=== PATIENT | female | born 1970 | race Caucasian/White ===

== ENCOUNTER 2017-10-05 07:11 | Day surgery (SDC) | payer BC ==
[2017-10-01 16:33] LABS: Absolute Lymphocytes (CBC) 1.5 K/uL (0.7-4.9); Absolute Monocytes 0.4 K/uL (0.1-1.3); Absolute Neutrophil 4.7 K/uL (1.8-8.0); Basophils % 0.9 % (0-1.3); Eosinophils % 2.1 % (0-4.4); Hematocrit 36.1 % (36.0-45.0); Lymphocytes % 21.9 % (15.3-44.8); MCH 23.9 pg (27.0-35.0); MCV 74.6 fL (80-100); Monocytes % 6.4 % (3.3-12.3); RBC Red Blood Cell Count 4.83 M/uL (3.86-4.86)
--- NOTE | 2017-10-01 16:43 | RAD REPORT ---
EXAM DESCRIPTION: RAD - Chest Pa And Lat (2 Views) - 10/01/2017 4:31 pm CLINICAL HISTORY: Preop chest, pending cholecystectomy, abdominal and lower chest pain COMPARISON: May 2017 TECHNIQUE: PA and lateral views of the chest were obtained. FINDINGS: The lungs are clear. Lung markings are similar to comparison. Trachea is midline. Heart s ize is normal and central vasculature is within normal limits. No pleural effusion or pneumothorax s een. No acute bony finding noted. No aortic abnormality. IMPRESSION: No acute cardiopulmonary process. No significant interval change.
[2017-10-01 16:46] LABS: Potassium 3.9 mmol/L (3.5-5.1)
[2017-10-01 16:48] LABS: Albumin 3.9 g/dL (3.4-5.0); Bilirubin Direct 0.1 mg/dL (0-0.2); Bilirubin Total 0.4 mg/dL (0.2-1.0); Protein, Total 8.2 g/dL (6.4-8.2)
--- OUTSIDE RECORDS SUMMARY | 2017-10-05 07:15 | XMS REPORT ---
:1970 Author Organization eClinicalWorks Care Team Providers Name Role Phone Mynor Hummel Provider Role Unavailable Allergies No Known Allergies Problems Problem Type Condition Code Onset Dates Condition Status Problem Recurrent major depressive disorder, F33.41 Active in partial remission Problem Elevated blood pressure reading R03.0 Active without diagnosis of hypertension Problem Acquired hypothyroidism E03.9 Active Problem Glaucoma of both eyes, unspecified H40.9 Active glaucoma type Problem Body mass index (BMI) of 40.0-44.9 Z68.41 Active in adult Problem Sleep disturbance G47.9 Active Medications No Known Medications Results No Known Results Summary Purpose eClinicalWorks Submission
--- OUTSIDE RECORDS SUMMARY | 2017-10-05 07:16 | XMS REPORT ---
:1970 Author Organization eClinicalWorks Care Team Providers Name Role Phone Amara Tracy Provider Role Unavailable Allergies No Known Allergies [...]
--- OUTSIDE RECORDS SUMMARY | 2017-10-05 07:16 | XMS REPORT ---
:1970 Author Organization eClinicalWorks Care Team Providers Name Role Phone Mynor Hummel Provider Role Unavailable Allergies No Known Allergies Problems Problem Type Condition Code Onset Dates Condition Status Assessment Recurrent major depressive disorder, F33.41 Active in partial remission Assessment Body mass index (BMI) of 40.0-44.9 Z68.41 Active in adult Assessment Acquired hypothyroidism E03.9 Active Assessment Encounter for general adult medical Z00.00 Active examination without abnormal findings Problem Recurrent major depressive disorder, F33.41 Active in partial remission Problem Elevated blood pressure reading R03.0 Active without diagnosis of hypertension Problem Acquired hypothyroidism E03.9 Active Problem Glaucoma of both eyes, unspecified H40.9 Active glaucoma type Assessment Elevated blood pressure reading R03.0 Active without diagnosis of hypertension Problem Body mass index (BMI) of 40.0-44.9 Z68.41 Active in adult Problem Sleep disturbance G47.9 Active Medications Medication Code Code Instructions Start End Status Dosage System Date Date Lumigan [facility] 97971224007 0.01 % Active 1 drop Ophthalmic Once into a day affected eye in the evening Combigan [facility] 38155023017 0.2-0.5 % Active 1 drop Ophthalmic into Twice a day affected eye BuPROPion HCl [facility] 13568060044 75 MG Orally Active 1 tablet Once a day Estradiol [facility] 54471676100 0.075 MG/24HR Active 1 patch to Transdermal skin Levothyroxine [facility] [address]-97 200 MCG Orally Active TAKE 1/2 Sodium Once a day TABLET BY MOUTH EVERY DAY Results No Known Results Summary Purpose eClinicalWorks Submission
--- OUTSIDE RECORDS SUMMARY | 2017-10-05 07:16 | XMS REPORT ---
:1970 Author Organization eClinicalWorks Care Team Providers Name Role Phone Amara Tracy Provider Role Unavailable Allergies, Adverse Reactions, Alerts Substance Reaction Event Type N.K.D.A. Info Not Available Non Drug Allergy Problems Problem Type Condition Code Onset Dates Condition Status Assessment Recurrent major depressive F33.41 Active disorder, in partial remission Assessment Wrist pain, right M25.531 Active Assessment Acquired hypothyroidism E03.9 Active Assessment Elevated blood pressure reading R03.0 Active without diagnosis of hypertension Problem Recurrent major depressive F33.41 Active disorder, in partial remission Problem Elevated blood pressure reading R03.0 Active without diagnosis of hypertension Problem Acquired hypothyroidism E03.9 Active Problem Glaucoma of both eyes, unspecified H40.9 Active glaucoma type Assessment Elevated liver function tests R79.89 Active Problem Body mass index (BMI) of 40.0-44.9 Z68.41 Active in adult Problem Sleep disturbance G47.9 Active Medications Medication Code Code Instructions Start End Status Dosage System Date Date Combigan [facility] 23987187903 0.2-0.5 % Active 1 drop into Ophthalmic affected Twice a day eye Lumigan [facility] 53265688436 0.01 % Active 1 drop into Ophthalmic Once affected a day eye in the evening Estradiol ND 19591673672 0.075 MG/24HR Active 1 patch to Transdermal skin BuPROPion HCl [facility] 57259366720 75 MG Orally Active 1 tablet Once a day Levothyroxine [facility] 00514919596 125 MCG Orally Active 1 tablet on Sodium Once a day an empty stomach in the morning Results No Known Results Summary Purpose eClinicalWorks Submission
--- OUTSIDE RECORDS SUMMARY | 2017-10-05 07:16 | XMS REPORT ---
[...] Start End Status Dosage System Date Date Etodolac [facility] 02508105919 300 MG Orally September 14October Active 1 capsule Twice a day 2017 with food 2017 BuPROPion HCl [facility] 17017409633 75 MG Orally September 14 Active 1 tablet Once a day 2017 Results No Known Results Summary Purpose eClinicalWorks Submission
[2017-10-05] MEDS ORDERED: Ringers Lactate 1,000 ML IV ONE (07:20)
[2017-10-05] MEDS ORDERED: PROPOFOL 200 MG/20 ML VIAL IV ONE (08:11)
[2017-10-05] MEDS ORDERED: MIDAZOLAM HCL 2 MG/2 ML INJ ONE (08:12)
[2017-10-05] MEDS ORDERED: BUPIVACAINE 0.5% PF 10 ML VIAL ONE ×2 (08:12→09:34)
[2017-10-05] MEDS ORDERED: GLYCOPYRROLATE 0.2 MG/ML SYR ONE ×2 (08:12→09:33)
[2017-10-05] MEDS ORDERED: LIDOCAINE 2% MPF 5 ML VIAL ONE (08:13)
[2017-10-05] MEDS ORDERED: FENTANYL CITR 250 MCG/5 ML ONE (08:13)
[2017-10-05] MEDS ORDERED: ROCURONIUM 50 MG/5 ML VIAL IV ONE (08:14)
[2017-10-05] MEDS ORDERED: NEOSTIGMINE 1 MG/ML -5 ML SYRINGE ONE (08:15)
[2017-10-05] MEDS ORDERED: CEFOXITIN/SWI 1gm 1 GM/10 ML SYR ONE (08:46)
[2017-10-05] MEDS ORDERED: ONDANSETRON 4 MG/2 ML VIAL ONE ×2 (08:53→11:53)
--- NOTE | 2017-10-05 09:48 | P.BOP ---
Preoperative diagnosis: acute cholecystitis, symptomatic cholelithiasis Postoperative diagnosis: same Primary procedure: Laparoscopic cholecystectomy [place] Consultant: Zehra Mcdonald (Deisi) Estimated blood loss: <10cc Specimen: gb Findings: acute cholecystitis, symptomatic cholelithiasis Anesthesia: General Complications: None Transferred to: Recovery Room Condition: Good
[2017-10-05] MEDS ORDERED: MEPERIDINE HCL 25 MG/0.5 ML ONE (10:16)
[2017-10-05] MEDS ORDERED: CODEINE 30MG/APAP 300MG TAB ONE (11:14)
[2017-10-05 12:01] VITALS: BP 130/80; TEMP 97.5; O2SAT 99
--- NOTE | 2017-10-05 20:42 | OP ---
Date of Procedure: 10/05/2017 Surgeon: Josue Brady MD Jewelry Model Maker: Kaylan Monzon Preoperative Diagnoses: Acute cholecystitis, symptomatic cholelithiasis. Postoperative Diagnoses: Acute cholecystitis, symptomatic cholelithiasis. Procedure: Laparoscopic cholecystectomy. Estimated Blood Loss: Less than 10 cc. Specimen: Gallbladder. Finding: As above. Anesthesia: General plus local. Indication: This is a case of a 46-year-old patient with above diagnosis. Fully explained the benef its, alternatives, and risks of laparoscopic, possible open cholecystectomy, which include, but not l imited to infection, bleeding, damage to adjacent structures, anesthesia complication, choledocholith iasis, bile leak, pancreatitis, [place], and even . She also understands this may not relieve any sy mptoms. She might need more than one surgical intervention. She understood and signed the consent. Description Of Procedure: The patient was brought to the operating room and placed in supine positio n. Anesthesia was done without complication. A time-out was called. Abdomen was prepped and draped in a sterile fashion. Local anesthetic was applied in the infraumbilical region. The patient has a previous scar in that region. Incision was carried down to fascia, which was opened under direct vi yordy. Peritoneum was encountered, opened under direct vision. Vicryl #1 was placed inside the fasci a. Ki trocar was carefully introduced. No was obtained. I placed 3 more trocars, 5 mm each one of them under direct visualization in the right upper quadrant. I put a grasper in the f undus of the gallbladder, noticed the gallbladder wall to be edematous, consistent with acute cholecy stitis. Another grasper was placed in the infundibulum. The gallbladder retracted in the inferolate ral fashion exposing the triangle of Calot and obtaining critical view of safety. The cystic duct an d cystic artery were clearly isolated free circumferentially, and a connection between those and the gallbladder was clearly identified. I proceeded to ligate those by using 3 clips proximal, 1 clip di stal, ligation in middle. Same was done with the cystic artery. No bile leak. No bleeding. The ga llbladder was removed from the liver using Bovie cauterizer and removed from abdominal cavity using a n EndoCatch through the umbilical incision. The area was inspected once again. No bile leak. No bl eeding. Gallbladder fossa is intact. Clips were intact. At that moment, I proceeded to remove the trocars under direct vision. Deflated pneumoperitoneum. Closed the fascia with #1 Vicryl. Irrigate d subcutaneous tissue, closed that with 3-0 chromic and skin in a subcuticular fashion with 3-0 chrom ic and Steri-Strips on top. Sponge count and instrument count were correct. The patient tolerated t he procedure well. The patient was sent to recovery in stable condition. MUNA/SHABBIR Voice ID: [id number] Report ID: [id number]
--- NOTE | 2017-10-06 08:28 | DS ---
Date of Discharge: 10/05/2017 Diagnosis: Acute cholecystitis, symptomatic cholelithiasis. Procedure: Laparoscopic cholecystectomy. Disposition: Home. Activity: As tolerated. No heavy lifting. Followup: Follow up in my office in 1 week. Call for appointment, [phone]. Keep area dry for 48 h ours, then may shower. Keep Steri-Strips intact. Medications: Include Tylenol No. 3 q.4 hours p.r.n. pain and Bactrim DS p.o. b.i.d. MUNA/SHABBIR Voice ID: [id number] Report ID: [id number]
== END 2017-10-05 12:15 | disposition home or self-care (01) ==
LOC: OR 07:11
PROVIDERS: ATTEND Surgery
PROC: 0FT44ZZ Resection of Gallbladder, Percutaneous Endoscopic Approach (ICD-10-PCS; principal; 2017-10-05 08:30)
DX: K80.00 Calculus of gallbladder with acute cholecystitis without obstruction (principal); E07.9 Disorder of thyroid, unspecified; Z80.1 Family history of malignant neoplasm of trachea, bronchus and lung; Z80.8 Family history of malignant neoplasm of other organs or systems
CPT/HCPCS: 36415; 71046; 80048; 80076; 82150; 83690; 85025; 88304; J2175; J2250; J2405; J2710

== ENCOUNTER 2018-09-01 18:01 | Emergency (ER) | payer BC ==
[2018-09-01] MEDS ORDERED: DEXAMETHASONE 4 MG/ML VIAL ONE (19:09)
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
[2018-09-01 21:19] VITALS: TEMP 98.3
[2018-09-01 21:21] VITALS: BP 163/103; O2SAT 95
--- OUTSIDE RECORDS SUMMARY | 2018-09-02 12:35 | XMS REPORT ---
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 Problem Chronic fatigue R53.82 Active Problem Epigastric pain R10.13 Active Problem Body mass index (BMI) of 40.0-44.9 Z68.41 Active in adult Problem Sleep disturbance G47.9 Active Problem Recurrent major depressive disorder, F33.41 Active in partial remission Problem Elevated blood pressure reading R03.0 Active without diagnosis of hypertension Medications Medication Code Code Instructions Start End Status Dosage System Date Date [place] Thyroid [facility] 12986342495 120 MG Orally Feb 17, Active 1 tablet Once a day 2017 on an empty stomach Results No Known Results Summary Purpose eClinicalWorks Submission
--- OUTSIDE RECORDS SUMMARY | 2018-09-02 12:35 | XMS REPORT ---
[...] Start End Status Dosage System Date Date Levothyroxine NDC 47099296715 25 MCG Orally November 02, Active 1 tablet on Sodium Once a day add 2018 an empty to the 125 mcg stomach in daily the morning Pen [place] NDC 0 32G x 4 mm November 02, Active as directed n/s once a day 2018 Results No Known Results Summary Purpose eClinicalSmart Voicemail Submission
--- OUTSIDE RECORDS SUMMARY | 2018-09-02 12:35 | XMS REPORT ---
[...] End Status Dosage System Date Date Combigan [facility] 26747510680 0.2-0.5 % Active 1 drop into Ophthalmic affected Twice a day eye Lumigan [facility] 12404931008 0.01 % Active 1 drop into Ophthalmic Once affected a day eye in the evening Estradiol ND 01155004244 0.075 MG/24HR Active 1 patch to Transdermal skin BuPROPion HCl [facility] 17855290204 75 MG Orally Active 1 tablet Once a day Levothyroxine [facility] 51573740897 125 MCG Orally Active 1 tablet on Sodium Once a day an empty stomach in the morning Results No Known Results Summary Purpose eClinicalWorks Submission
--- OUTSIDE RECORDS SUMMARY | 2018-09-02 12:35 | XMS REPORT ---
[...] End Status Dosage System Date Date Etodolac [facility][NOTE 3] 89038409751 300 MG Orally September 14October Active 1 capsule Twice a day 2017 with food 2017 BuPROPion HCl [facility][NOTE 3] 70219535404 75 MG Orally September 14 Active 1 tablet Once a day 2017 Results No Known Results Summary Purpose eClinicalWorks Submission
--- OUTSIDE RECORDS SUMMARY | 2018-09-02 12:35 | XMS REPORT ---
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
--- OUTSIDE RECORDS SUMMARY | 2018-09-02 12:35 | XMS REPORT ---
:1970 Author Organization eClinicalWorks Care Team Providers Name Role Phone Amara Tracy Provider Role Unavailable Allergies, Adverse Reactions, Alerts Substance Reaction Event Type N.K.D.A. Info Not Available Non Drug Allergy Problems Problem Type Condition Code Onset Dates Condition Status Problem Glaucoma of both eyes, unspecified H40.9 Active glaucoma type Problem Acquired hypothyroidism E03.9 Active Assessment Recurrent major depressive disorder, F33.41 Active in partial remission Assessment Epigastric pain R10.13 Active Assessment Acquired hypothyroidism E03.9 Active Problem [...] Start End Status Dosage System Date Date [place] Thyroid [place] 09868373747 90 MG Orally Feb 17, Active 1 tablet on Once a day 2018 an empty stomach Levothyroxine ND 48027716484 150 MCG Orally Active 1 tablet on Sodium Once a day an empty stomach in the morning Combigan [facility] 89733179666 0.2-0.5 % Active 1 drop into Ophthalmic affected Twice a day eye Estradiol ND 75168133105 0.075 MG/24HR Active 1 patch to Transdermal skin once a week BuPROPion HCl ND 94206973984 75 MG Orally September 14, Active 1 tablet Once a day 2017 Omeprazole ND 21408554744 40 MG Orally Apr 30, Active 1 capsule Once a day 2018 Lumigan ND 25494099134 0.01 % Active 1 drop into Ophthalmic Once affected a day eye in the evening Results Name Result Date Reference Range Unit Abnormality Flag TSH ----TSH 18.72 [id number] mIU/L H Summary Purpose eClinicalWorks Submission
--- OUTSIDE RECORDS SUMMARY | 2018-09-02 12:35 | XMS REPORT ---
:1970 Author Organization eClinicalWorks Care Team Providers Name Role Phone Amara Tracy Provider Role Unavailable Allergies, Adverse Reactions, Alerts Substance Reaction Event Type N.K.D.A. Info Not Available Non Drug Allergy Problems Problem Type Condition Code Onset Dates Condition Status Assessment Recurrent major depressive disorder, F33.41 Active in partial remission Assessment Acquired hypothyroidism E03.9 Active Assessment Body mass index (BMI) of 40.0-44.9 Z68.41 Active in adult Assessment Elevated liver enzymes R74.8 Active Problem Recurrent major depressive disorder, F33.41 [...] Start End Status Dosage System Date Date NovoFine [facility] 84631248359 32G X 6 MM subQ October 30, Active as directed once daily 2017 Levothyroxine ND 27415456288 125 MCG Orally Active 1 tablet on Sodium Once a day an empty stomach in the morning Combigan [facility] 74271299250 0.2-0.5 % Active 1 drop into Ophthalmic affected Twice a day eye Saxenda ND 59095899581 18 MG/3ML October 30Jan 28, Active 3 mg subq Subcutaneous 2017 2017 daily Estradiol ND 98145803047 0.075 MG/24HR Active 1 patch to Transdermal skin BuPROPion HCl ND 75189087008 75 MG Orally September 14, Active 1 tablet Once a day 2017 Lumigan ND 76546957165 0.01 % Active 1 drop into Ophthalmic Once affected a day eye in the evening Results No Known Results Summary Purpose eClinicalWorks Submission
--- NOTE | 2018-09-03 11:31 | RAD REPORT ---
EXAM DESCRIPTION: RAD - Hand Right 3 View - 09/02/2018 11:39 am CLINICAL HISTORY: Right hand pain FINDINGS: No fracture or dislocation is seen. Bones appear somewhat osteoporotic
== END 2018-09-01 21:00 | disposition home or self-care (01) ==
LOC: ER 18:01
DX: S63.601A Unspecified sprain of right thumb, initial encounter (principal); Y93.55 Activity, bike riding; F32.9 Major depressive disorder, single episode, unspecified; E03.9 Hypothyroidism, unspecified
CPT/HCPCS: 96372; 99284

== ENCOUNTER 2019-02-12 14:15 | Emergency (ER) | payer BC ==
--- NOTE | 2019-02-12 15:00 | ER ---
Nurse's Notes [facility] Name: Dee Ruano Age: 48 yrs Sex: Female : 1970 Arrival Date: 02/12/2019 Time: 14:18 Bed 20 Private MD: Diagnosis: Laceration without foreign body of right hand-DISTAL THUMB TIP Presentation: 02/12 14:41 Presenting complaint: Patient states: sliced tip of right thumb off with mandolin, iw can't get bleeding to stop. Transition of care: patient was not received from another setting of care. Onset of symptoms was February 12, 2019. Risk Assessment: Do you want to hurt yourself or someone else? Patient reports no desire to harm self or others. Initial Sepsis Screen: Does the patient meet any 2 criteria? No. Patient's initial sepsis screen is negative. Does the patient have a suspected source of infection? No. Patient's initial sepsis screen is negative. Care prior to arrival: Bleeding of injury controlled. Injury dressed. 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 - Social history:: Smoking status: Patient/guardian denies using tobacco. - Ebola Screening: : Patient negative for fever greater than or equal to 101.5 degrees Fahrenheit, and additional compatible Ebola Virus Disease symptoms Patient denies exposure to infectious person Patient denies travel to an Ebola-affected area in the 21 days before illness onset No symptoms or risks identified at this time. - Family history:: not pertinent. Screenin:10 Abuse screen: Denies threats or abuse. Nutritional screening: No deficits noted. em Tuberculosis screening: No symptoms or risk factors identified. Fall Risk None identified. Assessment: 15:00 General: Appears in no apparent distress. comfortable, Behavior is calm, cooperative. em Pain: Complains of pain in palmar aspect of distal phalanx of right thumb Pain currently is 4 out of 10 on a pain scale. Neuro: Level of Consciousness is awake, alert, obeys commands, Oriented to person, place, time, situation, Appropriate for age. Cardiovascular: Capillary refill < 3 seconds Patient's skin is warm and dry. Respiratory: Airway is patent Respiratory effort is even, unlabored, Respiratory pattern is regular, symmetrical. Derm: Skin is intact, is healthy with good turgor, Skin is pink, warm \T\ dry. Injury Description: Laceration sustained to palmar aspect of distal phalanx of right thumb is clean, superficial, 0.5 to 2.5 cm long, bleeding moderately, was sustained 30-60 minutes ago. a small amount of bleeding noted at this time. Vital Signs: 14:44 BP 154 / 83; Pulse 80; Resp 16; Temp 98.2; Pulse Ox 99% on R/A; Weight 113.4 kg; Height iw 5 ft. 5 in. (165.10 cm); Pain 4/10; 14:44 Body Mass Index 41.60 (113.40 kg, 165.10 cm) iw ED Course: 14:18 Patient arrived in ED. mr 14:38 Kyaw Singer LVN is Primary Nurse. em 14:38 Apolinar Monroe MD is Attending Physician. stefani 14:44 Triage completed. iw 14:44 Arm band placed on. iw 14:58 Josué Jaramillo MD is Referral Physician. stefani 15:10 Patient has correct armband on for positive identification. Bed in low position. Call em light in reach. 15:20 No provider procedures requiring assistance completed. Patient did not have IV access em during this emergency room visit. 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 Exp: em 09/09/2020. Lot #: [id number]. } Route: IM; Site: right deltoid; 15:22 Follow up: Response: No adverse reaction em 15:15 Drug: Neosporin Ointment 1 application Route: Topical; Site: wound; em 15:22 Follow up: Response: No adverse reaction em Outcome: 15:00 Discharge ordered by . stefani 15:20 Discharged to home ambulatory. em 15:20 Condition: good 15:20 Discharge instructions given to patient, Instructed on discharge instructions, follow up and referral plans. medication usage, wound care, Demonstrated understanding of instructions, follow-up care, medications, wound care, Prescriptions given X 1. 15:23 Patient left the ED. em Signatures: Apolinar Monroe MD MD cha Rivera Sujey mr Kyaw Singer, SAGGER PREPARER SAGGER PREPARER Christine Sofia, RN RN iw
--- NOTE | 2019-02-12 15:01 | EDPHYS ---
Physician Documentation [facility] Name: Dee Ruano Age: 48 yrs Sex: Female : 1970 Arrival Date: 02/12/2019 Time: 14:18 Bed 20 Private MD: ED Physician Apolinar Monroe HPI: 02/12 14:53 This 48 yrs old Female presents to ER via Ambulatory with complaints of Thumb stefani laceration. 14:53 The patient or guardian reports a laceration, clean, pain. The complaints affect the stefani right side which is dominant. Context: The problem was sustained at home. Onset: The symptoms/episode began/occurred just prior to arrival. Modifying factors: The symptoms are alleviated by nothing, the symptoms are aggravated by movement. Associated signs and symptoms: The patient has no apparent associated signs or symptoms. Severity of symptoms: At their worst the symptoms were mild, in the emergency department the symptoms are unchanged. The patient has not experienced similar symptoms in the past. 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 - Social history:: Smoking status: Patient/guardian denies using tobacco. - Ebola Screening: : Patient negative for fever greater than or equal to 101.5 degrees Fahrenheit, and additional compatible Ebola Virus Disease symptoms Patient denies exposure to infectious person Patient denies travel to an Ebola-affected area in the 21 days before illness onset No symptoms or risks identified at this time. - Family history:: not pertinent. ROS: 14:53 Constitutional: Negative for fever, chills, and weight loss, Eyes: Negative for injury, stefani pain, redness, and discharge, ENT: Negative for injury, pain, and discharge, Neck: Negative for injury, pain, and swelling, Cardiovascular: Negative for chest pain, palpitations, and edema, Respiratory: Negative for shortness of breath, cough, wheezing, and pleuritic chest pain, Abdomen/GI: Negative for abdominal pain, nausea, vomiting, diarrhea, and constipation, Back: Negative for injury and pain, : Negative for injury, bleeding, discharge, and swelling, Skin: Negative for injury, rash, and discoloration, Neuro: Negative for headache, weakness, numbness, tingling, and seizure, Psych: Negative for depression, anxiety, suicide ideation, homicidal ideation, and hallucinations, Allergy/Immunology: Negative for hives, rash, and allergies, Endocrine: Negative for neck swelling, polydipsia, polyuria, polyphagia, and marked weight changes. 14:53 MS/extremity: Positive for laceration, pain, of the palmar aspect of distal phalanx of right thumb and right thumbnail. Exam: 14:53 Constitutional: This is a well developed, well nourished patient who is awake, alert, stefani and in no acute distress. Head/Face: Normocephalic, atraumatic. Eyes: Pupils equal round and reactive to light, extra-ocular motions intact. Lids and lashes normal. Conjunctiva and sclera are non-icteric and not injected. Cornea within normal limits. Periorbital areas with no swelling, redness, or edema. ENT: Nares patent. No nasal discharge, no septal abnormalities noted. Tympanic membranes are normal and external auditory canals are clear. Oropharynx with no redness, swelling, or masses, exudates, or evidence of obstruction, uvula midline. Mucous membranes moist. Neck: Trachea midline, no thyromegaly or masses palpated, and no cervical lymphadenopathy. Supple, full range of motion without nuchal rigidity, or vertebral point tenderness. No Meningismus. Chest/axilla: Normal chest wall appearance and motion. Nontender with no deformity. No lesions are appreciated. Cardiovascular: Regular rate and rhythm with a normal S1 and S2. No gallops, murmurs, or rubs. Normal PMI, no JVD. No pulse deficits. Respiratory: Lungs have equal breath sounds bilaterally, clear to auscultation and percussion. No rales, rhonchi or wheezes noted. No increased work of breathing, no retractions or nasal flaring. Abdomen/GI: Soft, non-tender, with normal bowel sounds. No distension or tympany. No guarding or rebound. No evidence of tenderness throughout. Back: No spinal tenderness. No costovertebral tenderness. Full range of motion. Skin: Warm, dry with normal turgor. Normal color with no rashes, no lesions, and no evidence of cellulitis. Neuro: Awake and alert, GCS 15, oriented to person, place, time, and situation. Cranial nerves II-XII grossly intact. Motor strength 5/5 in all extremities. Sensory grossly intact. Cerebellar exam normal. Normal gait. Psych: Awake, alert, with orientation to person, place and time. Behavior, mood, and affect are within normal limits. 14:53 Musculoskeletal/extremity: Extremities: noted in the right hand: Vital Signs: 14:44 BP 154 / 83; Pulse 80; Resp 16; Temp 98.2; Pulse Ox 99% on R/A; Weight 113.4 kg; Height iw 5 ft. 5 in. (165.10 cm); Pain 4/10; 14:44 Body Mass Index 41.60 (113.40 kg, 165.10 cm) iw MDM: 14:38 Patient medically screened. [facility] 15:01 Data reviewed: vital signs, nurses notes. 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 Exp: em 09/09/2020. Lot #: [id number]. } Route: IM; Site: right deltoid; 15:22 Follow up: Response: No adverse reaction em 15:15 Drug: Neosporin Ointment 1 application Route: Topical; Site: wound; em 15:22 Follow up: Response: No adverse reaction em Disposition: 02/12/19 15:00 Discharged to Home. Impression: Laceration without foreign body of right hand - DISTAL THUMB TIP. - Condition is Stable. - Discharge Instructions: Laceration Care, Adult, Laceration Care, Adult, [id number]. - Prescriptions for Tylenol- Codeine #3 300-30 mg Oral Tablet - take 2 tablets by ORAL route every 6 hours As needed; 26 tablet. - Medication Reconciliation Form, Thank You Letter, Antibiotic Education, Prescription Opioid Use form. - Follow up: Private Physician; When: 2 - 3 days; Reason: Recheck today's complaints, Continuance of care, Re-evaluation by your physician. Follow up: Josué Jaramillo MD; When: 2 - 3 days; Reason: Recheck today's complaints, Re-evaluation by your physician. - Problem is new. - Symptoms have improved. Signatures: Apolinar Monroe MD MD cha Munoz, Edgar, DYE HOUSE WORKER DYE HOUSE WORKER em Christine Mustafa RN RN iw Corrections: (The following items were deleted from the chart) 15:23 15:00 02/12/2019 15:00 Discharged to Home. Impression: Laceration without foreign body em of right hand - DISTAL THUMB TIP. Condition is Stable. Forms are Medication Reconciliation Form, Thank You Letter, Antibiotic Education, Prescription Opioid Use. Follow up: Private Physician; When: 2 - 3 days; Reason: Recheck today's complaints, Continuance of care, Re-evaluation by your physician. Follow up: Josué Jaramillo; When: 2 - 3 days; Reason: Recheck today's complaints, Re-evaluation by your physician. Problem is new. Symptoms have improved. stefani
[2019-02-12 16:03] VITALS: BP 154/83; TEMP 98.2; O2SAT 99
--- OUTSIDE RECORDS SUMMARY | 2019-02-14 06:18 | XMS REPORT ---
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
--- OUTSIDE RECORDS SUMMARY | 2019-02-14 06:18 | XMS REPORT ---
[...] Start End Status Dosage System Date Date [place] Thyroid ND 07903163900 90 MG Orally Feb 17, Active 1 tablet on Once a day 2018 an empty stomach Levothyroxine ND 18767491839 150 MCG Orally Active 1 tablet on Sodium Once a day an empty stomach in the morning Combigan [facility] 32467102740 0.2-0.5 % Active 1 drop into Ophthalmic affected Twice a day eye Estradiol ND 24370582322 0.075 MG/24HR Active 1 patch to Transdermal skin once a week BuPROPion HCl ND 81415309251 75 MG Orally September 14, Active 1 tablet Once a day 2017 Omeprazole ND 74789636601 40 MG Orally Apr 30, Active 1 capsule Once a day 2018 Lumigan ND 80772735501 0.01 % Active 1 drop into Ophthalmic Once affected a day eye in the evening Results Name Result Date Reference Range Unit Abnormality Flag TSH ----TSH 18.72 [id number] mIU/L H Summary Purpose eClinicalWorks Submission
--- OUTSIDE RECORDS SUMMARY | 2019-02-14 06:18 | XMS REPORT ---
[...] End Status Dosage System Date Date NovoFine [facility] 46461011971 32G X 6 MM subQ October 30, Active as directed once daily 2017 Levothyroxine ND 41127905422 125 MCG Orally Active 1 tablet on Sodium Once a day an empty stomach in the morning Combigan [facility] 80979369882 0.2-0.5 % Active 1 drop into Ophthalmic affected Twice a day eye Saxenda ND 44634591028 18 MG/3ML October 30Jan 28, Active 3 mg subq Subcutaneous 2017 2017 daily Estradiol ND 22772588909 0.075 MG/24HR Active 1 patch to Transdermal skin BuPROPion HCl ND 90694590380 75 MG Orally September 14, Active 1 tablet Once a day 2017 Lumigan ND 89491362520 0.01 % Active 1 drop into Ophthalmic Once affected a day eye in the evening Results No Known Results Summary Purpose eClinicalWorks Submission
--- OUTSIDE RECORDS SUMMARY | 2019-02-14 06:18 | XMS REPORT ---
[...] Start End Status Dosage System Date Date [place] Thyroid [facility] 90653387311 120 MG Orally Feb 17, Active 1 tablet Once a day 2017 on an empty stomach Results No Known Results Summary Purpose eClinicalWorks Submission
--- OUTSIDE RECORDS SUMMARY | 2019-02-14 06:18 | XMS REPORT ---
[...] Status Dosage System Date Date Levothyroxine NDC 42115006853 25 MCG Orally November 02, Active 1 tablet on Sodium Once a day add 2018 an empty to the 125 mcg stomach in daily the morning Pen [place] NDC 0 32G x 4 mm November 02, Active as directed n/s once a day 2018 Results No Known Results Summary Purpose [email or web address] Submission
== END 2019-02-12 15:23 | disposition home or self-care (01) ==
LOC: ER 14:15
DX: S61.011A Laceration without foreign body of right thumb without damage to nail, initial encounter (principal); W27.8XXA Contact with other nonpowered hand tool, initial encounter; Y93.89 Activity, other specified; Y92.009 Unspecified place in unspecified non-institutional (private) residence as the place of occurrence of the external cause; Z23 Encounter for immunization; E03.9 Hypothyroidism, unspecified
CPT/HCPCS: 90471; 99283

== ENCOUNTER 2019-10-17 06:01 | Emergency (ER) | payer BC ==
--- OUTSIDE RECORDS SUMMARY | 2019-10-17 06:05 | XMS REPORT | Continuity of Care Document ---
:1970 Author Organization [facility] t Address [address] [place] [address] Care Team Providers Name Role Phone Travon RAMIREZ Attending Clinician Problems Condition Condition Condition Status Onset Resolution Last Treating Co mments Source Name Details Category Date Date Treatment Clinician Date Recurrent Recurrent Problem Active [facility] - depressive depressive Me moria disorder, disorder, l in partial in partial Ou tpati remission remission ent Clinics Elevated Elevated Problem Active [facility] blood [facility] - pressure pressure Memori a reading reading l without without Outpati diagnosis diagnosis ent of of Clinics hypertensi hypertensi on on Acquired Acquired Problem [facility] hypothyroi hypothyroi Alejandrina kes - dism dism Memoria l Outpati ent Clinics Glaucoma Glaucoma Problem [facility] of both [facility] - eyes, eyes, Memoria unspecifie unspecifie l d glaucoma d glaucoma Ou tpati type type ent Clinics Body mass Body mass Problem Active [facility] index index [facility] - (BMI) of (BMI) of Memori a 40.0-44.9 40.0-44.9 l in adult in adult Outpat i ent Clinics Sleep Sleep Problem Active [facility] disturbanc disturbanc Alejandrina kes - e e [facility] l Outpati ent Clinics Epigastric Epigastric Problem Active [facility] pain pain [facility] - [facility] ent Clinics Asymptomat Asymptomat Problem Active [facility] ic [facility] - 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 ent Clinics Chronic Chronic Problem Active [facility] fatigue fatigue [facility] l [facility] ent Clinics Elevated Elevated Problem Active [facility] Alejandrina kes - rr virus rr virus Memori a antibody antibody l titer titer [facility] ent [facility] Generalize Generalize Problem Active [facility] d edema d edema [facility] ent [facility] Fever, Fever, Problem Active [facility] unspecifie unspecifie Alejandrina kes - d fever d fever Memoria cause cause l [facility] ent [facility] Bronchitis Bronchitis Problem Active [facility] - Memoria l [facility] ent [facility] Allergies, Adverse Reactions, Alerts This patient has no known allergies or adverse reactions. Medications Ordered Filled Start Stop Current Ordering Indication Dosage Frequency Signature Comments Components Source Medication Medication Date Date Medication? Clinician (SIG) Name Name Martin Salazar 2020-0 2020- No Flor [address] [facility] n n 1-20 01-25 [place] one then 1 [facility] - 00:00: 00:00 tab daily Memoria 00 :00 x 4 days l [facility] ent [facility] Hydrochloro Hydrochloro Yes Flor [address] [facility] thiazide thiazide 6-07 [place] in the Luke s - 00:00: morning Memoria 00 l [facility] ent [facility] Omeprazole Omeprazole Yes Flor [address] [facility] [address] 1-25 [facility]ley [facility] - 00:00: Memoria 00 l [facility] ent [facility] 2017-04 Yes Flor [address] [facility] Thyroid Thyroid 1-14 [place] on an [facility] - 00:00: empty Memoria 00 stomach l [facility] ent [facility] BuPROPion BuPROPion Yes Flor [address] [facility] HCl HCl 6-11 [facility] - 00:00: Memoria 00 l [facility] ent [facility] Topiramate Topiramate Yes Flor [address] [facility] l [facility] ent [facility] Combigan Combigan Yes Flor [address] [facility] into [facility] - affected Memoria eye l [facility] ent [facility] Lumigan Lumigan Yes Flor [address] [facility] into [facility] - affected Memoria eye in the l evening [facility] ent Clinics Estradiol Estradiol Yes Flor [address] [facility] [place]ley skin [facility] - Memoria l [facility] ent [facility] Procedures This patient has no known procedures. Encounters Start End Encounter Admission Attending Care Care Encounter Source Date/Time Date/Time Type Type Clinicians Facility Department ID 2019-06-21 2019-06-21 Telephone HEATHER Cool [id number] 00:00:00 00:00:00 Jenny Mcneal [id number] [place] [id number] Professio [id number] [address] 2019-06-16 2019-06-16 Telephone Travon [facility] [id number] 00:00:00 00:00:00 Jenny Fredis [id number] [place] [id number] Professio [phone] [address] 2019-06-16 2019-06-16 [facility] JESUS Cool [id number] 00:00:00 00:00:00 Only Jenny ISELA [id number] [facility] [id number] [facility] 2019-06-15 2019-06-15 Refill Travon [facility] [id number] 00:00:00 00:00:00 Jenny Khanton [id number] [place] [id number] Professio [phone] [address] 2019-06-14 2019-06-14 Telephone Travon [facility] [id number] 00:00:00 00:00:00 Jenny Fredis [id number] [place] [id number] Professio [id number] [address] 2019-06-13 2019-06-13 Telephone Travon [facility] [id number] 00:00:00 00:00:00 Jenny Khanton [id number] [place] [id number] Professio [phone] [address] 2019-06-06 2019-06-06 Office Travon [facility] [id number] 14:03:33 15:19:55 Visit Jenny Mcneal [id number] [place] [id number] [facility] [phone] [address] 2019-06-03 2019-06-03 [facility] [id number] [facility] 11:37:00 11:37:00 [facility] Medicine Outpati ent Clinics 2019-05-13 2019-05-13 [facility] [id number] [address] 14:05:00 14:05:00 [facility] Medicine Outpati ent Clinics 2019-05-11 2019-05-11 [facility] [id number] 16:43:00 16:43:00 [facility] Medicine Outpati ent Clinics 2019-04-29 2019-04-29 [facility] [id number] [address] 15:19:00 15:19:00 [facility] Medicine Outpati ent Clinics 2019-04-25 2019-04-25 [facility] [id number] 14:20:00 14:20:00 [facility] Medicine Outpati ent Clinics 2019-04-20 2019-04-20 [facility] [id number] [address] 14:02:00 14:02:00 [facility] Medicine Outpati ent Clinics 2019-03-25 2019-03-25 [facility] [id number] [address] 13:34:00 13:34:00 [facility] Medicine Outpati ent Clinics 2019-03-24 2019-03-24 [facility] [id number] 10:03:00 10:03:00 [facility] Medicine Outpati ent Clinics 2019-03-23 2019-03-23 [facility] [id number] [address] 12:03:00 12:03:00 [facility] Medicine Outpati ent Clinics 2019-03-08 2019-03-08 [facility] [id number] 16:00:00 16:00:00 t [facility] Medicine Outpati ent Clinics 2018-09-15 2018-09-15 [facility] [id number] 09:27:00 09:27:00 t [facility] Medicine Outpati ent Clinics 2018-08-19 2018-08-19 [facility] [id number] [facility] 21:25:00 21:25:00 t [facility] Medicine Medicine Outpati ent Clinics 2018-08-04 2018-08-04 [facility] [id number] 11:30:00 11:30:00 t [facility] Medicine Outpati ent Clinics 2018-07-13 2018-07-13 [facility] [id number] [address] 08:21:00 08:21:00 t [facility] Medicine Medicine Outpati ent Clinics 2018-05-05 2018-05-05 [facility] [id number] 11:40:00 11:40:00 t [facility] Medicine Outpati ent Clinics 2018-04-30 2018-04-30 [facility] [id number] 09:30:00 09:30:00 t [facility] Medicine Outpati ent Clinics 2017-11-03 2017-11-03 [facility] [id number] 17:08:00 17:08:00 t [facility] Medicine Medicine Outpati ent Clinics 2017-11-02 2017-11-02 [facility] [id number] [address] 17:50:00 17:50:00 t [facility] Medicine Outpati ent Clinics 2017-10-30 2017-10-30 [facility] [id number] 09:30:00 09:30:00 t [facility] Medicine l Medicine Outpati ent Clinics 2017-09-22 2017-09-22 [facility] [id number] 13:41:00 13:41:00 t [facility] Medicine Outpati ent Clinics 2017-09-21 2017-09-21 [facility] [id number] 14:20:00 14:20:00 t [facility] Medicine Outpati ent Clinics 2017-09-15 2017-09-15 [facility] [id number] 11:21:00 11:21:00 t [facility] Medicine Outpati ent Clinics 2017-09-14 2017-09-14 [facility] [id number] 14:36:00 14:36:00 [facility] Medicine Outpati ent Clinics 2017-09-04 2017-09-04 [facility] [id number] 09:30:00 09:30:00 t [facility] Medicine Outpati ent Clinics 2017-08-15 2017-08-15 [facility] [id number] 10:17:00 10:17:00 [facility] Medicine Outpati ent Clinics 2017-08-14 2017-08-14 [facility] [id number] [facility] 09:30:00 09:30:00 t [facility] Medicine Outpati ent Clinics Results This patient has no known results.
[2019-10-17 06:40] LABS: Absolute Lymphocytes (CBC) 0.8 K/uL (0.7-4.9); Basophils % 0.9 % (0-1.3); Hematocrit 41.6 % (36.0-45.0); Lymphocytes % 12.2 % (15.3-44.8); MPV 8.2 fL (7.6-11.3); RBC Red Blood Cell Count 5.12 M/uL (3.86-4.86)
[2019-10-17] MEDS ORDERED: ONDANSETRON 4 MG/2 ML VIAL ONE (06:43)
[2019-10-17] MEDS ORDERED: FAMOTIDINE 20 MG/2 ML VIAL IV ONE (06:45)
[2019-10-17 06:46] LABS: Urine Blood NEGATIVE (NEG); Urine Glucose NEGATIVE (NEG); Urine Protein NEGATIVE (NEG); Urine Specific Gravity 1.025 (1.005-1.030)
[2019-10-17 06:56] LABS: ALT/SGPT 88 U/L (12-78); AST/SGOT 41 U/L (15-37); Alkaline Phosphatase 79 U/L (45-117); BUN Blood Urea Nitrogen 17 mg/dL (7-18); Bicarbonate 22 mmol/L (21-32); Bilirubin Direct 0.2 mg/dL (0-0.2); Bilirubin Total 0.9 mg/dL (0.2-1.0); Glucose Level 133 mg/dL (74-106); Lipase 112 U/L (73-393); Potassium 3.9 mmol/L (3.5-5.1); Sodium Level 138 mmol/L (136-145)
--- NOTE | 2019-10-17 08:02 | RAD REPORT ---
EXAM DESCRIPTION: CT - Abdomen Pelvis W Contrast - 10/17/2019 7:02 am CLINICAL HISTORY: Abdominal pain COMPARISON: 2015 TECHNIQUE: Computed axial tomography of the abdomen pelvis was obtained. 100 cc Isovue-300 was admin istered intravenously. Oral contrast was not requested which limits evaluation of bowel. All CT scans are performed using dose optimization technique as appropriate and may include automated exposure control or mA/KV adjustment according to patient size. FINDINGS: Fatty liver. Cholecystectomy. Small hiatal hernia Spleen, pancreas, adrenal and kidneys appear unremarkable. There is no evidence of diverticulitis. Normal appendix. Small umbilical hernia contains fat. An additional ventral hernia inferior to the umbilicus contains fat. The neck measures 21 millimeters . Mild stranding is present the fat. IMPRESSION: Ventral hernia contains fat. Mild stranding within the fat indicates inflammation.
[2019-10-17 08:16] LABS: Urine Bacteria <20 /HPF (<20); Urine Culture Reflex Order NOT NEEDED; Urine RBC <5 /HPF (NONE SEEN)
[2019-10-17] MEDS ORDERED: KETOROLAC 30 MG/ML INJ ONE (08:22)
--- NOTE | 2019-10-17 08:29 | EDPHYS ---
Physician Documentation [facility] Name: Dee Ruano Age: 48 yrs Sex: Female : 1970 Arrival Date: 10/17/2019 Time: 06:03 Bed 6 Private MD: ED Physician Rasheed Tierney HPI: 10/16 06:10 This 48 yrs old Female presents to ER via EMS with complaints of Abdominal cp Pain. 06:10 The patient presents with abdominal pain in the epigastric area. Onset: The cp symptoms/episode began/occurred this morning, 1.5 hour(s) ago. The symptoms radiate to back. 06:10 Associated signs and symptoms: Pertinent positives: nausea, headache, Pertinent cp negatives: chest pain, constipation, diarrhea, shortness of breath, vomiting. 06:10 The symptoms are described as constant, sharp. Severity of pain: in the emergency cp department the pain is unchanged despite EMS interventions. 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 - Social history:: Smoking status: Patient denies any tobacco usage or history of. Patient uses alcohol, occasionally. Patient/guardian denies using street drugs, IV drugs. ROS: 06:15 Constitutional: Negative for body aches, chills, fever, poor PO intake. cp 06:15 Eyes: Negative for injury, pain, redness, and discharge. cp 06:15 Cardiovascular: Negative for chest pain, edema, palpitations. cp 06:15 Respiratory: Negative for cough, shortness of breath, wheezing. 06:15 Abdomen/GI: Positive for abdominal pain, nausea, Negative for vomiting, diarrhea, cp constipation. 06:15 : Negative for urinary symptoms. 06:15 Neuro: Positive for headache, Negative for altered mental status, weakness. 06:15 All other systems are negative. Exam: 06:20 Constitutional: The patient appears in no acute distress, alert, awake, cp non-diaphoretic, non-toxic, well developed, well nourished, obese. 06:20 Head/Face: Normocephalic, atraumatic. cp 06:20 Eyes: Periorbital structures: appear normal, Conjunctiva: normal, no exudate, no cp injection, Sclera: no appreciated abnormality, Lids and lashes: appear normal, bilaterally. 06:20 ENT: External ear(s): are unremarkable, Nose: is normal, Mouth: Lips: moist, Oral mucosa: pink and intact, moist, Posterior pharynx: is normal, airway is patent, no erythema, no exudate. 06:20 Chest/axilla: Inspection: normal, Palpation: is normal, no crepitus, no tenderness. 06:20 Cardiovascular: Rate: normal, Rhythm: regular. 06:20 Respiratory: the patient does not display signs of respiratory distress, Respirations: normal, no use of accessory muscles, no retractions, labored breathing, is not present, Breath sounds: are clear throughout, no decreased breath sounds. 06:20 Abdomen/GI: Inspection: abdomen appears normal, Bowel sounds: active, all quadrants, cp Palpation: soft, in all quadrants, moderate abdominal tenderness, in the epigastric area, rebound tenderness, is not appreciated, voluntary guarding, is not appreciated, involuntary guarding, is not appreciated. 06:20 Back: ROM is normal. Vital Signs: 06:04 BP 151 / 100; Pulse 81; Resp 18; Temp 98.1; Pulse Ox 100% on R/A; Weight 115.67 kg; mg2 Height 5 ft. 5 in. (165.10 cm); Pain 6/10; 08:08 BP 148 / 95; Pulse 67; Resp 18; Pulse Ox 98% on R/A; ph 06:04 Body Mass Index 42.43 (115.67 kg, 165.10 cm) mg2 MDM: 06:16 Patient medically screened. cp 06:20 Differential diagnosis: appendicitis, bowel obstruction, diverticulitis, pancreatitis, cp Peptic Ulcer Disease, Perf. Duodenal Ulcer, Perf. Gastric Ulcer, Ureterolithiasis, urinary tract infection, choledocholithiasis. 08:27 Data reviewed: vital signs, nurses notes, lab test result(s), radiologic studies, CT cp scan, and as a result, I will discharge patient. 08:27 Counseling: I had a detailed discussion with the patient and/or guardian regarding: the cp historical points, exam findings, and any diagnostic results supporting the discharge/admit diagnosis, lab results, radiology results, to return to the emergency department if symptoms worsen or persist or if there are any questions or concerns that arise at home. Response to treatment: the patient's symptoms have markedly improved after treatment, and as a result, I will discharge patient. 08:27 Special discussion: Based on the patient's Hx, exam, and Dx evaluation, there is no cp indication for emergent surgery or inpatient Tx. It is understood by the patient/guardian that if the Sx's persist or worsen they need to return immediately for re-evaluation. 10/16 06:04 Order name: Basic Metabolic Panel; Complete Time: 07:10 mg2 10/16 07:47 Interpretation: Normal except: CL 108; GLUC 133. cp 10/16 06:04 Order name: CBC with Diff; Complete Time: 06:56 mg2 10/16 06:56 Interpretation: Normal except: RBC 5.12; MCV 81.2; MCH 27.7; AVEL% 80.0; LYM% 12.2. cp 10/16 06:04 Order name: Hepatic Function; Complete Time: 07:10 mg2 10/16 07:47 Interpretation: Normal except: AST 41; ALT 88; GLOB 4.0; A/G 1.0. cp 10/16 06:04 Order name: Lipase; Complete Time: 07:10 mg2 10/16 06:17 Order name: Urine Microscopic Only; Complete Time: 08:24 cp 10/16 08:24 Interpretation: Within normal limits. cp 10/16 06:42 Order name: Urine --Ancillary (enter results); Complete Time: 06:56 tt3 10/16 06:04 Order name: IV Saline Lock; Complete Time: 06:25 mg2 10/16 06:18 Order name: CT Abd/Pelvis - IV Contrast Only; Complete Time: 08:07 cp 10/16 06:42 Order name: Urine Dipstick--Ancillary (enter results); Complete Time: 06:56 tt3 10/16 06:53 Order name: CREATININE WHOLE BLOOD; Complete Time: 06:56 EDMS 10/16 06:04 Order name: Labs collected and sent; Complete Time: 06:25 mg2 10/16 06:17 Order name: Urine Dipstick-Ancillary (obtain specimen); Complete Time: 06:41 cp 10/16 06:17 Order name: Urine Test (obtain specimen); Complete Time: 06:41 cp 10/16 08:08 Order name: PO challenge; Complete Time: 08:42 cp Administered Medications: 06:41 Drug: Pepcid 20 mg Route: IVP; Site: right antecubital; mg2 08:43 Follow up: Response: No adverse reaction ph 06:41 Drug: Zofran (Ondansetron) 4 mg Route: IVP; Site: right antecubital; mg2 08:42 Follow up: Response: No adverse reaction ph 06:42 Drug: NS 0.9% 1000 ml Route: IV; Rate: 1 bolus; Site: right antecubital; mg2 08:42 Follow up: Response: No adverse reaction; IV Status: Completed infusion ph 08:25 Drug: TORadol - Ketorolac 15 mg Route: IVP; Site: right antecubital; ph 08:43 Follow up: Response: No adverse reaction ph Disposition: 16:41 Co-signature as Attending Physician, Rasheed Tierney MD I agree with the assessment and tw4 plan of care. Disposition: 10/17/19 08:29 Discharged to Home. Impression: Epigastric pain. - Condition is Stable. - Discharge Instructions: Abdominal Pain, Adult. - Prescriptions for Protonix 40 mg Oral Tablet, Delayed Release (E.C.) - take 1 tablet by ORAL route once daily As needed; 20 tablet. Zofran 4 mg Oral Tablet - take 1 tablet by ORAL route every 12 hours As needed; 20 tablet. - Work release form, SBAR form, Medication Reconciliation Form, Thank You Letter, Antibiotic Education, Prescription Opioid Use form. - Follow up: Private Physician; When: 2 - 3 days; Reason: Recheck today's complaints. - Problem is new. - Symptoms have improved. Signatures: Dispatcher [employer] Talisha Sepulveda RN RN ph Apolinar Lee PA PA Rasheed Riley MD MD tw4 Damion Delgado RN RN mg2 Corrections: (The following items were deleted from the chart) 08:43 08:29 10/17/2019 08:29 Discharged to Home. Impression: Epigastric pain. Condition is ph Stable. Forms are SBAR form, Medication Reconciliation Form, Thank You Letter, Antibiotic Education, Prescription Opioid Use. Follow up: Private Physician; When: 2 - 3 days; Reason: Recheck today's complaints. Problem is new. Symptoms have improved. cp 10/17 06:10/15 06:10 This 48 yrs old Female presents to ER via EMS with complaints of cp Abdominal Pain. cp 10/17 06:10/15 06:10 The patient presents with abdominal pain in the epigastric area, cp cp 10/17 06:10/15 06:10 Onset: The symptoms/episode began/occurred this morning, 1.5 hour(s) ago, cpcp 10/17 06:10/15 06:10 The symptoms radiate to back, cp cp 10/17 07:10/16 06:10 Associated signs and symptoms: Pertinent positives: nausea, Pertinent cp negatives: chest pain, constipation, diarrhea, shortness of breath, vomiting, cp
--- NOTE | 2019-10-17 08:29 | ER ---
Nurse's Notes [facility] Name: Dee Ruano Age: 48 yrs Sex: Female : 1970 Arrival Date: 10/17/2019 Time: 06:03 Bed 6 Private MD: Diagnosis: Epigastric pain Presentation: 10/16 06:04 Chief complaint: EMS states: she had headache last night and took tylenol at midnight mg2 went to bed and woke up with epigastric pain and and nausea. Coronavirus screen: Proceed with normal triage. Patient denies a cough. Patient denies shortness of breath or difficulty breathing. Patient denies measured and/or subjective temperature greater than 100.4F prior to today's visit. Patient denies travel on a cruise ship or to a country the [facility] currently lists as an affected area. Patient denies contact with known and/or suspected case of COVID-19. Ebola Screen: No symptoms or risks identified at this time. Initial Sepsis Screen: Does the patient meet any 2 criteria? No. Patient's initial sepsis screen is negative. Does the patient have a suspected source of infection? No. Patient's initial sepsis screen is negative. Risk Assessment: Do you want to hurt yourself or someone else? Patient reports no desire to harm self or others. Onset of symptoms was October 17, 2019. 06:04 Method Of Arrival: EMS: [place] [id number] 06:04 Acuity: AMINTA 3 mg2 Triage Assessment: 06:19 General: Appears in no apparent distress. comfortable, Behavior is calm, cooperative. mg2 Pain: Complains of pain in abdomen. EENT: No signs and/or symptoms were reported regarding the EENT system. Neuro: Level of Consciousness is awake, alert, obeys commands, Oriented to person, place, time, situation, Reports headache frontal area, since last night. Cardiovascular: Capillary refill < 3 seconds Patient's skin is warm and dry. Respiratory: Airway is patent Respiratory effort is even, unlabored, Respiratory pattern is regular, symmetrical. GI: Reports epigastric pain, nausea. : No signs and/or symptoms were reported regarding the genitourinary system. Derm: Skin is intact, is healthy with good turgor, Skin is pink, warm \T\ dry. normal. Musculoskeletal: Circulation, motion, and sensation intact. Capillary refill < 3 seconds. 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 - Social history:: Smoking status: Patient denies any tobacco usage or history of. Patient uses alcohol, occasionally. Patient/guardian denies using street drugs, IV drugs. Screenin:24 Abuse screen: Denies threats or abuse. Denies injuries from another. Nutritional mg2 screening: No deficits noted. Tuberculosis screening: No symptoms or risk factors identified. Fall Risk IV access (20 points). Assessment: 06:20 General: see triage assessment. mg2 08:08 Reassessment: Patient appears in no apparent distress at this time. Patient and/or ph family updated on plan of care and expected duration. Pain level reassessed. Patient is alert, oriented x 3, equal unlabored respirations, skin warm/dry/pink. 08:39 Reassessment: Patient appears in no apparent distress at this time. Patient and/or ph family updated on plan of care and expected duration. Pain level reassessed. Patient is alert, oriented x 3, equal unlabored respirations, skin warm/dry/pink. Pt d/c home. Vital Signs: 06:04 BP 151 / 100; Pulse 81; Resp 18; Temp 98.1; Pulse Ox 100% on R/A; Weight 115.67 kg; mg2 Height 5 ft. 5 in. (165.10 cm); Pain 6/10; 08:08 BP 148 / 95; Pulse 67; Resp 18; Pulse Ox 98% on R/A; ph 06:04 Body Mass Index 42.43 (115.67 kg, 165.10 cm) mg2 ED Course: 06:03 Patient arrived in ED. ds1 06:04 Damion Delgado, RN is Primary Nurse. mg2 06:06 Triage completed. mg2 06:06 Arm band placed on. mg2 06:11 Apolinar Lee PA is PHCP. cp 06:11 Rasheed Tierney MD is Attending Physician. cp 06:24 Patient has correct armband on for positive identification. mg2 06:25 No provider procedures requiring assistance completed. Inserted saline lock: 20 gauge mg2 in right antecubital area, using aseptic technique. Blood collected. by SUZIE Tatum. 07:03 CT Abd/Pelvis - IV Contrast Only In Process Unspecified. EDMS 08:41 IV discontinued, intact, bleeding controlled, No redness/swelling at site. Pressure ph dressing applied. Administered Medications: 06:41 Drug: Pepcid 20 mg Route: IVP; Site: right antecubital; mg2 08:43 Follow up: Response: No adverse reaction ph 06:41 Drug: Zofran (Ondansetron) 4 mg Route: IVP; Site: right antecubital; mg2 08:42 Follow up: Response: No adverse reaction ph 06:42 Drug: NS 0.9% 1000 ml Route: IV; Rate: 1 bolus; Site: right antecubital; mg2 08:42 Follow up: Response: No adverse reaction; IV Status: Completed infusion ph 08:25 Drug: TORadol - Ketorolac 15 mg Route: IVP; Site: right antecubital; ph 08:43 Follow up: Response: No adverse reaction ph Outcome: 08:29 Discharge ordered by MD. cp 08:40 Discharged to home ambulatory. ph 08:40 Condition: good 08:40 Discharge instructions given to patient, Instructed on discharge instructions, follow up and referral plans. medication usage, Demonstrated understanding of instructions, follow-up care, medications, Prescriptions given X 2. 08:43 Patient left the ED. ph Signatures: Dispatcher [employer] EDNM Bella Bruce ds1 Talisha Soto RN RN ph Apolinar Lee PA PA cp Gardose, Michele, RN RN mg2
[2019-10-17 10:49] VITALS: BP 148/95; O2SAT 98
== END 2019-10-17 08:43 | disposition home or self-care (01) ==
LOC: ER 06:01
DX: R10.13 Epigastric pain (principal); E03.9 Hypothyroidism, unspecified
CPT/HCPCS: 96361; 85025; 80048; 36415; 81025; 82565; 80076; 83690; 74177; 96375; 96374; 99284; Q9967; J2405; 81003; 81015

== ENCOUNTER 2020-07-26 14:17 | Emergency (ER) | payer OTHER, BC ==
--- OUTSIDE RECORDS SUMMARY | 2020-07-26 14:21 | XMS REPORT | Continuity of Care Document ---
:1970 Author Organization [facility] t Address [address] [place] [address] Care Team Providers Name Role Phone Jesus Orozco DO Attending Clinician Radiology Attending Clinician Unavailable Travon RAMIREZ Attending Clinician Problems This patient has no known problems. Allergies, Adverse Reactions, Alerts This patient has no known allergies or adverse reactions. Medications Ordered Filled Start Stop Current Ordering Indication Dosage Frequency Signature Comments Components Source Medication Medication Date Date Medication? Clinician (SIG) Name Name Metoprolol Metoprolol Yes Flor [address] [facility] Succinate Succinate 7-16 [place] [facility] Ada Ada Yes Flor [address] [facility] Thyroid Thyroid 1-24 [place] [facility]: empty [facility] 00 stomach l [facility] Hydrochloro Hydrochloro Yes Flor [address] [facility] thiazide thiazide 6-07 [place] [facility]: morning [facility] Comblilian Combigan Yes Flor [address] [facility] [place] [facility]ics Lumigan Lumigan Yes Flor [address] [facility] [place] [facility] Estradiol Estradiol Yes Flor [address] [facility] [place] [facility] Procedures This patient has no known procedures. Encounters Start End Encounter Admission Attending Care Care Encounter Source Date/Time Date/Time Type Type Clinicians Facility Department ID 2020-06-21 2020-06-21 Patient ErnestoRUST [id number] 00:00:00 00:00:00 Outreach [facility] PRIMARY [id number] Jesus CARE [id number] B[facility] [id number] 2020-04-27 2020-04-27 Out[facility] [id number] [facility] 2020-04-25 2020-04-25 [facility] Radiology [facility] [id number] 07:53:14 23:59:00 Encounter SPECIALTY [id number] CARE [id number] CENTER AT [id number] [address] 2020-04-16 2020-04-16 [facility] [id number] [facility] 2020-04-11 2020-04-11 [facility] Radiology [facility] [id number] 13:48:55 23:59:00 Encounter SPECIALTY [id number] CARE [id number] CENTER AT [id number] [place] [address] [place] [address] 2020-04-11 2020-04-11 [facility] Radiology [facility] [id number] 13:46:57 13:47:00 Encounter SPECIALTY [id number] CARE [id number] CENTER AT [id number] [address] 2020-03-26 2020-03-26 [facility] [id number] [facility] 2019-12-26 2019-12-26 [facility] [id number] 00:00:00 00:00:00 Jenny Mcneal [id number] [place] [id number] [place] [id number] [address] 2019-10-25 2019-10-25 [facility] [id number] [facility] 10:23:00 10:23:00 [facility] Medicine Outpati ent Clinics 2019-10-20 2019-10-20 [facility] [id number] 11:00:00 11:00:00 [facility] Medicine l Medicine Outpati ent Clinics 2019-06-03 2019-06-03 [facility] [id number] [facility] 11:37:00 11:37:00 [facility] Medicine Outpati ent Clinics 2019-05-13 2019-05-13 [facility] [id number] [facility] 14:05:00 14:05:00 [facility] Medicine Outpati ent Clinics 2019-05-11 2019-05-11 [facility] [id number] 16:43:00 16:43:00 [facility] Medicine Outpati ent Clinics 2019-04-29 2019-04-29 [facility] [id number] 15:19:00 15:19:00 [facility] Medicine Outpati ent Clinics 2019-04-25 2019-04-25 [facility] [id number] [facility] 14:20:00 14:20:00 [facility] Medicine Outpati ent Clinics 2019-04-20 2019-04-20 [facility] [id number] 14:02:00 14:02:00 [facility] Medicine Outpati ent Clinics 2019-03-25 2019-03-25 [facility] [id number] 13:34:00 13:34:00 [facility] Medicine Outpati ent Clinics 2019-03-24 2019-03-24 [facility] [id number] [facility] 10:03:00 10:03:00 [facility] Medicine Outpati ent Clinics 2019-03-23 2019-03-23 [facility] [id number] 12:03:00 12:03:00 [facility] Medicine Outpati ent Clinics 2019-03-08 2019-03-08 [facility] [id number] 16:00:00 16:00:00 [facility] Medicine Outpati ent Clinics 2018-09-15 2018-09-15 [facility] [id number] [address] 09:27:00 09:27:00 [facility] Medicine Outpati ent Clinics 2018-08-19 2018-08-19 [facility] [id number] [facility] 21:25:00 21:25:00 [facility] Medicine Outpati ent Clinics 2018-08-04 2018-08-04 [facility] [id number] [facility] 11:30:00 11:30:00 [facility] Medicine Outpati ent Clinics 2018-07-13 2018-07-13 [facility] [id number] 08:21:00 08:21:00 [facility] Medicine Outpati ent Clinics 2018-05-05 2018-05-05 [facility] [id number] [facility] 11:40:00 11:40:00 [facility] Medicine Outpati ent Clinics 2018-04-30 2018-04-30 [facility] [id number] [facility] 09:30:00 09:30:00 [facility] Medicine Outpati ent Clinics 2017-11-03 2017-11-03 [facility] [id number] [facility] 17:08:00 17:08:00 [facility] Medicine Outpati ent Clinics 2017-11-02 2017-11-02 [facility] [id number] [facility] 17:50:00 17:50:00 [facility] Medicine Outpati ent Clinics 2017-10-30 2017-10-30 [facility] [id number] 09:30:00 09:30:00 [facility] Medicine Outpati ent Clinics 2017-09-22 2017-09-22 [facility] [id number] 13:41:00 13:41:00 [facility] Medicine Outpati ent Clinics 2017-09-21 2017-09-21 [facility] [id number] 14:20:00 14:20:00 [facility] Medicine Outpati ent Clinics 2017-09-15 2017-09-15 [facility] [id number] 11:21:00 11:21:00 t [facility] Medicine Outpati ent Clinics 2017-09-14 2017-09-14 [facility] [id number] 14:36:00 14:36:00 [facility] Medicine Outpati ent Clinics 2017-09-04 2017-09-04 [facility] [id number] 09:30:00 09:30:00 [facility] Medicine Outpati ent Clinics 2017-08-15 2017-08-15 [facility] [id number] 10:17:00 10:17:00 [facility] Medicine Outpati ent Clinics 2017-08-14 2017-08-14 [facility] [id number] 09:30:00 09:30:00 [facility] Medicine Outpati ent Clinics Results This patient has no known results.
--- NOTE | 2020-07-26 15:33 | RAD REPORT ---
EXAM DESCRIPTION: CT - Head Brain W/Wo Con - 07/26/2020 3:22 pm CLINICAL HISTORY: migraine, J J shot;Headache Headache, drowsiness COMPARISON: No comparisons TECHNIQUE: All CT scans are performed using dose optimization technique as appropriate and may inclu de automated exposure control or mA/KV adjustment according to patient size. FINDINGS: No intracranial hemorrhage, hydrocephalus or extra-axial fluid collection.No areas of brai n edema or evidence of midline shift. No pathologic post-contrast enhancement. The paranasal sinuses and mastoids are clear. The calvarium is intact. IMPRESSION: No acute intracranial abnormality. No pathologic post-contrast finding.
--- NOTE | 2020-07-26 15:45 | EDPHYS ---
Physician Documentation [facility] Name: Dee Ruano Age: 49 yrs Sex: Female : 1970 Arrival Date: 07/26/2020 Time: 14:21 Bed 26 Private MD: ED Physician Orlando Alfaro HPI: 07/26 15:01 This 49 yrs old Female presents to ER via Ambulatory with complaints of rn Migraine. 15:01 The patient complains of pain to the whole head. The patient describes the headache as rn aching, throbbing. 15:01 Onset: The symptoms/episode began/occurred 2 day(s) ago. Associated signs and symptoms: rn Pertinent negatives: altered mental status, dizziness, fever, nausea, neck stiffness, paresthesias, rash, vision changes, vision loss, vomiting, weakness, vertigo. Severity of symptoms: At its worst the pain was moderate, "similar to past headaches", in the emergency department the pain is unchanged. The symptoms are alleviated by nothing. the symptoms are aggravated by nothing. The patient has experienced similar episodes in the past. The patient has not recently seen a physician. Reports headache, began 2 days ago, no fever/neck pain/vomiting/injury. Reports similar to previous migraines but has also noticed with this one that she is having memory problems. Still able to work and drive to work. No ataxia. Had J\\T\\J shot 2 weeks ago and wonders if related. Called pcp who sent her here. NO focal neuro complaint.. 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 - Social history:: Smoking status: Patient denies any tobacco usage or history of. - Family history:: not pertinent. - Hospitalizations: : No recent hospitalization is reported. ROS: 15:01 Constitutional: Negative for fever, chills, and weight loss, Eyes: Negative for injury, rn pain, redness, and discharge, Neck: Negative for injury, pain, and swelling, Cardiovascular: Negative for chest pain, palpitations, and edema, Respiratory: Negative for shortness of breath, cough, wheezing, and pleuritic chest pain, Abdomen/GI: Negative for abdominal pain, nausea, vomiting, diarrhea, and constipation, Back: Negative for injury and pain, MS/Extremity: Negative for injury and deformity, Skin: Negative for injury, rash, and discoloration, Neuro: Negative for weakness, numbness, tingling, and seizure. Exam: 15:01 Constitutional: This is a well developed, well nourished patient who is awake, alert, rn and in no acute distress. Ambulatory to room without difficulty or assistance. Head/Face: Normocephalic, atraumatic. Eyes: Pupils equal round and reactive to light, extra-ocular motions intact. Lids and lashes normal. Conjunctiva and sclera are non-icteric and not injected. Cornea within normal limits. Periorbital areas with no swelling, redness, or edema. Neck: Trachea midline, no masses palpated, and no cervical lymphadenopathy. Supple, full range of motion without nuchal rigidity, or vertebral point tenderness. No Meningismus. Cardiovascular: Regular rate and rhythm. No pulse deficits. Respiratory: No increased work of breathing, no retractions or nasal flaring. Skin: Warm, dry with normal turgor. Normal color with no rashes, no lesions, and no evidence of cellulitis. MS/ Extremity: Pulses equal, no cyanosis. Neurovascular intact. Full, normal range of motion. Equal circumference. Neuro: Awake and alert, GCS 15, oriented to person, place, time, and situation.+ right upper and lower facial weakness (states from traumatic ). Motor strength 5/5 in all extremities. Sensory grossly intact. Cerebellar exam normal. Normal gait. Vital Signs: 14:24 BP 154 / 94; Pulse 70; Resp 16 S; Temp 97.6(TE); Pulse Ox 100% on R/A; Weight 113.4 kg; ca1 Height 5 ft. 5 in. (165.10 cm) (R); Pain 0/10; 15:11 BP 142 / 67; Pulse 75; Resp 16; Pulse Ox 100% on R/A; zb 14:24 Body Mass Index 41.60 (113.40 kg, 165.10 cm) ca1 Víctor Coma Score: 15:44 Eye Response: spontaneous(4). Verbal Response: oriented(5). Motor Response: obeys rn commands(6). Total: 15. MDM: 14:31 Patient medically screened. rn 15:44 Differential diagnosis: migraine, tension headache, vasomotor headache, sinus rn thrombosis. Data reviewed: vital signs, nurses notes, radiologic studies, CT scan, and as a result, I will discharge patient. Counseling: I had a detailed discussion with the patient and/or guardian regarding: the historical points, exam findings, and any diagnostic results supporting the discharge/admit diagnosis, radiology results, the need for outpatient follow up, to return to the emergency department if symptoms worsen or persist or if there are any questions or concerns that arise at home. Response to treatment: the patient's symptoms have mildly improved after treatment, and as a result, I will discharge patient. Special discussion: I discussed with the patient/guardian in detail that at this point there is no indication for admission to the hospital. It is understood, however, that if the symptoms persist or worsen the patient needs to return immediately for re-evaluation. Based on the history and exam findings, there is no indication for further emergent testing or inpatient evaluation. I discussed with the patient/guardian the need to see the primary care provider for further evaluation of the symptoms. 07/26 15:37 Order name: CREATININE WHOLE BLOOD [facility] 07/26 14:41 Order name: IV Start; Complete Time: 15:09 rn 07/26 14:41 Order name: CT Head Brain w/wo Con; Complete Time: 15:43 rn Administered Medications: No medications were administered Disposition: 07/26/20 15:44 Discharged to Home. Impression: Migraine. - Condition is Stable. - Discharge Instructions: Migraine Headache. - Medication Reconciliation Form, Thank You Letter, Antibiotic Education, Prescription Opioid Use form. - Follow up: Private Physician; When: As needed; Reason: Recheck today's complaints, Re-evaluation by your physician. - Problem is new. - Symptoms have improved. Signatures: Dispatcher [employer] [facility] Orlando Alfaro MD MD rn Acob, Tawana RN Susana Diana RN RN zb Corrections: (The following items were deleted from the chart) 15:18 15:18 CREATININE, SERUM+C.LAB.BRZ ordered. [facility] 15:52 15:44 07/26/2020 15:44 Discharged to Home. Impression: Migraine. Condition is Stable. zb Forms are Medication Reconciliation Form, Thank You Letter, Antibiotic Education, Prescription Opioid Use. Follow up: Private Physician; When: As needed; Reason: Recheck today's complaints, Re-evaluation by your physician. Problem is new. Symptoms have improved. rn
--- NOTE | 2020-07-26 15:45 | ER ---
Nurse's Notes [facility] Name: Dee Ruano Age: 49 yrs Sex: Female : 1970 Arrival Date: 07/26/2020 Time: 14:21 Bed 26 Private MD: Diagnosis: Migraine Presentation: 07/26 14:24 Chief complaint: Patient states: had a Sujit and Sujit shot 2 weeks ago. I have HX ca1 of migraines. But since yesterday, other than migraines, also have difficulty on focusing and remembering. Denies N/V. Coronavirus screen: Client denies travel out of the [place] in the last 14 days. headache, Client presents with at least one sign or symptom that may indicate coronavirus-19. Standard/surgical mask placed on the client. Provider contacted for isolation considerations. Ebola Screen: Patient negative for fever greater than or equal to 101.5 degrees Fahrenheit, and additional compatible Ebola Virus Disease symptoms Patient denies exposure to infectious person. Patient denies travel to an Ebola-affected area in the 21 days before illness onset. No symptoms or risks identified at this time. Initial Sepsis Screen: Does the patient meet any 2 criteria? No. Patient's initial sepsis screen is negative. Does the patient have a suspected source of infection? No. Patient's initial sepsis screen is negative. Risk Assessment: Do you want to hurt yourself or someone else? Patient reports no desire to harm self or others. Onset of symptoms was July 26, 2020. 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 - Social history:: Smoking status: Patient denies any tobacco usage or history of. - Family history:: not pertinent. - Hospitalizations: : No recent hospitalization is reported. Screenin:10 Abuse screen: Denies threats or abuse. Denies injuries from another. Nutritional zb screening: No deficits noted. Tuberculosis screening: No symptoms or risk factors identified. Fall Risk None identified. Assessment: 14:37 Reassessment: ecp at bedside. zb 15:00 General: Appears in no apparent distress. comfortable, Behavior is calm, cooperative, zb appropriate for age. Pain: Denies pain. Neuro: Level of Consciousness is awake, alert, obeys commands, Oriented to person, place, time, situation, Reports headache frontal area, photophobia. Cardiovascular: Patient's skin is warm and dry. Respiratory: Airway is patent Respiratory effort is even, unlabored, Respiratory pattern is regular, symmetrical. GI: Abdomen is flat, Patient currently denies nausea, vomiting. Derm: Skin is intact, is healthy with good turgor. Musculoskeletal: Capillary refill < 3 seconds, in bilateral fingers. Range of motion: intact in all extremities. 15:46 Reassessment: Patient appears in no apparent distress at this time. Patient and/or zb family updated on plan of care and expected duration. Pain level reassessed. Patient is alert, oriented x 3, equal unlabored respirations, skin warm/dry/pink. ecp at bedside. Reassessment: d/c instructions given. patient ambulatory. gait steady and even. Vital Signs: 14:24 BP 154 / 94; Pulse 70; Resp 16 S; Temp 97.6(TE); Pulse Ox 100% on R/A; Weight 113.4 kg; ca1 Height 5 ft. 5 in. (165.10 cm) (R); Pain 0/10; 15:11 BP 142 / 67; Pulse 75; Resp 16; Pulse Ox 100% on R/A; zb 14:24 Body Mass Index 41.60 (113.40 kg, 165.10 cm) ca1 [place] Coma Score: 15:44 Eye Response: spontaneous(4). Verbal Response: oriented(5). Motor Response: obeys rn commands(6). Total: 15. ED Course: 14:21 Patient arrived in ED. as 14:28 Triage completed. ca1 14:29 Arm band placed on right wrist. ca1 14:31 Orlando Alfaro MD is Attending Physician. rn 14:37 Susana Cross RN is Primary Nurse. zb 15:00 Inserted saline lock: 20 gauge in right antecubital area, using aseptic technique. zb Blood collected. 15:11 Patient has correct armband on for positive identification. Bed in low position. Call zb light in reach. Side rails up X 1. Pulse ox on. NIBP on. Door closed. Noise minimized. 15:23 CT Head Brain w/wo Con In Process Unspecified. EDMS 15:51 No provider procedures requiring assistance completed. IV discontinued, intact, zb bleeding controlled, No redness/swelling at site. Pressure dressing applied. Administered Medications: No medications were administered Outcome: 15:44 Discharge ordered by . rn 15:51 Discharged to home ambulatory. zb 15:51 Condition: stable 15:51 Discharge instructions given to patient, Instructed on discharge instructions, follow up and referral plans. medication usage, Demonstrated understanding of instructions, follow-up care. 15:52 Patient left the ED. zb Signatures: Dispatcher [employer] Janice Wing Roman, MD MD rn Acob, Tawana, RN RN Susana Cruz RN RN zb
[2020-07-26 16:11] VITALS: TEMP 97.6; O2SAT 100
[2020-07-26 16:13] VITALS: BP 142/67
== END 2020-07-26 15:52 | disposition home or self-care (01) ==
LOC: ER 14:17
DX: G43.909 Migraine, unspecified, not intractable, without status migrainosus (principal)
CPT/HCPCS: 82565; 99284

== ENCOUNTER 2020-12-04 07:29 | Emergency (ER) | payer OTHER, BC ==
--- OUTSIDE RECORDS SUMMARY | 2020-12-04 07:31 | XMS REPORT | Continuity of Care Document ---
:1970 Author Organization [facility] t Address [address] [place] [address] Care Team Providers Name Role Phone Jesus [...] [address] [facility] Succinate Succinate 7-16 [place] [facility] ER [facility]: [facility] Crooks Crooks Yes Flor [address] [facility] Thyroid Thyroid 1-24 [place] [facility]: empty [facility] 00 stomach l [facility]pat[facility] ent Clinics Hydrochloro Hydrochloro Yes [place] [address] [facility] thiazide thiazide 6-07 [place] in the [facility] - 00:[facility]: morning [facility] Comblilian Combigan Yes [facility] [address] [facility] [place] [facility]ics Lumigan Lumigan Yes [facility] [address] [facility] [place] [facility] in the l evening Outpati ent Clinics Estradiol Estradiol Yes [facility] [address] [facility] [place] [facility] Procedures This patient has no known procedures. Encounters Start End Encounter Admission Attending Care Care Encounter Source Date/Time Date/Time Type Type Clinicians Facility Department ID 2020-09-24 2020-09-24 Outpatient [facility] [id number] [facility] 2020-09-14 2020-09-14 Outpatient [facility] [id number] [facility] 2020-09-07 2020-09-07 Outpatient [facility] [id number] [facility] 2020-07-31 2020-07-31 Outpatient [facility] [id number] [facility] 2020-06-21 2020-06-21 Patient [place], [facility] [id number] 00:00:00 00:00:00 Outreach [place] PRIMARY [id number] Jesus CARE [id number] [place] [id number] 2020-04-27 2020-04-27 Outpatient [facility] [id number] [facility] 2020-04-25 2020-04-25 [facility] Radiology [facility] [id number] 07:53:14 23:59:00 Encounter SPECIALTY [id number] CARE [id number] CENTER AT [id number] PRISCILA Iesha BISWAS 2020-04-16 2020-04-16 Outpatient [facility] [id number] [facility] 2020-04-11 2020-04-11 [facility]iology [facility] [id number] 13:48:55 23:59:00 Encounter SPECIALTY [id number] CARE [id number] CENTER AT [id number] PRISCILA BISWAS 2020-04-11 2020-04-11 Hospital Radiology [facility] [id number] 13:46:57 13:47:00 Encounter SPECIALTY [id number] CARE [id number] CENTER AT [id number] PRISCILA BISWAS 2020-03-26 2020-03-26 Outpatient [facility] [id number] [facility] Outpat[facility] Clinics 2019-12-26 2019-12-26 [facility] [id number] 00:00:00 00:00:00 Jenny Mcneal [id number] [place] [id number] [facility] [id number] [address] 2019-10-25 2019-10-25 [facility] [id number] 10:23:00 10:23:00 [facility] l Medicine Outpati ent Clinics 2019-10-20 2019-10-20 [facility] [id number] [facility] 11:00:00 11:00:00 [place] [facility] Out[facility] Clinics 2019-06-03 2019-06-03 [facility] [id number] 11:37:00 11:37:00 [facility] Medicine l Medicine Outpati ent Clinics 2019-05-13 2019-05-13 [facility] [id number] [facility] 14:05:00 14:05:00 [place] [facility] Medicine Outpat[facility] ent Clinics 2019-05-11 2019-05-11 [facility] [id number] [facility] 16:43:00 16:43:00 [place] [facility] Medicine Outpati ent Clinics 2019-04-29 2019-04-29 [facility] [id number] 15:19:00 15:19:00 t [facility] Medicine Outpati ent Clinics 2019-04-25 2019-04-25 [facility] [id number] 14:20:00 14:20:00 t [facility] Medicine Outpati ent Clinics 2019-04-20 2019-04-20 [facility] [id number] 14:02:00 14:02:00 t [facility] Medicine Medicine Outpati ent Clinics 2019-03-25 2019-03-25 [facility] [id number] 13:34:00 13:34:00 t [facility] Medicine Outpati ent Clinics 2019-03-24 2019-03-24 [facility] [id number] 10:03:00 10:03:00 t [facility] Medicine Medicine Outpati ent Clinics 2019-03-23 2019-03-23 [facility] [id number] 12:03:00 12:03:00 t [facility] Medicine Outpati ent Clinics 2019-03-08 2019-03-08 [facility] [id number] [facility] 16:00:00 16:00:00 t [facility] Medicine Medicine Outpati ent Clinics 2018-09-15 2018-09-15 [facility] [id number] [facility] 09:27:00 09:27:00 t [facility] Medicine Medicine Outpati ent Clinics 2018-08-19 2018-08-19 [facility] [id number] [facility] 21:25:00 21:25:00 t [facility] Medicine Outpati ent Clinics 2018-08-04 2018-08-04 [facility] [id number] [facility] 11:30:00 11:30:00 t [facility] Medicine Medicine Outpati ent Clinics 2018-07-13 2018-07-13 [facility] [id number] [facility] 08:21:00 08:21:00 t [facility] Medicine Outpati ent Clinics 2018-05-05 2018-05-05 [facility] [id number] [facility] 11:40:00 11:40:00 t [facility] Medicine Outpati ent Clinics 2018-04-30 2018-04-30 [facility] [id number] [facility] 09:30:00 09:30:00 t [facility] Medicine Outpati ent Clinics 2017-11-03 2017-11-03 [facility] [id number] [facility] 17:08:00 17:08:00 [facility] Medicine Outpati ent Clinics 2017-11-02 2017-11-02 [facility] [id number] [facility] 17:50:00 17:50:00 t [facility] Medicine Outpati ent Clinics 2017-10-30 2017-10-30 [facility] [id number] [facility] 09:30:00 09:30:00 t [facility] Medicine Outpati ent Clinics 2017-09-22 2017-09-22 [facility] [id number] 13:41:00 13:41:00 t [facility] Medicine Outpati ent Clinics 2017-09-21 2017-09-21 [facility] [id number] [facility] 14:20:00 14:20:00 t [facility] Medicine Outpati ent Clinics 2017-09-15 2017-09-15 [facility] [id number] [facility] 11:21:00 11:21:00 t [facility] Medicine Outpati ent Clinics 2017-09-14 2017-09-14 [facility] [id number] 14:36:00 14:36:00 t [facility] Outpati ent Clinics 2017-09-04 2017-09-04 Outpatient [facility] [id number] 09:30:00 09:30:00 t [facility] Outpati ent Clinics 2017-08-15 2017-08-15 Outpatient [facility] [id number] 10:17:00 10:17:00 [facility] 2017-08-14 2017-08-14 Outpatient Zoila [facility] [id number] [facility] 09[facility]30:00 09:30:00 [facility] Results This patient has no known results.
[2020-12-04 08:04] LABS: Urine Blood Trace-lysed (Negative); Urine Glucose Negative (Negative); Urine Protein Negative (Negative); Urine Specific Gravity >=1.030 (1.005-1.030); Urine pH 5.5 (5.0-7.0)
[2020-12-04] MEDS ORDERED: ONDANSETRON 4 MG/2 ML VIAL ONE (08:17)
[2020-12-04] MEDS ORDERED: MORPHINE 2 MG/ML SYR ONE (08:17)
[2020-12-04] MEDS ORDERED: NA CHLORIDE 0.9% 1,000 ML ONE (08:18)
[2020-12-04 08:21] LABS: Basophils % 0.8 % (0-1.3); Hematocrit 40.4 % (36.0-45.0); MPV 8.1 fL (7.6-11.3); RBC Red Blood Cell Count 5.05 M/uL (3.86-4.86)
[2020-12-04 08:33] LABS: Albumin 4.1 g/dL (3.4-5.0); Bilirubin Direct 0.2 mg/dL (0-0.2); Bilirubin Total 0.6 mg/dL (0.2-1.0); Potassium 3.9 mmol/L (3.5-5.1); Protein, Total 8.3 g/dL (6.4-8.2)
--- NOTE | 2020-12-04 08:51 | RAD REPORT ---
EXAM DESCRIPTION: CT - Abdomen Pelvis W Contrast - 12/04/2020 8:21 am CLINICAL HISTORY: Abdominal pain COMPARISON: 2019 TECHNIQUE: Computed axial tomography of the abdomen pelvis was obtained. 100 cc Isovue-300 was admin istered intravenously. Oral contrast was not requested which limits evaluation of bowel. All CT scans are performed using dose optimization technique as appropriate and may include automated exposure control or mA/KV adjustment according to patient size. FINDINGS: Fatty liver Cholecystectomy Spleen, pancreas, adrenal and kidneys appear unremarkable. There is no evidence of diverticulitis. Normal appendix. Hysterectomy. Small hiatal hernia Complex periumbilical hernia contains fat and mild stranding. Neck measures approximately 4 centimete rs. Mild thickening of the wall of the hepatic flexure colon. Mild stranding within the adjacent fat IMPRESSION: Mild thickening of the wall of the hepatic flexure colon. Mild stranding within the salome cent fat. This probably indicates a mild colitis Complex periumbilical hernia containing fat and mild stranding.
--- NOTE | 2020-12-04 09:44 | RAD REPORT ---
EXAM DESCRIPTION: Matthew Single View12/04/2020 8:49 am CLINICAL HISTORY: Chest pain COMPARISON: 2017 FINDINGS: The lungs appear clear of acute infiltrate. The heart is normal size IMPRESSION: No acute abnormalities displayed
--- NOTE | 2020-12-04 11:27 | EDPHYS ---
Physician Documentation [facility] Name: Dee Ruano Age: 49 yrs Sex: Female : 1970 Arrival Date: 12/04/2020 Time: : Bed 18 Private MD: SZUIE Physician Apolinar Monroe HPI: 12/04 09:16 This 49 yrs old Female presents to ER via Ambulatory with complaints of stefani Abdominal Pain. 09:16 The patient presents with abdominal pain in the epigastric area, in the upper abdomen. stefani Onset: The symptoms/episode began/occurred last night. The symptoms do not radiate. Associated signs and symptoms: none. The symptoms are described as constant, crampy. Modifying factors: The symptoms are alleviated by nothing, the symptoms are aggravated by nothing. Severity of pain: At its worst the pain was mild this morning, in the emergency department the pain is unchanged. The patient has not experienced similar symptoms in the past. 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 Date received August 2020. - Social history:: Smoking status: Patient denies any tobacco usage or history of. - Family history:: not pertinent. ROS: 09:16 Constitutional: Negative for fever, chills, and weight loss, Eyes: Negative for injury, stefani pain, redness, and discharge, ENT: Negative for injury, pain, and discharge, Neck: Negative for injury, pain, and swelling, Cardiovascular: Negative for chest pain, palpitations, and edema, Respiratory: Negative for shortness of breath, cough, wheezing, and pleuritic chest pain, Back: Negative for injury and pain, : Negative for injury, bleeding, discharge, and swelling, MS/Extremity: Negative for injury and deformity, Skin: Negative for injury, rash, and discoloration, Neuro: Negative for headache, weakness, numbness, tingling, and seizure, Psych: Negative for depression, anxiety, suicide ideation, homicidal ideation, and hallucinations, Allergy/Immunology: Negative for hives, rash, and allergies, Endocrine: Negative for neck swelling, polydipsia, polyuria, polyphagia, and marked weight changes, Hematologic/Lymphatic: Negative for swollen nodes, abnormal bleeding, and unusual bruising. 09:16 Abdomen/GI: Positive for abdominal pain, nausea, vomiting, abdominal cramps, of the epigastric area, right upper quadrant and left upper quadrant. Exam: 09:16 Constitutional: This is a well developed, well nourished patient who is awake, alert, stefani and in no acute distress. Head/Face: Normocephalic, atraumatic. Eyes: Pupils equal round and reactive to light, extra-ocular motions intact. Lids and lashes normal. Conjunctiva and sclera are non-icteric and not injected. Cornea within normal limits. Periorbital areas with no swelling, redness, or edema. ENT: Nares patent. No nasal discharge, no septal abnormalities noted. Tympanic membranes are normal and external auditory canals are clear. Oropharynx with no redness, swelling, or masses, exudates, or evidence of obstruction, uvula midline. Mucous membranes moist. Neck: Trachea midline, no thyromegaly or masses palpated, and no cervical lymphadenopathy. Supple, full range of motion without nuchal rigidity, or vertebral point tenderness. No Meningismus. Chest/axilla: Normal chest wall appearance and motion. Nontender with no deformity. No lesions are appreciated. Cardiovascular: Regular rate and rhythm with a normal S1 and S2. No gallops, murmurs, or rubs. Normal PMI, no JVD. No pulse deficits. Respiratory: Lungs have equal breath sounds bilaterally, clear to auscultation and percussion. No rales, rhonchi or wheezes noted. No increased work of breathing, no retractions or nasal flaring. Back: No spinal tenderness. No costovertebral tenderness. Full range of motion. Skin: Warm, dry with normal turgor. Normal color with no rashes, no lesions, and no evidence of cellulitis. MS/ Extremity: Pulses equal, no cyanosis. Neurovascular intact. Full, normal range of motion. Neuro: Awake and alert, GCS 15, oriented to person, place, time, and situation. Cranial nerves II-XII grossly intact. Motor strength 5/5 in all extremities. Sensory grossly intact. Cerebellar exam normal. Normal gait. Psych: Awake, alert, with orientation to person, place and time. Behavior, mood, and affect are within normal limits. 09:16 ECG was reviewed by the Attending Physician. 09:16 Abdomen/GI: Inspection: abdomen appears normal, Bowel sounds: normal, Palpation: abdomen is soft and non-tender, in the epigastric area, right upper quadrant and left upper quadrant, Liver: no appreciated palpable abnormalities, Hernia: not appreciated. Vital Signs: 07:36 BP 158 / 113; Pulse 85; Resp 23; Temp 98; Pulse Ox 99% ; Weight 117.93 kg; Height 5 ft. jl7 5 in. (165.10 cm); Pain 9/10; 08:07 BP 137 / 77; Pulse 79; Resp 18; Pulse Ox 100% ; Pain 5/10; ch5 10:01 BP 133 / 78; Pulse 79; Resp 18; Pulse Ox 100% ; Pain 2/10; ch5 12:00 BP 128 / 82; Pulse 77; Resp 18; Pulse Ox 100% on R/A; Pain 0/10; ch5 07:36 Body Mass Index 43.27 (117.93 kg, 165.10 cm) jl7 MDM: 07:46 Patient medically screened. [facility] 09:19 Differential diagnosis: bowel obstruction, diverticulitis, gastritis, gastroesophageal stefani reflux disease, myocardia ischemia or infarction, non-specific abd pain, pancreatitis, Peptic Ulcer Disease, Perf. Duodenal Ulcer, Pyelonephritis, Ureterolithiasis, urinary tract infection. Data reviewed: vital signs, nurses notes, lab test result(s), EKG, radiologic studies, CT scan, plain films. Data interpreted: monitor worker: rate is 79 beats/min, rhythm is regular, Pulse oximetry: on room air is 100 %. Test interpretation: by ED physician or midlevel provider: ECG, plain radiologic studies. Counseling: I had a detailed discussion with the patient and/or guardian regarding: the historical points, exam findings, and any diagnostic results supporting the discharge/admit diagnosis, lab results, radiology results. 12/04 07:48 Order name: Basic Metabolic Panel [facility] 12/04 07:48 Order name: CBC with Diff; Complete Time: 11:21 stefani 12/04 07:48 Order name: Hepatic Function; Complete Time: 11:21 [facility] 12/04 07:48 Order name: Lipase; Complete Time: 11:21 [facility] 12/04 07:48 Order name: Urine Culture [facility] 12/04 07:49 Order name: Basic Metabolic Panel; Complete Time: 11:21 [facility] 12/04 07:48 Order name: CT Abd/Pelvis - IV Contrast Only; Complete Time: 11:21 [facility] 12/04 07:50 Order name: Troponin (emerg Dept Use Only); Complete Time: 11:21 [facility] 12/04 07:50 Order name: Chest Single View XRAY; Complete Time: 11:21 [facility] 12/04 08:04 Order name: Urine Dipstick-Ancillary; Complete Time: 11:21 [facility] 12/04 08:28 Order name: CREATININE WHOLE BLOOD [facility] 12/04 07:48 Order name: IV Saline Lock; Complete Time: 07:59 [facility] 12/04 07:48 Order name: Labs collected and sent; Complete Time: 07:59 [facility] 12/04 07:48 Order name: Urine Dipstick-Ancillary (obtain specimen); Complete Time: 08:32 [facility] 12/04 07:50 Order name: EKG; Complete Time: 07:50 [facility] 12/04 07:50 Order name: EKG - Nurse/Tech; Complete Time: 08:32 [facility] EC:16 Rate is 75 beats/min. Rhythm is regular. QRS [place] is Normal. OR interval is normal. QRS stefani interval is normal. QT interval is normal. No Q waves. T waves are Normal. No ST changes noted. Clinical impression: NSR w/ Non-specific ST/T Changes and No evidence of ischemia. Interpreted by me. Reviewed by me. Administered Medications: 08: Drug: NS 0.9% 1000 ml Route: IV; Rate: 1 bolus; Site: right antecubital; ch5 08:46 Follow up: IV Status: Completed infusion ch5 08:07 Drug: morphine 2 mg Route: IVP; Site: right antecubital; ch5 08:46 Follow up: Response: Pain is decreased ch5 08:07 Drug: Zofran (Ondansetron) 4 mg Route: IVP; Site: right antecubital; ch5 08:46 Follow up: Response: No adverse reaction 5 11:54 Drug: Flagyl (metroNIDAZOLE) 500 mg Route: PO; 5 12:00 Follow up: Response: Medication administered at discharge. 5 11:55 Drug: Rocephin (cefTRIAXone) 1 grams Route: IV; Rate: per protocol; Site: right 5 antecubital; 11:59 Follow up: IV Status: Completed infusion 5 11:55 Drug: Cipro (ciprofloxacin) 500 mg Route: PO; [facility] 11:59 Follow up: Response: Medication administered at discharge. [facility] Disposition Summary: 12/04/20 11:26 Discharge Ordered Location: Home setfani Problem: new stefani Symptoms: have improved stefani Condition: Stable stefani Diagnosis - Other specified noninfective gastroenteritis and colitis stefani - Abdominal tenderness [facility] Followup: stefani - With: Private Physician - When: 2 - 3 days - Reason: Recheck today's complaints, Continuance of care, Re-evaluation by your physician Followup: stefani - With: Gaetano Núñez MD - When: 2 - 3 days - Reason: Recheck today's complaints, Continuance of care, Re-evaluation by your physician Discharge Instructions: - Discharge Summary Sheet stefani - Abdominal Pain, Adult stefani - Food Choices to Help Relieve Diarrhea, Adult stefani - Diarrhea, Adult stefani - Abdominal Pain, Adult, [id number] stefani - Colitis [facility] Forms: - Medication Reconciliation Form [facility] - Thank You Letter [facility] - Antibiotic Education [facility] - Prescription Opioid Use [facility] Prescriptions: - Flagyl 500 mg Oral Tablet - take 1 tablet by ORAL route every 8 hours for 10 days; 30 tablet; Refills: 0, [facility] Product Selection Permitted - Pepcid 20 mg Oral Tablet - take 1 tablet by ORAL route every 12 hours for 15 days; 30 tablet; Refills: 0, [facility] Product Selection Permitted - Cipro 500 mg Oral Tablet - take 1 tablet by ORAL route every 12 hours for 10 days; 20 tablet; Refills: 0, [facility] Product Selection Permitted - Zofran 4 mg Oral Tablet - take 1 tablet by ORAL route every 12 hours As needed; 20 tablet; Refills: 0, [facility] Product Selection Permitted - dicyclomine 20 mg Oral Tablet - take 1 tablet by ORAL route 4 times per day; 28 tablet; Refills: 0, Product [facility] Selection Permitted Signatures: Dispatcher [employer] Apolinar Connolly MD MD cha Leal, Jahala, RN RN jl7 Johnny, Christopher, RN RN ch5
--- NOTE | 2020-12-04 11:27 | ER ---
Nurse's Notes [facility] Name: Dee Ruano Age: 49 yrs Sex: Female : 1970 Arrival Date: 12/04/2020 Time: 07: Bed 18 Private MD: Diagnosis: Other specified noninfective gastroenteritis and colitis;Abdominal tenderness Presentation: 12/04 07:36 Chief complaint: Patient states: Diarrhea yesterday afternoon, upper abdominal pain jl7 last night, feels like squeezing/gina around diaphragm, last ate at 1200 yesterday. Coronavirus screen: Vaccine status: Patient reports receiving the 1st dose of the Covid vaccine. J\\T\\J diarrhea, Client presents with at least one sign or symptom that may indicate coronavirus-19. Standard/surgical mask placed on the client. Provider contacted for isolation considerations. Ebola Screen: No symptoms or risks identified at this time. Initial Sepsis Screen: Does the patient meet any 2 criteria? No. Patient's initial sepsis screen is negative. Does the patient have a suspected source of infection? No. Patient's initial sepsis screen is negative. Risk Assessment: Do you want to hurt yourself or someone else? Patient reports no desire to harm self or others. Onset of symptoms was December 03, 2020. 07:36 Method Of Arrival: Ambulatory jl7 07:36 Acuity: AMINTA 3 jl7 Triage Assessment: 07:39 General: Appears in no apparent distress. uncomfortable, Behavior is cooperative, jl7 anxious. Pain: Complains of pain in right upper quadrant and left upper quadrant Pain currently is 9 out of 10 on a pain scale. Is intermittent. Cardiovascular: Patient's skin is warm and dry. Respiratory: Airway is patent Respiratory effort is even, unlabored, Respiratory pattern is regular, symmetrical. GI: Reports upper abdominal pain, diarrhea. : No signs and/or symptoms were reported regarding the genitourinary system. Derm: Skin is pink, warm \\T\\ dry. 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 Date received August 2020. - Social history:: Smoking status: Patient denies any tobacco usage or history of. - Family history:: not pertinent. Screenin:07 Abuse screen: Denies threats or abuse. Denies injuries from another. Nutritional ch5 screening: No deficits noted. Tuberculosis screening: No symptoms or risk factors identified. Fall Risk None identified. Assessment: 08:07 Reassessment: No changes from previously documented assessment. Pain: Complains of pain ch5 in abdomen Pain at worst was 10 out of 10 on a pain scale. GI: Bowel sounds present X 4 quads. Abd is non tender. 09:37 General: Appears in no apparent distress. comfortable. ch5 10:01 Reassessment: Ambulated to bathroom and back. States" I feel beter". 5 Vital Signs: 07:36 BP 158 / 113; Pulse 85; Resp 23; Temp 98; Pulse Ox 99% ; Weight 117.93 kg; Height 5 ft. jl7 5 in. (165.10 cm); Pain 9/10; 08:07 BP 137 / 77; Pulse 79; Resp 18; Pulse Ox 100% ; Pain 5/10; ch5 10:01 BP 133 / 78; Pulse 79; Resp 18; Pulse Ox 100% ; Pain 2/10; ch5 12:00 BP 128 / 82; Pulse 77; Resp 18; Pulse Ox 100% on R/A; Pain 0/10; ch5 07:36 Body Mass Index 43.27 (117.93 kg, 165.10 cm) 7 ED Course: 07:31 Patient arrived in ED. as 07:39 Triage completed. jl7 07:39 Arm band placed on right wrist. jl7 07:46 Apolinar Monroe MD is Attending Physician. [facility] 07:52 Ritesh Turner, HUMBERTO is Primary Nurse. 5 07:59 Inserted saline lock: 20 gauge in right antecubital area, using aseptic technique. mt Blood collected. 08:07 Patient has correct armband on for positive identification. Bed in low position. Call [facility] light in reach. Side rails up X2. 08:07 No provider procedures requiring assistance completed. Inserted. ch5 08:21 CT Abd/Pelvis - IV Contrast Only In Process Unspecified. EDMS 08:49 Chest Single View XRAY In Process Unspecified. EDMS 10:38 Basic Metabolic Panel Sent. ch5 11:26 Gaetano Núñez MD is Referral Physician. [facility] 12:31 No apparent distress. ch5 12:31 intact, No redness/swelling at site. ch5 Administered Medications: 08:07 Drug: NS 0.9% 1000 ml Route: IV; Rate: 1 bolus; Site: right antecubital; ch5 08:46 Follow up: IV Status: Completed infusion ch5 08:07 Drug: morphine 2 mg Route: IVP; Site: right antecubital; ch5 08:46 Follow up: Response: Pain is decreased ch5 08:07 Drug: Zofran (Ondansetron) 4 mg Route: IVP; Site: right antecubital; ch5 08:46 Follow up: Response: No adverse reaction 5 11:54 Drug: Flagyl (metroNIDAZOLE) 500 mg Route: PO; ch5 12:00 Follow up: Response: Medication administered at discharge. ch5 11:55 Drug: Rocephin (cefTRIAXone) 1 grams Route: IV; Rate: per protocol; Site: right ch5 antecubital; 11:59 Follow up: IV Status: Completed infusion ch5 11:55 Drug: Cipro (ciprofloxacin) 500 mg Route: PO; ch5 11:59 Follow up: Response: Medication administered at discharge. 5 Outcome: 11:26 Discharge ordered by . [facility] 11:56 Discharged to home 5 11:56 Condition: stable 11:56 Discharge instructions given to patient, Instructed on discharge instructions, Prescriptions given X 5 12:31 Discharged to home 5 12:31 Condition: good 12:31 Discharge instructions given to patient, Instructed on discharge instructions, follow up and referral plans. Prescriptions given X 5 12:32 Patient left the ED. 5 Signatures: Dispatcher [employer] EDMS Apolinar Monroe MD MD cha Martinez, Amelia as Leal, Jahala, RN RN Reyna Morrison mt, Christopher, RN RN 5
[2020-12-04] MEDS ORDERED: CIPROFLOXACIN HCL 500 MG TAB ONE (12:09)
[2020-12-04] MEDS ORDERED: metroNIDAZOLE 500 MG TABLET ONE (12:09)
[2020-12-04] MEDS ORDERED: CEFTRIAXONE/SWI 1gm 1 GM/10 ML SYR ONE (12:10)
[2020-12-04 12:55] VITALS: TEMP 98
[2020-12-04 12:57] VITALS: O2SAT 100
[2020-12-04 13:00] VITALS: BP 128/82
== END 2020-12-04 12:32 | disposition home or self-care (01) ==
LOC: ER 07:29
DX: K52.89 Other specified noninfective gastroenteritis and colitis (principal); E03.9 Hypothyroidism, unspecified; F32.9 Major depressive disorder, single episode, unspecified
CPT/HCPCS: 93005; 87088; 85025; 87086; 80048; 36415; 82565; 80076; 81003; 84484; 83690; 74177; 71045; Q9967; J2270; J0696; J7030; J2405; 96361; 96374; 96375; 99284

== ENCOUNTER 2021-01-08 08:38 | Emergency (ER) | payer BC, OTHER ==
[2021-01-08] MEDS ORDERED: dexAMETHasone 10 MG/ML VIAL ONE (09:15)
--- NOTE | 2021-01-08 10:05 | ER ---
Nurse's Notes [facility] Name: Dee Ruano Age: 50 yrs Sex: Female : 1970 Arrival Date: 01/08/2021 Time: 08:39 Bed 6 Private MD: Diagnosis: Other complications following infusion, transfusion and therapeutic injection, initial encounter Presentation: 01/08 08:45 Chief complaint: Patient states: injected herself with a Vitamin B12 shot this morning sv to her R mid upper thigh and about an hour later started having numbness to the area and it swelled up. Then the numbness started going down to her R knee area. Coronavirus screen: Vaccine status: Patient reports receiving the 1st dose of the Covid vaccine. J\T\J Client denies travel out of the [place] in the last 14 days. Ebola Screen: No symptoms or risks identified at this time. Risk Assessment: Do you want to hurt yourself or someone else? Patient reports no desire to harm self or others. Onset of symptoms was January 08, 2021. 08:45 Method Of Arrival: Ambulatory sv 08:45 Acuity: AMINTA 3 sv 08:53 Initial Sepsis Screen: Does the patient meet any 2 criteria? No. Patient's initial hb sepsis screen is negative. Does the patient have a suspected source of infection? No. Patient's initial sepsis screen is negative. Historical: - Allergies: 08:47 NKA; sv - Home Meds: 08:53 [place] Thyroid Oral daily [Active]; BuSpar Oral [Active]; hb - PMHx: 08:47 Depression; EBV; Kandis Dobbs Virus; elevated liver enzymes-not supposed to take sv NSAIDS; Hypothyroidism; Migraines; - PSHx: 08:47 Cholecystectomy; Total abdominal hysterectomy; sv - Immunization history:: Adult Immunizations up to date. - Social history:: Smoking status: Patient denies any tobacco usage or history of. - Family history:: not pertinent. - Hospitalizations: : No recent hospitalization is reported. Screenin:44 Abuse screen: Denies threats or abuse. Denies injuries from another. Nutritional hb screening: No deficits noted. Tuberculosis screening: No symptoms or risk factors identified. Fall Risk None identified. Assessment: 08:44 General: Appears in no apparent distress. uncomfortable, Behavior is cooperative, hb anxious. Pain: Pain currently is 7 out of 10 on a pain scale. Neuro: Level of Consciousness is awake, alert, obeys commands, Oriented to person, place, time, situation. Cardiovascular: Patient's skin is warm and dry. Respiratory: Respiratory effort is even, unlabored. 10:02 Reassessment: Patient appears in no apparent distress at this time. Patient and/or hb family updated on plan of care and expected duration. Pain level reassessed. Patient is alert/active/playful, equal unlabored respirations, skin warm/dry/pink. Vital Signs: 08:45 Weight 115.67 kg; Height 5 ft. 5 in. (165.10 cm); Pain 3/10; sv 08:56 BP 172 / 86; Pulse 78; Resp 18; Pulse Ox 98% ; Pain 8/10; ch5 10:02 BP 135 / 84; Pulse 76; Resp 15; Pulse Ox 99% on R/A; hb 08:45 Body Mass Index 42.43 (115.67 kg, 165.10 cm) sv ED Course: 08:39 Patient arrived in ED. ds1 08:43 Orlando Alfaro MD is Attending Physician. rn 08:44 Patient has correct armband on for positive identification. Call light in reach. hb 08:47 Triage completed. sv 08:53 Arm band placed on. hb 08:55 Ritesh Turner RN is Primary Nurse. ch5 08:56 PLACED ICE TO INJECTION SITE. ch5 08:56 No provider procedures requiring assistance completed. ch5 10:11 Patient did not have IV access during this emergency room visit. hb Administered Medications: 08:58 Drug: Decadron (dexamethasone) 10 mg Route: IM; Site: right deltoid; ch5 Outcome: 10:04 Discharge ordered by . rn 10:11 Discharged to home ambulatory. hb 10:11 Condition: stable 10:11 Discharge instructions given to patient, Instructed on discharge instructions, follow up and referral plans. Demonstrated understanding of instructions, follow-up care, medications. 10:11 Patient left the ED. hb Signatures: Ilda Puga RN HUMBERTO BruceBella ds1 Orlando Alfaro MD MD rn Baxter, Heather, RN RN Ritesh Turner RN RN 5
--- NOTE | 2021-01-08 10:05 | EDPHYS ---
Physician Documentation [facility] Name: Dee Ruano Age: 50 yrs Sex: Female : 1970 Arrival Date: 01/08/2021 Time: 08:39 Bed 6 Private MD: ED Physician Orlando Alfaro HPI: 01/08 09:04 This 50 yrs old Female presents to ER via Ambulatory with complaints of rn Allergic Reaction. 09:04 This 50 yrs old Female presents to ER via Ambulatory with complaints of Pain rn after injection. 09:04 The patient presents with pain, that is acute. The complaints affect the right rn quadriceps. Onset: The symptoms/episode began/occurred just prior to arrival. Modifying factors: The symptoms are alleviated by nothing. the symptoms are aggravated by movement, weight bearing. Associated signs and symptoms: Pertinent positives: swelling, Pertinent negatives fever, rash, weakness. Severity of symptoms: At their worst the symptoms were moderate, in the emergency department the symptoms have improved. The patient has not experienced similar symptoms in the past. The patient has not recently seen a physician. Patient reports giving herself a B12 injection in the right quadriceps prior to arrival, gave injection and immediately started to have pain, pain is localized just to the injection area without systemic symptoms. Has done this before and did not have a reaction in the past. Hurts with contraction of the muscle movement of the right lower extremity. No rash or warmth. Feels mild amount of tingling in the injection area.. Historical: - Allergies: 08:47 NKA; sv - Home Meds: 08:53 Ewing Thyroid Oral daily [Active]; BuSpar Oral [Active]; hb - PMHx: 08:47 Depression; EBV; Kandis Dobbs Virus; elevated liver enzymes-not supposed to take sv NSAIDS; Hypothyroidism; Migraines; - PSHx: 08:47 Cholecystectomy; Total abdominal hysterectomy; sv - Immunization history:: Adult Immunizations up to date. - Social history:: Smoking status: Patient denies any tobacco usage or history of. - Family history:: not pertinent. - Hospitalizations: : No recent hospitalization is reported. ROS: 09:04 Constitutional: Negative for fever, chills, and weight loss, Eyes: Negative for injury, rn pain, redness, and discharge, ENT: Negative for injury, pain, and discharge, Cardiovascular: Negative for chest pain, palpitations, and edema, Respiratory: Negative for shortness of breath, cough, wheezing, and pleuritic chest pain, Abdomen/GI: Negative for abdominal pain, nausea, vomiting, diarrhea, and constipation, MS/Extremity: Positive for pain to right anterior thigh Skin: Negative for injury, rash, and discoloration, Neuro: Negative for headache, weakness, and seizure. Exam: 09:04 Constitutional: This is a well developed, well nourished patient who is awake, alert, rn and in no acute distress. Head/Face: Normocephalic, atraumatic. ENT: No stridor Cardiovascular: Regular rate and rhythm. No pulse deficits. Respiratory: No increased work of breathing, no retractions or nasal flaring. Skin: Warm, dry with normal turgor. Normal color with no rashes, no lesions, and no evidence of cellulitis. MS/ Extremity: Pulses equal, no cyanosis. Neurovascular intact. Full, normal range of motion. Equal circumference. No palpable hematoma right anterior thigh, obvious puncture wound without ecchymosis. No crepitus. No active bleeding. Vital Signs: 08:45 Weight 115.67 kg; Height 5 ft. 5 in. (165.10 cm); Pain 3/10; sv 08:56 BP 172 / 86; Pulse 78; Resp 18; Pulse Ox 98% ; Pain 8/10; ch5 10:02 BP 135 / 84; Pulse 76; Resp 15; Pulse Ox 99% on R/A; hb 08:45 Body Mass Index 42.43 (115.67 kg, 165.10 cm) sv MDM: 08:43 Patient medically screened. rn 10:03 Differential diagnosis: Hematoma, bad injection, phlebitis, nerve injury. Data rn reviewed: vital signs, nurses notes, and as a result, I will discharge patient. Counseling: I had a detailed discussion with the patient and/or guardian regarding: the historical points, exam findings, and any diagnostic results supporting the discharge/admit diagnosis, the need for outpatient follow up, to return to the emergency department if symptoms worsen or persist or if there are any questions or concerns that arise at home. Response to treatment: the patient's symptoms have markedly improved after treatment, and as a result, I will discharge patient. Special discussion: I discussed with the patient/guardian in detail that at this point there is no indication for admission to the hospital. It is understood, however, that if the symptoms persist or worsen the patient needs to return immediately for re-evaluation. ED course: Patient was stable vital signs, feels better, recommend more lateral injection next time if continues injections. Return precautions given and understood.. Administered Medications: 08:58 Drug: Decadron (dexamethasone) 10 mg Route: IM; Site: right deltoid; ch5 Disposition Summary: 01/08/21 10:04 Discharge Ordered Location: Home rn Problem: new rn Symptoms: have improved rn Condition: Stable rn Diagnosis - Other complications following infusion, transfusion and therapeutic injection, rn initial encounter Followup: rn - With: Private Physician - When: As needed - Reason: Recheck today's complaints, Re-evaluation by your physician Discharge Instructions: - Discharge Summary Sheet rn - Post-Injection Inflammatory Reaction rn - Intramuscular Injection Instructions Using a Syringe and Vial, Adult rn Forms: - Medication Reconciliation Form rn - Thank You Letter rn - Antibiotic rn training - Prescription Opioid Use rn Signatures: Ilda Puga, RN RN Orlando Pretty MD MD rn Baxter, Heather RN Ritesh Harkins RN RN ch5
[2021-01-08 10:21] VITALS: BP 135/84; O2SAT 99
== END 2021-01-08 10:11 | disposition home or self-care (01) ==
LOC: ER 08:38
DX: T80.89XA Other complications following infusion, transfusion and therapeutic injection, initial encounter (principal); E03.9 Hypothyroidism, unspecified; F32.A Depression, unspecified
CPT/HCPCS: 96372; 99283; J1100

== ENCOUNTER 2021-12-05 11:42 | Emergency (ER) | payer BC, OTHER ==
--- OUTSIDE RECORDS SUMMARY | 2021-12-05 11:46 | XMS REPORT | Continuity of Care Document ---
:1970 Author Organization [facility] t Address [address] [place] [address] Care Team Providers Name Role Phone Perkins, Janis Attending Clinician Unavailable Flor Tracy Attending Clinician Unavailable Adelso Orozco DO Attending Clinician Radiology Attending Clinician Unavailable RADIOLOGY Attending Clinician Unavailable Rochelle Cook MD Attending Clinician ROCHELLE COOK Attending Clinician Unavailable Doctor Unassigned, [place] Attending Clinician Unavailable Payers Payer Name Policy Type Policy Number Effective Date Expiration Date S ource Problems This patient has no known problems. Allergies, Adverse Reactions, Alerts Allergy Allergy Status Severity Reaction(s) Onset Inactive Treating Comm ents Source Name Type Date Date Clinician NO KNOWN Drug Active Univers ALLERGIE Class ity of [facility] Social History Social Habit Start Date Stop Date Quantity Comments Source Exposure to Not sure [facility] SARS-CoV-2 (event) Medica l Branch Sex Assigned At [birth year] [place] [facility] 00:00:00 00:00:00 Medical Branch Smoking Status Start Date Stop Date Source Unknown if ever smoked [facility] Medications Ordered Filled Start Stop Current Ordering Indication Dosage Frequency Signature Comments Components Source Medication Medication Date Date Medication? Clinician (SIG) Name Name HUDDY Yes [id number] TAKE 1 Univ ers THYROID 90 9-21 TABLET BY ity of mg tablet 00:00: MOUTH [place] 00 EVERY Medical MORNING IN Branch ADDITION TO 60 MG TAB FOR TOTAL DAILY DOSE OF 150 MG PER DAY Yes [id number] TAKE 1 Univ ers THYROID 60 9-21 TABLET BY ity of mg tablet 00:00: MOUTH [place] 00 EVERY Medical MORNING IN Branch ADDITION TO 90 MG TAB FOR TOTAL DAILY DOSE OF 150 MG PER DAY Yes [id number] TAKE 1 Univ ers THYROID 90 9-21 TABLET BY ity of mg tablet 00:00: MOUTH [place] 00 EVERY Medical MORNING IN Branch ADDITION TO 60 MG TAB FOR TOTAL DAILY DOSE OF 150 MG PER DAY HUDDY Yes [id number] TAKE 1 Univ ers THYROID 60 9-21 TABLET BY ity of mg tablet 00:00: MOUTH [place] 00 EVERY Medical MORNING IN Branch ADDITION TO 90 MG TAB FOR TOTAL DAILY DOSE OF 150 MG PER DAY Yes [id number] TAKE 1 Univ ers THYROID 90 9-21 TABLET BY ity of mg tablet 00:00: MOUTH [place] 00 EVERY Medical MORNING IN Branch ADDITION TO 60 MG TAB FOR TOTAL DAILY DOSE OF 150 MG PER DAY HUDDY Yes [id number] TAKE 1 Univ ers THYROID 60 9-21 TABLET BY ity of mg tablet 00:00: MOUTH [place] 00 EVERY Medical MORNING IN Branch ADDITION TO 90 MG TAB FOR TOTAL DAILY DOSE OF 150 MG PER DAY HUDDY Yes [id number] TAKE 1 Univ ers THYROID 90 9-21 TABLET BY ity of mg tablet 00:00: MOUTH [place] 00 EVERY Medical MORNING IN Branch ADDITION TO 60 MG TAB FOR TOTAL DAILY DOSE OF 150 MG PER DAY [facility] Yes [id number] TAKE 1 Univ ers THYROID 60 9-21 TABLET BY ity of mg tablet 00:00: MOUTH [place] 00 EVERY Medical MORNING IN Branch ADDITION TO 90 MG TAB FOR TOTAL DAILY DOSE OF 150 MG PER DAY Yes [id number] TAKE 1 Univ ers THYROID 90 9-21 TABLET BY ity of mg tablet 00:00: MOUTH [place] 00 EVERY Medical MORNING IN Branch ADDITION TO 60 MG TAB FOR TOTAL DAILY DOSE OF 150 MG PER DAY Yes [id number] TAKE 1 Univ ers THYROID 60 9-21 TABLET BY ity of mg tablet 00:00: MOUTH [place] 00 EVERY Medical MORNING IN Branch ADDITION TO 90 MG TAB FOR TOTAL DAILY DOSE OF 150 MG PER DAY ARMOUR Yes [id number] TAKE 1 Univ ers THYROID 90 9-21 TABLET BY ity of mg tablet 00:00: MOUTH [place] 00 EVERY Medical MORNING IN Branch ADDITION TO 60 MG TAB FOR TOTAL DAILY DOSE OF 150 MG PER DAY ARMOUR Yes [id number] TAKE 1 Univ ers THYROID 60 9-21 TABLET BY ity of mg tablet 00:00: MOUTH [place] 00 EVERY Medical MORNING IN Branch ADDITION TO 90 MG TAB FOR TOTAL DAILY DOSE OF 150 MG PER DAY Metoprolol Metoprolol Yes Flor 1 tablet Common Succinate Succinate 7-16 [place] Spir it ER ER 00:00: - [facility] 00 [facility] Thyroid, 0 2020- No 180mg Take 180 Uni vers Pork, 180 3-17 03-17 mg by ity of mg tablet 14:59: 00:00 mouth [place] 50 :00 daily. Medical [facility] Yes [id number] 60mg Take 1 Univ ers THYROID 60 3-17 tablet by ity of mg tablet 00:00: mouth [place] 00 every Medical morning. Branch In addition to 90 mg to make it 150 mg total HUDDY Yes [id number] 90mg Take 1 Univ ers THYROID 90 3-17 tablet by ity of mg tablet 00:00: mouth [place] 00 daily. In Medical addition Branch to 60 mg to make it [address] [facility] 2020- No [id number] 60mg Take 1 Uni vers THYROID 60 3-17 09-21 tablet by ity of mg tablet 00:00: 00:00 mouth [place] 00 :00 every Medical morning. Branch In addition to 90 mg to make it [address] [facility] 2020- No [id number] 90mg Take 1 Uni vers THYROID 90 3-17 09-21 tablet by ity of mg tablet 00:00: 00:00 mouth [place] 00 :00 daily. In Medical addition Branch to 60 mg to make it 150 mg total ARMOUR 2020- No [id number] 60mg Take 1 Uni vers THYROID 60 3-17 09-21 tablet by ity of mg tablet 00:00: 00:00 mouth [place] 00 :00 every Medical morning. Branch In addition to 90 mg to make it 150 mg total ARMOUR 2020-0 2020- No [id number] 90mg Take 1 Uni vers THYROID 90 17 12-25 tablet by ity of mg tablet 00:00: 00:00 mouth [place] 00 :00 daily. In Medical addition Branch to 60 mg to make it 150 mg total dexAMETHaso 2020-0 2020- No [id number] 1mg Take 1 Univers ne 1 mg 06-1412 104 tablet by ity of tablet 00:00: 04:59 [place] :[place] now for 1 Medical dose. DX: Branch E66.01 dexAMETHaso 2020-0 2020- No [id number] 1mg Take 1 Univers ne 1 mg 06-12 104 tablet by ity of tablet 00:00: 04:59 [place] 00 :[place] now for 1 Medical dose. Branch ESTRADIOL 2020-0 Yes .075mg Apply Unive rs TRANSDERMAL 3-02 0.075 mg ity of PATCH 21:03: to skin [place] TRANSDERMAL 40 weekly. Medic al Branch ESTRADIOL 2020-0 Yes .075mg Apply Unive rs TRANSDERMAL 3-02 0.075 mg ity of PATCH 21:03: to skin [place] TRANSDERMAL 40 weekly. Medic al Branch ESTRADIOL 2020-0 Yes .075mg Apply Unive rs TRANSDERMAL 3-02 0.075 mg ity of PATCH 21:03: to skin [place] TRANSDERMAL 40 weekly. Medic al Branch ESTRADIOL 2020-0 Yes .075mg Apply Unive rs TRANSDERMAL 3-02 0.075 mg ity of PATCH 21:03: to skin [place] TRANSDERMAL 40 weekly. Medic al Branch ESTRADIOL 2020-0 Yes .075mg Apply Unive rs TRANSDERMAL 3-02 0.075 mg ity of PATCH 21:03: to skin [place] TRANSDERMAL 40 weekly. Medic al Branch ESTRADIOL 2020-0 Yes .075mg Apply Unive rs TRANSDERMAL 3-02 0.075 mg ity of PATCH 21:03: to skin [place] TRANSDERMAL 40 weekly. Medic al Branch ESTRADIOL 2020-0 Yes .075mg Apply Unive rs TRANSDERMAL 3-02 0.075 mg ity of PATCH 21:03: to skin [place] TRANSDERMAL 40 weekly. Medic al Branch ESTRADIOL 2020-0 Yes .075mg Apply Unive rs TRANSDERMAL 3-02 0.075 mg ity of PATCH 21:03: to skin [place] TRANSDERMAL 40 weekly. Medic al Branch ESTRADIOL 2020-0 Yes .075mg Apply Unive rs TRANSDERMAL 3-02 0.075 mg ity of PATCH 21:03: to skin [place] TRANSDERMAL 40 weekly. Medic al Branch ESTRADIOL 2020-0 Yes .075mg Apply Unive rs TRANSDERMAL 3-02 0.075 mg ity of PATCH 21:03: to skin [place] TRANSDERMAL 40 weekly. [facility] al Branch ESTRADIOL 2020-0 Yes .075mg Apply Unive rs TRANSDERMAL 3-02 0.075 mg ity of PATCH 21:03: to skin [place] TRANSDERMAL 40 weekly. Medic al Branch ESTRADIOL 2020-0 Yes .075mg Apply Unive rs TRANSDERMAL 3-02 0.075 mg ity of PATCH 21:03: to skin [place] TRANSDERMAL 40 weekly. [facility] al Branch ESTRADIOL 2020-0 Yes .075mg Apply Unive rs TRANSDERMAL 3-02 0.075 mg ity of PATCH 21:03: to skin [place] TRANSDERMAL 40 weekly. [facility] Branch ESTRADIOL 2020-0 Yes .075mg Apply Unive rs TRANSDERMAL 3-02 0.075 mg ity of PATCH 21:03: to skin [place] TRANSDERMAL 40 weekly. [facility] Branch Thyroid, 2019-0 Yes 180mg Take 180 Univ ers Pork, 180 3-02 mg by ity of mg tablet 21:03: mouth [place] 05 daily. Medical Branch Thyroid, 2020-0 Yes 180mg Take 180 Univ ers P[place], 180 3-02 mg by ity of mg tablet 21:03: mouth [place] 05 daily. Medical Branch Thyroid, 2020-0 Yes 180mg Take 180 Univ ers Pork, 180 3-02 mg by ity of mg tablet 21:03: mouth [place] 05 daily. Medical Branch Thyroid, 2020-0 Yes 180mg Take 180 Univ ers Pork, 180 3-02 mg by ity of mg tablet 21:03: mouth [place] 05 daily. Medical Branch Thyroid, 2020-0 Yes 180mg Take 180 Univ ers [place], 180 3-02 mg by ity of mg tablet 21:03: mouth [place] 05 daily. Medical Branch Thyroid, 2020-0 Yes 180mg Take 180 Univ ers P[place], 180 3-02 mg by ity of mg tablet 21:03: mouth [place] 05 daily. Medical Branch Thyroid, 2020-0 Yes 180mg Take 180 Univ ers [place], 180 3-02 mg by ity of mg tablet 21:03: mouth [place] 05 daily. Medical Branch dexAMETHaso 2019-0 2020- No [id number] 1mg Take 1 Univers ne 1 mg 3-05 09- 104 tablet by ity of tablet 00:00: 05:59 [place] :[place] now for 1 Medical dose. Branch dexAMETHaso 0 2020- No [id number] 1mg Take 1 Univers ne 1 mg 3-05 09- 104 tablet by ity of tablet 00:00: 05:59 [place] 00 :[place] now for 1 Medical dose. Branch Ector Ector Yes Flor 1 tablet Comm on Thyroid Thyroid 1-24 [place] on an Spirit 00:00: empty - [facility]I 00 stomach [facility] Hydrochloro Hydrochloro 2018-0 Yes Flor 1 tablet Common thiazide thiazide 6-07 [place] in the Spir it 00:00: morning - [facility] 00 [facility] Combigan Combigan Yes Flor 1 drop Comm on [place] into Spirit affected - CHI eye [facility] Lumigan Lumigan Yes Flor 1 drop Common [place] into Spirit affected - [facility] eye in the [facility] Estradiol Estradiol Yes Flor 1 patch to Common [place] skin [facility]I [facility] Vital Signs Vital Name Observation Time Observation Value Comments Source Systolic blood 2019-06-06 20:42:00 138 mm[Hg] [facility] Diastolic blood 2019-06-06 20:42:00 78 mm[Hg] [facility] Heart rate 2019-06-06 20:42:00 76 /min [facility] Respiratory rate 2019-06-06 20:40:00 16 /min [facility] Body height 2019-06-06 20:40:00 165.1 cm [facility] Body weight 2019-06-06 20:40:00 117.028 kg [facility] BMI 2019-06-06 20:40:00 42.93 kg/m2 [facility] Procedures Procedure Date / Time Performing Clinician Source Performed BI US GUIDED CORE BREAST 2020-04-25 14:43:00 Requisition, Paper [facility] BIOPSY [facility] BI ULTRASOUND BREAST 2020-04-11 22:24:00 Flor Tracy [facility] COMPLETE RIGHT [facility] BI DIAGNOSTIC 2020-04-11 21:15:00 Flor Tracy [facility] TOMOSYNTHESIS BILATERAL [facility] Branch T3, TOTAL-Q 2019-06-16 13:13:00 Rochelle Cook [facility] T-4, FREE-Q 2019-06-16 13:13:00 Rochelle Cook [facility] TSH, 3RD GENERATION-Q 2019-06-16 13:13:00 Rochelle Cook [facility] Encounters Start End Encounter Admission Attending Care Care Encounter Source Date/Time Date/Time Type Type Clinicians Facility Department ID 2021-11-27 Outpatient Perkins, STLMLC STLMLC [id number] Common 09:55:00 Janis [facility] 2021-11-13 Outpatient Perkins, STLMLC STLMLC [id number] Common 15:38:00 Janis [facility] 2021-09-26 Outpatient Perkins, STLMLC STLMLC [id number] Common 10:57:00 Janis [facility] 2021-06-21 Outpatient Perkins, STLMLC STLMLC [id number] Common 13:20:00 Janis [facility] 2021-05-01 Outpatient Perkins, STLMLC STLMLC [id number] Common 14:39:57 Janis [facility] 2021-05-01 Outpatient Perkins, STLMLC STLMLC [id number] Common 14:22:21 Janis [id number] [facility] 2021-05-01 Outpatient Perkins, STLMLC STLMLC [id number] Common 14:16:16 Janis 25486 [facility] 2021-05-01 Outpatient [place], STLMLC STLMLC [id number] Common 11:01:46 Flor [id number] [facility] 2021-11-29 2021-11-29 ambulatory STLMLC STLMLC [id number] Common 00:00:00 00:00:00 [facility] 2021-11-11 2021-11-11 ambulatory STLMLC STLMLC [id number] Common 00:00:00 00:00:00 [facility] 2021-11-01 2021-11-01 ambulatory STLMLC STLMLC [id number] Common 00:00:00 00:00:00 [facility] 2021-10-24 2021-10-24 ambulatory STLMLC STLMLC [id number] Common 00:00:00 00:00:00 [facility] 2021-10-14 2021-10-14 ambulatory STLMLC STLMLC [id number] Common 00:00:00 00:00:00 [facility] 2021-09-30 2021-09-30 ambulatory STLMLC STLMLC [id number] Common 00:00:00 00:00:00 [facility] 2021-08-29 2021-08-29 ambulatory STLMLC STLMLC [id number] Common 00:00:00 00:00:00 [facility] 2021-07-30 2021-07-30 ambulatory STLMLC STLMLC [id number] Common 00:00:00 00:00:00 [facility] 2021-07-29 2021-07-29 ambulatory STLMLC STLMLC [id number] Common 00:00:00 00:00:00 [facility] 2021-07-01 2021-07-01 ambulatory STLMLC STLMLC [id number] Common 00:00:00 00:00:00 [facility] 2021-04-29 2021-04-29 ambulatory STLMLC STLMLC [id number] Common 00:00:00 00:00:00 [facility] 2021-04-08 2021-04-08 ambulatory STLMLC STLMLC [id number] Common 00:00:00 00:00:00 [facility] 2021-04-04 2021-04-04 ambulatory STLMLC STLMLC [id number] Common 00:00:00 00:00:00 [facility] 2021-04-04 2021-04-04 ambulatory STLMLC STLMLC [id number] Common 00:00:00 00:00:00 [facility] 2021-03-15 2021-03-15 ambulatory STLMLC STLMLC [id number] Common 00:00:00 00:00:00 [facility] 2020-09-24 2020-09-24 Outpatient STLMLC STLMLC [id number] Common 00:00:00 00:00:00 [facility] 2020-09-14 2020-09-14 Outpatient STLMLC STLMLC [id number] Common 00:00:00 00:00:00 [facility] 2020-09-07 2020-09-07 Outpatient STLMLC STLMLC [id number] Common 00:00:00 00:00:00 [facility] 2020-07-31 2020-07-31 Outpatient STLMLC STLMLC [id number] Common 00:00:00 00:00:00 [facility] 2020-06-21 2020-06-21 Patient Ernesto, [facility] [id number] Univers 00:00:00 00:00:00 Outreach Adelso PRIMARY [id number] i ty of [id number] [facility] [id number] Hi dical 388 Branch 2020-06-21 2020-06-21 Patient Ernesto [facility] 1.2.840.114 [id number] 00:00:00 00:00:00 Outreach Adelso PRIMARY [id number] Jesus CARE [id number] PAVILLION [id number] 2020-04-27 2020-04-27 Outpatient STLMLC STLMLC [id number] Common 00:00:00 00:00:00 [facility] 2020-04-25 2020-04-25 Hospital Radiology [facility] [id number] Univers 07:53:14 23:59:00 Encounter SPECIALTY [id number] ity of C[id number] [place] [id number] Hi tulio Julian [facility] 2020-04-25 2020-04-25 [facility] Radiology [facility] 1.2.840.114 [id number] 07:53:14 23:59:00 Encounter SPECIALTY [id number] CARE [id number] CENTER AT [id number] PRISCILA Julian [facility] 2020-04-25 2020-04-25 Outpatient R RADIOLOGY [facility] [id number] Univers 00:00:00 00:00:00 [id number] ity [facility] 2020-04-25 2020-04-25 Outpatient R RADIOLOGY [facility] [id number] Univers 00:00:00 00:00:00 ity [facility] 2020-04-16 2020-04-16 Outpatient STLMLC STLMLC [id number] Common 00:00:00 00:00:00 [facility] 2020-04-11 2020-04-11 Hospital Radiology [facility] 1.2.840.114 [id number] Univers 13:48:55 23:59:00 Encounter SPECIALTY [id number] ity [id number] [id number] Hi tulio Julian [facility] 2020-04-11 2020-04-11 [facility] Radiology [facility] 1.2.840.114 [id number] 13:48:55 23:59:00 Encounter SPECIALTY [id number] CARE [id number] CENTER AT [id number] PRISCILA Julian [facility] 2020-04-11 2020-04-11 Outpatient R RADIOLOGY [facility] [id number] Univers 14:30:00 14:30:00 [id number] ity [facility] 2020-04-11 2020-04-11 Hospital [place] 1.2.840.114 [id number] Univers 13:46:57 13:47:00 Encounter SPECIALTY [id number] ity of C[id number] [id number] Hi tulio Julian [facility] 2020-04-11 2020-04-11 Hospital Radiology [place] 1.2.840.114 [id number] 13:46:57 13:47:00 Encounter SPECIALTY [id number] [facility] [id number] CENTER AT [id number] PRISCILA BISWAS 2020-04-11 2020-04-11 Outpatient R RADIOLOGY [facility] [id number] Univers 00:00:00 00:00:00 [facility] 2020-03-26 2020-03-26 Outpatient STLMLC STLMLC [id number] Common 00:00:00 00:00:00 [facility] 2019-12-26 2019-12-26 [facility] 1.2.840.114 [id number] Univers 00:00:00 00:00:00 Rochelle Mcneal 350.1.13.10 i ty [facility] [id number] Profess[place] [id number] Me dical [address] 2019-12-26 2019-12-26 Refkathryn Cook [facility] 1.2.840.114 [id number] 00:00:00 00:00:00 Rochelle Mcneal [id number] [place] [id number] Professio [id number] [address] 2019-10-25 2019-10-25 Outpatient Zoila Cary [id number] Common 10:23:00 10:23:[address] [facility] 2019-10-20 2019-10-20 Outpatient Zoila Cary [id number] Common 11:00:00 11:00:[address] [facility] 2019-10-10 2019-10-10 Outpatient R JOEY [facility] [id number] Univers 16:00:00 16:00:00 ROCHELLE [id number] [facility] 2019-10-10 2019-10-10 Outpatient R JOEY [facility] [id number] Univers 16:00:00 16:00:00 ROCHELLE [facility] 2019-06-21 2019-06-21 Telephone Joey [facility] 1.2.840.114 [id number] Univers 00:00:00 00:00:00 Rochelle [place] [id number] i ty [id number] [place] [id number] [address] 2019-06-16 2019-06-16 Telephone Joey WVARTEMIO 1.2.840.114 [id number] Univers 00:00:00 00:00:00 Rochelle [place] 350.1.13.10 i ty of [place] [id number] [place] [id number] [address] 2019-06-16 2019-06-16 Orders JESUS Cook 1.2.840.114 [id number] Univers 00:00:00 00:00:00 Only Rochelle WEISS 350.1.13.10 it y of [facility] [id number] [place] as [id number] [address] 2019-06-15 2019-06-15 [facility] 1.2.840.114 [id number] Univers 00:00:00 00:00:00 Rochelle [place] 350.1.13.10 i ty of [place] [id number] [place] [id number] [address] 2019-06-14 2019-06-14 Telephone Joey W[facility]ARTEM[facility] 1.2.840.114 [id number] Univers 00:00:00 00:00:00 Rochelle [place] [id number] i ty of [place] [id number] [place] [phone] [address] 2019-06-13 2019-06-13 Telephone Joey [facility] 1.2.840.114 [id number] Univers 00:00:00 00:00:00 Rochelle [place] 350.1.13.10 i ty of [place] [id number] [phone] [address] 2019-06-06 2019-06-06 Office Joey [facility] 1.2.840.114 [id number] Univers 14:03:33 15:19:55 Visit Rochelle Fredis 350.1.13.10 i ty of [place] [id number] Lavonjulia jill Yee [id number] Hi dical [facility] [address] [facility] 2019-06-06 2019-06-06 Outpatient Omar COOK, [facility] [id number] Univers 14:30:00 14:30:00 ROCHELLE ity [facility] 2019-06-06 2019-06-06 Letter Doctor JESUS 1.2.840.114 [id number] Univers 00:00:00 00:00:00 (Out) Unassigned, ISELA 350.1.13.10 ity of [facility] [id number] [place] [id number] [address] 2019-06-03 2019-06-03 [facility] [id number] Common 11:37:00 11:37:[address] [facility] [address] [facility] 2019-05-13 2019-05-13 Out[facility] [id number] Common 14:05:00 14:05:[address] [facility] 2019-05-11 2019-05-11 Out[facility] [id number] Common 16:43:00 16:43:[address] [facility] [address] [facility] 2019-04-29 2019-04-29 Out[facility] [id number] Common 15:19:00 15:19:[address] [facility] 2019-04-25 2019-04-25 Out[facility] [id number] Common 14:20:00 14:20:[address] [facility] 2019-04-20 2019-04-20 [facility] [id number] Common 14:02:00 14:02:[address] [facility] 2019-03-25 2019-03-25 [facility] [id number] Common 13:34:00 13:34:[address] [facility] 2019-03-24 2019-03-24 Out[facility] [id number] Common 10:03:00 10:03:[address] [facility] 2019-03-23 2019-03-23 Out[facility] [id number] Common 12:03:00 12:03:[address] [facility] 2019-03-08 2019-03-08 [facility] [id number] Common 16:00:00 16:00:[address] [facility] 2018-09-15 2018-09-15 [facility] [id number] Common 09:27:00 09:27:[address] [facility] 2018-08-19 2018-08-19 Out[facility] [id number] Common 21:25:00 21:25:[address] [facility] 2018-08-04 2018-08-04 [facility] [id number] Common 11:30:00 11:30:[address] [facility] 2018-07-13 2018-07-13 [facility] [id number] Common 08:21:00 08:21:[address] [facility] 2018-05-05 2018-05-05 [facility] [id number] Common 11:40:00 11:40:[address] [facility] 2018-04-30 2018-04-30 Out[facility] [id number] Common 09:30:00 09:30:[address] [facility] 2017-11-03 2017-11-03 Out[facility] [id number] Common 17:08:00 17:08:[address] [facility] 2017-11-02 2017-11-02 Out[facility] [id number] Common 17:50:00 17:50:[address] [facility] 2017-10-30 2017-10-30 [facility] [id number] Common 09:30:00 09:30:[address] [facility] 2017-09-22 2017-09-22 Out[facility] [id number] Common 13:41:00 13:41:[address] [facility] 2017-09-21 2017-09-21 [facility] [id number] Common 14:20:00 14:20:[address] [facility] 2017-09-15 2017-09-15 [facility] [id number] Common 11:21:00 11:21:[address] [facility] 2017-09-14 2017-09-14 [facility] [id number] Common 14:36:00 14:36:[address] [facility] 2017-09-04 2017-09-04 [facility] [id number] Common 09:30:00 09:30:[address] [facility] 2017-08-15 2017-08-15 [facility] [id number] Common 10:17:00 10:17:[address] [facility] 2017-08-14 2017-08-14 [facility] [id number] Common 09:30:00 09:30:[address] [facility] Results Test Description Test Time Test Comments Results Result Sourc e Comments BI US GUIDED CORE 2020-04-07 Examination:BI US University of BREAST BIOPSY 0 GUIDED CORE BREAST [place] as Medical RIGHT 16:07:43 BIOPSY RIGHT The Branch procedure was explained to the patient including benefits and alternatives. ?The risks, including but not limited to infection and bleeding, were reviewed and the patient agreed to undergo the procedure, signing the consent form. ?Timeout was performed. History:Patient is a 49 year old year old female and is seen for: ? RIGHT BREAST: 5 mm oval mass at 12 o'clock, 6 cm from nipple is at low suspicion for malignancy. BI-RADS 4A. Comparisons: 04/11/2020 BI DIAGNOSTIC TOMOSYNTHESIS BILATERAL and 04/11/2020 BI ULTRASOUND BREAST COMPLETE RIGHT The patient was positioned supine, and the area of interest was localized using real-time ultrasound guidance. After antiseptic preparation the skin puncture site was draped and infiltrated with lidocaine. A 14 gauge Bard automated core biopsy needle was advanced to the target. ?Multiple tissue cores were obtained through the target. ?A tissue marker clip COIL was then deployed. ?Continuous real-time ultrasound was used for guidance throughout the procedure. ?Post biopsy mammogram confirmed clip at the biopsy site. Recommendation:Aidan lucero pathology results - Right T3, TOTAL-Q 2019-06-17 06:00:00 Test Item Value Reference Range Interpretation Comme nts T3, TOTAL-Q (test code = 3053-6) 273 ng/dL 76-181 H JAYLENE (test code = JAYLENE) PERFORMED BY [employer]; [address] [place] [address]; HILTON PANIAGUA MD Lab Interpretation (test code = 79683-7) [facility] [id number] 06:00:00 Test Item Value Reference Range Interpretation Comments T-4, FREE-Q (test 1.3 ng/dL 0.8-1.8 code = 3024-7) JAYLENE (test code = PERFORMED BY [employer] JAYLENE) [facility]; [address] [place] [address]; HILTON PANIAGUA MD [facility], [id number] 06:00:00 Test Item Value Reference Range Interpretation Comments TSH, 3RD GENERATION-Q mIU/L L ? (test code = 3016-3) ?Refere nce Range ?> or = 20 Years ?0.40-4.5 0 ? Range s ?First trimester ? ?0.26-2.66 ?Second trimester ? 0.55-2.73 ?Third trimester ? ?0.43-2.91REPOR T COMMENT:FASTING : YES JAYLENE (test code = JAYLENE) PERFORMED BY [employer]; [address] [place] [address]; HILTON PANIAGUA MD Lab Interpretation Abnormal (test code = 77611-3) [facility]
[2021-12-05 12:20] LABS: Absolute Lymphocytes (CBC) 1.4 K/uL (0.7-4.9); Hematocrit 41.4 % (36.0-45.0); Lymphocytes % 21.2 % (15.3-44.8); MCV 82.4 fL (80-100); MPV 8.1 fL (7.6-11.3); RBC Red Blood Cell Count 5.02 M/uL (3.86-4.86)
[2021-12-05] MEDS ORDERED: ONDANSETRON 4 MG/2 ML VIAL ONE (12:23)
[2021-12-05] MEDS ORDERED: FAMOTIDINE 20 MG/2 ML VIAL IV ONE (12:23)
[2021-12-05] MEDS ORDERED: NA CHLORIDE 0.9% 1,000 ML ONE (12:23)
[2021-12-05 12:33] LABS: Bilirubin Total 0.6 mg/dL (0.2-1.0); Potassium 3.3 mmol/L (3.5-5.1); Protein, Total 7.6 g/dL (6.4-8.2)
[2021-12-05 13:02] LABS: Urine Blood Negative (Negative); Urine Glucose Negative (Negative); Urine Protein Negative (Negative); Urine Specific Gravity 1.025 (1.005-1.030); Urine pH 6.5 (5.0-7.0)
--- NOTE | 2021-12-05 13:07 | RAD REPORT ---
EXAM DESCRIPTION: CTAbdomen Pelvis W Contrast - 12/05/2021 12:47 pm CLINICAL HISTORY: Abdominal pain. lower abdominal pain, vomiting, hysterectomy COMPARISON: Abdomen Pelvis W Contrast dated 12/04/2020; Abdomen Pelvis W Contrast dated 10/17/2019 ; Abdomen Pelvis W Contrast dated 08/13/2015 TECHNIQUE: Biphasic CT imaging of the abdomen and pelvis was performed with 100 ml non-ionic IV cont rast. All CT scans are performed using dose optimization technique as appropriate and may include automated exposure control or mA/KV adjustment according to patient size. FINDINGS: The lung bases are clear.Small hiatal hernia. Cholecystectomy. The liver, spleen, pancreas, adrenal glands and kidneys are within normal limits. No bowel obstruction, free air, free fluid or abscess. Small fat containing umbilical hernia. Mild si gmoid diverticulosis without diverticulitis. The appendix is normal. No evidence of significant lymp hadenopathy. No suspicious bony findings. IMPRESSION: No acute intra-abdominal or pelvic finding. Small fat containing umbilical hernia. Mild sigmoid diverticulosis without diverticulitis.
[2021-12-05 13:34] LABS: Urine Specific Gravity/Preg 1.025 (1.005-1.030)
--- NOTE | 2021-12-05 14:21 | EDPHYS ---
Physician Documentation [facility] Name: Dee Ruano Age: 50 yrs Sex: Female : 1970 Arrival Date: 12/05/2021 Time: 11:44 Bed 14 Private MD: ED Physician Santino Woods HPI: 12/05 11:54 This 50 yrs old Female presents to ER via Ambulatory with complaints of Abdominal Pain. jmm 11:54 With history of depression the presents emerged department with complaints of lower jmm abdominal pain beginning last night. Patient states that she took a laxative and had multiple bowel movements. Today she developed vomiting. Denies fever.. 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 - Social history:: Smoking status: Patient denies any tobacco usage or history of. ROS: 11:54 Constitutional: Negative for fever, chills, and weight loss, Cardiovascular: Negative jmm for chest pain, palpitations, and edema, Respiratory: Negative for shortness of breath, cough, wheezing, and pleuritic chest pain. 11:54 Abdomen/GI: Positive for abdominal pain, nausea and vomiting, diarrhea. 11:54 All other systems are negative. Exam: 11:54 Constitutional: This is a well developed, well nourished patient who is awake, alert, jmm and in no acute distress. Head/Face: atraumatic. Eyes: EOMI, no conjunctival erythema appreciated ENT: Moist Mucus Membranes Neck: Trachea midline, Supple Chest/axilla: Normal chest wall appearance and motion. Cardiovascular: Regular rate and rhythm. No edema appreciated Respiratory: Normal respirations, no respiratory distress appreciated Back: Normal ROM Skin: General appearance color normal MS/ Extremity: Moves all extremities, no obvious deformities appreciated, no edema noted to the lower extremities 11:54 Neuro: Awake and alert Psych: Behavior is normal, Mood is normal, Patient is cooperative and pleasant 11:54 Abdomen/GI: Inspection: abdomen appears normal, Bowel sounds: normal, Palpation: soft, mild abdominal tenderness, in the umbilical area, suprapubic area, right lower quadrant and left lower quadrant. Vital Signs: 11:51 BP 158 / 108; Pulse 90; Resp 24; Temp 97.3; Pulse Ox 100% on R/A; Weight 97.52 kg; ph Height 5 ft. 5 in. (165.10 cm); 12:22 Resp 18; ll1 13:02 BP 122 / 85; Pulse 73; Resp 18; ll1 14:47 BP 147 / 92; Pulse 72; Resp 17; Pulse Ox 100% on R/A; ll1 11:51 Body Mass Index 35.78 (97.52 kg, 165.10 cm) ph MDM: 11:54 Patient medically screened. [facility] 13:56 Data reviewed: vital signs, nurses notes. Counseling: I had a detailed discussion with placido the patient and/or guardian regarding: the historical points, exam findings, and any diagnostic results supporting the discharge/admit diagnosis, lab results, radiology results, the need for outpatient follow up, to return to the emergency department if symptoms worsen or persist or if there are any questions or concerns that arise at home. ED course: States feeling much better. Patient advised follow-up PCP and otherwise given strict return precautions. Patient understood agrees plan of care.. 12/05 11:59 Order name: CBC with Diff; Complete Time: 12:26 [facility] 12/05 11:59 Order name: CMP; Complete Time: 12:34 [facility] 12/05 11:59 Order name: Lipase; Complete Time: 12:34 [facility] 12/05 12:03 Order name: CT Abd/Pelvis - IV Contrast Only; Complete Time: 13:07 [facility] 12/05 13:02 Order name: Urine Dipstick-Ancillary; Complete Time: 13:02 [facility] 12/05 13:04 Order name: Urine --Ancillary (enter results); Complete Time: 13:37 3 12/05 11:59 Order name: IV Saline Lock; Complete Time: 11:59 [facility] 12/05 11:59 Order name: Labs collected and sent; Complete Time: 11:59 [facility] 12/05 11:59 Order name: Urine Dipstick-Ancillary (obtain specimen); Complete Time: 13:08 [facility] Administered Medications: 12:22 Drug: NS 0.9% 1000 ml Route: IV; Rate: 1 bolus; Site: right antecubital; ll1 14:48 Follow up: Response: No adverse reaction; IV Status: Completed infusion; IV Intake: ll1 1000ml 12:22 Drug: Pepcid (famotidine) 20 mg Route: IVP; Site: right antecubital; ll1 12:52 Follow up: Response: No adverse reaction ll1 12:22 Drug: Zofran (Ondansetron) 4 mg Route: IVP; Site: right antecubital; ll1 12:52 Follow up: Response: No adverse reaction ll1 Disposition: 18:15 Co-signature as Attending Physician, Santino Woods DO I agree with the assessment and ms3 plan of care. Disposition Summary: 12/05/21 14:20 Discharge Ordered Location: Home [facility] Condition: Stable [facility] Diagnosis - Abdominal pain, Generalized [facility] - Vomiting [facility] - Diarrhea, unspecified [facility] Followup: [facility] - With: Private Physician - When: 2 - 3 days - Reason: Recheck today's complaints, Continuance of care, Re-evaluation by your physician Discharge Instructions: - Discharge Summary Sheet [facility] - Abdominal Pain, Adult jm - Food Choices to Help Relieve Diarrhea, Adult [facility] Forms: - Medication Reconciliation Form [facility] - Thank You Letter [facility] - Antibiotic Education [facility] - Prescription Opioid Use [facility] - Work release form ll1 Prescriptions: - ONDANSETRON 4 mg ODT - take 1 tablet by ORAL route every 4-6 hours As needed; 20 tablet; Refills: 0, [facility] Product Selection Permitted - dicyclomine 20 mg Oral Tablet - take 1 tablet by ORAL route 3 times per day; 20 tablet; Refills: 0, Product [facility] Selection Permitted Signatures: Dispatcher [employer] Ki Lopez PA PA jm Talisha Soto RN RN Cliff Callejas RN RN ll Santino Woods DO DO ms3 Corrections: (The following items were deleted from the chart) 12:03 11:59 Urine Test ordered. [facility]
--- NOTE | 2021-12-05 14:21 | ER ---
Nurse's Notes [facility] Name: Dee Ruano Age: 50 yrs Sex: Female : 1970 Arrival Date: 12/05/2021 Time: 11:44 Bed 14 Private MD: Diagnosis: Abdominal pain, Generalized;Vomiting;Diarrhea, unspecified Presentation: 12/05 11:51 Chief complaint: Patient states: Hadn't had a BM since Thursday so she took a laxative, ph was able to have BM last night, this morning began having abdominal pain, N/V. Coronavirus screen: Vaccine status: Patient reports receiving the 2nd dose of the covid vaccine. Ebola Screen: No symptoms or risks identified at this time. Initial Sepsis Screen: Does the patient meet any 2 criteria? No. Patient's initial sepsis screen is negative. Does the patient have a suspected source of infection? No. Patient's initial sepsis screen is negative. Risk Assessment: Do you want to hurt yourself or someone else? Patient reports no desire to harm self or others. Onset of symptoms was December 05, 2021. 11:51 Method Of Arrival: Ambulatory ph 11:51 Acuity: AMINTA 3 ph Triage Assessment: 11:54 General: Appears in no apparent distress. uncomfortable, Behavior is cooperative, ph appropriate for age, Denies fever. Pain: Complains of pain in abdomen. GI: Reports lower abdominal pain, upper abdominal pain, constipation, diarrhea, nausea, vomiting. 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 - Social history:: Smoking status: Patient denies any tobacco usage or history of. Screenin:56 Abuse screen: Denies threats or abuse. Nutritional screening: No deficits noted. ll1 Tuberculosis screening: No symptoms or risk factors identified. 11:57 Fall Risk IV access (20 points). Gait- Weak (10 pts.). Total Freire Fall Scale indicates ll1 Low Risk Score (25-44 pts). Fall prevention measures have been instituted. Side Rails Up X 2 Placed close to Nursing Station Frequent Obs/Assesments occuring Family Present and informed to notify staff if they need to leave bedside As available Patient and Family Educated on Fall Prevention Program and strategies. Assessment: 12:22 Reassessment: No changes from previously documented assessment. Patient and/or family ll1 updated on plan of care and expected duration. Pain level reassessed. Patient is alert, oriented x 3, equal unlabored respirations, skin warm/dry/pink. 12:53 Reassessment: No changes from previously documented assessment. Patient and/or family ll1 updated on plan of care and expected duration. Pain level reassessed. Patient is alert, oriented x 3, equal unlabored respirations, skin warm/dry/pink. Patient states feeling better. 13:02 Reassessment: No changes from previously documented assessment. Patient and/or family ll1 updated on plan of care and expected duration. Pain level reassessed. 14:00 Reassessment: No changes from previously documented assessment. Patient and/or family ll1 updated on plan of care and expected duration. Pain level reassessed. 14:47 Reassessment: No changes from previously documented assessment. Patient and/or family ll1 updated on plan of care and expected duration. Pain level reassessed. Patient is alert, oriented x 3, equal unlabored respirations, skin warm/dry/pink. 14:48 GI: Bowel sounds present X 4 quads. Abd is soft and non tender X 4 quads. ll1 Vital Signs: 11:51 BP 158 / 108; Pulse 90; Resp 24; Temp 97.3; Pulse Ox 100% on R/A; Weight 97.52 kg; ph Height 5 ft. 5 in. (165.10 cm); 12:22 Resp 18; ll1 13:02 BP 122 / 85; Pulse 73; Resp 18; ll1 14:47 BP 147 / 92; Pulse 72; Resp 17; Pulse Ox 100% on R/A; ll1 11:51 Body Mass Index 35.78 (97.52 kg, 165.10 cm) ph ED Course: 11:44 Patient arrived in ED. rg4 11:52 Ki Salinas PA is PHCP. [facility] 11:52 Santino Woods DO is Attending Physician. [facility] 11:53 Triage completed. ph 11:54 Cliff Hidalgo, RN is Primary Nurse. ll1 11:54 Arm band placed on Patient placed in an exam room. ph 11:56 Patient has correct armband on for positive identification. Bed in low position. Call ll1 light in reach. Side rails up X 1. 11:57 Missed attempt(s): 22 gauge in right antecubital area. Bleeding controlled, band aid ll1 applied, catheter tip intact. 12:00 Inserted saline lock: 22 gauge in right antecubital area, using aseptic technique. ll1 12:49 CT Abd/Pelvis - IV Contrast Only In Process Unspecified. EDMS 14:47 No provider procedures requiring assistance completed. IV discontinued, intact, ll1 bleeding controlled, No redness/swelling at site. Pressure dressing applied. Administered Medications: 12:22 Drug: NS 0.9% 1000 ml Route: IV; Rate: 1 bolus; Site: right antecubital; 1 14:48 Follow up: Response: No adverse reaction; IV Status: Completed infusion; IV Intake: ll1 1000ml 12:22 Drug: Pepcid (famotidine) 20 mg Route: IVP; Site: right antecubital; ll1 12:52 Follow up: Response: No adverse reaction ll1 12:22 Drug: Zofran (Ondansetron) 4 mg Route: IVP; Site: right antecubital; ll1 12:52 Follow up: Response: No adverse reaction ll1 Medication: 11:56 VIS not applicable for this client. ll1 Intake: 14:48 IV: 1000ml; Total: 1000ml. ll1 Outcome: 14:20 Discharge ordered by MD. [facility] 14:48 Discharged to home ambulatory. ll1 14:48 Condition: stable 14:48 Discharge instructions given to patient, Instructed on discharge instructions, follow up and referral plans. no drinking with medication, no driving heavy equipment, medication usage, Demonstrated understanding of instructions, follow-up care, medications, Prescriptions given X 2. 15:11 Patient left the ED. ll1 Signatures: Dispatcher [employer] EDMS Ki Salinas PA PA jmm Hall, Patricia, RN RN Alia Rucker 4 Cliff Hidalgo RN RN 1
[2021-12-05 15:32] VITALS: TEMP 97.3; O2SAT 100
[2021-12-05 15:53] VITALS: BP 147/92
== END 2021-12-05 15:11 | disposition home or self-care (01) ==
LOC: ER 11:42
DX: R10.84 Generalized abdominal pain (principal); R19.7 Diarrhea, unspecified; R11.2 Nausea with vomiting, unspecified; E03.9 Hypothyroidism, unspecified; F32.A Depression, unspecified
CPT/HCPCS: 96361; 85025; 36415; 81025; 81003; 83690; 80053; 74177; 96375; 96374; 99284; Q9967; J7030; J2405

== ENCOUNTER 2022-02-10 07:29 | Day surgery (SDC) | payer BC ==
[2022-02-10] MEDS ORDERED: CEFAZOLIN SODIUM 2 GM/VIAL ONE (07:52)
[2022-02-10] MEDS ORDERED: Ringers Lactate 1,000 ML IV ONE (07:52)
[2022-02-10 07:56] LABS: Absolute Lymphocytes (CBC) 1.1 K/uL (0.7-4.9); Hematocrit 42.6 % (36.0-45.0); Lymphocytes % 21.4 % (15.3-44.8); MCV 81.7 fL (80-100); RBC Red Blood Cell Count 5.21 M/uL (3.86-4.86)
--- NOTE | 2022-02-10 08:29 | EKG ---
Test Date: 2022-02-10 Test Time: 08:02:23 Manager Market Research: [employer] MEASUREMENT RESULTS: Intervals: Rate: 63 AK: 158 QRSD: 86 QT: 398 QTc: 407 [place]: P: -7 AK: 158 QRS: -21 T: 14 INTERPRETIVE STATEMENTS: Normal sinus rhythm Low voltage QRS Borderline ECG Compared to ECG 12/04/2020 08:29:16 Low QRS voltage now present Myocardial infarct finding no longer present Electronically Signed On 02-10-22 08:29:08 MAINTENANCE INSTRUCTOR by Bam Hernandez
[2022-02-10] MEDS ORDERED: BUPIVACAINE 0.25% PF 30 ML VIAL ONE (09:03)
[2022-02-10] MEDS ORDERED: propofoL 200 MG/20 ML VIAL IV ONE (09:43)
[2022-02-10] MEDS ORDERED: MIDAZOLAM HCL 2 MG/2 ML INJ ONE (09:43)
[2022-02-10] MEDS ORDERED: ONDANSETRON 4 MG/2 ML VIAL ONE (09:44)
[2022-02-10] MEDS ORDERED: ROCURONIUM 50 MG/5 ML VIAL IV ONE (09:44)
[2022-02-10] MEDS ORDERED: LIDOCAINE 2% MPF 5 ML VIAL ONE (09:44)
[2022-02-10] MEDS ORDERED: FENTANYL CITR 100 MCG/2 ML ONE (09:44)
[2022-02-10] MEDS ORDERED: CEFAZOLIN SODIUM 1 GM/VIAL ONE (10:08)
[2022-02-10] MEDS ORDERED: KETOROLAC 30 MG/ML INJ ONE (10:46)
[2022-02-10] MEDS ORDERED: GLYCOPYRROLATE 0.2 MG/ML SYR ONE (10:49)
--- NOTE | 2022-02-10 10:49 | P.OP ---
Preoperative diagnosis: Incarcerated Ventral Umbilical Hernia Postoperative diagnosis: Incarcerated Ventral Umbilical Hernia Primary procedure: Laparoscopic Ventral Hernia Repair with Mesh Anesthesia: GETA + Local Estimated blood loss: <5cc Specimen: Hernia Contents Findings: Incarcerated Ventral Umbilical Hernia Complications: None Implants: Bard Ventralite ST Mesh 11.4cm, Sorbafix Transferred to: Recovery Room Condition: Good
[2022-02-10] MEDS ORDERED: NEOSTIGMINE 1 MG/ML -10 ML VIAL ONE (10:51)
[2022-02-10] MEDS ORDERED: HYDROMORPHONE HCL 1 MG/ML INJ ONE (11:35)
[2022-02-10 12:29] VITALS: BP 121/73; TEMP 96.5; O2SAT 100
[2022-02-10] MEDS ORDERED: HYDROCODONE/APAP 5/325 MG TAB ONE (13:03)
--- NOTE | 2022-02-10 22:00 | OP ---
Date of Procedure: 02/10/2022 Surgeon: Ran Borges MD, Preoperative Diagnosis: Incarcerated ventral umbilical hernia. Postoperative Diagnosis: Incarcerated ventral umbilical hernia. Procedure: Laparoscopic ventral hernia repair with mesh. Anesthesia: General endotracheal plus local with 0.25% Marcaine. Estimated Blood Loss: Less than 5 cc. Specimen: Hernia contents, which is incarcerated omental fat. Findings: Incarcerated ventral umbilical hernia containing fat. Complications: None. Implants: Bard Ventralight ST mesh with Echo Positioning System of 11.4 cm round and SorbaFix absorb able fixation tacks, approximately 50 used. Disposition: The patient was transferred to recovery room in good condition. Procedure In Detail: After informed was obtained, patient was brought to the operating room and prep ped and draped in the usual sterile fashion. After adequate anesthesia was achieved, an area at the left upper quadrant was anesthetized with 0.25% Marcaine and sharply incised. A 5 mm 0-degree optica l trocar was introduced into the abdomen without evidence of any complication. Insufflation was obta ined at 15 mmHg at this time. There was no injury to vital structure. Additional trocar was placed in the left lower quadrant. This was similarly anesthetized and sharply incised and a 12 mm trocar w as placed under direct visualization without evidence of any complication. At this point, I inspecte d the midline, which was found to have a large omentum containing umbilical and paraumbilical hernias . I brought the LigaSure device in at this point, and ultimately took down the significant preperito margaret fat contained and omental fat contained within the multiple ventral hernias with a somewhat Swis s cheese appearance to the midline. I then, after removing all this omental and preperitoneal fat, p laced it in Endo Catch bag, removed through the umbilical trocar and sent off for pathologic examinat ion. I then inspected the peritoneum and found it to have a good fascial apposition, ultimately allo wing for good landing position and position of the Ventralight mesh. I then brought in the Endo Stit ch with the V-Loc. 2-0 V-Loc suture was used to sew the defect and imbricate the hernia sac in a run anny fashion with good approximation of tissues. I then brought in the Ventralight balloon deploymen t system and deployed the balloon centrally positioned over this hernia defect, which was approximate ly 5 cm in size. I then deployed the balloon and used the SorbaFix absorbable fixation tack to place a single crown. The balloon deployment system was then removed through the 12 mm trocar, found to b e intact on the back table. I then used a second crown of SorbaFix fixation tacks to secure it to th e anterior bowel wall. At this point, the mesh had good apposition to the abdominal wall. I then tu rned my attention to the 12 mm trocar site, which was then closed using a Renzo-Jeison suture pass er with 0 Vicryl in interrupted fashion with good approximation of tissues. I then desufflated the a bdomen under direct visualization without evidence of any complication. All skin incisions were copi ously irrigated and closed with 4-0 Monocryl in a running fashion and Dermabond was placed over top. The patient tolerated the procedure without evidence of any complication and transferred back in goo d condition. All counts were correct at the end of the case. JOANIE/SHABBIR Voice ID: [id number] Report ID: [id number]
== END 2022-02-10 13:12 | disposition home or self-care (01) ==
LOC: OR 07:29
PROVIDERS: ATTEND Surgery
PROC: 0WUF4JZ Supplement Abdominal Wall with Synthetic Substitute, Percutaneous Endoscopic Approach (ICD-10-PCS; principal; 2022-02-10 09:30)
DX: K43.6 Other and unspecified ventral hernia with obstruction, without gangrene (principal); E03.9 Hypothyroidism, unspecified
CPT/HCPCS: 93005; 85025; 80048; 36415; 88302; 49653; J2704; J2710; J2001; J2250; J3010; J1170; J7120; J2405; J0690; C1781

== ENCOUNTER 2022-02-11 09:11 | Emergency (ER) | payer BC ==
--- OUTSIDE RECORDS SUMMARY | 2022-02-11 09:15 | XMS REPORT | Continuity of Care Document ---
:1970 Author Organization [facility] t Address [address] [place] [address] Care Team Providers Name Role Phone Perkins, Janis Attending Clinician Unavailable Flor Tracy Attending Clinician Unavailable Adelso Orozco DO Attending Clinician Radiology Attending Clinician Unavailable RADIOLOGY Attending Clinician Unavailable Rochelle Cook MD Attending Clinician ROCHELLE COOK Attending Clinician Unavailable Doctor Unassigned, [place] Attending Clinician Unavailable Payers Payer Name Policy Type Policy Number Effective Date Expiration Date S ource Blue Cross 6 [id number] Common Spiri t Blue Shield of - CHI L [facility] Problems Condition Condition Condition Status Onset Resolution Last Treating Co mments Source Name Details Category Date Date Treatment Clinician Date Fatty Problem Active Common liver Spirit - [facility] [id number] Seasonal Problem Active Commo n allergic Spirit rhinitis - CHI due to St pollen [facility] [id number] Recurrent Problem Active 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 [id number] Elevated Problem Active Comm on blood Spirit pressure - [facility]I reading without [facility] hypertensi on [id number] Asymptomat Problem Active Co mmon ic Spirit postproced - [facility]I ural [facility] [id number] Acquired Problem Active Comm on hypothyroi Spirit dism - [facility] [id number] Epigastric Problem Active Com mon pain [facility] [id number] Chronic Problem Active Common fatigue [facility] - [facility] [id number] Elevated Problem Active Comm on [place] Spirit rr virus - CHI antibody [facility] [id number] Generalize Problem Active Co mmon d edema [facility] Abnormal Abnormal Problem Active Commo n mammogram mammogram Spir it - [facility] [id number] Hot Problem Active Common flashes Spirit due to - CHI menopause [facility] [id number] Moderate Problem Active Common major Spirit depression - [facility] [id number] Fever, Problem Active Common unspecifie Spirit d fever - CHI cause [facility] [id number] Sleep Problem Active Common disturbanc Spirit e [facility] [id number] Morbid Problem Active Commo n 9104 (severe) Spirit obesity - CHI due to [facility] [id number] Bronchitis Problem Active Com mon Spirit - [facility] [id number] Glaucoma Problem Active Commo n of both Spirit eyes, - [facility]I unspecifie [facility] glaucoma [facility] [id number] Body mass Problem Active Com mon index Spirit [BMI] - CHI 40.0-44.9, [facility] [id number] Obesity, Problem Active Comm on unspecifie Spirit d - [facility] [id number] Metabolic Problem Active Com mon syndrome [facility] [id number] Left upper Problem Active Co mmon quadrant Spirit abdominal - CHI pain [facility] Allergies, Adverse Reactions, Alerts Allergy Allergy Status Severity Reaction(s) Onset Inactive Treating Comm ents Source Name Type Date Date Clinician NO KNOWN Drug [facility] Social History Social Habit Start Date Stop Date Quantity Comments Source [facility] to SARS-CoV-2 [facility] sure [facility] History of Tobacco Use Co mmon Spirit [facility] Sex Assigned At Com mon Spirit - [facility] Smoking Status Start Date Stop Date Source Never Smoker Common [facility] Unknown if ever smoked [facility] Medications Ordered Filled Start Stop Current Ordering Indication Dosage Frequency Signature Comments Components Source Medication Medication Date Date Medication? Clinician (SIG) Name Name Nadege Light No 1{table QD Nadege Thyroid 30 Thyroid 30 8-26 t_on_an Thyroid 30 MG MG 00:00: _empty_ MG 00 stomach } Qsymia Qsymia 0 No 1{capsu QD Qsymia 11.25-69 MG 11.25-69 MG 6-27 le} 11.-69 00:00: MG 00 Qsymia Qsymia 0 No 1{capsu QD Qsymia 11.25-69 MG 11.25-69 MG 6-27 le} 11.25-69 00:00: MG 00 Qsymia Qsymia 2021-0 No 1{capsu QD Qsymia 11.25-69 MG 11.25-69 MG 6-27 le} 11.69 00:00: MG 00 Qsymia Qsymia 2021-0 No 1{capsu QD Qsymia 11.25-69 MG 11.25-69 MG 6-27 le} 11.25-69 00:00: MG 00 Qsymia Qsymia 2021-0 No 1{capsu QD Qsymia 11.25-69 MG 11.25-69 MG 6-27 le} 11.25-69 00:00: MG 00 Qsymia Qsymia 2021-0 2021- No 1{capsu QD Qsymia 11.25-69 MG 11.25-69 MG 5-26 08-24 le} 11.25-69 00:00: 00:00 MG 00 :00 Qsymia Qsymia 2021-0 No 1{capsu QD Qsymia 7.5-46 MG 7.5-46 MG 4-26 le} 7.5-46 MG 00:00: 00 Fluticasone Fluticasone 2021-0 No 1{spray QD Fluticason Propionate Propionate 07-30 _in_eac e 50 MCG/ACT 50 MCG/ACT 00:00: h_nostr Propionate 00 il} 50 MCG/ACT Qsymia Qsymia 2021-0 No 1{capsu QD Qsymia 7.5-46 MG 7.5-46 MG 4-26 le} 7.5-46 MG 00:00: 00 Fluticasone Fluticasone 0 No 1{spray QD Fluticason Propionate Propionate 4-26 _in_eac e 50 MCG/ACT 50 MCG/ACT 00:00: h_nostr Propionate 00 il} 50 MCG/ACT Qsymia Qsymia 2021-0 No 1{capsu QD Qsymia 7.5-46 MG 7.5-46 MG 4-26 le} 7.5-46 MG 00:00: 00 Fluticasone Fluticasone 0 No 1{spray QD Fluticason Propionate Propionate 4-26 _in_eac e 50 MCG/ACT 50 MCG/ACT 00:00: h_nostr Propionate 00 il} 50 MCG/ACT Fluticasone Fluticasone 0 No 1{spray QD Fluticason Propionate Propionate 4-26 _in_eac e 50 MCG/ACT 50 MCG/ACT 00:00: h_nostr Propionate 00 il} 50 MCG/ACT Fluticasone Fluticasone 0 No 1{spray QD Fluticason Propionate Propionate 4-26 _in_eac e 50 MCG/ACT 50 MCG/ACT 00:00: h_nostr Propionate 00 il} 50 MCG/ACT Fluticasone Fluticasone 0 No 1{spray QD Fluticason Propionate Propionate 4-26 _in_eac e 50 MCG/ACT 50 MCG/ACT 00:00: h_nostr Propionate 00 il} 50 MCG/ACT Fluticasone Fluticasone 0 No 1{spray QD Fluticason Propionate Propionate 4-26 _in_eac e 50 MCG/ACT 50 MCG/ACT 00:00: h_nostr Propionate 00 il} 50 MCG/ACT Fluticasone Fluticasone 0 No 1{spray QD Fluticason Propionate Propionate 4-26 _in_eac e 50 MCG/ACT 50 MCG/ACT 00:00: h_nostr Propionate 00 il} 50 MCG/ACT Levothyroxi Levothyroxi 0 No QD Levothyrox ne Sodium ne Sodium 3-28 ine Sodium 75 MCG 75 MCG 00:00: 75 MCG 00 Levothyroxi Levothyroxi No QD Levothyrox ne Sodium ne Sodium 07-01 ine Sodium 75 MCG 75 MCG 00:00: 75 MCG 00 Levothyroxi Levothyroxi No QD Levothyrox ne Sodium ne Sodium 07-01 ine Sodium 75 MCG 75 MCG 00:00: 75 MCG 00 Qsymia Qsymia 2021- No 1{capsu QD Qsymia 3.75-23 MG 3.75-23 MG 07-01 le} 3.75-23 MG 00:00: 00:00 00 :00 Amoxicillin Amoxicillin 2021- No 1{capsu TID Amoxicilli 500 mg 500 mg 04-08 le} n 500 mg 00:00: 00:00 00 :00 Amoxicillin Amoxicillin 2021- No 1{capsu TID Amoxicilli 500 mg 500 mg 04-08 le} n 500 mg 00:00: 00:00 00 :00 buPROPion buPROPion 2020-04 No 1{table BID buPROPion HCl 100 MG HCl 100 MG 2-10 t} HCl 100 MG 00:00: 00 Nystatin Nystatin 2020-04- No 1{appli BID Nystatin 539253 629752 2-10 02-08 cation} [id number] UNIT/GM UNIT/GM 00:00: 00:00 UNIT/GM 00 :00 [place] Yes [id number] TAKE 1 Univ ers THYROID 60 9-21 TABLET BY ity of mg tablet 00:00: MOUTH [place] 00 EVERY Medical MORNING IN Branch ADDITION TO 90 MG TAB FOR TOTAL DAILY DOSE OF 150 MG PER DAY [place] Yes [id number] TAKE 1 Univ ers THYROID 90 9-21 TABLET BY ity of mg tablet 00:00: MOUTH [place] 00 EVERY Medical MORNING IN Branch ADDITION TO 60 MG TAB FOR TOTAL DAILY DOSE OF 150 MG PER DAY [place] Yes [id number] TAKE 1 Univ ers THYROID 60 9-21 TABLET BY ity of mg tablet 00:00: MOUTH [place] 00 EVERY Medical MORNING IN Branch ADDITION TO 90 MG TAB FOR TOTAL DAILY DOSE OF 150 MG PER DAY [place] Yes [id number] TAKE 1 Univ ers THYROID 90 9-21 TABLET BY ity of mg tablet 00:00: MOUTH [place] 00 EVERY Medical MORNING IN Branch ADDITION TO 60 MG TAB FOR TOTAL DAILY DOSE OF 150 MG PER DAY [facility] Yes [id number] TAKE 1 Univ ers THYROID 60 9-21 TABLET BY ity of mg tablet 00:00: MOUTH [place] 00 EVERY Medical MORNING IN Branch ADDITION TO 90 MG TAB FOR TOTAL DAILY DOSE OF 150 MG PER DAY [facility] Yes [id number] TAKE 1 Univ ers THYROID 90 9-21 TABLET BY ity of mg tablet 00:00: MOUTH [place] 00 EVERY Medical MORNING IN Branch ADDITION TO 60 MG TAB FOR TOTAL DAILY DOSE OF 150 MG PER DAY ARM Yes [id number] TAKE 1 Univ ers THYROID 60 9-21 TABLET BY ity of mg tablet 00:00: MOUTH [place] 00 EVERY Medical MORNING IN Branch ADDITION TO 90 MG TAB FOR TOTAL DAILY DOSE OF 150 MG PER DAY ARM Yes [id number] TAKE 1 Univ ers THYROID 90 9-21 TABLET BY ity of mg tablet 00:00: MOUTH [place] 00 EVERY Medical MORNING IN Branch ADDITION TO 60 MG TAB FOR TOTAL DAILY DOSE OF 150 MG PER DAY [facility] Yes [id number] TAKE 1 Univ ers THYROID 60 9-21 TABLET BY ity of mg tablet 00:00: MOUTH [place] 00 EVERY Medical MORNING IN Branch ADDITION TO 90 MG TAB FOR TOTAL DAILY DOSE OF 150 MG PER DAY [facility] Yes [id number] TAKE 1 Univ ers THYROID 90 9-21 TABLET BY ity of mg tablet 00:00: MOUTH [place] 00 EVERY Medical MORNING IN Branch ADDITION TO 60 MG TAB FOR TOTAL DAILY DOSE OF 150 MG PER DAY ARM Yes [id number] TAKE 1 Univ ers THYROID 60 9-21 TABLET BY ity of mg tablet 00:00: MOUTH [place] 00 EVERY Medical MORNING IN Branch ADDITION TO 90 MG TAB FOR TOTAL DAILY DOSE OF 150 MG PER DAY [place] Yes [id number] TAKE 1 Univ ers THYROID 90 9-21 TABLET BY ity of mg tablet 00:00: MOUTH [place] 00 EVERY Medical MORNING IN Branch ADDITION TO 60 MG TAB FOR TOTAL DAILY DOSE OF 150 MG PER DAY Metoprolol Metoprolol Yes Flor 1 tablet Common Succinate Succinate 7-16 [place] Spir it ER ER 00:00: - [facility] 00 [facility] Thyroid, 2019-0 2020- No 180mg Take 180 Uni vers [place], 180 3-17 03-17 mg by ity of mg tablet 14:59: 00:00 mouth [place] 50 :00 daily. Medical Branch ARMOUR 2020-0 Yes [id number] 60mg Take 1 Univ ers THYROID 60 3-17 tablet by ity of mg tablet 00:00: mouth [place] 00 every Medical morning. Branch In addition to 90 mg to make it 150 mg total ARMOUR 2020-0 Yes [id number] 90mg Take 1 Univ ers THYROID 90 3-17 tablet by ity of mg tablet 00:00: mouth [place] 00 daily. In Medical addition Branch to 60 mg to make it 150 mg total ARMOUR 2020- No [id number] 60mg Take 1 Uni vers THYROID 60 3-17 -21 tablet by ity of mg tablet 00:00: 00:00 mouth [place] 00 :00 every Medical morning. Branch In addition to 90 mg to make it 150 mg total ARMOUR 2020- No [id number] 90mg Take 1 Uni vers THYROID 90 3-17 -21 tablet by ity of mg tablet 00:00: 00:00 mouth [place] 00 :00 daily. In Medical addition Branch to 60 mg to make it 150 mg total ARMOUR 2019- No [id number] 60mg Take 1 Uni vers THYROID 60 3-17 -21 tablet by ity of mg tablet 00:00: 00:00 mouth [place] 00 :00 every Medical morning. Branch In addition to 90 mg to make it 150 mg total ARMOUR 2019- No [id number] 90mg Take 1 Uni vers THYROID 90 3-17 -21 tablet by ity of mg tablet 00:00: 00:00 mouth [place] 00 :00 daily. In Medical addition Branch to 60 mg to make it 150 mg total dexAMETHaso 0 2020- No [id number] 1mg Take 1 Univers ne 1 mg 3-02 06-12 104 tablet by ity of tablet 00:00: 04:59 mouth [place] 00 :00 now for 1 Medical dose. DX: Branch E66.01 dexAMETHaso 2019- 2020- No [id number] 1mg Take 1 Univers ne 1 mg 3-12 07-10 104 tablet by ity of tablet 00:00: 04:59 mouth [place] 00 :00 now for 1 Medical dose. Branch ESTRADIOL 2020-0 Yes .075mg Apply Unive rs TRANSDERMAL 3-02 0.075 mg ity of PATCH 21:03: to skin [place] TRANSDERMAL 40 weekly. [facility] al Branch ESTRADIOL 2020-0 Yes [...] 21:03: to skin [place] TRANSDERMAL 40 weekly. [facility] al Branch ESTRADIOL 2020-0 Yes .075mg Apply Unive rs TRANSDERMAL 3-02 0.075 mg ity of PATCH 21:03: to skin [place] TRANSDERMAL 40 weekly. [facility] al Branch ESTRADIOL 2020-0 Yes .075mg Apply Unive rs TRANSDERMAL 3-02 0.075 mg ity of PATCH 21:03: to skin [place] TRANSDERMAL 40 weekly. [facility] al Branch ESTRADIOL 2020-0 Yes .075mg Apply Unive rs TRANSDERMAL 3-02 0.075 mg ity of PATCH 21:03: to skin [place] TRANSDERMAL 40 weekly. [facility] al Branch ESTRADIOL 2020-0 Yes .075mg Apply Unive rs TRANSDERMAL 3-02 0.075 mg ity of PATCH 21:03: to skin [place] TRANSDERMAL 40 weekly. [facility] al Branch ESTRADIOL 2020-0 Yes .075mg Apply Unive rs TRANSDERMAL 3-02 0.075 mg ity of PATCH 21:03: to skin [place] TRANSDERMAL 40 weekly. [facility] al Branch ESTRADIOL 2020-0 Yes .075mg Apply Unive rs TRANSDERMAL 3-02 0.075 mg ity of PATCH 21:03: to skin [place] TRANSDERMAL 40 weekly. Medic al Branch ESTRADIOL 2020-0 Yes .075mg Apply Unive rs TRANSDERMAL 3-02 0.075 mg ity of PATCH 21:03: to skin [place] TRANSDERMAL 40 weekly. [facility] al Branch ESTRADIOL 2020-0 Yes .075mg Apply Unive rs TRANSDERMAL 3-02 0.075 mg ity of PATCH 21:03: to skin [place] TRANSDERMAL 40 weekly. Medic al Branch Thyroid, Yes 180mg Take 180 Univ ers [place], 180 3-02 mg by ity of mg tablet 21:03: mouth [place] 05 daily. Medical Branch Thyroid, Yes 180mg Take 180 Univ ers [place], 180 3-02 mg by ity of mg tablet 21:03: mouth [place] 05 daily. Medical Branch Thyroid, Yes 180mg Take 180 Univ ers [place], 180 3-02 mg by ity of mg tablet 21:03: mouth [place] 05 daily. Medical Branch Thyroid, Yes 180mg Take 180 Univ ers [place], 180 3-02 mg by ity of mg tablet 21:03: mouth [place] 05 daily. Medical Branch Thyroid, Yes 180mg Take 180 Univ ers [place], 180 3-02 mg by ity of mg tablet 21:03: mouth [place] 05 daily. Medical Branch Thyroid, Yes 180mg Take 180 Univ ers [place], 180 3-02 mg by ity of mg tablet 21:03: mouth [place] 05 daily. Medical Branch Thyroid, Yes 180mg Take 180 Univ ers [place], 180 3-02 mg by ity of mg tablet 21:03: mouth [place] 05 daily. Medical Branch dexAMETHaso 2020- No [id number] 1mg Take 1 Univers ne 1 mg 3-05 09-03 104 tablet by ity of tablet 00:00: 05:59 mouth [place] 00 :00 now for 1 Medical dose. Branch dexAMETHaso 2020- No [id number] 1mg Take 1 Univers ne 1 mg 3-02 -03 104 tablet by ity of tablet 00:00: 05:59 mouth [place] 00 :00 now for 1 Medical dose. [facility] Yes Flor 1 tablet Comm on Thyroid Thyroid 1-24 [place] on an Spirit 00:00: empty - [facility] [address] stomach [facility] No 1{table QD [place] Thyroid 90 Thyroid 90 1-24 t_on_an Thyroid 90 MG MG 00:00: _empty_ MG 00 stomach } [facility] No 1{table QD [place] Thyroid 90 Thyroid 90 1-24 t_on_an Thyroid 90 MG MG 00:00: _empty_ MG 00 stomach } [facility] No 1{table QD [place] Thyroid 90 Thyroid 90 1-24 t_on_an Thyroid 90 MG MG 00:00: _empty_ MG 00 stomach } [facility] No 1{table QD [place] Thyroid 90 Thyroid 90 1-24 t_on_an Thyroid 90 MG MG 00:00: _empty_ MG 00 stomach } [facility] No 1{table QD [place] Thyroid 90 Thyroid 90 1-24 t_on_an Thyroid 90 MG MG 00:00: _empty_ MG 00 stomach } [facility] No 1{table QD [place] Thyroid 90 Thyroid 90 1-24 t_on_an Thyroid 90 MG MG 00:00: _empty_ MG 00 stomach } [facility] No 1{table QD [place] Thyroid 90 Thyroid 90 1-24 t_on_an Thyroid 90 MG MG 00:00: _empty_ MG 00 stomach } [facility] No 1{table QD [place] Thyroid 90 Thyroid 90 1-24 t_on_an Thyroid 90 MG MG 00:00: _empty_ MG 00 stomach } [facility] No 1{table QD [place] Thyroid 90 Thyroid 90 1-24 t_on_an Thyroid 90 MG MG 00:00: _empty_ MG 00 stomach } Hydrochloro Hydrochloro Yes Flor 1 tablet Common thiazide thiazide 6-07 [place] in the Spir it 00:00: morning - [facility] 00 [facility] Combigan Combigan Yes Flor 1 drop Comm on [place] into Spirit affected - CHI eye [facility] Lumigan Lumigan Yes Flor 1 drop Common [place] into Spirit affected - CHI eye in the [facility] Estradiol Estradiol Yes Flor 1 patch to Common [place] skin Spirit - [facility] buPROPion buPROPion No 1{table BID buPROPion HCl 100 MG HCl 100 MG t} HCl 100 MG Nystatin Nystatin No 1{appli BID Nystatin 548264 325564 cation} [id number] UNIT/GM UNIT/GM UNIT/GM Estradiol Estradiol No 1{patch Estradiol 0.075 0.075 _to_ski 0.075 MG/24HR MG/24HR n} MG/24HR busPIRone busPIRone No busPIRone HCl 5 MG HCl 5 MG HCl 5 MG Combigan Combigan No 1{drop_ BID Combigan 0.2-0.5 % 0.2-0.5 % into_af 0.2-0.5 % fected_ eye} buPROPion buPROPion No 1{table BID buPROPion HCl 100 MG HCl 100 MG t} HCl 100 MG Lum[place] Lumigan No 1{drop_ QD [place] 0.01 % 0.01 % into_af 0.01 % fected_ eye_in_ the_eve anny} Nystatin Nystatin No 1{appli BID Nystatin 580681 339290 cation} [id number] UNIT/GM UNIT/GM UNIT/GM Estradiol Estradiol No 1{patch Estradiol 0.075 0.075 _to_ski 0.075 MG/24HR MG/24HR n} MG/24HR busPIRone busPIRone No busPIRone HCl 5 MG HCl 5 MG HCl 5 MG Combigan Combigan No 1{drop_ BID Combigan 0.2-0.5 % 0.2-0.5 % into_af 0.2-0.5 % fected_ eye} buPROPion buPROPion No 1{table BID buPROPion HCl 100 MG HCl 100 MG t} HCl 100 MG Lumigan Lumigan No 1{drop_ QD [place] 0.01 % 0.01 % into_af 0.01 % fected_ eye_in_ the_eve anny} buPROPion buPROPion No 1{table BID buPROPion HCl 100 MG HCl 100 MG t} HCl 100 MG busPIRone busPIRone No busPIRone HCl 5 MG HCl 5 MG HCl 5 MG Lum[place] Lumigan No 1{drop_ QD [place] 0.01 % 0.01 % into_af 0.01 % fected_ eye_in_ the_eve anny} Combigan Combigan No 1{drop_ BID Combigan 0.2-0.5 % 0.2-0.5 % into_af 0.2-0.5 % fected_ eye} Estradiol Estradiol No 1{patch Estradiol 0.075 0.075 _to_ski 0.075 MG/24HR MG/24HR n} MG/24HR Nystatin Nystatin No 1{appli BID Nystatin 114236 535546 cation} [id number] UNIT/GM UNIT/GM UNIT/GM Lumigan Lumigan No 1{drop_ QD [place] 0.01 % 0.01 % into_af 0.01 % fected_ eye_in_ the_eve anny} busPIRone busPIRone No busPIRone HCl 5 MG HCl 5 MG HCl 5 MG Nystatin Nystatin No 1{appli BID Nystatin 423954 063325 cation} 986001 UNIT/GM UNIT/GM UNIT/GM Combigan Combigan No 1{drop_ BID Combigan 0.2-0.5 % 0.2-0.5 % into_af 0.2-0.5 % fected_ eye} buPROPion buPROPion No 1{table BID buPROPion HCl 100 MG HCl 100 MG t} HCl 100 MG Estradiol Estradiol No 1{patch Estradiol 0.075 0.075 _to_ski 0.075 MG/24HR MG/24HR n} MG/24HR Claritin 10 Claritin 10 No 1{table QD Claritin MG MG t} 10 MG Combigan Combigan No 1{drop_ BID Combigan 0.2-0.5 % 0.2-0.5 % into_af 0.2-0.5 % fected_ eye} buPROPion buPROPion No 1{table BID buPROPion HCl 100 MG HCl 100 MG t} HCl 100 MG Lumigan Lumigan No 1{drop_ QD [place] 0.01 % 0.01 % into_af 0.01 % fected_ eye_in_ the_eve anny} Nystatin Nystatin No 1{appli BID Nystatin 370666 565927 cation} [id number] UNIT/GM UNIT/GM UNIT/GM Estradiol Estradiol No 1{patch Estradiol 0.075 0.075 _to_ski 0.075 MG/24HR MG/24HR n} MG/24HR busPIRone busPIRone No busPIRone HCl 5 MG HCl 5 MG HCl 5 MG Claritin 10 Claritin 10 No 1{table QD Claritin MG MG t} 10 MG Combigan Combigan No 1{drop_ BID Combigan 0.2-0.5 % 0.2-0.5 % into_af 0.2-0.5 % fected_ eye} buPROPion buPROPion No 1{table BID buPROPion HCl 100 MG HCl 100 MG t} HCl 100 MG Lumigan Lumigan No 1{drop_ QD [place] 0.01 % 0.01 % into_af 0.01 % fected_ eye_in_ the_eve anny} Nystatin Nystatin No 1{appli BID Nystatin 429947 736169 cation} [id number] UNIT/GM UNIT/GM UNIT/GM Estradiol Estradiol No 1{patch Estradiol 0.075 0.075 _to_ski 0.075 MG/24HR MG/24HR n} MG/24HR busPIRone busPIRone No busPIRone HCl 5 MG HCl 5 MG HCl 5 MG Combigan Combigan No 1{drop_ BID Combigan 0.2-0.5 % 0.2-0.5 % into_af 0.2-0.5 % fected_ eye} Nystatin Nystatin No 1{appli BID Nystatin 314196 287111 cation} 167197 UNIT/GM UNIT/GM UNIT/GM Lumigan Lumigan No 1{drop_ QD [place] 0.01 % 0.01 % into_af 0.01 % fected_ eye_in_ the_eve anny} Claritin 10 Claritin 10 No 1{table QD Claritin MG MG t} 10 MG Levothyroxi Levothyroxi No QD Levothyrox ne Sodium ne Sodium ine Sodium 75 MCG 75 MCG 75 MCG buPROPion buPROPion No 1{table BID buPROPion HCl 100 MG HCl 100 MG t} HCl 100 MG Estradiol Estradiol No 1{patch Estradiol 0.075 0.075 _to_ski 0.075 MG/24HR MG/24HR n} MG/24HR busPIRone busPIRone No busPIRone HCl 5 MG HCl 5 MG HCl 5 MG buPROPion buPROPion No 1{table BID buPROPion HCl 100 MG HCl 100 MG t} HCl 100 MG busPIRone busPIRone No busPIRone HCl 5 MG HCl 5 MG HCl 5 MG Estradiol Estradiol No 1{patch Estradiol 0.075 0.075 _to_ski 0.075 MG/24HR MG/24HR n} MG/24HR Lumigan Lumigan No 1{drop_ QD Lum[place] 0.01 % 0.01 % into_af 0.01 % fected_ eye_in_ the_eve anny} Nystatin Nystatin No 1{appli BID Nystatin 102821 962563 cation} [id number] UNIT/GM UNIT/GM UNIT/GM Combigan Combigan No 1{drop_ BID Combigan 0.2-0.5 % 0.2-0.5 % into_af 0.2-0.5 % fected_ eye} Claritin 10 Claritin 10 No 1{table QD Claritin MG MG t} 10 MG Levothyroxi Levothyroxi No QD Levothyrox ne Sodium ne Sodium ine Sodium 75 MCG 75 MCG 75 MCG Claritin 10 Claritin 10 No 1{table QD Claritin MG MG t} 10 MG busPIRone busPIRone No busPIRone HCl 5 MG HCl 5 MG HCl 5 MG Estradiol Estradiol No 1{patch Estradiol 0.075 0.075 _to_ski 0.075 MG/24HR MG/24HR n} MG/24HR Lumigan Lumigan No 1{drop_ QD [place] 0.01 % 0.01 % into_af 0.01 % fected_ eye_in_ the_eve anny} Nystatin Nystatin No 1{appli BID Nystatin 574635 139130 cation} [id number] UNIT/GM UNIT/GM UNIT/GM buPROPion buPROPion No 1{table BID buPROPion HCl 100 MG HCl 100 MG t} HCl 100 MG Levothyroxi Levothyroxi No Levothyrox ne Sodium ne Sodium ine Sodium 75 MCG 75 MCG 75 MCG Combigan Combigan No 1{drop_ BID Combigan 0.2-0.5 % 0.2-0.5 % into_af 0.2-0.5 % fected_ eye} Claritin 10 Claritin 10 No 1{table QD Claritin MG MG t} 10 MG busPIRone busPIRone No busPIRone HCl 5 MG HCl 5 MG HCl 5 MG Lumigan Lumigan No 1{drop_ QD [place] 0.01 % 0.01 % into_af 0.01 % fected_ eye_in_ the_eve anny} Nystatin Nystatin No 1{appli BID Nystatin 399964 149313 cation} [id number] UNIT/GM UNIT/GM UNIT/GM buPROPion buPROPion No 1{table BID buPROPion HCl 100 MG HCl 100 MG t} HCl 100 MG Levothyroxi Levothyroxi No Levothyrox ne Sodium ne Sodium ine Sodium 75 MCG 75 MCG 75 MCG Combigan Combigan No 1{drop_ BID Combigan 0.2-0.5 % 0.2-0.5 % into_af 0.2-0.5 % fected_ eye} Estradiol Estradiol No 1{patch Estradiol 0.075 0.075 _to_ski 0.075 MG/24HR MG/24HR n} MG/24HR Claritin 10 Claritin 10 No 1{table QD Claritin MG MG t} 10 MG busPIRone busPIRone No busPIRone HCl 5 MG HCl 5 MG HCl 5 MG Lumigan Lumigan No 1{drop_ QD [place] 0.01 % 0.01 % into_af 0.01 % fected_ eye_in_ the_eve anny} Nystatin Nystatin No 1{appli BID Nystatin 265605 299357 cation} [id number] UNIT/GM UNIT/GM UNIT/GM buPROPion buPROPion No 1{table BID buPROPion HCl 100 MG HCl 100 MG t} HCl 100 MG Levothyroxi Levothyroxi No Levothyrox ne Sodium ne Sodium ine Sodium 75 MCG 75 MCG 75 MCG Combigan Combigan No 1{drop_ BID Combigan 0.2-0.5 % 0.2-0.5 % into_af 0.2-0.5 % fected_ eye} Estradiol Estradiol No 1{patch Estradiol 0.075 0.075 _to_ski 0.075 MG/24HR MG/24HR n} MG/24HR Claritin 10 Claritin 10 No 1{table QD Claritin MG MG t} 10 MG busPIRone busPIRone No busPIRone HCl 5 MG HCl 5 MG HCl 5 MG Lumigan Lumigan No 1{drop_ QD [place] 0.01 % 0.01 % into_af 0.01 % fected_ eye_in_ the_eve anny} Nystatin Nystatin No 1{appli BID Nystatin 124562 243893 cation} [id number] UNIT/GM UNIT/GM UNIT/GM buPROPion buPROPion No 1{table BID buPROPion HCl 100 MG HCl 100 MG t} HCl 100 MG Levothyroxi Levothyroxi No Levothyrox ne Sodium ne Sodium ine Sodium 75 MCG 75 MCG 75 MCG Combigan Combigan No 1{drop_ BID Combigan 0.2-0.5 % 0.2-0.5 % into_af 0.2-0.5 % fected_ eye} Estradiol Estradiol No 1{patch Estradiol 0.075 0.075 _to_ski 0.075 MG/24HR MG/24HR n} MG/24HR Claritin 10 Claritin 10 No 1{table QD Claritin MG MG t} 10 MG Levothyroxi Levothyroxi No Levothyrox ne Sodium ne Sodium ine Sodium 75 MCG 75 MCG 75 MCG Combigan Combigan No 1{drop_ BID Combigan 0.2-0.5 % 0.2-0.5 % into_af 0.2-0.5 % fected_ eye} Nystatin Nystatin No 1{appli BID Nystatin [id number] cation} [id number] UNIT/GM UNIT/GM UNIT/GM busPIRone busPIRone No busPIRone HCl 5 MG HCl 5 MG HCl 5 MG Estradiol Estradiol No 1{patch Estradiol 0.075 0.075 _to_ski 0.075 MG/24HR MG/24HR n} MG/24HR Combigan Combigan No 1{drop_ BID Combigan 0.2-0.5 % 0.2-0.5 % into_af 0.2-0.5 % fected_ eye} Lumigan Lumigan No 1{drop_ QD Lumigan 0.01 % 0.01 % into_af 0.01 % fected_ eye_in_ the_eve anny} busPIRone busPIRone No busPIRone HCl 5 MG HCl 5 MG HCl 5 MG Nystatin Nystatin No 1{appli BID Nystatin [id number] cation} [id number] UNIT/GM UNIT/GM UNIT/GM Estradiol Estradiol No 1{patch Estradiol 0.075 0.075 _to_ski 0.075 MG/24HR MG/24HR n} MG/24HR Combigan Combigan No 1{drop_ BID Combigan 0.2-0.5 % 0.2-0.5 % into_af 0.2-0.5 % fected_ eye} Lumigan Lumigan No 1{drop_ QD Lumigan 0.01 % 0.01 % into_af 0.01 % fected_ eye_in_ the_eve anny} Immunizations Ordered Immunization Filled Immunization Date Status Commen ts Source Name Name COVID-19 Vaccine COVID-19 Vaccine 2020-07-13 Completed [facility] (M[facility] 14:49:00 - [facility] COVID-19 Vaccine COVID-19 Vaccine 2020-07-13 Completed [facility] (Meredith) 14:49:00 - [facility] COVID-19 Vaccine COVID-19 Vaccine 2020-07-13 Completed [facility] (Meredith) 14:49:00 - [facility] COVID-19 Vaccine COVID-19 Vaccine 2020-07-13 Completed [facility] (Meredith) 14:49:00 - [facility] COVID-19 Vaccine COVID-19 Vaccine 2020-07-13 Completed [facility] (Meredith) 14:49:00 - [facility] COVID-19 Vaccine COVID-19 Vaccine 2020-07-13 Completed [facility] (Meredith) 14:49:00 - [facility] COVID-19 Vaccine COVID-19 Vaccine 2020-07-13 Completed [facility] (Meredith) 14:49:00 - [facility] COVID-19 Vaccine COVID-19 Vaccine 2020-07-13 Completed [facility] (Meredith) 14:49:00 - [facility] COVID-19 Vaccine COVID-19 Vaccine 2020-07-13 Completed [facility] (Meredith) 14:49:00 - [facility] COVID-19 Vaccine COVID-19 Vaccine 2020-07-13 Completed [facility] (Meredith) 14:49:00 [facility] COVID-19 Vaccine COVID-19 Vaccine 2020-07-13 Completed [facility] (Meredith) 14:49:00 - [facility] COVID-19 Vaccine COVID-19 Vaccine 2020-07-13 Completed [facility] (Meredith) 14:49:00 - [facility] COVID-19 Vaccine COVID-19 Vaccine 2020-07-13 Completed [facility] (Meredith) 14:49:00 - [facility] COVID-19 Vaccine COVID-19 Vaccine 2020-07-13 Completed [facility] (Meredith) 14:49:00 - [facility] COVID-19 Vaccine COVID-19 Vaccine 2020-07-13 Completed [facility] (Meredith) 14:49:00 [facility] Vital Signs Vital Name Observation Time Observation Value Comments Source height 2021-11-29 16:40:00 64.5 [in_i] [facility] weight 2021-11-29 16:40:00 218 [lb_av] [facility] temperature 2021-11-29 16:40:00 97.8 [degF] [facility] bmi 2021-11-29 16:40:00 36.84 kg/m2 [facility] oximetry 2021-11-29 16:40:00 98 % [facility] respiratory rate 2021-11-29 16:40:00 16 /min Comm on Spirit [facility] blood pressure 2021-11-29 16:40:00 124 mm[Hg] [facility] - systolic [facility] blood pressure 2021-11-29 16:40:00 70 mm[Hg] [facility] - diastolic [facility] height 2021-09-30 11:40:00 65 [in_i] [facility] weight 2021-09-30 11:40:00 227 [lb_av] [facility] temperature 2021-09-30 11:40:00 97.6 [degF] [facility] bmi 2021-09-30 11:40:00 37.77 kg/m2 [facility] height 2021-08-29 11:40:00 65 [in_i] [facility] weight 2021-08-29 11:40:00 236 [lb_av] [facility] temperature 2021-08-29 11:40:00 97.4 [degF] Common pirit [facility] bmi 2021-08-29 11:40:00 39.27 kg/m2 [facility] 2021-07-30 11:40:00 65 [in_i] [facility] weight 2021-07-30 11:40:00 245 [lb_av] [facility] temperature 2021-07-30 11:40:00 97.1 [degF] [facility] bmi 2021-07-30 11:40:00 40.77 kg/m2 [facility] height 2021-07-01 16:20:00 65 [in_i] [facility] weight 2021-07-01 16:20:00 255 [lb_av] [facility] temperature 2021-07-01 16:20:00 97.8 [degF] [facility] bmi 2021-07-01 16:20:00 42.43 kg/m2 [facility] height 2021-04-04 10:40:00 65 [in_i] [facility] weight 2021-04-04 10:40:00 250 [lb_av] [facility] temperature 2021-04-04 10:40:00 97 [degF] [facility] pirit [facility] bmi 2021-04-04 10:40:00 41.60 kg/m2 [facility] height 2021-03-15 15:20:00 65 [in_i] Common [facility] weight 2021-03-15 15:20:00 257.4 [lb_av] [facility] temperature 2021-03-15 15:20:00 97.7 [degF] Common S pirit [facility] bmi 2021-03-15 15:20:00 42.83 kg/m2 Common S pirit - [facility] oximetry 2021-03-15 15:20:00 98 % Common S pirit - [facility] respiratory rate 2021-03-15 15:20:00 16 /min Comm on [facility] - [facility] blood pressure 2021-03-15 15:20:00 152 mm[Hg] [facility] - systolic [facility] blood pressure 2021-03-15 15:20:00 78 mm[Hg] [facility] - diastolic [facility] Systolic blood 2019-06-06 20:42:00 138 mm[Hg] [facility] 2019-06-06 20:42:00 78 mm[Hg] Unive [facility] Heart rate 2019-06-06 20:42:00 76 /min [facility] Respiratory rate 2019-06-06 20:40:00 16 /min [facility] height 2019-06-06 20:40:00 165.1 cm [facility] Body weight 2019-06-06 20:40:00 117.028 kg [facility] BMI 2019-06-06 20:40:00 42.93 kg/m2 [facility] Procedures Procedure Date / Time Performing Clinician Source Performed BI US GUIDED CORE BREAST 2020-04-25 14:43:00 Requisition, Paper [facility] BIOPSY RIGHT [facility] BI ULTRASOUND BREAST 2020-04-11 22:24:[address] [facility] COMPLETE RIGHT [facility] BI DIAGNOSTIC 2020-04-11 21:15:00 Flor Tracy [facility] TOMOSYNTHESIS BILATERAL [facility] Branch T3, TOTAL-Q 2019-06-16 13:13:00 Joey [facility] T-4, FREE-Q 2019-06-16 13:13:00 [facility]-Q 2019-06-16 13:13:00 Rochelle [facility] Encounters Start End Encounter Admission Attending Care Care Encounter Source Date/Time Date/Time Type Type Clinicians Facility Department ID 2021-12-16 Outpatient Perkins, STLMLC STLMLC [id number] Common 09:33:01 Janis [facility] 2021-11-27 Outpatient Perkins, STLMLC STLMLC [id number] Common 09:55:00 Janis [facility] 2021-11-13 Outpatient Perkins, STLMLC STLMLC [id number] Common 15:38:00 Janis [facility] 2021-09-26 Outpatient Perkins, STLMLC STLMLC [id number] Common 10:57:00 Janis [facility] 2021-06-21 Outpatient Perkins, STLMLC STLMLC [id number] Common 13:20:00 Janis [facility] 2021-05-01 Outpatient Perkins, STLMLC STLMLC [id number] Common 14:39:57 Janis [facility] 2021-05-01 Outpatient Perkins, STLMLC STLMLC [id number] Common 14:22:21 Janis 28023 [facility] 2021-05-01 Outpatient Perkins, STLMLC STLMLC [id number] Common 14:16:16 Janis 22954 [facility] 2021-05-01 Outpatient Verdigre, STLMLC STLMLC [id number] Common 11:01:46 Flor [id number] [facility] 2021-11-29 2021-11-29 OFFICE STLMLC STLMLC [id number] Co mmon 00:00:00 00:00:00 VISIT [facility] 4 [facility] 2021-11-11 2021-11-11 (TEL) STLMLC STLMLC [id number] Co mmon 00:00:00 00:00:00 [facility] 2021-11-01 2021-11-01 (TEL) STLMLC STLMLC [id number] Co mmon 00:00:00 00:00:00 [facility] 2021-10-24 2021-10-24 (TEL) STLMLC STLMLC [id number] Co mmon 00:00:00 00:00:00 [facility] 2021-10-14 2021-10-14 (TEL) STLMLC STLMLC [id number] Co mmon 00:00:00 00:00:00 [facility] 2021-09-30 2021-09-30 OFFICE STLMLC STLMLC [id number] Co mmon 00:00:00 00:00:00 VISIT [facility] PT - CHI LEVEL 4 [facility] 2021-08-29 2021-08-29 OFFICE STLMLC STLMLC [id number] Co mmon 00:00:00 00:00:00 VISIT EST Spir it PT LEVEL 3 - CHI [facility] 2021-07-30 2021-07-30 OFFICE STLMLC STLMLC [id number] Co mmon 00:00:00 00:00:00 VISIT [facility] PT - CHI LEVEL 4 [facility] 2021-07-29 2021-07-29 (TEL) STLMLC STLMLC [id number] Co mmon 00:00:00 00:00:00 [facility] 2021-07-01 2021-07-01 OFFICE STLMLC STLMLC [id number] Co mmon 00:00:00 00:00:00 VISIT [facility] PT - CHI LEVEL 4 [facility] 2021-04-29 2021-04-29 (TEL) STLMLC STLMLC [id number] Co mmon 00:00:00 00:00:00 [facility] 2021-04-08 2021-04-08 (TEL) STLMLC STLMLC [id number] Co mmon 00:00:00 00:00:00 [facility] 2021-04-04 2021-04-04 (TEL) STLMLC STLMLC [id number] Co mmon 00:00:00 00:00:00 [facility] 2021-04-04 2021-04-04 OFFICE STLMLC STLMLC [id number] Co mmon 00:00:00 00:00:00 VISIT EST Spir it PT LEVEL 3 - [facility] 2021-03-15 2021-03-15 OFFICE STLMLC STLMLC [id number] Co mmon 00:00:00 00:00:00 VISIT Spirit ESTAB PT - CHI LEVEL 4 [facility] 2020-09-24 2020-09-24 Outpatient STLMLC STLMLC [id number] Common 00:00:00 00:00:00 [facility] 2020-09-14 2020-09-14 Outpatient STLMLC STLMLC [id number] Common 00:00:00 00:00:00 [facility] 2020-09-07 2020-09-07 Outpatient STLMLC STLMLC [id number] Common 00:00:00 00:00:00 [facility] 2020-07-31 2020-07-31 Outpatient STLMLC STLMLC [id number] Common 00:00:00 00:00:00 [facility] 2020-06-21 2020-06-21 Patient Ernesto, [facility] [id number] 00:00:00 00:00:00 Outreach Adelso PRIMARY [id number] Jesus CARE [id number] PAVILLION [id number] 2020-06-21 2020-06-21 Patient Ernesto [facility] 1.2.840.114 [id number] Univers 00:00:00 00:00:00 Outreach Adelso PRIMARY [id number] i ty of [place] [id number] Ia dical [address] 2020-04-27 2020-04-27 Outpatient STLMLC STLMLC [id number] Common 00:00:00 00:00:00 [facility] 2020-04-25 2020-04-25 Hospital Radiology [facility] [id number] 07:53:14 23:59:00 Encounter SPECIALTY [id number] CARE [id number] CENTER AT [id number] PRISCILA [address] [place] [address] 2020-04-25 2020-04-25 [facility] Radiology [facility] 1.2.840.114 [id number] Univers 07:53:14 23:59:00 Encounter SPECIALTY [id number] ity [id number] [id number] Ia tulio FRANCOIS [address] [place] [address] 2020-04-25 2020-04-[address] [facility] [id number] Univers 00:00:00 00:00:00 ity of [facility] 2020-04-16 2020-04-16 Outpatient STLMLC STLMLC [id number] Common 00:00:00 00:00:00 [facility] 2020-04-11 2020-04-11 [facility] Radiology [facility] 1.2.840.114 [id number] 13:48:55 23:59:00 Encounter SPECIALTY [id number] CARE [id number] CENTER AT [id number] [place] [address] [place] [address] 2020-04-11 2020-04-11 [facility] Radiology [facility] 1.2.840.114 [id number] Univers 13:48:55 23:59:00 Encounter SPECIALTY [id number] ity of [id number] [id number] Ia tulio FRANCOIS [address] [place] [address] 2020-04-11 2020-04-11 [facility] Radiology [facility] 1.2.840.114 [id number] 13:46:57 13:47:00 Encounter SPECIALTY [id number] CARE [id number] CENTER AT [id number] PRISCILA [address] [place] [address] 2020-04-11 2020-04-11 [facility] Radiology [facility] 1.2.840.114 [id number] Univers 13:46:57 13:47:00 Encounter SPECIALTY [id number] ity of [id number] [id number] Ia tulio FRANCOIS [address] [place] [address] 2020-04-11 2020-04-[address] [facility] [id number] Univers 00:00:00 00:00:00 ity of [facility] 2020-03-26 2020-03-26 Outpatient STLMLC STLC [id number] Common 00:00:00 00:00:00 [facility] 2019-12-26 2019-12-26 [facility] 1.2.840.114 [id number] [facility] 00:00:00 00:00:00 Rochelle [place] [id number] i [place] Profess[place] [id number] [address] 2019-12-26 2019-12-26 [facility] 1.2.840.114 [id number] 00:00:00 00:00:00 [place]helle [place] [id number] [place] 4.2.7.2.686 Professio [id number] [address] 2019-10-25 2019-10-25 [facility] [id number] Common 10:23:00 10:23:00 [facility] 2019-10-20 2019-10-20 [facility] [id number] Common 11:00:00 11:00:00 [facility] 2019-10-10 2019-10-10 [id number] Univers 16:00:00 16:00:00 [facility] 2019-06-[facility] 2019-06-21 [facility] 1.2.840.114 [id number] [facility] 00:00:00 00:00:00 Rochelle [place] 350.1.13.10 [place] [id number] [address] 2019-06-16 2019-06-16 [facility]phone [facility] 1.2.840.114 [id number] [facility] 00:00:00 00:00:00 Rochelle [place] 350.1.13.10 [place] [id number] [address] 2019-06-16 2019-06-16 Orders JESUS Cook 1.2.840.114 [id number] Univers 00:00:00 00:00:00 Only Rochelle WEISS 350.1.13.10 it y of [facility] 4.2.7.2.686 [place] as [id number] [address] 2019-06-15 2019-06-15 [facility] 1.2.840.114 [id number] Univers 00:00:00 00:00:00 Rochelle Mcne[place] 350.1.13.10 [place] [id number] [address] 2019-06-14 2019-06-14 Telephone Joey [facility] 1.2.840.114 [id number] Univers 00:00:00 00:00:00 Rochelle [place] 350.1.13.10 i [place]2.[place] [id number] [address] 2019-06-13 2019-06-13 [facility]phone [facility] 1.2.840.114 [id number] Univers 00:00:00 00:00:00 Rochelle [place] 350.1.13.10 [place]2.[place] [id number] [address] 2019-06-06 2019-06-06 [facility] 1.2.840.114 [id number] Univers 14:03:33 15:19:55 Visit Rochelle Fredis 350.1.13.10 i [place]2.[place] [id number] [address] 2019-06-06 2019-06-[address] [facility] [id number] Univers 14:30:00 14:30:00 ROCHELLE hernandez [facility] 2019-06-06 2019-06-06 Letter Doctor JESUS 1.2.840.114 [id number] Univers 00:00:00 00:00:00 (Out) Unassigned, ISELA 350.1.13.10 ity of [place] [facility] 4.2.7.2.686 [facility] as [id number] [place] [address] [address] 2019-06-03 2019-06-03 [facility] [id number] Common 11:37:00 11:37:[address] [facility] 2019-05-13 2019-05-13 [facility] [id number] Common 14:05:00 14:05:[address] [facility] 2019-05-11 2019-05-11 [facility] [id number] Common 16:43:00 16:43:[address] [facility] 2019-04-29 2019-04-29 [facility] [id number] Common 15:19:00 15:19:[address] [facility] 2019-04-25 2019-04-25 [facility] [id number] Common 14:20:00 14:20:[address] [facility] 2019-04-20 2019-04-20 [facility] [id number] Common 14:02:00 14:02:[address] [facility] 2019-03-25 2019-03-25 [facility] [id number] Common 13:34:00 13:34:[address] [facility] 2019-03-24 2019-03-24 [facility] [id number] Common 10:03:00 10:03:[address] [facility] 2019-03-23 2019-03-23 Out[facility] [id number] Common 12:03:00 12:03:[address] [facility] 2019-03-08 2019-03-08 [facility] [id number] Common 16:00:00 16:00:[address] [facility] 2018-09-15 2018-09-15 [facility] [id number] Common 09:27:00 09:27:[address] [facility] 2018-08-19 2018-08-19 [facility] [id number] Common 21:25:00 21:25:[address] [facility] 2018-08-04 2018-08-04 [facility] [id number] Common 11:30:00 11:30:[address] [facility] 2018-07-13 2018-07-13 [facility] [id number] Common 08:21:00 08:21:[address] [facility] 2018-05-05 2018-05-05 [facility] [id number] Common 11:40:00 11:40:[address] [facility] 2018-04-30 2018-04-30 [facility] [id number] Common 09:30:00 09:30:[address] [facility] 2017-11-03 2017-11-03 Outpatient [facility] [id number] Common 17:08:00 17:08:[address] [facility] 2017-11-02 2017-11-02 [facility] [id number] Common 17:50:00 17:50:[address] [facility] 2017-10-30 2017-10-30 [facility] [id number] Common 09:30:00 09:30:[address] [facility] 2017-09-22 2017-09-22 [facility] [id number] Common 13:41:00 13:41:[address] [facility] 2017-09-21 2017-09-21 [facility] [id number] Common 14:20:00 14:20:[address] [facility] 2017-09-15 2017-09-15 [facility] [id number] Common 11:21:00 11:21:[address] [facility] 2017-09-14 2017-09-14 [facility] [id number] Common 14:36:00 14:36:[address] [facility] 2017-09-04 2017-09-04 Outpatient Zoila Cummingst [id number] Common 09:30:00 09:30:00 [address] [facility] [address] [facility] it Road [facility] 2017-08-15 2017-08-15 [facility] [id number] Common 10:17:00 10:17:00 [address] [facility] [address] [facility] it Road [facility] 2017-08-14 2017-08-14 Outpatient [facility] [id number] Common 09:30:00 09:30:00 [address] [facility] [address] [facility] it Road [facility] Results Test Description Test Time Test Comments Results Result Sour e Comments BI US GUIDED CORE 2020-04-07 [...] JAYLENE (test code = JAYLENE) PERFORMED BY [email or web address]/Vite [facility]; [address] [place] [address]; HILTON PANIAGUA MD Lab Interpretation (test code = 71820-9) Abnormal [facility], [id number] 06:00:00 Test Item Value Reference Range Interpretation Comments T-4, FREE-Q (test 1.3 ng/dL 0.8-1.8 code = 3024-7) JAYLENE (test code = PERFORMED BY [facility] JAYLENE) [employer]/Vite [facility]; [address] [place] [address]; HILTON PAN[facility]AGUA [facility] [id number] 06:00:00 Test Item Value Reference Range Interpretation Comments TSH, 3RD GENERATION-Q mIU/L L ? (test code = 3016-3) ?Refere nce Range ?> or = 20 Years ?0.40-4.5 0 ? Range s ?First trimester ? ?0.26-2.66 ?Second trimester ? 0.55-2.73 ?Third trimester ? ?0.43-2.91REPOR T COMMENT:FASTING : YES JAYLENE (test code = JAYLENE) PERFORMED BY [employer]! [facility]; [address] [place] [address]; HILTON PANIAGUA MD Lab Interpretation Abnormal (test code = 66505-2) [facility] A+ RAPIDSTREP A+ RAPIDSARS-COV 2 Antigen SARS-COV 2 Antigen
[2022-02-11] MEDS ORDERED: NA CHLORIDE 0.9% 1,000 ML ONE (09:50)
[2022-02-11 09:57] LABS: Urine Blood Negative (Negative); Urine Glucose Negative (Negative); Urine Protein Negative (Negative); Urine Specific Gravity 1.025 (1.005-1.030); Urine pH 5.5 (5.0-7.0)
[2022-02-11 10:12] LABS: Absolute Lymphocytes (CBC) 1.2 K/uL (0.7-4.9); Hematocrit 43.3 % (36.0-45.0); Lymphocytes % 16.3 % (15.3-44.8); MCV 82.7 fL (80-100); MPV 8.3 fL (7.6-11.3); RBC Red Blood Cell Count 5.24 M/uL (3.86-4.86)
[2022-02-11 10:16] LABS: Protime INR 1.25
[2022-02-11 10:32] LABS: Bilirubin Total 0.8 mg/dL (0.2-1.0); Magnesium 2.5 mg/dL (1.8-2.4); Potassium 3.8 mmol/L (3.5-5.1); Troponin High Sensitivity 11.1 pg/mL (<58.9)
--- NOTE | 2022-02-11 11:08 | RAD REPORT ---
EXAM DESCRIPTION: CT - Abdomen Pelvis W Contrast - 02/11/2022 10:46 am CLINICAL HISTORY: ventral hernia repair yesterday, syncope, abd pain COMPARISON: Abdomen Pelvis W Contrast dated 12/05/2021 TECHNIQUE: Biphasic, helical CT imaging of the abdomen and pelvis was performed following 100 ml non -ionic IV contrast. Oral contrast: No. All CT scans are performed using dose optimization technique as appropriate and may include automated exposure control or mA/KV adjustment according to patient size. FINDINGS: No suspicious findings in the lung bases. The liver, spleen, and pancreas show no suspicious findings. Cholecystectomy clips are present. No ab normal biliary tree dilatation. Symmetric renal function is seen with no hydronephrosis or suspicious renal mass. No pyelonephritis o r acute parenchymal process. No bladder abnormalities. No adrenal abnormalities. Uterus is absent. Ov eric are absent or atrophic. Pelvic floor laxity is evident. No dilated bowel loops or bowel wall thickening. No acute bowel finding seen. Areas seen scattered th roughout the subcutaneous fatty tissues of the abdomen. This is not unexpected given the recent surge ry. Small amounts of free intraperitoneal air also present. This is also in normal finding in a patie nt that is 1 day postop. No mass or bulky lymphadenopathy. Soft tissue stranding is present at the umbilical level extending from the skin surface down to the a nterior abdominal wall. Small amounts of air are seen within this soft tissue attenuation. A 3.5 cent imeter collection extends inferiorly from the periumbilical region in the subcutaneous fat. This has air, fluid and probably a small amount of blood. A clearly defined defect in the abdominal wall is not seen. Blood, fluid or edematous stranding in th e tissues at the midline ventral wall could mask a small defect. No bowel extending through an abdomi nal wall defect. No suspicious bony findings. IMPRESSION: Air, fluid and stranding are seen in the soft tissues along the superficial margin of th e abdominal wall at the umbilicus. A 3.5 centimeter focal collection of air, fluid and blood seen ext ending into the subcutaneous fatty tissues from the abdominal wall at the umbilicus. A focal defect in the abdominal wall cannot be clearly defined but is suspected. The patient may have a small rent or tear in the abdominal wall. Normal postop air, fluid and stranding changes seen in the subcutaneous fat and intraperitoneal fat.
--- NOTE | 2022-02-11 11:42 | EDPHYS ---
Physician Documentation [facility] Name: Dee Ruano Age: 51 yrs Sex: Female : 1970 Arrival Date: 02/11/2022 Time: 09:15 Bed 15 Private MD: SYLVIA KENNEDY ED Physician Orlando Alfaro HPI: 02/11 11:37 This 51 yrs old Unknown Female presents to ER via Ambulatory with complaints of rn Syncope, Post Surgical Pain. 11:37 The patient has experienced syncope. Onset: The symptoms/episode began/occurred just rn prior to arrival. Duration: This was a single episode. Associated injury: The patient did not suffer any apparent associated injury. Current symptoms: Currently, the patient is not experiencing any symptoms. The patient has not experienced similar symptoms in the past. The patient has been recently seen by a physician:. Pt with ventral hernia repair yesterday with Dr. Borges, had syncopal episode today, reports not really eating or drinking, felt weak and lightheaded when walking, then woke up on ground. Reports mild abd pain but not sure if hit abdomen or just from surgery. No fever. NO bleeding. . 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 - Social history:: Smoking status: Patient denies any tobacco usage or history of. - Family history:: not pertinent. - Hospitalizations: : No recent hospitalization is reported. ROS: 11:37 Constitutional: Negative for fever, chills, and weight loss, Eyes: Negative for injury, rn pain, redness, and discharge, Neck: Negative for injury, pain, and swelling, Cardiovascular: Negative for chest pain, palpitations, and edema, Respiratory: Negative for shortness of breath, cough, wheezing, and pleuritic chest pain, Abdomen/GI: Negative for nausea, vomiting, diarrhea, and constipation, Back: Negative for injury and pain, MS/Extremity: Negative for injury and deformity, Skin: Negative for injury, rash, and discoloration, Neuro: Negative for headache,numbness, tingling, and seizure. Exam: 11:37 Constitutional: This is a well developed, well nourished patient who is awake, alert, rn and in no acute distress. Ambulatory to room without difficulty. Head/Face: Normocephalic, atraumatic. Eyes: Pupils equal round and reactive to light, extra-ocular motions intact. Lids and lashes normal. Conjunctiva and sclera are non-icteric and not injected. Cornea within normal limits. Periorbital areas with no swelling, redness, or edema. ENT: Oropharynx with no redness, swelling, or masses, exudates, or evidence of obstruction, uvula midline. Mucous membranes moist. Cardiovascular: Regular rate and rhythm. No pulse deficits. Respiratory: No increased work of breathing, no retractions or nasal flaring. Abdomen/GI: Soft, non-tender Skin: Warm, dry MS/ Extremity: Pulses equal, no cyanosis. Neuro: Awake and alert, GCS 15, oriented to person, place, time, and situation. Cranial nerves II-XII grossly intact. Motor strength 5/5 in all extremities. Sensory grossly intact. Cerebellar exam normal. Normal gait. 12:38 ECG was reviewed by the Attending Physician. rn Vital Signs: 09:26 BP 136 / 86; Pulse 72; Resp 18; Temp 98.7; Pulse Ox 98% ; Weight 88.9 kg; Height 5 ft. jh5 5 in. (165.10 cm); Pain 5/10; 10:30 BP 125 / 79; Pulse 61; Resp 16; Pulse Ox 100% ; bp 11:52 BP 109 / 68; Pulse 61; Resp 16; Pulse Ox 100% ; bp 09:26 Body Mass Index 32.62 (88.90 kg, 165.10 cm) jh5 MDM: 09:25 Patient medically screened. rn 11:37 Differential Diagnosis: cardiac arrhythmia, emotional response, GI bleed, idiopathic rn syncope, vasovagal episode. Data reviewed: vital signs, nurses notes, lab test result(s), EKG, radiologic studies, CT scan, and as a result, I will discharge patient. Counseling: I had a detailed discussion with the patient and/or guardian regarding: the historical points, exam findings, and any diagnostic results supporting the discharge/admit diagnosis, lab results, radiology results, the need for outpatient follow up, to return to the emergency department if symptoms worsen or persist or if there are any questions or concerns that arise at home. Response to treatment: the patient's condition has returned to base line, and as a result, I will discharge patient. Special discussion: I discussed with the patient/guardian in detail that at this point there is no indication for admission to the hospital. It is understood, however, that if the symptoms persist or worsen the patient needs to return immediately for re-evaluation. ED course: NO acute findings on ct or blood, normal vitals, spoke with Dr. Borges, states ok to dc home, given return precautions. . 02/11 09:37 Order name: CBC with Diff; Complete Time: 11: rn 02/11 09:37 Order name: CMP; Complete Time: : rn 02/11 09:37 Order name: Lipase; Complete Time: : rn 02/11 09:37 Order name: Basic Metabolic Panel rn 02/11 09:37 Order name: Magnesium; Complete Time: 11: rn 02/11 09:37 Order name: Protime (+inr); Complete Time: 11: rn 02/11 09:37 Order name: IV Start; Complete Time: 10: rn 02/11 09:37 Order name: CT Abd/Pelvis - IV Contrast Only; Complete Time: 11: rn 02/11 09:37 Order name: Labs collected and sent; Complete Time: 10: rn 02/11 09:37 Order name: Ptt, Activated; Complete Time: 11: rn 02/11 09:37 Order name: Troponin High Sensitivity; Complete Time: 11: rn 02/11 09:37 Order name: EKG; Complete Time: 09:38 rn 02/11 09:57 Order name: Urine Dipstick-Ancillary; Complete Time: 11:11 EDVA 02/11 09:37 Order name: Cardiac monitoring; Complete Time: :57 rn 02/11 09:37 Order name: EKG - Nurse/Tech; Complete Time: :57 rn 02/11 09:37 Order name: O2 Per Protocol; Complete Time: 09:57 rn 02/11 09:37 Order name: O2 Sat Monitoring; Complete Time: :57 rn 02/11 09:37 Order name: Urine Dipstick-Ancillary (obtain specimen); Complete Time: 09:57 rn EC:38 Rate is 67 beats/min. Rhythm is regular. QRS [place] is Normal. NC interval is normal. QRS rn interval is normal. QT interval is normal. No Q waves. T waves are Normal. No ST changes noted. Clinical impression: NSR w/ Non-specific ST/T Changes. Interpreted by me. Reviewed by me. Administered Medications: 10:02 Drug: NS 0.9% 1000 ml Route: IV; Rate: 1 bolus; Site: right antecubital; bp 11:58 Follow up: IV Status: Completed infusion; IV Intake: 1000ml bp Disposition Summary: 02/11/22 11:42 Discharge Ordered Location: Home rn Problem: new rn Symptoms: have improved rn Condition: Stable rn Diagnosis - Syncope rn Followup: rn - With: Ran Borges MD - When: As needed - Reason: Recheck today's complaints, Re-evaluation by your physician Discharge Instructions: - Discharge Summary Sheet rn - Syncope rn Forms: - Medication Reconciliation Form rn - Thank You Letter rn - Antibiotic sport internship - Prescription Opioid Use rn Signatures: Dispatcher [employer] Orlando Melgar MD MD rn Peltier, Brian, RN RN Cassandra Johnson, RN RN jh5
--- NOTE | 2022-02-11 11:42 | ER ---
Nurse's Notes [facility] Name: Dee Ruano Age: 51 yrs Sex: Female : 1970 Arrival Date: 02/11/2022 Time: 09:15 Bed 15 Private MD: SYLVIA KENNEDY Diagnosis: Syncope Presentation: 02/11 09:26 Chief complaint: Patient states: hernia repair yesterday, passed out while i was [facility] walking and when i woke up my was just looking at me. I took the strap off my belly and it wasn't bleeding but right on the middle of my belly its very tender. I called Dr. Carreno and he told me to come to ER. Coronavirus screen: Vaccine status: Patient reports receiving the 2nd dose of the covid vaccine. Client denies travel out of the [place] in the last 14 days. Ebola Screen: Patient negative for fever greater than or equal to 101.5 degrees Fahrenheit, and additional compatible Ebola Virus Disease symptoms Patient denies exposure to infectious person. Patient denies travel to an Ebola-affected area in the 21 days before illness onset. Initial Sepsis Screen: Does the patient meet any 2 criteria? No. Patient's initial sepsis screen is negative. Does the patient have a suspected source of infection? No. Patient's initial sepsis screen is negative. Risk Assessment: Do you want to hurt yourself or someone else? Patient reports no desire to harm self or others. Onset of symptoms was February 11, 2022. 09:26 Method Of Arrival: Ambulatory [facility] 09:26 Acuity: AMINTA 3 5 Triage Assessment: 09:30 General: Appears in no apparent distress. uncomfortable, well groomed, well developed, [facility] Behavior is calm, cooperative, appropriate for age. Pain: Complains of pain in abdomen. Neuro: No deficits noted. Reports. COMBAT CONTROL: 09:30 LMP N/A - Hysterectomy [facility] Historical: - Allergies: :30 NKA; jh5 - PMHx: :30 Depression; EBV; Kandis Dobbs Virus; elevated liver enzymes-not supposed to take [facility] NSAIDS; Hypothyroidism; Migraines; - PSHx: :30 Cholecystectomy; Total abdominal hysterectomy; [facility] - Immunization history:: Adult Immunizations up to date. - Social history:: Smoking status: Patient denies any tobacco usage or history of. - Family history:: not pertinent. - Hospitalizations: : No recent hospitalization is reported. Screenin:30 Abuse screen: Denies threats or abuse. Denies injuries from another. Nutritional bp screening: No deficits noted. Tuberculosis screening: No symptoms or risk factors identified. Fall Risk None identified. Assessment: 09:30 General: SEE TRIAGE NOTE. bp 10:30 Reassessment: PT TO CT. bp 11:58 Reassessment: PT DC HOME AMBULATORY. bp Vital Signs: 09:26 BP 136 / 86; Pulse 72; Resp 18; Temp 98.7; Pulse Ox 98% ; Weight 88.9 kg; Height 5 ft. [facility] 5 in. (165.10 cm); Pain 5/10; 10:30 BP 125 / 79; Pulse 61; Resp 16; Pulse Ox 100% ; bp 11:52 BP 109 / 68; Pulse 61; Resp 16; Pulse Ox 100% ; bp 09:26 Body Mass Index 32.62 (88.90 kg, 165.10 cm) [facility] ED Course: 09:15 Patient arrived in ED. am2 09:15 SYLVIA KENNEDY is Private Physician. am2 09:25 Orlando Alfaro MD is Attending Physician. rn 09:30 Triage completed. [facility] 09:30 Patient has correct armband on for positive identification. Bed in low position. Call bp light in reach. Side rails up X2. 09:31 Arm band placed on right wrist. 5 09:46 Dilip Marie, RN is Primary Nurse. bp 09:59 Inserted saline lock: 20 gauge in right antecubital area, using aseptic technique. bp Blood collected. 10:48 CT Abd/Pelvis - IV Contrast Only In Process Unspecified. EDMS 11:41 Ran Borges MD is Referral Physician. rn 11:52 No provider procedures requiring assistance completed. IV discontinued, intact, bp bleeding controlled, No redness/swelling at site. Pressure dressing applied. Administered Medications: 10:02 Drug: NS 0.9% 1000 ml Route: IV; Rate: 1 bolus; Site: right antecubital; bp 11:58 Follow up: IV Status: Completed infusion; IV Intake: 1000ml bp Medication: 09:30 VIS not applicable for this client. bp Intake: 11:58 IV: 1000ml; Total: 1000ml. bp Outcome: 11:42 Discharge ordered by . rn 11:52 Discharged to home ambulatory. bp 11:52 Condition: stable 11:52 Discharge instructions given to patient, Instructed on discharge instructions, follow up and referral plans. Demonstrated understanding of instructions, follow-up care. 11:59 Patient left the ED. bp Signatures: Dispatcher [employer] EDMS Orlando Alfaro MD MD rn Moreno, Amanda am2 Peltier, Brian RN RN bp Cassandra Butler RN RN 5
[2022-02-11 12:03] VITALS: TEMP 98.7
[2022-02-11 12:05] VITALS: O2SAT 100
[2022-02-11 12:06] VITALS: BP 109/68
--- NOTE | 2022-02-11 13:54 | EKG ---
Test Date: 2022-02-11 Test Time: 09:57:45 [employer]: ROBERTO MEASUREMENT RESULTS: Intervals: Rate: 67 WA: 126 QRSD: 84 QT: 400 QTc: 422 [place]: P: 38 WA: 126 QRS: -12 T: 40 INTERPRETIVE STATEMENTS: Normal sinus rhythm Septal infarct, age undetermined Abnormal ECG Compared to ECG 02/10/2022 08:02:23 Myocardial infarct finding now present Electronically Signed On 02-11-22 13:53:41 TELEVISION AND RADIO REPAIRER by Darrion Majano
== END 2022-02-11 11:59 | disposition home or self-care (01) ==
LOC: ER 09:11
DX: R55 Syncope and collapse (principal)
CPT/HCPCS: 96361; 93005; 85025; 36415; 83735; 85610; 85730; 81003; 84484; 83690; 80053; 74177; 96360; 99284; J7030

== ENCOUNTER → 2023-06-30 | Emergency (ER) | payer BC ==
[~2023-06-30] MED LIST: NA CHLORIDE 0.9% 1,000 ML ONE
--- OUTSIDE RECORDS SUMMARY | 2023-06-30 08:28 | XMS REPORT | Continuity of Care Document ---
Author Name Unknown Address [address] [facility] [place] [address] [facility] Address [address] 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 Role Phone Filomena Hennessy NP Primary Care Physician [phone]- [phone] Janis Perkins Attending Clinician Unavailable Flor Tracy Attending Clinician Unavailable JING_[email or web address]_Rebeca_S Attending Clinician UnavailLevi Borjas MD K.HErica Attending Clinician [phone] Doctor Unassigned, [place] Attending Clinician LEVI WolffHErica Attending Clinician UnavailAdelso Hernández DO Attending Clinician [phone] Radiology Attending Clinician Unavailable RADIOLOGY Attending Clinician Unavailable Rochelle Cook MD Attending Clinician [phone] ROCHELLE COOK Attending Clinician Unavailable JING_GCBZW_Rebeca_S Admitting Clinician Unavaila ble Payers Payer Name Policy Type Policy Number Effective Date Expirati on Date Source [place] [id number] 2018 00:00:00 Blue Cross [place] 6 [id number] [facility] Problems Condition Name Condition Details Condition Category Status Onset Date Resolution Date Last Treatment Date Treating Clinician Comments Source [id number] Fatty liver Problem [facility] [id number] Seasonal allergic rhinitis due to pollen Problem [facility] [id number] Recurrent major depressive disorder, in partial remission Problem [facility] [id number] Elevated blood pressure reading without diagnosis of hypertensi on Problem [facility] [id number] Asymptomat ic postproced ural ovarian failure Problem [facility] [id number] Acquired hypothyroi dism Problem [facility] [id number] Epigastric pain Problem [facility] 24669447 Chronic fatigue Problem [facility] [id number] Elevated [place]-Ba rr virus antibody titer Problem [facility] [id number] Generalize d edema Problem [facility] Abnormal mammogram Abnormal mammogram Problem [facility] [id number] Hot flashes due to menopause Problem [facility] 757602 Moderate major depression Problem [facility] [id number] Fever, unspecifie d fever cause Problem [facility] [id number] Sleep disturbanc e Problem [facility] [id number] Morbid (severe) obesity due to excess calories Problem [facility] [id number] Bronchitis Problem [facility] 99621274 Glaucoma of both eyes, unspecifie d glaucoma type Problem [facility] [id number] Body mass index [BMI] 40.0-44.9, adult Problem [facility] [id number] Obesity, unspecifie d Problem [facility] 581770837 Metabolic syndrome Problem [facility] 209120044 Left upper quadrant abdominal pain Problem [facility] Allergies, Adverse Reactions, Alerts Allergy Name Allergy Type Status Severity Reaction(s) Onset Date Inactive Date Treating Clinician Comments Source NO KNOWN ALLERGIE S Drug Class Active [facility] Social History Social Habit Start Date Stop Date Quantity Comments Source Sexual orientation [facility] Exposure to SARS-CoV-2 (event) Not sure [facility] History of Tobacco Use [facility] Sex Assigned At [facility] Smoking Status Start Date Stop Date Source Never Smoker [facility] Tobacco smoking consumption unknown [facility] Medications Ordered Medication Name Filled Medication Name Start Date Stop Date Current Medication? Ordering Clinician Indication Dosage Frequency Signature (SIG) Comments Components Source lisinopriL 10 mg tablet 2022-04 10:46: 29 Yes 10mg Take 1 tablet by mouth in the morning. [facility] lisinopriL 10 mg tablet 2022-04 10:46: 29 Yes 10mg Take 1 tablet by mouth in the morning. [facility] lisinopriL 10 mg tablet 2022-04 10:46: 29 Yes 10mg Take 1 tablet by mouth in the morning. [facility] lisinopriL 10 mg tablet 2022-04 10:46: 29 Yes 10mg Take 1 tablet by mouth in the morning. [facility] Lilly Thyroid 30 MG Lilly Thyroid 30 MG 11-29 00:00: 00 No 1{table t_on_an _empty_ stomach } QD Lilly Thyroid 30 MG Lilly Thyroid 30 MG Lilly Thyroid 30 MG 11-29 00:00: 00 No 1{table t_on_an _empty_ stomach } QD Lilly Thyroid 30 MG Lilly Thyroid 30 MG Lilly Thyroid 30 MG 11-29 00:00: 00 No 1{table t_on_an _empty_ stomach } QD Lilly Thyroid 30 MG Qsymia 11.25-69 MG Qsymia 11.25-69 MG 09-30 00:00: 00 No 1{capsu le} QD Qsymia 11.25-69 MG Qsymia 11.25-69 MG Qsymia 11.25-69 MG 2-0 6-27 00:00: 00 No 1{capsu le} QD Qsymia 11.25-69 MG Qsymia 11.25-69 MG Qsymia 11.25-69 MG 2-0 6- 00:00: 00 No 1{capsu le} QD Qsymia 11.25-69 MG Qsymia 11.25-69 MG Qsymia 11.25-69 MG 2-0 6 00:00: 00 No 1{capsu le} QD Qsymia 11.25-69 MG Qsymia 11.25-69 MG Qsymia 11.25-69 MG 2-0 09-30 00:00: 00 No 1{capsu le} QD Qsymia 11.25-69 MG Qsymia 11.25-69 MG Qsymia 11.25-69 MG 2-0 08-29 00:00: 00 11-27 00:00 :00 No 1{capsu le} QD Qsymia 11.25-69 MG Qsymia 7.5-46 MG Qsymia 7.5-46 MG 2021-0 07-30 00:00: 00 No 1{capsu le} QD Qsymia 7.5-46 MG Fluticasone Propionate 50 MCG/ACT Fluticasone Propionate 50 MCG/ACT 2021-0 07-30 00:00: 00 No 1{spray _in_eac h_nostr il} QD Fluticason e Propionate 50 MCG/ACT Qsymia 7.5-46 MG Qsymia 7.5-46 MG 2-0 07-30 00:00: 00 No 1{capsu le} QD Qsymia 7.5-46 MG Fluticasone Propionate 50 MCG/ACT Fluticasone Propionate 50 MCG/ACT 2021-0 07-30 00:00: 00 No 1{spray _in_eac h_nostr il} QD Fluticason e Propionate 50 MCG/ACT Qsymia 7.5-46 MG Qsymia 7.5-46 MG 2021-0 07-30 00:00: 00 No 1{capsu le} QD Qsymia 7.5-46 MG Fluticasone Propionate 50 MCG/ACT Fluticasone Propionate 50 MCG/ACT 2021-0 07-30 00:00: 00 No 1{spray _in_eac h_nostr il} QD Fluticason e Propionate 50 MCG/ACT Fluticasone Propionate 50 MCG/ACT Fluticasone Propionate 50 MCG/ACT 2021-0 07-30 00:00: 00 No 1{spray _in_eac h_nostr il} QD Fluticason e Propionate 50 MCG/ACT Fluticasone Propionate 50 MCG/ACT Fluticasone Propionate 50 MCG/ACT 2021-0 07-30 00:00: 00 No 1{spray _in_eac h_nostr il} QD Fluticason e Propionate 50 MCG/ACT Fluticasone Propionate 50 MCG/ACT Fluticasone Propionate 50 MCG/ACT 2021-0 07-30 00:00: 00 No 1{spray _in_eac h_nostr il} QD Fluticason e Propionate 50 MCG/ACT Fluticasone Propionate 50 MCG/ACT Fluticasone Propionate 50 MCG/ACT 2021-0 07-30 00:00: 00 No 1{spray _in_eac h_nostr il} QD Fluticason e Propionate 50 MCG/ACT Fluticasone Propionate 50 MCG/ACT Fluticasone Propionate 50 MCG/ACT 2021-0 07-30 00:00: 00 No 1{spray _in_eac h_nostr il} QD Fluticason e Propionate 50 MCG/ACT Levothyroxi ne Sodium 75 MCG Levothyroxi ne Sodium 75 MCG 2021-0 07-01 00:00: 00 No QD Levothyrox ine Sodium 75 MCG Levothyroxi ne Sodium 75 MCG Levothyroxi ne Sodium 75 MCG 2021-0 07-01 00:00: 00 No QD Levothyrox ine Sodium 75 MCG Levothyroxi ne Sodium 75 MCG Levothyroxi ne Sodium 75 MCG 2021-0 07-01 00:00: 00 No QD Levothyrox ine Sodium 75 MCG Qsymia 3.75-23 MG Qsymia 3.75-23 MG 2021-0 07-01 00:00: 00 07-31 00:00 :00 No 1{capsu le} QD Qsymia 3.75-23 MG Amoxicillin 500 mg Amoxicillin 500 mg - 00:00: 00 04-15 00:00 :00 No 1{capsu le} TID Amoxicilli n 500 mg Amoxicillin 500 mg Amoxicillin 500 mg 1- 00:00: 00 04-15 00:00 :00 No 1{capsu le} TID Amoxicilli n 500 mg buPROPion HCl 100 MG buPROPion HCl 100 MG 2020-04 2- 00:00: 00 No 1{table t} BID buPROPion HCl 100 MG Nystatin 821018 UNIT/GM Nystatin 000796 UNIT/GM 2020-04 00:00: 00 05-14 00:00 :00 No 1{appli cation} BID Nystatin 858460 UNIT/GM ARMOUR THYROID 90 mg tablet 12-25 00:00: 00 Yes [id number] TAKE 1 TABLET BY MOUTH EVERY MORNING IN ADDITION TO 60 MG TAB FOR TOTAL DAILY DOSE OF 150 MG PER DAY [facility] ARMOUR THYROID 60 mg tablet 12-25 00:00: 00 Yes [id number] TAKE 1 TABLET BY MOUTH EVERY MORNING IN ADDITION TO 90 MG TAB FOR TOTAL DAILY DOSE OF 150 MG PER DAY [facility] ARMOUR THYROID 90 mg tablet 12-25 00:00: 00 Yes [id number] TAKE 1 TABLET BY MOUTH EVERY MORNING IN ADDITION TO 60 MG TAB FOR TOTAL DAILY DOSE OF 150 MG PER DAY [facility] ARMOUR THYROID 60 mg tablet 12-25 00:00: 00 Yes [id number] TAKE 1 TABLET BY MOUTH EVERY MORNING IN ADDITION TO 90 MG TAB FOR TOTAL DAILY DOSE OF 150 MG PER DAY [facility] ARMOUR THYROID 90 mg tablet 12-25 00:00: 00 Yes [id number] TAKE 1 TABLET BY MOUTH EVERY MORNING IN ADDITION TO 60 MG TAB FOR TOTAL DAILY DOSE OF 150 MG PER DAY [facility] ARMOUR THYROID 60 mg tablet 12-25 00:00: 00 Yes [id number] TAKE 1 TABLET BY MOUTH EVERY MORNING IN ADDITION TO 90 MG TAB FOR TOTAL DAILY DOSE OF 150 MG PER DAY [facility] ARMOUR THYROID 90 mg tablet 12-25 00:00: 00 Yes [id number] TAKE 1 TABLET BY MOUTH EVERY MORNING IN ADDITION TO 60 MG TAB FOR TOTAL DAILY DOSE OF 150 MG PER DAY [facility] ARMOUR THYROID 60 mg tablet 12-25 00:00: 00 Yes [id number] TAKE 1 TABLET BY MOUTH EVERY MORNING IN ADDITION TO 90 MG TAB FOR TOTAL DAILY DOSE OF 150 MG PER DAY [facility] ARMOUR THYROID 90 mg tablet 12-25 00:00: 00 Yes [id number] TAKE 1 TABLET BY MOUTH EVERY MORNING IN ADDITION TO 60 MG TAB FOR TOTAL DAILY DOSE OF 150 MG PER DAY [facility] ARMOUR THYROID 60 mg tablet 12-25 00:00: 00 Yes [id number] TAKE 1 TABLET BY MOUTH EVERY MORNING IN ADDITION TO 90 MG TAB FOR TOTAL DAILY DOSE OF 150 MG PER DAY [facility] ARMOUR THYROID 90 mg tablet 12-25 00:00: 00 Yes [id number] TAKE 1 TABLET BY MOUTH EVERY MORNING IN ADDITION TO 60 MG TAB FOR TOTAL DAILY DOSE OF 150 MG PER DAY [facility] ARMOUR THYROID 60 mg tablet 12-25 00:00: 00 Yes [id number] TAKE 1 TABLET BY MOUTH EVERY MORNING IN ADDITION TO 90 MG TAB FOR TOTAL DAILY DOSE OF 150 MG PER DAY [facility] THYROID 90 mg tablet 12-25 00:00: 00 Yes [id number] TAKE 1 TABLET BY MOUTH EVERY MORNING IN ADDITION TO 60 MG TAB FOR TOTAL DAILY DOSE OF 150 MG PER DAY [facility] ARMOUR THYROID 60 mg tablet 12-25 00:00: 00 Yes [id number] TAKE 1 TABLET BY MOUTH EVERY MORNING IN ADDITION TO 90 MG TAB FOR TOTAL DAILY DOSE OF 150 MG PER DAY [facility] ARMOUR THYROID 90 mg tablet 12-25 00:00: 00 Yes [id number] TAKE 1 TABLET BY MOUTH EVERY MORNING IN ADDITION TO 60 MG TAB FOR TOTAL DAILY DOSE OF 150 MG PER DAY [facility] ARMOUR THYROID 60 mg tablet 12-25 00:00: 00 Yes [id number] TAKE 1 TABLET BY MOUTH EVERY MORNING IN ADDITION TO 90 MG TAB FOR TOTAL DAILY DOSE OF 150 MG PER DAY [facility] mg tablet 12-25 00:00: 00 Yes [id number] TAKE 1 TABLET BY MOUTH EVERY MORNING IN ADDITION TO 60 MG TAB FOR TOTAL DAILY DOSE OF 150 MG PER DAY [facility] THYROID 60 mg tablet 12-25 00:00: 00 Yes [id number] TAKE 1 TABLET BY MOUTH EVERY MORNING IN ADDITION TO 90 MG TAB FOR TOTAL DAILY DOSE OF 150 MG PER DAY [facility] THYROID 90 mg tablet 12-25 00:00: 00 Yes [id number] TAKE 1 TABLET BY MOUTH EVERY MORNING IN ADDITION TO 60 MG TAB FOR TOTAL DAILY DOSE OF 150 MG PER DAY [facility] THYROID 60 mg tablet 12-25 00:00: 00 Yes [id number] TAKE 1 TABLET BY MOUTH EVERY MORNING IN ADDITION TO 90 MG TAB FOR TOTAL DAILY DOSE OF 150 MG PER DAY [facility] Metoprolol Succinate ER Metoprolol Succinate ER 10-19 00:00: 00 Yes Flor Tracy 1 tablet [facility] Thyroid, Pork, 180 mg tablet 06-20 14:59: 50 06-20 00:00 :00 No 180mg Take 180 mg by mouth daily. [facility] THYROID 60 mg tablet 06-20 00:00: 00 Yes [id number] 60mg Take 1 tablet by mouth every morning. In addition to 90 mg to make it 150 mg total [facility] THYROID 90 mg tablet 06-20 00:00: 00 Yes [id number] 90mg Take 1 tablet by mouth daily. In addition to 60 mg to make it 150 mg total [facility] THYROID 60 mg tablet 06-20 00:00: 00 12-25 00:00 :00 No [id number] 60mg Take 1 tablet by mouth every morning. In addition to 90 mg to make it 150 mg total [facility] THYROID 90 mg tablet 06-20 00:00: 00 12-25 00:00 :00 No [id number] 90mg Take 1 tablet by mouth daily. In addition to 60 mg to make it 150 mg total [facility] THYROID 60 mg tablet 06-20 00:00: 00 12-25 00:00 :00 No [id number] 60mg Take 1 tablet by mouth every morning. In addition to 90 mg to make it 150 mg total [facility] ARMOUR THYROID 90 mg tablet 06-20 00:00: 00 12-25 00:00 :00 No [id number] 90mg Take 1 tablet by mouth daily. In addition to 60 mg to make it 150 mg total [facility] dexAMETHaso ne 1 mg tablet 06-14 00:00: 00 06-15 04:59 :00 No [id number] 1mg Take 1 tablet by mouth once now for 1 dose. DX: E66.01 [facility] dexAMETHaso ne 1 mg tablet 06-12 00:00: 00 06-13 04:59 :00 No [id number] 1mg Take 1 tablet by mouth once now for 1 dose. [facility] ESTRADIOL TRANSDERMAL PATCH TRANSDERMAL 06-05 21:03: 40 Yes .075mg Apply 0.075 mg to skin weekly. [facility] ESTRADIOL TRANSDERMAL PATCH TRANSDERMAL 06-05 21:03: 40 Yes .075mg Apply 0.075 mg to skin weekly. [facility] ESTRADIOL TRANSDERMAL PATCH TRANSDERMAL 06-05 21:03: 40 Yes .075mg Apply 0.075 mg to skin weekly. [facility] ESTRADIOL TRANSDERMAL PATCH TRANSDERMAL 06-05 21:03: 40 Yes .075mg Apply 0.075 mg to skin weekly. [facility] ESTRADIOL TRANSDERMAL PATCH TRANSDERMAL 06-05 21:03: 40 Yes .075mg Apply 0.075 mg to skin weekly. [facility] ESTRADIOL TRANSDERMAL PATCH TRANSDERMAL 06-05 21:03: 40 Yes .075mg Apply 0.075 mg to skin weekly. [facility] ESTRADIOL TRANSDERMAL PATCH TRANSDERMAL 06-05 21:03: 40 Yes .075mg Apply 0.075 mg to skin weekly. [facility] ESTRADIOL TRANSDERMAL PATCH TRANSDERMAL 2019-06-05 21:03: 40 Yes .075mg Apply 0.075 mg to skin weekly. [facility] ESTRADIOL TRANSDERMAL PATCH TRANSDERMAL 2020-0 06-05 21:03: 40 Yes .075mg Apply 0.075 mg to skin weekly. [facility] ESTRADIOL TRANSDERMAL PATCH TRANSDERMAL 2020-0 06-05 21:03: 40 Yes .075mg Apply 0.075 mg to skin weekly. [facility] ESTRADIOL TRANSDERMAL PATCH TRANSDERMAL 2020-0 06-05 21:03: 40 Yes .075mg Apply 0.075 mg to skin weekly. [facility] ESTRADIOL TRANSDERMAL PATCH TRANSDERMAL 2020-0 06-05 21:03: 40 Yes .075mg Apply 0.075 mg to skin weekly. [facility] ESTRADIOL TRANSDERMAL PATCH TRANSDERMAL 2020-0 06-05 21:03: 40 Yes .075mg Apply 0.075 mg to skin weekly. [facility] ESTRADIOL TRANSDERMAL PATCH TRANSDERMAL 2020-0 06-05 21:03: 40 Yes .075mg Apply 0.075 mg to skin weekly. [facility] Thyroid, Pork, 180 mg tablet 0 06-05 21:03: 05 Yes 180mg Take 180 mg by mouth daily. [facility] Thyroid, Pork, 180 mg tablet 2019-0 06-05 21:03: 05 Yes 180mg Take 180 mg by mouth daily. [facility] Thyroid, Pork, 180 mg tablet 0 06-05 21:03: 05 Yes 180mg Take 180 mg by mouth daily. [facility] Thyroid, Pork, 180 mg tablet 0 06-05 21:03: 05 Yes 180mg Take 180 mg by mouth daily. [facility] Thyroid, Pork, 180 mg tablet 2020-0 06-05 21:03: 05 Yes 180mg Take 180 mg by mouth daily. [facility] Thyroid, Pork, 180 mg tablet 2019-0 06-05 21:03: 05 Yes 180mg Take 180 mg by mouth daily. [facility] Thyroid, Pork, 180 mg tablet 2020-0 06-05 21:03: 05 Yes 180mg Take 180 mg by mouth daily. [facility] ESTRADIOL TRANSDERMAL PATCH TRANSDERMAL 2020-0 06-05 15:03: 40 Yes .075mg Apply 0.075 mg to skin weekly. [facility] ESTRADIOL TRANSDERMAL PATCH TRANSDERMAL 06-05 15:03: 40 Yes .075mg Apply 0.075 mg to skin weekly. [facility] ESTRADIOL TRANSDERMAL PATCH TRANSDERMAL 06-05 15:03: 40 Yes .075mg Apply 0.075 mg to skin weekly. [facility] ESTRADIOL TRANSDERMAL PATCH TRANSDERMAL 06-05 15:03: 40 Yes .075mg Apply 0.075 mg to skin weekly. [facility] dexAMETHaso ne 1 mg tablet 06-05 00:00: 00 06-06 05:59 :00 No [id number] 1mg Take 1 tablet by mouth once now for 1 dose. [facility] dexAMETHaso ne 1 mg tablet 06-05 00:00: 00 06-06 05:59 :00 No [id number] 104 1mg Take 1 tablet by mouth once now for 1 dose. [facility] Lilly Thyroid Lilly Thyroid 0 04-29 00:00: 00 Yes Flor Rossana 1 tablet on an empty stomach [facility] Lilly Thyroid 90 MG Lilly Thyroid 90 MG 0 04-29 00:00: 00 No 1{table t_on_an _empty_ stomach } QD Lilly Thyroid 90 MG Lilly Thyroid 90 MG Lilly Thyroid 90 MG 0 04-29 00:00: 00 No 1{table t_on_an _empty_ stomach } QD Lilly Thyroid 90 MG Lilly Thyroid 90 MG Lilly Thyroid 90 MG 0 04-29 00:00: 00 No 1{table t_on_an _empty_ stomach } QD Lilly Thyroid 90 MG Lilly Thyroid 90 MG Lilly Thyroid 90 MG 2019-0 24 00:00: 00 No 1{table t_on_an _empty_ stomach } QD Lilly Thyroid 90 MG Lilly Thyroid 90 MG Lilly Thyroid 90 MG 2019-0 24 00:00: 00 No 1{table t_on_an _empty_ stomach } QD Lilly Thyroid 90 MG Lilly Thyroid 90 MG Lilly Thyroid 90 MG 2019-0 -24 00:00: 00 No 1{table t_on_an _empty_ stomach } QD Lilly Thyroid 90 MG Lilly Thyroid 90 MG Lilly Thyroid 90 MG 04-29 00:00: 00 No 1{table t_on_an _empty_ stomach } QD Lilly Thyroid 90 MG Lilly Thyroid 90 MG Lilly Thyroid 90 MG 04-29 00:00: 00 No 1{table t_on_an _empty_ stomach } QD Lilly Thyroid 90 MG Lilly Thyroid 90 MG Lilly Thyroid 90 MG 04-29 00:00: 00 No 1{table t_on_an _empty_ stomach } QD Lilly Thyroid 90 MG Hydrochloro thiazide Hydrochloro thiazide 09-10 00:00: 00 Yes Flor Madera 1 tablet in the morning [facility] Combigan Combigan Yes Flor Madera 1 drop into affected eye [facility] Lumigan Lumigan Yes Flor [place] 1 drop into affected eye in the evening [facility] Estradiol Estradiol Yes Flor [place]era 1 patch to skin [facility] buPROPion HCl 100 MG buPROPion HCl 100 MG No 1{table t} BID buPROPion HCl 100 MG Nystatin 144800 UNIT/GM Nystatin 691261 UNIT/GM No 1{appli cation} BID Nystatin 849254 UNIT/GM Estradiol 0.075 MG/24HR Estradiol 0.075 MG/24HR No 1{patch _to_ski n} Estradiol 0.075 MG/24HR busPIRone HCl 5 MG busPIRone HCl 5 MG No busPIRone HCl 5 MG Combigan 0.2-0.5 % Combigan 0.2-0.5 % No 1{drop_ into_af fected_ eye} BID Combigan 0.2-0.5 % buPROPion HCl 100 MG buPROPion HCl 100 MG No 1{table t} BID buPROPion HCl 100 MG Lumigan 0.01 % Lumigan 0.01 % No 1{drop_ into_af fected_ eye_in_ the_eve anny} QD Lumigan 0.01 % Nystatin 069518 UNIT/GM Nystatin 267625 UNIT/GM No 1{appli cation} BID Nystatin 686390 UNIT/GM Estradiol 0.075 MG/24HR Estradiol 0.075 MG/24HR No 1{patch _to_ski n} Estradiol 0.075 MG/24HR busPIRone HCl 5 MG busPIRone HCl 5 MG No busPIRone HCl 5 MG Combigan 0.2-0.5 % Combigan 0.2-0.5 % No 1{drop_ into_af fected_ eye} BID Combigan 0.2-0.5 % buPROPion HCl 100 MG buPROPion HCl 100 MG No 1{table t} BID buPROPion HCl 100 MG Lumigan 0.01 % Lumigan 0.01 % No 1{drop_ into_af fected_ eye_in_ the_eve anny} QD Lumigan 0.01 % buPROPion HCl 100 MG buPROPion HCl 100 MG No 1{table t} BID buPROPion HCl 100 MG busPIRone HCl 5 MG busPIRone HCl 5 MG No busPIRone HCl 5 MG Lumigan 0.01 % Lumigan 0.01 % No 1{drop_ into_af fected_ eye_in_ the_eve anny} QD Lumigan 0.01 % Combigan 0.2-0.5 % Combigan 0.2-0.5 % No 1{drop_ into_af fected_ eye} BID Combigan 0.2-0.5 % Estradiol 0.075 MG/24HR Estradiol 0.075 MG/24HR No 1{patch _to_ski n} Estradiol 0.075 MG/24HR Nystatin 570879 UNIT/GM Nystatin 569822 UNIT/GM No 1{appli cation} BID Nystatin 381262 UNIT/GM Lumigan 0.01 % Lumigan 0.01 % No 1{drop_ into_af fected_ eye_in_ the_eve anny} QD Lumigan 0.01 % busPIRone HCl 5 MG busPIRone HCl 5 MG No busPIRone HCl 5 MG Nystatin 119986 UNIT/GM Nystatin 991188 UNIT/GM No 1{appli cation} BID Nystatin 803240 UNIT/GM Combigan 0.2-0.5 % Combigan 0.2-0.5 % No 1{drop_ into_af fected_ eye} BID Combigan 0.2-0.5 % buPROPion HCl 100 MG buPROPion HCl 100 MG No 1{table t} BID buPROPion HCl 100 MG Estradiol 0.075 MG/24HR Estradiol 0.075 MG/24HR No 1{patch _to_ski n} Estradiol 0.075 MG/24HR Claritin 10 MG Claritin 10 MG No 1{table t} QD Claritin 10 MG Combigan 0.2-0.5 % Combigan 0.2-0.5 % No 1{drop_ into_af fected_ eye} BID Combigan 0.2-0.5 % buPROPion HCl 100 MG buPROPion HCl 100 MG No 1{table t} BID buPROPion HCl 100 MG Lumigan 0.01 % Lumigan 0.01 % No 1{drop_ into_af fected_ eye_in_ the_eve anny} QD Lumigan 0.01 % Nystatin 633618 UNIT/GM Nystatin 504519 UNIT/GM No 1{appli cation} BID Nystatin 277153 UNIT/GM Estradiol 0.075 MG/24HR Estradiol 0.075 MG/24HR No 1{patch _to_ski n} Estradiol 0.075 MG/24HR busPIRone HCl 5 MG busPIRone HCl 5 MG No busPIRone HCl 5 MG Claritin 10 MG Claritin 10 MG No 1{table t} QD Claritin 10 MG Combigan 0.2-0.5 % Combigan 0.2-0.5 % No 1{drop_ into_af fected_ eye} BID Combigan 0.2-0.5 % buPROPion HCl 100 MG buPROPion HCl 100 MG No 1{table t} BID buPROPion HCl 100 MG Lumigan 0.01 % Lumigan 0.01 % No 1{drop_ into_af fected_ eye_in_ the_eve anny} QD Lumigan 0.01 % Nystatin 215646 UNIT/GM Nystatin 066944 UNIT/GM No 1{appli cation} BID Nystatin 981172 UNIT/GM Estradiol 0.075 MG/24HR Estradiol 0.075 MG/24HR No 1{patch _to_ski n} Estradiol 0.075 MG/24HR busPIRone HCl 5 MG busPIRone HCl 5 MG No busPIRone HCl 5 MG Combigan 0.2-0.5 % Combigan 0.2-0.5 % No 1{drop_ into_af fected_ eye} BID Combigan 0.2-0.5 % Nystatin 404870 UNIT/GM Nystatin 586110 UNIT/GM No 1{appli cation} BID Nystatin 141471 UNIT/GM Lumigan 0.01 % Lumigan 0.01 % No 1{drop_ into_af fected_ eye_in_ the_eve anny} QD Lumigan 0.01 % Claritin 10 MG Claritin 10 MG No 1{table t} QD Claritin 10 MG Levothyroxi ne Sodium 75 MCG Levothyroxi ne Sodium 75 MCG No QD Levothyrox ine Sodium 75 MCG buPROPion HCl 100 MG buPROPion HCl 100 MG No 1{table t} BID buPROPion HCl 100 MG Estradiol 0.075 MG/24HR Estradiol 0.075 MG/24HR No 1{patch _to_ski n} Estradiol 0.075 MG/24HR busPIRone HCl 5 MG busPIRone HCl 5 MG No busPIRone HCl 5 MG buPROPion HCl 100 MG buPROPion HCl 100 MG No 1{table t} BID buPROPion HCl 100 MG busPIRone HCl 5 MG busPIRone HCl 5 MG No busPIRone HCl 5 MG Estradiol 0.075 MG/24HR Estradiol 0.075 MG/24HR No 1{patch _to_ski n} Estradiol 0.075 MG/24HR Lumigan 0.01 % Lumigan 0.01 % No 1{drop_ into_af fected_ eye_in_ the_eve anny} QD Lumigan 0.01 % Nystatin 093106 UNIT/GM Nystatin 061454 UNIT/GM No 1{appli cation} BID Nystatin 741276 UNIT/GM Combigan 0.2-0.5 % Combigan 0.2-0.5 % No 1{drop_ into_af fected_ eye} BID Combigan 0.2-0.5 % Claritin 10 MG Claritin 10 MG No 1{table t} QD Claritin 10 MG Levothyroxi ne Sodium 75 MCG Levothyroxi ne Sodium 75 MCG No QD Levothyrox ine Sodium 75 MCG Claritin 10 MG Claritin 10 MG No 1{table t} QD Claritin 10 MG busPIRone HCl 5 MG busPIRone HCl 5 MG No busPIRone HCl 5 MG Estradiol 0.075 MG/24HR Estradiol 0.075 MG/24HR No 1{patch _to_ski n} Estradiol 0.075 MG/24HR Lumigan 0.01 % Lumigan 0.01 % No 1{drop_ into_af fected_ eye_in_ the_eve anny} QD Lumigan 0.01 % Nystatin 265376 UNIT/GM Nystatin 286086 UNIT/GM No 1{appli cation} BID Nystatin 069007 UNIT/GM buPROPion HCl 100 MG buPROPion HCl 100 MG No 1{table t} BID buPROPion HCl 100 MG Levothyroxi ne Sodium 75 MCG Levothyroxi ne Sodium 75 MCG No Levothyrox ine Sodium 75 MCG Combigan 0.2-0.5 % Combigan 0.2-0.5 % No 1{drop_ into_af fected_ eye} BID Combigan 0.2-0.5 % Claritin 10 MG Claritin 10 MG No 1{table t} QD Claritin 10 MG busPIRone HCl 5 MG busPIRone HCl 5 MG No busPIRone HCl 5 MG Lumigan 0.01 % Lumigan 0.01 % No 1{drop_ into_af fected_ eye_in_ the_eve anny} QD Lumigan 0.01 % Nystatin 830652 UNIT/GM Nystatin 464713 UNIT/GM No 1{appli cation} BID Nystatin 812664 UNIT/GM buPROPion HCl 100 MG buPROPion HCl 100 MG No 1{table t} BID buPROPion HCl 100 MG Levothyroxi ne Sodium 75 MCG Levothyroxi ne Sodium 75 MCG No Levothyrox ine Sodium 75 MCG Combigan 0.2-0.5 % Combigan 0.2-0.5 % No 1{drop_ into_af fected_ eye} BID Combigan 0.2-0.5 % Estradiol 0.075 MG/24HR Estradiol 0.075 MG/24HR No 1{patch _to_ski n} Estradiol 0.075 MG/24HR Claritin 10 MG Claritin 10 MG No 1{table t} QD Claritin 10 MG busPIRone HCl 5 MG busPIRone HCl 5 MG No busPIRone HCl 5 MG Lumigan 0.01 % Lumigan 0.01 % No 1{drop_ into_af fected_ eye_in_ the_eve anny} QD Lumigan 0.01 % Nystatin 564806 UNIT/GM Nystatin 243625 UNIT/GM No 1{appli cation} BID Nystatin 968461 UNIT/GM buPROPion HCl 100 MG buPROPion HCl 100 MG No 1{table t} BID buPROPion HCl 100 MG Levothyroxi ne Sodium 75 MCG Levothyroxi ne Sodium 75 MCG No Levothyrox ine Sodium 75 MCG Combigan 0.2-0.5 % Combigan 0.2-0.5 % No 1{drop_ into_af fected_ eye} BID Combigan 0.2-0.5 % Estradiol 0.075 MG/24HR Estradiol 0.075 MG/24HR No 1{patch _to_ski n} Estradiol 0.075 MG/24HR Claritin 10 MG Claritin 10 MG No 1{table t} QD Claritin 10 MG busPIRone HCl 5 MG busPIRone HCl 5 MG No busPIRone HCl 5 MG Lumigan 0.01 % Lumigan 0.01 % No 1{drop_ into_af fected_ eye_in_ the_eve anny} QD Lumigan 0.01 % Nystatin 579833 UNIT/GM Nystatin 455179 UNIT/GM No 1{appli cation} BID Nystatin 100618 UNIT/GM buPROPion HCl 100 MG buPROPion HCl 100 MG No 1{table t} BID buPROPion HCl 100 MG Levothyroxi ne Sodium 75 MCG Levothyroxi ne Sodium 75 MCG No Levothyrox ine Sodium 75 MCG Combigan 0.2-0.5 % Combigan 0.2-0.5 % No 1{drop_ into_af fected_ eye} BID Combigan 0.2-0.5 % Estradiol 0.075 MG/24HR Estradiol 0.075 MG/24HR No 1{patch _to_ski n} Estradiol 0.075 MG/24HR Claritin 10 MG Claritin 10 MG No 1{table t} QD Claritin 10 MG Levothyroxi ne Sodium 75 MCG Levothyroxi ne Sodium 75 MCG No Levothyrox ine Sodium 75 MCG Combigan 0.2-0.5 % Combigan 0.2-0.5 % No 1{drop_ into_af fected_ eye} BID Combigan 0.2-0.5 % Nystatin 804193 UNIT/GM Nystatin 280912 UNIT/GM No 1{appli cation} BID Nystatin 994997 UNIT/GM Claritin 10 MG Claritin 10 MG No 1{table t} QD Claritin 10 MG Levothyroxi ne Sodium 75 MCG Levothyroxi ne Sodium 75 MCG No Levothyrox ine Sodium 75 MCG Combigan 0.2-0.5 % Combigan 0.2-0.5 % No 1{drop_ into_af fected_ eye} BID Combigan 0.2-0.5 % Nystatin 089053 UNIT/GM Nystatin 989774 UNIT/GM No 1{appli cation} BID Nystatin 003778 UNIT/GM Claritin 10 MG Claritin 10 MG No 1{table t} QD Claritin 10 MG Levothyroxi ne Sodium 75 MCG Levothyroxi ne Sodium 75 MCG No Levothyrox ine Sodium 75 MCG Combigan 0.2-0.5 % Combigan 0.2-0.5 % No 1{drop_ into_af fected_ eye} BID Combigan 0.2-0.5 % Nystatin 021070 UNIT/GM Nystatin 782287 UNIT/GM No 1{appli cation} BID Nystatin 884315 UNIT/GM busPIRone HCl 5 MG busPIRone HCl 5 MG No busPIRone HCl 5 MG Estradiol 0.075 MG/24HR Estradiol 0.075 MG/24HR No 1{patch _to_ski n} Estradiol 0.075 MG/24HR Combigan 0.2-0.5 % Combigan 0.2-0.5 % No 1{drop_ into_af fected_ eye} BID Combigan 0.2-0.5 % Lumigan 0.01 % Lumigan 0.01 % No 1{drop_ into_af fected_ eye_in_ the_eve anny} QD Lumigan 0.01 % busPIRone HCl 5 MG busPIRone HCl 5 MG No busPIRone HCl 5 MG Nystatin 038779 UNIT/GM Nystatin 524110 UNIT/GM No 1{appli cation} BID Nystatin 053875 UNIT/GM Estradiol 0.075 MG/24HR Estradiol 0.075 MG/24HR No 1{patch _to_ski n} Estradiol 0.075 MG/24HR Combigan 0.2-0.5 % Combigan 0.2-0.5 % No 1{drop_ into_af fected_ eye} BID Combigan 0.2-0.5 % Lumigan 0.01 % Lumigan 0.01 % No 1{drop_ into_af fected_ eye_in_ the_esmer mccormick} QD Lumigan 0.01 % Immunizations Ordered Immunization Name Filled Immunization Name Date Status Comments Source Flucelvax - multidose vial Flucelvax - multidose vial 2022-02-05 13:57:00 Completed [facility] COVID-19 Vaccine (Meredith) COVID-19 Vaccine (Meredith) 2020-07-13 14:49:00 Completed [facility] COVID-19 Vaccine (Meredith) COVID-19 Vaccine (Meredith) 2020-07-13 14:49:00 Completed [facility] COVID-19 Vaccine (Meredith) COVID-19 Vaccine (Meredith) 2020-07-13 14:49:00 Completed [facility] COVID-19 Vaccine (Meredith) COVID-19 Vaccine (Meredith) 2020-07-13 14:49:00 Completed [facility] COVID-19 Vaccine (Meredith) COVID-19 Vaccine (Meredith) 2020-07-13 14:49:00 Completed [facility] COVID-19 Vaccine (Meredith) COVID-19 Vaccine (Meredith) 2020-07-13 14:49:00 Completed [facility] COVID-19 Vaccine (Meredith) COVID-19 Vaccine (Meredith) 2020-07-13 14:49:00 Completed [facility] COVID-19 Vaccine (Meredith) COVID-19 Vaccine (Meredith) 2020-07-13 14:49:00 Completed [facility] COVID-19 Vaccine (Meredith) COVID-19 Vaccine (Meredith) 2020-07-13 14:49:00 Completed [facility] COVID-19 Vaccine (Meredith) COVID-19 Vaccine (Meredith) 2020-07-13 14:49:00 Completed [facility] COVID-19 Vaccine (Meredith) COVID-19 Vaccine (Meredith) 2020-07-13 14:49:00 Completed [facility] COVID-19 Vaccine (Meredith) COVID-19 Vaccine (Meredith) 2020-07-13 14:49:00 Completed [facility] COVID-19 Vaccine (Meredith) COVID-19 Vaccine (Meredith) 2020-07-13 14:49:00 Completed [facility] COVID-19 Vaccine (Meredith) COVID-19 Vaccine (Meredith) 2020-07-13 14:49:00 Completed [facility] COVID-19 Vaccine (Meredith) COVID-19 Vaccine (Meredith) 2020-07-13 14:49:00 Completed [facility] COVID-19 Vaccine (Meredith) COVID-19 Vaccine (Meredith) 2020-07-13 14:49:00 Completed [facility] COVID-19 Vaccine (Meredith) COVID-19 Vaccine (Meredith) Unknown Completed [facility] Flucelvax (ccIIV4) - MDV - 0.5mL Flucelvax (ccIIV4) - MDV - 0.5mL Unknown Completed [facility] Vital Signs Vital Name Observation Time Observation Value Comments S ource Systolic blood pressure 2023-02-25 16:38:00 130 mm[Hg] [facility] Diastolic blood pressure 2023-02-25 16:38:00 89 mm[Hg] [facility] Heart rate 2023-02-25 16:38:00 81 /min [facility] Body temperature 2023-02-25 16:38:00 36.11 Sheri [facility] Respiratory rate 2023-02-25 16:38:00 18 /min [facility] Body height 2023-02-25 16:38:00 165.1 cm [facility] Body weight 2023-02-25 16:38:00 88.86 kg [facility] BMI 2023-02-25 16:38:00 32.60 kg/m2 [facility] Oxygen saturation in Arterial blood by Pulse oximetry 2023-02-25 16:38:00 100 /min [facility] height 2021-11-29 16:40:00 64.5 [in_i] Comm on [facility] weight 2021-11-29 16:40:00 218 [lb_av] Comm on [facility] temperature 2021-11-29 16:40:00 97.8 [degF] Com mon [facility] bmi 2021-11-29 16:40:00 36.84 kg/m2 Comm on [facility] oximetry 2021-11-29 16:40:00 98 % Commo n [facility] respiratory rate 2021-11-29 16:40:00 16 /min [facility] blood pressure systolic 2021-11-29 16:40:00 124 mm[Hg] [facility] blood pressure diastolic 2021-11-29 16:40:00 70 mm[Hg] [facility] height 2021-09-30 11:40:00 65 [in_i] Commo n [facility] weight 2021-09-30 11:40:00 227 [lb_av] Comm on [facility] temperature 2021-09-30 11:40:00 97.6 [degF] Com [facility] bmi 2021-09-30 11:40:00 37.77 kg/m2 Comm on [facility] height 2021-08-29 11:40:00 65 [in_i] Commo n [facility] weight 2021-08-29 11:40:00 236 [lb_av] Comm on [facility] temperature 2021-08-29 11:40:00 97.4 [degF] Com mon [facility] bmi 2021-08-29 11:40:00 39.27 kg/m2 Comm on [facility] height 2021-07-30 11:40:00 65 [in_i] Commo n [facility] weight 2021-07-30 11:40:00 245 [lb_av] Comm on [facility] temperature 2021-07-30 11:40:00 97.1 [degF] Com mon [facility] bmi 2021-07-30 11:40:00 40.77 kg/m2 Comm on [facility] height 2021-07-01 16:20:00 65 [in_i] Commo n [facility] weight 2021-07-01 16:20:00 255 [lb_av] Comm on [facility] temperature 2021-07-01 16:20:00 97.8 [degF] Com mon [facility] bmi 2021-07-01 16:20:00 42.43 kg/m2 Comm on [facility] height 2021-04-04 10:40:00 65 [in_i] Commo n [facility] weight 2021-04-04 10:40:00 250 [lb_av] Comm on [facility] temperature 2021-04-04 10:40:00 97 [degF] Comm on [facility] bmi 2021-04-04 10:40:00 41.60 kg/m2 Comm on [facility] height 2021-03-15 15:20:00 65 [in_i] Commo n [facility] weight 2021-03-15 15:20:00 257.4 [lb_av] Co mmon [facility] temperature 2021-03-15 15:20:00 97.7 [degF] Com mon [facility] bmi 2021-03-15 15:20:00 42.83 kg/m2 Comm on [facility] oximetry 2021-03-15 15:20:00 98 % Commo n [facility] respiratory rate 2021-03-15 15:20:00 16 /min [facility] blood pressure systolic 2021-03-15 15:20:00 152 mm[Hg] [facility] blood pressure diastolic 2021-03-15 15:20:00 78 mm[Hg] [facility] Systolic blood pressure 2019-06-06 20:42:00 138 mm[Hg] [facility] Diastolic blood pressure 2019-06-06 20:42:00 78 mm[Hg] [facility] Heart rate 2019-06-06 20:42:00 76 /min [facility] Respiratory rate 2019-06-06 20:40:00 16 /min [facility] Body height 2019-06-06 20:40:00 165.1 cm [facility] Body weight 2019-06-06 20:40:00 117.028 kg [facility] BMI 2019-06-06 20:40:00 42.93 kg/m2 [facility] Procedures Procedure Date / Time Performed Performing Clinician Source MEDICAL RELEASE/CLEARANCE FORMS 2023-03-02 06:01:00 Doctor Unassigned, [place] [facility] BI US GUIDED CORE BREAST BIOPSY RIGHT 2020-04-25 14:43:00 Requisition, Paper [facility] BI ULTRASOUND BREAST COMPLETE RIGHT 2020-04-11 22:24:00 Flor Tracy Candelaria [facility] BI DIAGNOSTIC TOMOSYNTHESIS BILATERAL 2020-04-11 21:15:00 Flor Tracy [facility] T3, TOTAL-Q 2019-06-16 13:13:00 Rochelle Cook [facility] T-4, FREE-Q 2019-06-16 13:13:00 Rochelle Cook [facility] TSH, 3RD GENERATION-Q 2019-06-16 13:13:00 Aarti Cook [facility] Encounters Start Date/Time End Date/Time Encounter Type Admission Type Attending Clinicians Care Facility Care Department Encounter ID Source 2021-12-16 09:33:01 Outpatient Janis Perkins [facility] [id number] [facility] 2021-11-27 09:55:00 Outpatient Janis Perkins [facility] [id number] [facility] 2021-11-13 15:38:00 Outpatient Janis Perkins [facility] [id number] [facility] 2021-09-26 10:57:00 Outpatient Janis Perkins [facility] [id number] [facility] 2021-06-21 13:20:00 Outpatient Janis Perkins [facility] [id number] [facility] 2021-05-01 14:39:57 Outpatient Janis Perkins [facility] [id number] [facility] 2021-05-01 14:22:21 Outpatient Janis Perkins [facility] [id number] [facility] 2021-05-01 14:16:16 Outpatient Janis Perkins [facility] [id number] [facility] 2021-05-01 11:01:46 Outpatient Flor Tracy [facility] [id number] [facility] 2023-05-18 00:00:00 2023-05-18 00:00:00 Outpatient GC_GCBZW_Ka diyala_S PRIV PRIV [id number] [facility] 2023-05-16 00:00:00 2023-05-16 00:00:00 Outpatient GC_GCBZW_Ka diyala_S PRIV PRIV [id number] [facility] 2023-04-18 00:00:00 2023-04-18 00:00:00 Outpatient GC_GCBZW_Ka diyala_S PRIV PRIV [id number] [facility] 2023-03-23 00:00:00 2023-03-23 00:00:00 Outpatient GC_GCBZW_Ka diyala_S PRIV PRIV [id number] [facility] 2023-03-21 00:00:00 2023-03-21 00:00:00 Outpatient GC_GCBZW_Ka diyala_S PRIV PRIV [id number] [facility] 2023-03-02 00:00:00 2023-03-02 00:00:00 Telephone Levi Vasquez [facility] [id number] 350.1.13.10 4.2.7.2.686 [id number] [facility] 2023-03-02 00:00:00 2023-03-02 00:00:00 Orders Only Doctor Unassigned, [place] [facility] [id number] 350.1.13.10 4.2.7.2.686 [id number] [facility] 2023-02-25 10:30:00 2023-02-25 11:21:52 Outpatient R LEVI VASQUEZ [facility] [id number] [facility] 2023-02-25 10:30:00 2023-02-25 11:21:52 Office Visit Levi Vasquez [place] [id number] 350.1.13.10 4.2.7.2.686 [id number] [facility] 2023-02-24 00:00:00 2023-02-24 00:00:00 Outpatient GC_GCBZW_Ka diyala_S PRIV PRIV [id number] [facility] 2023-02-21 00:00:00 2023-02-21 00:00:00 Outpatient GC_GCBZW_Ka diyala_S PRIV PRIV [id number] [facility] 2023-02-05 00:00:00 2023-02-05 00:00:00 Outpatient GC_GCBZW_Ka diyala_S PRIV PRIV [id number] [facility] 2023-01-28 00:00:00 2023-01-28 00:00:00 Outpatient GC_GCBZW_Ka diyala_S PRIV PRIV [id number] [facility] 2023-01-27 00:00:00 2023-01-27 00:00:00 Outpatient GC_GCBZW_Ka diyala_S PRIV PRIV [id number] [facility] 2023-01-16 00:00:00 2023-01-16 00:00:00 Outpatient GC_GCBZW_Ka diyala_S PRIV PRIV [id number] [facility] 2022-12-16 00:00:00 2022-12-16 00:00:00 (TEL) [facility] [id number] [facility] 2022-11-20 00:00:00 2022-11-20 00:00:00 Outpatient GC_GCBZW_Ka diyala_S PRIV PRIV [id number] [facility] 2022-11-19 00:00:00 2022-11-19 00:00:00 Outpatient GC_GCBZW_Ka diyala_S PRIV PRIV [id number] [facility] 2022-11-06 00:00:00 2022-11-06 00:00:00 Outpatient GC_GCBZW_Ka diyala_S PRIV PRIV [id number] [facility] 2022-10-15 00:00:00 2022-10-15 00:00:00 Outpatient GC_GCBZW_Ka diyala_S PRIV PRIV [id number] [facility] 2022-10-13 00:00:00 2022-10-13 00:00:00 Outpatient GC_GCBZW_Ka diyala_S PRIV PRIV [id number] [facility] 2022-02-13 00:00:00 2022-02-13 00:00:00 (TEL) [facility] [id number] [facility] 2021-11-29 00:00:00 2021-11-29 00:00:00 OFFICE VISIT ESTAB PT LEVEL 4 [facility]LMLC [facility] [id number] [facility] 2021-11-11 00:00:00 2021-11-11 00:00:00 (TEL) [facility]C [facility] [id number] [facility] 2021-11-01 00:00:00 2021-11-01 00:00:00 (TEL) [facility]LMLC [facility] [id number] [facility] 2021-10-24 00:00:00 2021-10-24 00:00:00 (TEL) [facility]LMLC [facility] [id number] [facility] 2021-10-14 00:00:00 2021-10-14 00:00:00 (TEL) STLMLC [facility] [id number] [facility] 2021-09-30 00:00:00 2021-09-30 00:00:00 OFFICE VISIT ESTAB PT LEVEL 4 [facility]LMLC [facility]C [id number] [facility] 2021-08-29 00:00:00 2021-08-29 00:00:00 OFFICE VISIT EST PT LEVEL 3 [facility]LMLC [facility] [id number] [facility] 2021-07-30 00:00:00 2021-07-30 00:00:00 OFFICE VISIT ESTAB PT LEVEL 4 [facility]LMLC [facility] [id number] [facility] 2021-07-29 00:00:00 2021-07-29 00:00:00 (TEL) STLMLC [facility] [id number] [facility] 2021-07-01 00:00:00 2021-07-01 00:00:00 OFFICE VISIT ESTAB PT LEVEL 4 [facility]LMLC [facility] [id number] [facility] 2021-04-29 00:00:00 2021-04-29 00:00:00 (TEL) STLMLC [facility] [id number] [facility] 2021-04-08 00:00:00 2021-04-08 00:00:00 (TEL) STLMLC [facility]C [id number] [facility] 2021-04-04 00:00:00 2021-04-04 00:00:00 (TEL) STLMLC [facility] [id number] [facility] 2021-04-04 00:00:00 2021-04-04 00:00:00 OFFICE VISIT EST PT LEVEL 3 [facility]LMLC [facility]C [id number] [facility] 2021-03-15 00:00:00 2021-03-15 00:00:00 OFFICE VISIT ESTAB PT LEVEL 4 STLMLC [facility]C [id number] [facility] 2020-09-24 00:00:00 2020-09-24 00:00:00 Outpatient [facility]C [facility] [id number] [facility] 2020-09-14 00:00:00 2020-09-14 00:00:00 Outpatient [facility]C [facility] [id number] [facility] 2020-09-07 00:00:00 2020-09-07 00:00:00 Outpatient [facility]LMLC [facility] [id number] [facility] 2020-07-31 00:00:00 2020-07-31 00:00:00 Outpatient STLMLC [facility] [id number] [facility] 2020-06-21 00:00:00 2020-06-21 00:00:00 Patient Outreach Adelso Orozco [facility] 1.2.840.114 350.1.13.10 4.2.7.2.686 [id number] 2020-06-21 00:00:00 2020-06-21 00:00:00 Patient Outreach Ernesto Adelso [facility] 1.2.840.114 350.1.13.10 4.2.7.2.686 [id number] [facility] 2020-04-27 00:00:00 2020-04-27 00:00:00 Outpatient STLMLC [facility] [id number] [facility] 2020-04-25 07:53:14 2020-04-25 23:59:00 Hospital Encounter Radiology [facility] 1.2.840.114 350.1.13.10 4.2.7.2.686 [id number] 2020-04-25 07:53:14 2020-04-25 23:59:00 Hospital Encounter Radiology [facility] 1.2.840.114 350.1.13.10 4.2.7.2.686 [id number] [facility] 2020-04-25 00:00:00 2020-04-25 00:00:00 Outpatient R RADIOLOGY [facility] [id number] [facility] 2020-04-16 00:00:00 2020-04-16 00:00:00 Outpatient [facility] [id number] [facility] 2020-04-11 13:48:55 2020-04-11 23:59:00 Hospital Encounter Radiology [facility] 1.2.840.114 350.1.13.10 4.2.7.2.686 [id number] 2020-04-11 13:48:55 2020-04-11 23:59:00 Hospital Encounter Radiology [facility] 1.2.840.114 350.1.13.10 4.2.7.2.686 [id number] [facility] 2020-04-11 13:46:57 2020-04-11 13:47:00 Hospital Encounter Radiology [facility] 1.2.840.114 350.1.13.10 4.2.7.2.686 [id number] 2020-04-11 13:46:57 2020-04-11 13:47:00 Hospital Encounter Radiology [facility] 1.2.840.114 350.1.13.10 4.2.7.2.686 [id number] [facility] 2020-04-11 00:00:00 2020-04-11 00:00:00 Outpatient R RADIOLOGY [facility] [id number] [facility] 2020-03-26 00:00:00 2020-03-26 00:00:00 Outpatient STLMLC [facility]C [id number] [facility] 2019-12-26 00:00:00 2019-12-26 00:00:00 [facility] 1.2.840.114 350.1.13.10 4.2.7.2.686 [id number] 2019-12-26 00:00:00 2019-12-26 00:00:00 Refill [facility] Building 1.2.840.114 350.1.13.10 4.2.7.2.686 [id number] [facility] 2019-10-25 10:23:00 2019-10-25 10:23:00 [facility] [id number] [facility] 2019-10-20 11:00:00 2019-10-20 11:00:00 [facility]patient [facility] [id number] [facility] 2019-10-10 16:00:00 2019-10-10 16:00:00 Outpatient R ROCHELLE COOK [facility] [id number] [facility] 2019-06-21 00:00:00 2019-06-21 00:00:00 Telephone Trav[facility] Building 1.2.840.114 350.1.13.10 4.2.7.2.686 [id number] [facility] 2019-06-16 00:00:00 2019-06-16 00:00:00 [facility] 1.2.840.114 350.1.13.10 4.2.7.2.686 [id number] [facility] 2019-06-16 00:00:00 2019-06-16 00:00:00 Orders Only Rochelle Cook [facility] 1.2.840.114 350.1.13.10 4.2.7.2.686 [id number] [facility] 2019-06-15 00:00:00 2019-06-15 00:00:00 Refill Rochelle Cook [facility] Building 1.2.840.114 350.1.13.10 4.2.7.2.686 [id number] [facility] 2019-06-14 00:00:00 2019-06-14 00:00:00 Telephone Rochelle Cook [facility] Building 1.2.840.114 350.1.13.10 4.2.7.2.686 [id number] [facility] 2019-06-13 00:00:00 2019-06-13 00:00:00 Telephone Rochelle Cook [facility] Building 1.2.840.114 350.1.13.10 4.2.7.2.686 [id number] [facility] 2019-06-06 14:03:33 2019-06-06 15:19:55 Office Visit Rochelle Cook [facility] Building 1.2.840.114 350.1.13.10 4.2.7.2.686 [id number] [facility] 2019-06-06 14:30:00 2019-06-06 14:30:00 Outpatient R ROCHELLE COOK [facility] [id number] [facility] 2019-06-06 00:00:00 2019-06-06 00:00:00 Letter (Out) Doctor Unassigned, [place] [facility] 1.2.840.114 350.1.13.10 4.2.7.2.686 [id number] [facility] 2019-06-03 11:37:00 2019-06-03 11:37:[address] [facility] [facility] [id number] [facility] 2019-05-13 14:05:00 2019-05-13 14:05:00 [facility] [id number] [facility] 2019-05-11 16:43:00 2019-05-11 16:43:[address] [facility] [address] [address] [facility] [id number] [facility] 2019-04-29 15:19:00 2019-04-29 15:19:[address] [facility] [facility] [address] [address] [facility] [id number] [facility] 2019-04-25 14:20:00 2019-04-25 14:20:00 [facility] [id number] [facility] 2019-04-20 14:02:00 2019-04-20 14:02:[address] [facility] [facility] [id number] [facility] 2019-03-25 13:34:00 2019-03-25 13:34:[address] [facility] [facility] [address] [facility] [id number] [facility] 2019-03-24 10:03:00 2019-03-24 10:03:00 [facility] [id number] [facility] 2019-03-23 12:03:00 2019-03-23 12:03:00 [facility] [id number] [facility] 2019-03-08 16:00:00 2019-03-08 16:00:[address] [facility] [id number] [facility] 2018-09-15 09:27:00 2018-09-15 09:27:[address] [facility] [id number] [facility] 2018-08-19 21:25:00 2018-08-19 21:25:[address] [facility] [id number] [facility] 2018-08-04 11:30:00 2018-08-04 11:30:[address] [facility] [facility] [address] [facility] [facility] [id number] [facility] 2018-07-13 08:21:00 2018-07-13 08:21:[address] [facility] [id number] [facility] 2018-05-05 11:40:00 2018-05-05 11:40:[address] [facility] [id number] [facility] 2018-04-30 09:30:00 2018-04-30 09:30:[address] [facility] [id number] [facility] 2017-11-03 17:08:00 2017-11-03 17:08:[address] [facility] [id number] [facility] 2017-11-02 17:50:00 2017-11-02 17:50:[address] [facility] [id number] [facility] 2017-10-30 09:30:00 2017-10-30 09:30:[address] [facility] [facility] [id number] [facility] 2017-09-22 13:41:00 2017-09-22 13:41:[address] [facility] [id number] [facility] 2017-09-21 14:20:00 2017-09-21 14:20:00 [facility] [id number] [facility] 2017-09-15 11:21:00 2017-09-15 11:21:00 Outpatient [facility] [id number] [facility] 2017-09-14 14:36:00 2017-09-14 14:36:00 [facility] [id number] [facility] 2017-09-04 09:30:00 2017-09-04 09:30:00 Outpatient [facility] [id number] [facility] 2017-08-15 10:17:00 2017-08-15 10:17:00 Outpatient [facility] [id number] [facility] 2017-08-14 09:30:00 2017-08-14 09:30:00 Outpatient [facility] [id number] [facility] Results Test Description Test Time Test Comments Results Resul t Comments Source BI US GUIDED CORE BREAST BIOPSY RIGHT 2020-04-07 0 16:07:43 Examination:BI US GUIDED CORE BREAST BIOPSY RIGHT The procedure was explained to the patient including [...] site. Recommendation:Aidan lucero pathology results - [facility] [id number] 06:00:00* Test Item Value Reference Range Interpretation Comme nts T-4, FREE-Q (test code = 3024-7) 1.3 ng/dL 0.8-1.8 JAYLENE (test code = JAYLENE) PERFORMED BY [employer]; [address] [place] [address]; HILTON PANIAGUA MD [facility], 3RD [id number] 06:00:00* Test Item Value Reference Range Interpretation Comme nts TSH, 3RD GENERATION-Q (test code = 3016-3) mIU/L L ?Reference Range ?> or = 20 Years ?0.40-4.50 ? Ranges ?First trimester ? ?0.26-2.66 ?Second trimester ? 0.55-2.73 ?Third trimester ? ?0.43-2.91REPORT COMMENT:FASTING: YES JAYLENE (test code = JAYLENE) PERFORMED BY [facility]; [address] [place] [address]; HILTON PANIAGUA MD Lab Interpretation (test code = 28488-1) [facility]normal [facility] RAPIDSTREP A+ RAPIDSARS-COV 2 Antigen SARS-COV 2 Antigen
[2023-06-30 09:33] LABS: Absolute Basophils 0.1 K/uL (0-0.5); Absolute Eosinophils 0.3 K/uL (0-0.5); Absolute Lymphocytes (CBC) 1.3 K/uL (0.7-4.9); Absolute Monocytes 0.4 K/uL (0.1-1.3); Basophils % 1.1 % (0-1.3); Eosinophils % 4.1 % (0-4.4); Hematocrit 41.7 % (36.0-45.0); Hemoglobin 14.4 g/dL (12.0-15.0); Lymphocytes % 18.7 % (15.3-44.8); MCH 28.3 pg (27.0-35.0); MCHC 34.5 g/dL (32.0-36.0); MCV 81.9 fL (80-100); MPV 8.1 fL (7.6-11.3); Monocytes % 5.4 % (3.3-12.3); Neutrophils % 70.7 % (41.7-73.7); Nucleated Red Blood Cells % 0.1 % (0-0); Platelets 271 thou/uL (152-406)
[2023-06-30 09:51] LABS: Albumin 3.9 g/dL (3.4-5.0); Anion Gap 7.1 mEq/L (5.0-15.0); Bilirubin Total 0.7 mg/dL (0.2-1.0); Globulin 3.8 g/dL (2.3-3.5); Potassium 4.1 mEq/L (3.5-5.1); Protein, Total 7.7 g/dL (6.4-8.2)
[2023-06-30 10:21] LABS: Urine Bacteria 20-50 /HPF (<20); Urine Bilirubin NEGATIVE (Negative); Urine Blood Negative (Negative); Urine Clarity Extremely Turbid (Clear); Urine Color Yellow (Yellow); Urine Culture Reflex Order NOT NEEDED; Urine Glucose NEGATIVE (Negative); Urine Ketones NEGATIVE (Negative); Urine Microscopic Reflex YN ORDER UMIC; Urine Mucus 4+ /HPF (None Seen); Urine Nitrite NEGATIVE (Negative); Urine Protein TRACE (Negative); Urine Urobilinogen Normal (Normal); Urine WBC <5 /HPF (<5); Urine Yeast (Budding) Trace /HPF (None Seen); Urine pH 5.5 (5.0-7.0)
--- NOTE | 2023-06-30 10:45 | RAD REPORT ---
EXAM DESCRIPTION: CT - Abdomen Pelvis W Contrast - 06/30/2023 10:08 am CLINICAL HISTORY: Abdominal pain COMPARISON: 2020 TECHNIQUE: Computed axial tomography of the abdomen pelvis was obtained. 100 cc Isovue-300 was admin istered intravenously. Oral contrast was not requested which limits evaluation of bowel and appendix All CT scans are performed using dose optimization technique as appropriate and may include automated exposure control or mA/KV adjustment according to patient size. FINDINGS: Cholecystectomy. Mild fatty liver The spleen, pancreas, adrenals and kidneys unremarkable There is no evidence of diverticulitis. Normal appendix Hysterectomy. No adnexal mass Ventral hernia repair IMPRESSION: No acute abnormality is displayed.
--- NOTE | 2023-06-30 10:48 | EDPHYS ---
Physician Documentation [facility] Name: Dee Ruano Age: 52 yrs Sex: Female : 1970 Arrival Date: 06/30/2023 Time: 08:23 Bed 19 Private MD: ED Physician Bonita Canales HPI: 06/29 09:13 This 52 yrs old Unknown Female presents to ER via Ambulatory with complaints of sp3 Abdominal Pain, Urinary Problem. 09:13 52-year-old female with a history of extensive abdominal surgery including sp3 cholecystectomy, hysterectomy, panniculectomy, hernia repair coupled with hypothyroidism history of elevated liver enzymes now presents to the ED with chief complaint abdominal pain and crampy diarrhea for the last 2 to 3 days. Patient denies blood or mucus in her stools. 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 - Social history:: Smoking status: Patient denies any tobacco usage or history of. ROS: 09:14 Constitutional: Negative for fever, chills, and weight loss, Eyes: Negative for injury, sp3 pain, redness, and discharge, ENT: Negative for injury, pain, and discharge, Neck: Negative for injury, pain, and swelling, Cardiovascular: Negative for chest pain, palpitations, and edema, Respiratory: Negative for shortness of breath, cough, wheezing, and pleuritic chest pain, Back: Negative for injury and pain, : Negative for injury, bleeding, discharge, and swelling, MS/Extremity: Negative for injury and deformity, Skin: Negative for injury, rash, and discoloration, Neuro: Negative for headache, weakness, numbness, tingling, and seizure, Psych: Negative for depression, anxiety, suicide ideation, homicidal ideation, and hallucinations, Allergy/Immunology: Negative for hives, rash, and allergies, Endocrine: Negative for neck swelling, polydipsia, polyuria, polyphagia, and marked weight changes, 09:14 All other systems are negative, Exam: 09:15 Constitutional: This is a well developed, well nourished patient who is awake, alert, sp3 and in no acute distress. Head/Face: Normocephalic, atraumatic. Eyes: Pupils equal round and reactive to light, extra-ocular motions intact. Lids and lashes normal. Conjunctiva and sclera are non-icteric and not injected. Cornea within normal limits. Periorbital areas with no swelling, redness, or edema. ENT: Nares patent. No nasal discharge, no septal abnormalities noted. External auditory canals are clear. Oropharynx with no redness, swelling, or masses, exudates, or evidence of obstruction, uvula midline. Mucous membranes moist. Neck: Trachea midline, no thyromegaly or masses palpated, and no cervical lymphadenopathy. Supple, full range of motion without nuchal rigidity, or vertebral point tenderness. No Meningismus. Chest/axilla: Normal chest wall appearance and motion. Nontender with no deformity. No lesions are appreciated. Cardiovascular: Regular rate and rhythm with a normal S1 and S2. No gallops, murmurs, or rubs. Normal PMI, no JVD. No pulse deficits. Respiratory: Lungs have equal breath sounds bilaterally, clear to auscultation and percussion. No rales, rhonchi or wheezes noted. No increased work of breathing, no retractions or nasal flaring. Back: No spinal tenderness. No costovertebral tenderness. Full range of motion. Skin: Warm, dry with normal turgor. Normal color with no rashes, no lesions, and no evidence of cellulitis. MS/ Extremity: Pulses equal, no cyanosis. Neurovascular intact. Full, normal range of motion. Neuro: Awake and alert, GCS 15, oriented to person, place, time, and situation. Cranial nerves II-XII grossly intact. Motor strength 5/5 in all extremities. Sensory grossly intact. Cerebellar exam normal. Normal gait. Psych: Awake, alert, with orientation to person, place and time. Behavior, mood, and affect are within normal limits. 09:15 Abdomen/GI: Very mild abdominal pain to palpation epigastrically. No pain at rest. No peritoneal signs, rebound or guarding. Nonsurgical abdomen., Vital Signs: 08:58 BP 134 / 76; Pulse 61; Resp 16; Temp 98.1(O); Pulse Ox 97% on R/A; Weight 88 kg; Height hb 5 ft. 5 in. ; Pain 0/10; 09:15 BP 135 / 84; Pulse 58; Resp 16; Pulse Ox 98% ; Pain 0/10; nj1 11:14 BP 120 / 66; Pulse 58; Resp 16; Temp 97.7(TE); Pulse Ox 99% on R/A; Pain 0/10; nj1 08:58 Body Mass Index 32.28 (88.00 kg, 165.1 cm) hb 08:58 Pain Scale: Adult hb 09:15 Pain Scale: Adult nj1 11:14 Pain Scale: Adult nj1 MDM: 09:06 Patient medically screened. sp3 09:15 Data reviewed: vital signs, nurses notes, old medical records, lab test result(s), sp3 radiologic studies. ED course: 52-year-old female with diarrhea and crampy abdominal pain now fairly resolved. Differential diagnosis includes gastroenteritis both viral and bacterial, pancreatitis, other biliary pathology, appendicitis, colitis, constipation, functional abdominal pain, food poisoning, among others. 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 Workup will include CT scan of the abdomen pelvis, laboratory values and urinalysis. If workup is negative we will safely discharge patient home with PCP follow-up. Treatment at this point will be normal saline 1 L and further medical interventions if indicated.. 10:47 ED course: CT and all labs are within normal limits. Patient is still feeling better sp3 with no further symptoms in the ED. We will safely discharged home at this time.. 06/29 09:13 Order name: CBC with Diff; Complete Time: : sp3 06/29 09:13 Order name: CMP; Complete Time: 10: sp3 06/29 09:13 Order name: Lipase; Complete Time: : sp3 06/29 09:13 Order name: Urinalysis w/ reflexes; Complete Time: : sp3 06/29 09:13 Order name: CT Abd/Pelvis - IV Contrast Only; Complete Time: 10:46 sp3 06/29 09:13 Order name: IV Saline Lock; Complete Time: : sp3 06/29 09:13 Order name: Labs collected and sent; Complete Time: : sp3 Administered Medications: 09:20 Drug: NS 0.9% IV 1000 ml IV at 1 bolus Per protocol; 1000 mL bolus Route: IV; Rate: 1 nj1 bolus; Site: right forearm; 10:30 Follow up: Response: No adverse reaction; IV Status: Completed infusion; IV Intake: nj1 1000ml Disposition Summary: 06/30/23 10:47 Discharge Ordered Notes: Location: Home sp3 Condition: Stable sp3 Diagnosis - Abdominal pain, enteritis, diarrhea sp3 Followup: sp3 - With: Private Physician - When: Upon discharge from the Emergency Department - Reason: Continuance of care Discharge Instructions: - Discharge Summary Sheet sp3 - Diarrhea, Adult sp3 Forms: - Medication Reconciliation Form sp3 - Thank You Letter sp3 - Antibiotic Education sp3 - Prescription Opioid Use sp3 - Patient Portal Instructions sp3 - Leadership Thank You Letter sp3 - Work release form nj1 Signatures: Dispatcher [employer] Ally Mercer RN RN hb Patel, Setul, MD MD sp3 Sneha Lux RN RN nj1
--- NOTE | 2023-06-30 10:48 | ER ---
Nurse's Notes [facility] Name: Dee Ruano Age: 52 yrs Sex: Female : 1970 Arrival Date: 06/30/2023 Time: 08:23 Bed 19 Private MD: Diagnosis: Abdominal pain, enteritis, diarrhea Presentation: 06/29 08:58 Chief complaint: Upper abdominal pain and diarrhea since yesterday afternoon. hb Coronavirus screen: At this time, the client does not indicate any symptoms associated with coronavirus-19. Ebola Screen: No symptoms or risks identified at this time. Initial Sepsis Screen: Does the patient meet any 2 criteria? No. Patient's initial sepsis screen is negative. Does the patient have a suspected source of infection? No. Patient's initial sepsis screen is negative. Risk Assessment: Do you want to hurt yourself or someone else? Patient reports no desire to harm self or others. Onset of symptoms was June 29, 2023. 08:58 Method Of Arrival: Ambulatory hb 08:58 Acuity: AMINTA 3 hb Triage Assessment: 08:59 General: Appears in no apparent distress. Behavior is calm, cooperative. Pain: Pain hb currently is 0 out of 10 on a pain scale. at worst was 10 out of 10 on a pain scale. Neuro: Level of Consciousness is awake, alert, obeys commands, Oriented to person, place, time, situation. Cardiovascular: Patient's skin is warm and dry. Respiratory: Respiratory effort is even, unlabored, Respiratory pattern is regular, symmetrical. GI: Reports upper abdominal pain, diarrhea. 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 - Social history:: Smoking status: Patient denies any tobacco usage or history of. Screenin:30 [facility] ED Fall Risk Assessment (Adult) History of falling in the last 3 months, nj1 including since admission No falls in past 3 months (0 pts) Confusion or Disorientation No (0 pts) Intoxicated or Sedated No (0 pts) Impaired Gait No (0 pts) Mobility Assist Device Used No (0 pt) Altered Elimination No (0 pt) Score/Fall Risk Level 0 - 2 = Low Risk Oriented to surroundings, Maintained a safe environment, Hourly rounding (assess needs \T\ fall precautionary measures) done. Abuse screen: Denies threats or abuse. Denies injuries from another. Nutritional screening: No deficits noted. Tuberculosis screening: No symptoms or risk factors identified. Assessment: 09:15 General: Appears in no apparent distress. comfortable, Behavior is calm, cooperative, nj1 appropriate for age. Pain: Denies pain. Neuro: Level of Consciousness is awake, alert, obeys commands, Oriented to person, place, time, situation. Cardiovascular: Patient's skin is warm and dry. Respiratory: Airway is patent Respiratory effort is even, unlabored. GI: Reports Intermittent abdominal pain with diarrhea since yesterday. 11:15 Reassessment: Patient appears in no apparent distress at this time. Patient is alert, nj1 oriented x 3, equal unlabored respirations, skin warm/dry/pink. Vital Signs: 08:58 BP 134 / 76; Pulse 61; Resp 16; Temp 98.1(O); Pulse Ox 97% on R/A; Weight 88 kg; Height hb 5 ft. 5 in. ; Pain 0/10; 09:15 BP 135 / 84; Pulse 58; Resp 16; Pulse Ox 98% ; Pain 0/10; nj1 11:14 BP 120 / 66; Pulse 58; Resp 16; Temp 97.7(TE); Pulse Ox 99% on R/A; Pain 0/10; nj1 08:58 Body Mass Index 32.28 (88.00 kg, 165.1 cm) hb 08:58 Pain Scale: Adult hb 09:15 Pain Scale: Adult nj1 11:14 Pain Scale: Adult nj1 ED Course: 08:26 Patient arrived in ED. mg5 08:59 Triage completed. hb 08:59 Arm band placed on. hb 09:02 Bonita Canales MD is Attending Physician. sp3 09:03 Client placed on continuous cardiac and pulse oximetry monitoring. NIBP monitoring hb applied. Pulse ox on. NIBP on. 09:03 Thermoregulation: warm blanket given to patient. hb 09:06 Sneha Lux, RN is Primary Nurse. nj1 09:15 Patient has correct armband on for positive identification. Bed in low position. Call nj1 light in reach. Provided Education on: call light, fall precautions. 09:15 Door closed. Lights dimmed. nj1 09:20 Inserted saline lock: 22 gauge in right forearm, using aseptic technique. Blood nj1 collected. 10:09 CT Abd/Pelvis - IV Contrast Only In Process Unspecified. EDMS 11:15 No provider procedures requiring assistance completed. IV discontinued, intact, nj1 bleeding controlled, Pressure dressing applied. Administered Medications: 09:20 Drug: NS 0.9% IV 1000 ml IV at 1 bolus Per protocol; 1000 mL bolus Route: IV; Rate: 1 nj1 bolus; Site: right forearm; 10:30 Follow up: Response: No adverse reaction; IV Status: Completed infusion; IV Intake: nj1 1000ml Medication: 11:15 VIS not applicable for this client. nj1 Intake: 10:30 IV: 1000ml; Total: 1000ml. nj1 Outcome: 10:47 Discharge ordered by . sp3 11:15 Discharged to home ambulatory, nj1 11:15 Condition: stable 11:15 Discharge instructions given to patient, Instructed on discharge instructions, follow up and referral plans. Demonstrated understanding of instructions, follow-up care, 11:19 Patient left the ED. nj1 Signatures: Dispatcher [employer] EDHI Ally Veliz RN RN Bonita Guerra MD MD sp3 Sneha Lux, RN RN christos Karen Paez mg5 Corrections: (The following items were deleted from the chart) 09:30 09:15 Reassessment: nj nj
[2023-06-30 11:38] VITALS: BP 120/66; TEMP 97.7; O2SAT 99
== END ==
LOC: ER 08:23
DX: K52.9 Noninfective gastroenteritis and colitis, unspecified (principal); E03.9 Hypothyroidism, unspecified
CPT/HCPCS: 85025; 81001; 36415; 83690; 80053; 74177; Q9967; J7030

== ENCOUNTER 2024-01-07 09:03 | Day surgery (SDC) | payer BC ==
[2024-01-04 14:18] LABS: Absolute Eosinophils 0.2 K/uL (0-0.5); Absolute Lymphocytes (CBC) 1.4 K/uL (0.7-4.9); Absolute Monocytes 0.3 K/uL (0.1-1.3); Absolute Neutrophil 4.7 K/uL (1.8-8.0); Basophils % 0.7 % (0-1.3); Eosinophils % 3.2 % (0-4.4); Hematocrit 41.4 % (36.0-45.0); Lymphocytes % 21.3 % (15.3-44.8); MCH 28.1 pg (27.0-35.0); MCHC 33.7 g/dL (32.0-36.0); MCV 83.3 fL (80-100); MPV 8.3 fL (7.6-11.3); Neutrophils % 69.8 % (41.7-73.7); Platelets 286 thou/uL (152-406); RBC Red Blood Cell Count 4.97 M/uL (3.86-4.86); Red Cell Distribution Width 13.7 % (12.1-15.2)
[2024-01-04 14:25] LABS: Anion Gap 5.5 mEq/L (5.0-15.0); Potassium 4.5 mEq/L (3.5-5.1)
--- NOTE | 2024-01-06 13:04 | EKG ---
Test Date: 2024-01-04 Test Time: 13:50:10 Machine Puller: JOHN MEASUREMENT RESULTS: Intervals: Rate: 57 WA: 152 QRSD: 90 QT: 402 QTc: 391 [place]: P: 26 WA: 152 QRS: -18 T: 33 INTERPRETIVE STATEMENTS: Sinus bradycardia Otherwise normal ECG Compared to ECG 02/11/2022 09:57:45 Sinus rhythm no longer present Myocardial infarct finding no longer present Electronically Signed On 01-06-24 12:56:49 CDT by Joe Cuenca
[2024-01-07] MEDS ORDERED: Ringers Lactate 1,000 ML IV ONE ×2 (09:17→12:19)
[2024-01-07] MEDS ORDERED: CEFAZOLIN SODIUM 2 GM/VIAL ONE (09:17)
[2024-01-07] MEDS ORDERED: LIDOCAINE HCL/EPINEPHRINE 20 ML MDV ONE (10:07)
[2024-01-07] MEDS ORDERED: LIDOCAINE 2% MPF 5 ML VIAL ONE (10:16)
[2024-01-07] MEDS ORDERED: dexAMETHasone 10 MG/ML VIAL ONE (10:16)
[2024-01-07] MEDS ORDERED: ONDANSETRON 4 MG/2 ML VIAL ONE (10:16)
[2024-01-07] MEDS ORDERED: KETOROLAC 30 MG/ML INJ ONE (10:16)
[2024-01-07] MEDS ORDERED: propofoL 200 MG/20 ML VIAL IV ONE (10:17)
[2024-01-07] MEDS ORDERED: ROCURONIUM 50 MG/5 ML VIAL IV ONE (10:17)
[2024-01-07] MEDS ORDERED: FENTANYL CITR 100 MCG/2 ML ONE (10:17)
[2024-01-07] MEDS ORDERED: MIDAZOLAM HCL 2 MG/2 ML INJ ONE (10:17)
[2024-01-07] MEDS ORDERED: SUCCINYLCHOLINE 20 MG/ML (10 ML) IV ONE (10:26)
[2024-01-07] MEDS ORDERED: CEFAZOLIN SODIUM 2 GM/VIAL IVPB ONE ×2 (10:44→10:56)
[2024-01-07] MEDS ORDERED: Mastisol Adhesive Liq ONE (11:10)
[2024-01-07] MEDS ORDERED: NS 0.9% VIAL 20 ML ONE (11:14)
--- NOTE | 2024-01-07 13:24 | RAD REPORT ---
EXAM: Fluoroscopy use, Fluoroscopy <1 Hour HISTORY: [facility]CRAL NEURO MOD COMPARISON: None FINDINGS: A total of 4 images were sent to PACS, during a fluoroscopically guided procedure. No radio logist was involved in protocoling or performance of the study, and no radiologist was present for the duration of the procedure. No interpretation of the saved images will be provided. Total fluoroscopy time: 0.7 minutes. IMPRESSION: Documentation of fluoroscopy use as above.
[2024-01-07] MEDS: CODEINE 30MG/APAP 300MG TAB ONE (13:29)
[2024-01-07 13:37] VITALS: BP 130/74; TEMP 96.9; O2SAT 98
--- NOTE | 2024-01-07 22:18 | OP ---
Date of Procedure: 01/07/2024 Surgeon: Christiana Jose MD Glass Inspector: No assistants. Preoperative Diagnoses: Refractory urge urinary incontinence, frequency. Postoperative Diagnoses: Refractory urge urinary incontinence, frequency. Procedures Performed: 1.Complete InterStim system implantation with incision and implantation of tined quadripolar lead el ectrodes into the S3 foramen under fluoroscopic guidance with needle placement. 2.Subcutaneous implantation of sacral nerve neurostimulator and electronic analysis and programming. Anesthesia: General endotracheal. Specimens: No specimens. Complications: No complications. Drains: No drains. Estimated Blood Loss: 10 mL. Condition: Stable. Findings: Right S3 lead was placed and left buttock pocket created for the neurostimulator. All nazario ds had strong motor responses in both the buttocks and toes with Jassi and plantar flexion of the g reat toe. Indications: After full evaluation of urge urinary incontinence and trial of treatment with medicati ons, the patient was tested with a cystoscopy to rule out a bladder tumor and with urodynamics to und erstand the bladder behavior. She was confirmed to have decreased capacity with significant frequenc y and urgency. Third line therapies were discussed with the patient, and the patient wanted to proce ed with neurostimulation of the sacrum, so office PNE was performed. She had an excellent response w ith greater than 50% improvement from her baseline of her symptoms. She was consented for stage I InterStim and brought to the hospital today. 2 g of Ancef were given. She was re-consented in the preoperative area and taken back to the OR. Description Of Procedure: She was properly identified and placed in the prone position by the OR pro tocol. General anesthesia was administered on the bed and then she was transferred to the OR table. Pillows were placed under the lower abdomen to flatten the sacrum and under the shins to allow the t oes to dangle freely. The patient was prepped and draped in a sterile fashion using Betadine solutio n. The C-arm was then draped and moved into AP position and all the fluoroscopic mapping of the sacr al region was performed outlining the midline of the sacrum, SI joint, sciatic notches, medial forami nal borders, and sacral foramina. The C-arm was moved into lateral position to image the area from t he sacral promontory to the coccyx. After the surface markings were made, 9 cm above the tip of the coccyx in the midline at 10, 11, and 12 cm markings were made and 2 cm lateral to each of the midline marking. Lines were drawn to help i dentify the location for the placement of needle. Local injection with 1% lidocaine mixed with 1:100,000 epinephrine 20 mL was used, 10 mL on each side for local anesthesia. A foramen needle was then introduced at 11 cm going towards the S3 foramen. Once this was entered fl uoroscopically, this was identified and confirmed. The depth of the needle was confirmed and adjuste d fluoroscopically. Proper needle position was confirmed by identification of motor response with pe rineal bellowing and plantar flexion of the great toe using the external test stimulator. The foramen needle stylet was removed and bidirectional guide was placed and confirmed fluoroscopical ly. The foramen needle was then removed. Incision was made peripheral to the bidirectional guide th rough the fascial layer. The lead introducer sheath and dilator were placed over the directional scar de and directed into the foramen to ensure the radiopaque marker of the lead introducer did not exten d beyond the anterior tip of the sacrum. The dilator was then unlocked and removed along the directi onal guide. The lead was then placed through the introducer sheath to the first line. Position was checked fluoroscopically. The lead was then further introduced until 3 electrodes were visible below the sacrum. Each electrode was tested for location of patient sensation, visualization of Jassi, and plantar flexion of the great toe. After satisfactory, we tested for visualization of Jassi and plantar flexion of the great toe. I did not check for the patient's incision as the patient was ane sthetized. After satisfactory positioning was confirmed, the introducer sheath was retracted under c ontinuous fluoroscopy deploying the tined leads into the presacral tissue. Further incision was made into the subcutaneous tissue posterior to the iliac crest on the left side as this was the requested side. Incision with a 15 blade. Blunt dissection performed to the gluteal fascia was identified and hemostasis was achieved with a sufficient pocket for the neurostimulator. A tunneling tool and straw was placed from the lead exit site subcutaneously to the incised side poc ket. The tunneling tool was removed and the lead was fed through the straw and pulled out of the poc ket site. The lead was cleansed off bodily fluids and dried. Lead was inserted into the neurostimul ator and the metal bands were aligned with the blue lead tip clearly visible in the distal portion of the neurostimulator header. The single set screw was tightened with the hex wrench and the neurosti mulator was then placed into the subcutaneous pocket with the etched identification side placed upwar ds and the excessive lead wrapped counterclockwise on the neurostimulator. The programming head was placed over the implanted neurostimulator in a sterile cover to ensure adequate lead connection and t hat the parameters were within normal limits. Impedances were confirmed to be within normal limits a nd then once we irrigated with antibiotic solution and water and closed with 3-0 Vicryl in a continuo us running subcutaneous fashion and then the skin closed with continuous running 4-0 subcuticular Mon ocryl sutures. Counts were correct. The lead site was closed with 4-0 Monocryl. Dermabond was plac ed over the incision and EBL was 10 mL. The patient was transferred to the recovery room in satisfac tory condition. Using the clinician application programmer analyst, the generator was programmed. All the settings were entered into the chart. Instructions given for utilizing the patient application programmer analyst prior to discharge. She will follow up in 3 weeks and then 3 months . ROGELIO/SHABBIR Voice ID: [id number] Report ID: [id number]
== END 2024-01-07 13:45 | disposition home or self-care (01) ==
LOC: OR 09:03
PROVIDERS: ATTEND Obstetrics & Gynecology
PROC: 0JH73BZ Insertion of Single Array Stimulator Generator into Back Subcutaneous Tissue and Fascia, Percutaneous Approach (ICD-10-PCS; 2024-01-07)
PROC: 01HY3MZ Insertion of Neurostimulator Lead into Peripheral Nerve, Percutaneous Approach (ICD-10-PCS; principal; 2024-01-07 10:30)
DX: N39.41 Urge incontinence (principal); R35.0 Frequency of micturition
CPT/HCPCS: 36415; 76000; 80048; 85025; 93005; A4216; C1767; C1778; J1100; J2001; J2250; J2405; J2704; J3010; J7120

== ENCOUNTER 2024-02-04 06:50 | Observation (INO) | payer BC ==
[2024-02-01 09:46] LABS: Absolute Basophils 0.1 K/uL (0-0.5); Absolute Eosinophils 0.3 K/uL (0-0.5); Absolute Lymphocytes (CBC) 1.7 K/uL (0.7-4.9); Absolute Monocytes 0.4 K/uL (0.1-1.3); Absolute Neutrophil 5.3 K/uL (1.8-8.0); Basophils % 1.1 % (0-1.3); Eosinophils % 3.5 % (0-4.4); Hematocrit 40.2 % (36.0-45.0); Hemoglobin 13.5 g/dL (12.0-15.0); Lymphocytes % 22.3 % (15.3-44.8); MCH 27.7 pg (27.0-35.0); MCHC 33.6 g/dL (32.0-36.0); MCV 82.5 fL (80-100); MPV 7.9 fL (7.6-11.3); Monocytes % 4.9 % (3.3-12.3); Neutrophils % 68.2 % (41.7-73.7); Platelets 299 thou/uL (152-406); RBC Red Blood Cell Count 4.88 M/uL (3.86-4.86); Red Cell Distribution Width 13.3 % (12.1-15.2)
[2024-02-01 09:48] LABS: Specific Gravity > 1.030 (1.005-1.030); Sqamous Epithelial <5 /HPF (None Seen); Urine Bacteria <20 /HPF (<20); Urine Bilirubin NEGATIVE (Negative); Urine Blood Negative (Negative); Urine Clarity Clear (Clear); Urine Color Yellow (Yellow); Urine Culture Reflex Order NOT NEEDED; Urine Glucose NEGATIVE (Negative); Urine Ketones NEGATIVE (Negative); Urine Microscopic Reflex YN ORDER UMIC; Urine Mucus 2+ /HPF (None Seen); Urine Nitrite NEGATIVE (Negative); Urine Protein TRACE (Negative); Urine RBC None Seen /HPF (None Seen); Urine Urobilinogen Normal (Normal); Urine WBC <5 /HPF (<5); Urine pH 5.5 (5.0-7.0)
[2024-02-01 09:55] LABS: PT Prothrombin Time 11.7 SECONDS (9.4-12.5); PTT, Activated Partial Thromb 33.3 SECONDS (24.3-36.9); Protime INR 1.05
[2024-02-01 10:04] LABS: Anion Gap 7.6 mEq/L (5.0-15.0); Potassium 3.6 mEq/L (3.5-5.1)
[2024-02-04] MEDS: Ringers Lactate 1,000 ML IV ONE (07:15)
[2024-02-04] MEDS: CEFAZOLIN SODIUM 2 GM/VIAL ONE (07:33)
[2024-02-04] MEDS: CEFAZOLIN SODIUM 1 GM/VIAL ONE (07:40)
[2024-02-04] MEDS ORDERED: VECURONIUM 10 MG/VIAL IV ONE ×2 (07:40→09:47)
[2024-02-04] MEDS ORDERED: ONDANSETRON 4 MG/2 ML VIAL ONE (07:40)
[2024-02-04] MEDS: NA CHLORIDE 0.9% 100 ML ONE (07:40)
[2024-02-04] MEDS ORDERED: NS 0.9% VIAL 30 ML ONE (07:40)
[2024-02-04] MEDS ORDERED: FENTANYL CITR 100 MCG/2 ML ONE (07:40)
[2024-02-04] MEDS ORDERED: MIDAZOLAM HCL 2 MG/2 ML INJ ONE (07:40)
[2024-02-04] MEDS ORDERED: propofoL 200 MG/20 ML VIAL IV ONE (07:40)
[2024-02-04] MEDS ORDERED: KETOROLAC 30 MG/ML INJ ONE (07:40)
[2024-02-04] MEDS ORDERED: LIDOCAINE 2% MPF 5 ML VIAL ONE (07:40)
[2024-02-04] MEDS ORDERED: dexAMETHasone 10 MG/ML VIAL ONE (07:40)
[2024-02-04] MEDS: VASOPRESSIN 20 UNIT/ML VIAL ONE (08:25)
[2024-02-04] MEDS ORDERED: GLYCOPYRROLATE 0.2 MG/ML SYR ONE (09:47)
[2024-02-04] MEDS: SUGAMMADEX SODIUM 200 MG/2 ML VIAL IV ONE (10:45)
[2024-02-04] MEDS: MEPERIDINE HCL 25 MG/ML SYR ONE (11:24)
[2024-02-04] MEDS ORDERED: IBUPROFEN 600 MG TAB PO PRN (11:54)
[2024-02-04] MEDS ORDERED: ACETAMINOPHEN 325 MG TABLET PO PRN (11:54)
[2024-02-04] MEDS ORDERED: PROMETHAZINE 25 MG TABLET PO PRN (11:54)
[2024-02-04] MEDS ORDERED: PROMETHAZINE INJ 25 MG/ML AMP IV PRN (11:55)
[2024-02-04] MEDS: HYDROMORPHONE HCL 1 MG/ML INJ ONE (11:59)
[2024-02-04 12:08] VITALS: O2SAT 98
--- OUTSIDE RECORDS SUMMARY | 2024-02-04 12:11 | XMS REPORT | Continuity of Care Document ---
Author Name Unknown Address [address] [facility]. 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 Name Role Phone ADDISONMICHELE Primary Care Physician Unavailab Janis Olivarez Attending Clinician Unavailable Flor Tracy Attending Clinician Unavailable ASHLEY ROSALES Attending Clinician UnavailAshley Brito DO Attending Clinician GC_GCBZW_Kadiyala_S Attending Clinician Levi Castillo MD K.HErica Attending Clinician [phone] Doctor Unassigned, Spray Attending Clinician U LEVI Hernandez Attending Clinician Adelso Oliveira DO Attending Clinician [phone] Radiology Attending Clinician Unavailable RADIOLOGY Attending Clinician Unavailable Rochelle Cook MD Attending Clinician [phone] ROCHELLE COOK Attending Clinician Unavailable ASHLEY ROSALES Admitting Clinician Hamilton magaña GC_GCBZW_Kadiyala_S Admitting Clinician Arturo lipscomb Payers Payer Name Policy Type Policy Number Effective Date Expirati on Date Source [place] OUT OF [place] [id number] 2018 00:00:[place] [id number] 2018 00:00:00 Blue [employer] [place] [employer] of [place] 6 [id number] [facility] Problems Condition Name Condition Details Condition Category Status Onset Date Resolution Date Last Treatment Date Treating Clinician Comments Source Candidiasi s of vagina Candidiasi s of Vagina Problem Active 10-15 00:00: 00 [facility] Orgasm incapacity Orgasm Incapacity Problem Active 10-15 00:00: 00 [facility] 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 of Vaginal Vault after Hysterecto my Problem Active 10-15 00:00: 00 [facility] Atrophy of skeletal muscle of pelvis Atrophy of Skeletal Muscle of Pelvis Problem Active 10-15 00:00: 00 [facility] Female stress incontinen ce Female Stress Incontinen ce Problem Active 10-15 00:00: 00 [facility] Atrophy of vagina Atrophy of Vagina Problem Active 10-15 00:00: 00 [facility] Increased frequency of urination Increased Frequency of Urination Problem Active 10-15 00:00: 00 [facility] Urgent desire to urinate Urgent Desire to Urinate Problem Active 10-15 00:00: 00 [facility] Incomplete emptying of urinary bladder Incomplete Emptying of Urinary Bladder Problem Active 10-15 00:00: 00 [facility] [id number] Fatty liver Problem [facility] [id number] Seasonal allergic rhinitis due to pollen Problem [facility] [id number] Recurrent major depressive disorder, in partial remission Problem [facility] [id number] Elevated blood pressure reading without diagnosis of hypertensi on Problem [facility] [id number] Asymptomat ic postproced ural ovarian failure Problem [facility] [id number] Acquired hypothyroi dism Problem [facility] 56333432 Epigastric pain Problem [facility] 47294575 Chronic fatigue Problem [facility] [id number] Elevated Kandis-Ba rr virus antibody titer Problem [facility] [id number] Generalize d edema Problem [facility] Abnormal mammogram Abnormal mammogram Problem [facility] [id number] Hot flashes due to menopause Problem [facility] [id number] Moderate major depression Problem [facility] [id number] Fever, unspecifie d fever cause Problem [facility] 55354893 Sleep disturbanc e Problem [facility] [id number] Morbid (severe) obesity due to excess calories Problem [facility] 32690168 [facility] [id number] Glaucoma of both eyes, unspecifie d glaucoma type Problem [facility] 429910183 Body mass index [BMI] 40.0-44.9, adult Problem [facility] [id number] Obesity, unspecifie d Problem [facility] 454495141 Metabolic syndrome Problem [facility] 835552037 Left upper quadrant abdominal pain Problem [facility] Allergies, Adverse Reactions, Alerts Allergy Name Allergy Type Status Severity Reaction(s) Onset Date Inactive Date Treating Clinician Comments Source NO KNOWN ALLERGIE S Drug Class Active [facility] Social History Social Habit Start Date Stop Date Quantity Comments Source History of Tobacco Use [facility] Sex Assigned At [facility] Sexual orientation [facility] Exposure to SARS-CoV-2 (event) Not sure [facility] Smoking Status Start Date Stop Date Source Never Smoker [facility] Tobacco smoking consumption unknown [facility] Medications Ordered Medication Name Filled Medication Name Start Date Stop Date Current Medication? Ordering Clinician Indication Dosage Frequency Signature (SIG) Comments Components Source ketorolac (TORADOL) injection 30 mg 07-08 13:30: 00 07-08 12:55 :00 No 30mg 30 mg, Slow IV Push, ONCE, 1 dose, On Thu07/09/23 at 0830, Routine [facility] lisinopriL 10 mg tablet 2022-04 10:46: 29 Yes 10mg Take 1 tablet by mouth in the morning. [facility] [place] Thyroid 30 MG [place] Thyroid 30 MG 11-29 00:00: 00 No 1{table t_on_an _empty_ stomach } QD [place] Thyroid 30 MG [place] Thyroid 30 MG [place] Thyroid 30 MG 11-29 00:00: 00 No 1{table t_on_an _empty_ stomach } QD [place] Thyroid 30 MG [place] Thyroid 30 MG [place] Thyroid 30 MG 11-29 00:00: 00 No 1{table t_on_an _empty_ stomach } QD [place] Thyroid 30 MG Qsymia 11.25-69 MG Qsymia 11.25-69 MG 09-30 00:00: 00 No 1{capsu le} QD Qsymia 11.25-69 MG Qsymia 11.25-69 MG Qsymia 11.25-69 MG 08-29 00:00: 00 11-27 00:00 :00 No 1{capsu le} QD Qsymia 11.25-69 MG Qsymia 7.5-46 MG Qsymia 7.5-46 MG 07-30 00:00: 00 No 1{capsu le} QD Qsymia 7.5-46 MG Fluticasone Propionate 50 MCG/ACT Fluticasone Propionate 50 MCG/ACT 07-30 00:00: 00 No 1{spray _in_eac h_nostr il} QD Fluticason e Propionate 50 MCG/ACT Fluticasone Propionate 50 MCG/ACT Fluticasone Propionate 50 MCG/ACT 07-30 00:00: 00 No 1{spray _in_eac h_nostr il} QD Fluticason e Propionate 50 MCG/ACT Levothyroxi ne Sodium 75 MCG Levothyroxi ne Sodium 75 MCG 07-01 00:00: 00 No QD Levothyrox ine Sodium 75 MCG Qsymia 3.75-23 MG Qsymia 3.75-23 MG 07-01 00:00: 00 07-31 00:00 :00 No 1{capsu le} QD Qsymia 3.75-23 MG Amoxicillin 500 mg Amoxicillin 500 mg 04-08 00:00: 00 04-15 00:00 :00 No 1{capsu le} TID Amoxicilli n 500 mg [facility] TH[facility] 90 mg tablet 12-25 00:00: 00 Yes [id number] TAKE 1 TABLET BY MOUTH EVERY MORNING IN ADDITION TO 60 MG TAB FOR TOTAL DAILY DOSE OF 150 MG PER DAY [facility] THYROID 60 mg tablet 12-25 00:00: 00 Yes [id number] TAKE 1 TABLET BY MOUTH EVERY MORNING IN ADDITION TO 90 MG TAB FOR TOTAL DAILY DOSE OF 150 MG PER DAY [facility] Metoprolol Succinate ER Metoprolol Succinate ER 10-19 00:00: 00 Yes Flor Tracy 1 tablet [facility] Thyroid, Pork, 180 mg tablet 06-20 14:59: 50 06-20 00:00 :00 No 180mg Take 180 mg by mouth daily. [facility] THY[facility]ID 60 mg tablet 06-20 00:00: 00 12-25 00:00 :00 No [id number] 60mg Take 1 tablet by mouth every morning. In addition to 90 mg to make it 150 mg total [facility] THYROID 90 mg tablet 06-20 00:00: 00 12-25 00:00 :00 No [id number] 90mg Take 1 tablet by mouth daily. In addition to 60 mg to make it 150 mg total [facility] dexAMETHaso ne 1 mg tablet 06-14 00:00: 00 06-15 04:59 :00 No [id number] 104 1mg Take 1 tablet by mouth once now for 1 dose. DX: E66.01 [facility] dexAMETHaso ne 1 mg tablet 06-12 00:00: 00 06-13 04:59 :00 No [id number] 104 1mg Take 1 tablet by mouth once now for 1 dose. [facility] ESTRADIOL TRANSDERMAL PATCH TRANSDERMAL 06-05 21:03: 40 Yes .075mg Apply 0.075 mg to skin weekly. [facility] Thyroid, Pork, 180 mg tablet 06-05 21:03: 05 Yes 180mg Take 180 mg by mouth daily. [facility] ESTRADIOL TRANSDERMAL PATCH TRANSDERMAL 06-05 15:03: 40 Yes .075mg Apply 0.075 mg to skin weekly. [facility] dexAMETHaso ne 1 mg tablet 06-05 00:00: 00 06-06 05:59 :00 No [id number] 104 1mg Take 1 tablet by mouth once now for 1 dose. [facility] [place] Thyroid [place] Thyroid 04-29 00:00: 00 Yes Flor [place] 1 tablet on an empty stomach [facility] [place] Thyroid 90 MG [place] Thyroid 90 MG 04-29 00:00: 00 No 1{table t_on_an _empty_ stomach } QD [place] Thyroid 90 MG [place] Thyroid 90 MG [place] Thyroid 90 MG 04-29 00:00: 00 No 1{table t_on_an _empty_ stomach } QD [place] Thyroid 90 MG Hydrochloro thiazide Hydrochloro thiazide 09-10 00:00: 00 Yes Flor [place] 1 tablet in the morning [facility] Combigan Combigan Yes Flor [place] 1 drop into affected eye [facility] Lumigan Lumigan Yes Flor [place] 1 drop into affected eye in the evening [facility] Estradiol Estradiol Yes Flor [place] 1 patch to skin [facility] buPROPion HCl 100 MG buPROPion HCl 100 MG No 1{table t} BID buPROPion HCl 100 MG Nystatin 751382 UNIT/GM Nystatin 220486 UNIT/GM No 1{appli cation} BID Nystatin 666110 UNIT/GM Estradiol 0.075 MG/24HR Estradiol 0.075 MG/24HR [...] 1{patch _to_ski n} Estradiol 0.075 MG/24HR Nystatin 285479 UNIT/GM Nystatin 398275 UNIT/GM No 1{appli cation} BID Nystatin 580307 UNIT/GM Claritin 10 MG Claritin 10 MG No 1{table t} QD Claritin 10 MG Combigan 0.2-0.5 % Combigan 0.2-0.5 % No 1{drop_ into_af fected_ eye} BID Combigan 0.2-0.5 % Claritin 10 MG Claritin 10 MG No 1{table t} QD Claritin 10 MG Levothyroxi ne Sodium 75 MCG Levothyroxi ne Sodium 75 MCG No QD Levothyrox ine Sodium 75 MCG busPIRone HCl 5 MG busPIRone HCl 5 MG No busPIRone HCl 5 MG Estradiol 0.075 MG/24HR Estradiol 0.075 MG/24HR No 1{patch _to_ski n} Estradiol 0.075 MG/24HR Lumigan 0.01 % Lumigan 0.01 % No 1{drop_ into_af fected_ eye_in_ the_esmer mccormick} QD Lumigan 0.01 % Nystatin 369432 UNIT/GM Nystatin 288590 UNIT/GM No 1{appli cation} BID Nystatin 767978 UNIT/GM buPROPion HCl 100 MG buPROPion HCl 100 MG No 1{table t} BID buPROPion HCl 100 MG Claritin 10 MG Claritin 10 MG No 1{table t} QD Claritin 10 MG Levothyroxi ne Sodium 75 MCG Levothyroxi ne Sodium 75 MCG No Levothyrox ine Sodium 75 MCG Combigan 0.2-0.5 % Combigan 0.2-0.5 % No 1{drop_ into_af fected_ eye} BID Combigan 0.2-0.5 % Nystatin 914162 UNIT/GM Nystatin 867523 UNIT/GM No 1{appli cation} BID Nystatin 428989 UNIT/GM Claritin 10 MG Claritin 10 MG No 1{table t} QD Claritin 10 MG Levothyroxi ne Sodium 75 MCG Levothyroxi ne Sodium 75 MCG No Levothyrox ine Sodium 75 MCG Combigan 0.2-0.5 % Combigan 0.2-0.5 % No 1{drop_ into_af fected_ eye} BID Combigan 0.2-0.5 % Nystatin 220663 UNIT/GM Nystatin 911704 UNIT/GM No 1{appli cation} BID Nystatin 315827 UNIT/GM [place] Thyroid 30 mg tablet TAKE 1 TABLET BY MOUTH EVERY DAY [place] Thyroid 30 mg tablet TAKE 1 TABLET BY MOUTH EVERY DAY No [place] Thyroid 30 mg tablet TAKE 1 TABLET BY MOUTH EVERY DAY [facility] estradiol 0.01% (0.1 mg/gram) vaginal cream INSERT 0.5 GRAMS 3 TIMES A WEEK BY VAGINAL ROUTE DIRECTED FOR 90 DAYS. estradiol 0.01% (0.1 mg/gram) vaginal cream INSERT 0.5 GRAMS 3 TIMES A WEEK BY VAGINAL ROUTE DIRECTED FOR 90 DAYS. No estradiol 0.01% (0.1 mg/gram) vaginal cream INSERT 0.5 GRAMS 3 TIMES A WEEK BY VAGINAL ROUTE DIRECTED FOR 90 DAYS. [facility] levothyroxi ne 100 mcg tablet TAKE 1 TABLET BY MOUTH EVERY DAY levothyroxi ne 100 mcg tablet TAKE 1 TABLET BY MOUTH EVERY DAY No levothyrox ine 100 mcg tablet TAKE 1 TABLET BY MOUTH EVERY DAY [facility] Immunizations Ordered Immunization Name Filled Immunization Name Date Status Comments Source Flucelvax - multidose vial Flucelvax - multidose vial 2022-02-05 13:57:00 Completed [facility] COVID-19 Vaccine (Meredith) COVID-19 Vaccine (Meredith) 2020-07-13 14:49:00 Completed [facility] COVID-19 Vaccine (Meredith) COVID-19 Vaccine (Meredith) 2020-07-13 14:49:00 Completed [facility] COVID-19 Vaccine (Meredith) COVID-19 Vaccine (Meredith) 2020-07-13 14:49:00 Completed [facility] COVID-19 Vaccine (Meredith) COVID-19 Vaccine (Meredith) 2020-07-13 14:49:00 Completed [facility] COVID-19 Vaccine (Meredith) COVID-19 Vaccine (Meredith) Unknown Completed [facility] Flucelvax (ccIIV4) - MDV - 0.5mL Flucelvax (ccIIV4) - MDV - 0.5mL Unknown Completed [facility] Vital Signs Vital Name Observation Time Observation Value Comments S rjce BMI (Body Mass Index) 2024-01-27 00:00:00 30 kg/m2 [facility] BP Diastolic 2024-01-27 00:00:00 89 mm[Hg] [facility] Height 2024-01-27 00:00:00 65 [in_i] [facility] BP Systolic 2024-01-27 00:00:00 157 mm[Hg] [facility] Body Weight 2024-01-27 00:00:00 180.2 [lb_av] [facility] Body Weight 2023-12-18 00:00:00 181 [lb_av] [facility] Height 2023-12-18 00:00:00 65 [in_i] [facility] BMI (Body Mass Index) 2023-12-18 00:00:00 30.1 kg/m2 [facility] BP Diastolic 2023-12-18 00:00:00 96 mm[Hg] [facility] BP Systolic 2023-12-18 00:00:00 162 mm[Hg] [facility] BP Diastolic 2023-12-14 00:00:00 90 mm[Hg] [facility] BMI (Body Mass Index) 2023-12-14 00:00:00 30.1 kg/m2 [facility] BP Systolic 2023-12-14 00:00:00 137 mm[Hg] [facility] Body Weight 2023-12-14 00:00:00 181 [lb_av] [facility] Height 2023-12-14 00:00:00 65 [in_i] [facility] Body Weight 2023-12-11 00:00:00 181 [lb_av] [facility] Height 2023-12-11 00:00:00 65 [in_i] [facility] BP Diastolic 2023-12-11 00:00:00 97 mm[Hg] [facility] BP Systolic 2023-12-11 00:00:00 138 mm[Hg] [facility] BMI (Body Mass Index) 2023-12-11 00:00:00 30.1 kg/m2 [facility] Systolic blood pressure 2023-07-09 13:30:00 141 mm[Hg] [facility] Diastolic blood pressure 2023-07-09 13:30:00 88 mm[Hg] [facility] Heart rate 2023-07-09 13:30:00 58 /min [facility] Respiratory rate 2023-07-09 13:30:00 18 /min [facility] Oxygen saturation in Arterial blood by Pulse oximetry 2023-07-09 13:30:00 97 /min [facility] Body temperature 2023-07-09 12:26:00 36.61 Sheri [facility] Body weight 2023-07-09 12:26:00 88.451 kg [facility] BMI 2023-07-09 12:26:00 32.45 kg/m2 [facility] Systolic blood pressure 2023-02-25 16:38:00 130 mm[Hg] [facility] Diastolic blood pressure 2023-02-25 16:38:00 89 mm[Hg] [facility] Heart rate 2023-02-25 16:38:00 81 /min [facility] Body temperature 2023-02-25 16:38:00 36.11 Sheri [facility] Respiratory rate 2023-02-25 16:38:00 18 /min [facility] Body height 2023-02-25 16:38:00 165.1 cm [facility] Body weight 2023-02-25 16:38:00 88.86 kg [facility] BMI 2023-02-25 16:38:00 32.60 kg/m2 [facility] Oxygen saturation in Arterial blood by Pulse oximetry 2023-02-25 16:38:00 100 /min [facility] height 2021-11-29 16:40:00 64.5 [in_i] [facility] weight 2021-11-29 16:40:00 218 [lb_av] [facility] temperature 2021-11-29 16:40:00 97.8 [degF] [facility] bmi 2021-11-29 16:40:00 36.84 kg/m2 [facility] oximetry 2021-11-29 16:40:00 98 % [facility] respiratory rate 2021-11-29 16:40:00 16 /min [facility] blood pressure systolic 2021-11-29 16:40:00 124 mm[Hg] [facility] blood pressure diastolic 2021-11-29 16:40:00 70 mm[Hg] [facility] height 2021-09-30 11:40:00 65 [in_i] [facility] weight 2021-09-30 11:40:00 227 [lb_av] [facility] temperature 2021-09-30 11:40:00 97.6 [degF] [facility] bmi 2021-09-30 11:40:00 37.77 kg/m2 [facility] height 2021-08-29 11:40:00 65 [in_i] [facility] weight 2021-08-29 11:40:00 236 [lb_av] [facility] temperature 2021-08-29 11:40:00 97.4 [degF] [facility] bmi 2021-08-29 11:40:00 39.27 kg/m2 [facility] height 2021-07-30 11:40:00 65 [in_i] [facility] weight 2021-07-30 11:40:00 245 [lb_av] [facility] temperature 2021-07-30 11:40:00 97.1 [degF] [facility] bmi 2021-07-30 11:40:00 40.77 kg/m2 [facility] height 2021-07-01 16:20:00 65 [in_i] [facility] weight 2021-07-01 16:20:00 255 [lb_av] [facility] temperature 2021-07-01 16:20:00 97.8 [degF] [facility] bmi 2021-07-01 16:20:00 42.43 kg/m2 [facility] height 2021-04-04 10:40:00 65 [in_i] [facility] weight 2021-04-04 10:40:00 250 [lb_av] [facility] temperature 2021-04-04 10:40:00 97 [degF] [facility] bmi 2021-04-04 10:40:00 41.60 kg/m2 [facility] height 2021-03-15 15:20:00 65 [in_i] [facility] weight 2021-03-15 15:20:00 257.4 [lb_av] [facility] temperature 2021-03-15 15:20:00 97.7 [degF] [facility] bmi 2021-03-15 15:20:00 42.83 kg/m2 [facility] oximetry 2021-03-15 15:20:00 98 % [facility] respiratory rate 2021-03-15 15:20:00 16 /min [facility] blood pressure systolic 2021-03-15 15:20:00 152 mm[Hg] [facility] blood pressure diastolic 2021-03-15 15:20:00 78 mm[Hg] [facility] Systolic blood pressure 2019-06-06 20:42:00 138 mm[Hg] [facility] Diastolic blood pressure 2019-06-06 20:42:00 78 mm[Hg] [facility] Heart rate 2019-06-06 20:42:00 76 /min [facility] Respiratory rate 2019-06-06 20:40:00 16 /min [facility] Body height 2019-06-06 20:40:00 165.1 cm [facility] Body weight 2019-06-06 20:40:00 117.028 kg [facility] BMI 2019-06-06 20:40:00 42.93 kg/m2 [facility] Procedures Procedure Date / Time Performed Performing Clinician Source Neurostimulation/modulatio n 2024-01-07 00:00:00 [facility] Percutaneous Sacral Nerve Evaluation 2023-12-11 00:00:[address] [facility] [address] ABDOMEN PELVIS WO CONTRAST 2023-07-09 13:14:03 Ashley Rosales [facility] COMP. METABOLIC PANEL ([id number]) 2023-07-09 12:53:00 Ashley Rosales [facility] CBC WITH DIFF 2023-07-09 12:53:00 [facility] 2023-07-09 12:53:00 [facility]CLEAR[facility] FORMS 2023-03-02 06:01:00 Doctor Unassigned, Spray [facility] Cystoscopy 2023-01-16 00:00:00 Marykhalida Marielena brito BI US GUIDED CORE BREAST BIOPSY RIGHT 2020-04-25 14:43:00 Requisition, Paper [facility] BI ULTRASOUND BREAST COMPLETE RIGHT 2020-04-11 22:24:00 Flor Tracy [facility] BI DIAGNOSTIC TOMOSYNTHESIS BILATERAL 2020-04-11 21:15:00 Flor Tracy [facility] T3, TOTAL-Q 2019-06-16 13:13:00 [facility] T-4, FREE-Q 2019-06-16 13:13:00 [facility] TSH, 3RD GENERATION-Q 2019-06-16 13:13:00 Aarti Cook [facility] Hernia Repair [facility] Cholecystectomy (Gallbladder) [facility] Hysterectomy [facility] Encounters Start Date/Time End Date/Time Encounter Type Admission Type Attending Clinicians Care Facility Care Department Encounter ID Source 2021-12-16 09:33:01 [facility] [id number] [facility] 2021-11-27 09:55:00 [facility]patient [facility] [id number] [facility] 2021-11-13 15:38:00 [facility] [id number] [facility] 2021-09-26 10:57:00 Outpatient [facility] [id number] [facility] 2021-06-21 13:20:00 Outpatient [facility] [id number] [facility] 2021-05-01 14:39:57 Outpatient [facility] [id number] [facility] 2021-05-01 14:22:21 Outpatient Janis Perkins [facility] [id number] [facility] 2021-05-01 14:16:16 Outpatient Janis Perkins [facility] [id number] [facility] 2021-05-01 11:01:46 Outpatient Flor Tracy [facility] [id number] [facility] 2024-01-27 00:00:00 2024-01-27 00:00:00 LUZ MARINA Puentes: [address], [place] [address] , Ph. Pending sale to [facility] - GC_GCBZW_[facility]* [id number] [facility] 2023-12-18 00:00:00 2023-12-18 00:00:00 LUZ MARINA Puentes: [address], [place] [address] , Ph. Pending sale to [facility] - GC[facility]* [id number] [facility] 2023-12-14 00:00:00 2023-12-14 00:00:00 LUZ MARINA Puentes: [address], [place] [address] , Ph. Pending sale to [facility] - GC[facility]BZ[facility]* [id number] [facility] 2023-12-11 00:00:00 2023-12-11 00:00:00 LUZ MARINA Puentes: [address], [place] [address] , Ph. Pending sale to [facility] - GC[facility]* [id number] [facility] 2023-11-25 00:00:00 2023-11-25 00:00:00 Christiana Jose MD: [address], [place] [address] , Ph. Pending sale to [facility] - GC_GCBZW_La duyen Kiran* [id number] [facility] 2023-07-09 07:27:00 2023-07-09 08:54:00 Emergency Lizzie ASHLEY ROSALES [facility] ERT [id number] [facility] 2023-07-09 07:27:00 2023-07-09 08:54:00 Emergency Ashley Rosales [facility] ..[id number] [facility] 2023-05-18 00:00:00 2023-05-18 00:00:00 Outpatient GC_GCBZW_Ka diyala_S PRIV PRIV [id number] [facility] 2023-05-16 00:00:00 2023-05-16 00:00:00 Outpatient GC_GCBZW_Ka diyala_S PRIV PRIV [id number] [facility] 2023-04-18 00:00:00 2023-04-18 00:00:00 Outpatient GC_GCBZW_Ka diyala_S PRIV PRIV [id number] [facility] 2023-03-23 00:00:00 2023-03-23 00:00:00 Outpatient GC_GCBZW_Ka diyala_S PRIV PRIV [id number] [facility] 2023-03-21 00:00:00 2023-03-21 00:00:00 Outpatient GC_GCBZW_Ka diyala_S PRIV PRIV [id number] [facility] 2023-03-02 00:00:00 2023-03-02 00:00:00 Telephone Levi Vasquez [facility] 04.07.840.114 350.1.13.10 4.2.7.2.686 [id number] [facility] 2023-03-02 00:00:00 2023-03-02 00:00:00 Orders Only Doctor Unassigned, Spray [facility] 1.2.840.114 350.1.13.10 4.2.7.2.686 [id number] [facility] 2023-02-25 10:30:00 2023-02-25 11:21:52 Outpatient R LEVI VASQUEZ [facility] [id number] [facility] 2023-02-25 10:30:00 2023-02-25 11:21:52 Office Visit Levi Vasquez [facility] 12.840.114 350.1.13.10 4.2.7.2.686 [id number] [facility] 2023-02-24 00:00:00 2023-02-24 00:00:00 Outpatient GC_GCBZW_Ka diyala_S PRIV PRIV [id number] [facility] 2023-02-21 00:00:00 2023-02-21 00:00:00 Outpatient GC_GCBZW_Ka diyala_S PRIV PRIV [id number] [facility] 2023-02-05 00:00:00 2023-02-05 00:00:00 Outpatient GC_GCBZW_Ka diyala_S PRIV PRIV [id number] [facility] 2023-01-28 00:00:00 2023-01-28 00:00:00 Outpatient GC_GCBZW_Ka diyala_S PRIV PRIV [id number] [facility] 2023-01-27 00:00:00 2023-01-27 00:00:00 Outpatient GC_GCBZW_Ka diyala_S PRIV PRIV [id number] [facility] 2023-01-16 00:00:00 2023-01-16 00:00:00 Outpatient GC_GCBZW_Ka diyala_S PRIV PRIV [id number] [facility] 2022-12-16 00:00:00 2022-12-16 00:00:00 (TEL) STLMLC STLMLC [id number] [facility] 2022-11-20 00:00:00 2022-11-20 00:00:00 Outpatient GC_GCBZW_Ka diyala_S PRIV PRIV [id number] [facility] 2022-11-19 00:00:00 2022-11-19 00:00:00 Outpatient GC_GCBZW_Ka diyala_S PRIV PRIV [id number] [facility] 2022-11-06 00:00:00 2022-11-06 00:00:00 Outpatient GC_GCBZW_Ka diyala_S PRIV PRIV [id number] [facility] 2022-10-15 00:00:00 2022-10-15 00:00:00 Outpatient GC_GCBZW_Ka diyala_S PRIV PRIV [id number] [facility] 2022-10-13 00:00:00 2022-10-13 00:00:00 Outpatient GC_GCBZW_Ka diyala_S PRIV PRIV [id number] [facility] 2022-02-13 00:00:00 2022-02-13 00:00:00 (TEL) STLMLC STLMLC [id number] [facility] 2021-11-29 00:00:00 2021-11-29 00:00:00 OFFICE VISIT ESTAB PT LEVEL 4 STLMLC STLMLC [id number] [facility] 2021-11-11 00:00:00 2021-11-11 00:00:00 (TEL) STLMLC STLMLC [id number] [facility] 2021-11-01 00:00:00 2021-11-01 00:00:00 (TEL) STLMLC STLMLC [id number] [facility] 2021-10-24 00:00:2021-10-24 00:00:00 (TEL) STLMLC STLMLC [id number] [facility] 2021-10-14 00:00:00 2021-10-14 00:00:00 (TEL) STLMLC STLMLC [id number] [facility] 2021-09-30 00:00:00 2021-09-30 00:00:00 OFFICE VISIT ESTAB PT LEVEL 4 STLMLC STLMLC [id number] [facility] 2021-08-29 00:00:00 2021-08-29 00:00:00 OFFICE VISIT EST PT LEVEL 3 STLMLC STLMLC [id number] [facility] 2021-07-30 00:00:00 2021-07-30 00:00:00 OFFICE VISIT ESTAB PT LEVEL 4 STLMLC STLMLC [id number] [facility] 2021-07-29 00:00:00 2021-07-29 00:00:00 (TEL) STLMLC STLMLC [id number] [facility] 2021-07-01 00:00:00 2021-07-01 00:00:00 OFFICE VISIT ESTAB PT LEVEL 4 STLMLC STLMLC [id number] [facility] 2021-04-29 00:00:00 2021-04-29 00:00:00 (TEL) STLMLC STLMLC [id number] [facility] 2021-04-08 00:00:00 2021-04-08 00:00:00 (TEL) STLMLC STLMLC [id number] [facility] 2021-04-04 00:00:00 2021-04-04 00:00:00 (TEL) STLMLC STLMLC [id number] [facility] 2021-04-04 00:00:00 2021-04-04 00:00:00 OFFICE VISIT EST PT LEVEL 3 STLMLC STLMLC [id number] [facility] 2021-03-15 00:00:00 2021-03-15 00:00:00 OFFICE VISIT ESTAB PT LEVEL 4 STLMLC STLMLC [id number] [facility] 2020-09-24 00:00:00 2020-09-24 00:00:00 Outpatient STLMLC STLMLC [id number] [facility] 2020-09-14 00:00:00 2020-09-14 00:00:00 Outpatient STLMLC STLMLC [id number] [facility] 2020-09-07 00:00:00 2020-09-07 00:00:00 Outpatient STLMLC STLMLC [id number] [facility] 2020-07-31 00:00:00 2020-07-31 00:00:00 Outpatient STLMLC STLMLC [id number] [facility] 2020-06-21 00:00:00 2020-06-21 00:00:00 Patient Outreach Adelso Orozco [facility] 1.2.840.114 350.1.13.10 4.2.7.2.686 [id number] 2020-06-21 00:00:00 2020-06-21 00:00:00 Patient Outreach Adelso Orozco [facility] 1.2.840.114 350.1.13.10 4.2.7.2.686 [id number] [facility] 2020-04-27 00:00:00 2020-04-27 00:00:00 Outpatient STLMLC STLMLC [id number] [facility] 2020-04-25 07:53:14 2020-04-25 23:59:00 Hospital Encounter Radiology [facility] 1.2.840.114 350.1.13.10 4.2.7.2.686 [id number] 2020-04-25 07:53:14 2020-04-25 23:59:00 Hospital Encounter Radiology [facility] 1.2.840.114 350.1.13.10 4.2.7.2.686 [id number] [facility] 2020-04-25 00:00:00 2020-04-25 00:00:00 Outpatient R RADIOLOGY [facility] [id number] [facility] 2020-04-16 00:00:00 2020-04-16 00:00:00 Outpatient STLMLC STLMLC [id number] [facility] 2020-04-11 13:48:55 2020-04-11 23:59:00 Hospital Encounter Radiology [facility] 1.2.840.114 350.1.13.10 4.2.7.2.686 [id number] 2020-04-11 13:48:55 2020-04-11 23:59:00 Hospital Encounter Radiology [facility] 1.2.840.114 350.1.13.10 4.2.7.2.686 [id number] [facility] 2020-04-11 13:46:57 2020-04-11 13:47:00 Hospital Encounter Radiology [facility] 1.2.840.114 350.1.13.10 4.2.7.2.686 [id number] 2020-04-11 13:46:57 2020-04-11 13:47:00 Hospital Encounter Radiology [facility] 1.2.840.114 350.1.13.10 4.2.7.2.686 [id number] [facility] 2020-04-11 00:00:00 2020-04-11 00:00:00 Outpatient R RADIOLOGY [facility] [id number] [facility] 2020-03-26 00:00:00 2020-03-26 00:00:00 Outpatient STLMLC STLMLC [id number] [facility] 2019-12-26 00:00:00 2019-12-26 00:00:00 [facility] [place] 1.2.840.114 350.1.13.10 4.2.7.2.686 [id number] 2019-12-26 00:00:00 2019-12-26 00:00:00 [facility] 1.2.840.114 350.1.13.10 4.2.7.2.686 [id number] [facility] 2019-10-25 10:23:00 2019-10-25 10:23:00 Outpatient [facility] [id number] [facility] 2019-10-20 11:00:00 2019-10-20 11:00:00 Outpatient [facility] [id number] [facility] 2019-10-10 16:00:00 2019-10-10 16:00:00 [facility] [id number] [facility] 2019-06-21 00:00:00 2019-06-21 00:00:[address] [facility] 1.2840.114 350.1.13.10 4.2.7.2.686 [id number] [facility] 2019-06-16 00:00:00 2019-06-16 00:00:00 [facility] 1.2.840.114 350.1.13.10 4.2.7.2.686 [id number] [facility] 2019-06-16 00:00:00 2019-06-16 00:00:00 [facility] 1.2.840.114 350.1.13.10 4.2.7.2.686 [id number] [facility] 2019-06-15 00:00:00 2019-06-15 00:00:00 [facility] 1.2.840.114 350.1.13.10 4.2.7.2.686 [id number] [facility] 2019-06-14 00:00:00 2019-06-14 00:00:00 Telephone [facility] 1.2.840.114 350.1.13.10 4.2.7.2.686 [id number] [facility] 2019-06-13 00:00:00 2019-06-13 00:00:00 [facility] 1.2.840.114 350.1.13.10 4.2.7.2.686 [id number] [facility] 2019-06-06 14:03:33 2019-06-06 15:19:55 [facility] 1.2.840.114 350.1.13.10 4.2.7.2.686 [id number] [facility] 2019-06-06 14:30:00 2019-06-06 14:30:00 Outpatient R ROCHELLE COOK [facility] [id number] [facility] 2019-06-06 00:00:00 2019-06-06 00:00:00 Letter (Out) Doctor Unassigned, Spray [facility] 1.2.840.114 350.1.13.10 4.2.7.2.686 [id number] [facility] 2019-06-03 11:37:00 2019-06-03 11:37:00 Outpatient Zoila t [facility] Raeann [facility] [id number] [facility] 2019-05-13 14:05:00 2019-05-13 14:05:[address] [facility] [id number] [facility] 2019-05-11 16:43:00 2019-05-11 16:43:[address] [facility] [id number] [facility] 2019-04-29 15:19:00 2019-04-29 15:19:[address] [facility] [id number] [facility] 2019-04-25 14:20:00 2019-04-25 14:20:[address] [facility] [id number] [facility] 2019-04-20 14:02:00 2019-04-20 14:02:[address] [facility] [id number] [facility] 2019-03-25 13:34:00 2019-03-25 13:34:[address] [facility] [id number] [facility] 2019-03-24 10:03:00 2019-03-24 10:03:[address] [facility] [id number] [facility] 2019-03-23 12:03:00 2019-03-23 12:03:[address] [facility] [id number] [facility] 2019-03-08 16:00:00 2019-03-08 16:00:[address] [facility] [id number] [facility] 2018-09-15 09:27:00 2018-09-15 09:27:[address] [facility] [id number] [facility] 2018-08-19 21:25:00 2018-08-19 21:25:[address] [facility] [id number] [facility] 2018-08-04 11:30:00 2018-08-04 11:30:[address] [facility] [id number] [facility] 2018-07-13 08:21:00 2018-07-13 08:21:[address] [facility] [id number] [facility] 2018-05-05 11:40:00 2018-05-05 11:40:[address] [facility] [id number] [facility] 2018-04-30 09:30:00 2018-04-30 09:30:[address] [facility] [id number] [facility] 2017-11-03 17:08:00 2017-11-03 17:08:[address] [facility] [id number] [facility] 2017-11-02 17:50:00 2017-11-02 17:50:[address] [facility] [id number] [facility] 2017-10-30 09:30:00 2017-10-30 09:30:[address] [facility] [id number] [facility] 2017-09-22 13:41:00 2017-09-22 13:41:[address] [facility] [id number] [facility] 2017-09-21 14:20:00 2017-09-21 14:20:[address] [facility] [id number] [facility] 2017-09-15 11:21:00 2017-09-15 11:21:[address] [facility] [id number] [facility] 2017-09-14 14:36:00 2017-09-14 14:36:00 Outpatient [facility] [id number] [facility] 2017-09-04 09:30:00 2017-09-04 09:30:00 Outpatient [facility] [id number] [facility] 2017-08-15 10:17:00 2017-08-15 10:17:00 Outpatient [facility] [id number] [facility] 2017-08-14 09:30:00 2017-08-14 09:30:00 Outpatient [facility] [id number] [facility] Results Test Description Test Time Test Comments Results Result Co mments [facility] [id number] 13:23:56CT Abdomen and Pelvis without contrast. CLINICAL HISTORY: ?FLANK PAIN. R/O RENAL STONES. TECHNIQUE:Multidetector helical CT acquisition was obtained from the lungbases to the greater trochanters without oral and IV contrast. ?The imageswere reviewed in lung, bone, and soft tissue windows. DOSE: ?Up-to-date CT equipment and radiation dose reduction techniques wereemployed. CTDIvol: 11.73 mGy. DLP: 584.59 mGy-cm. FINDINGS: ?Absence of intravenous contrast limits evaluation of the solidorgans. Evaluation of the bowel is also limited by lack of oral contrast.No prior study available for comparison. Lower lungs: Small hiatal hernia. Visualized lower lungs are clear. Nopleural effusion or pericar dial effusion. Liver, Gallbladder and Spleen: S/P cholecystectomy. Prominent left lobe ofthe liver noted. Liver is 16.2 cm in length. Spleen is 13 x 5.1 cm in size.No gross pathology visualized in the liver or in the spleen. Biliary ductsand the pancreatic duct appear of normal size. Peritoneum: ?No free air or free fluid. No lymphadenopathy. Pancreas and Adrenals: ?Unremarkable pancreas and adrenal glands. Kidneys and Ureters: Punctate 2 mm stone noted in the lower pole of theleft kidney. No well-formed stones are seen in the right kidney. Rightkidney's collecting system and the right ureterare slightly dilated. 3 mmstone is seen in the dependent portion of the bladder lumen, very close tothe entrance site of the right ureter but likely within the bladder lumen. Vessels: Unremarkable. Retroperitoneum: No abnormal fluid or lymphadenopathy. Bowel: ?Diverticulosis noted in the sigmoid and descending colon withoutany acute changes of diverticulitis. Retained fecal material seen in theright side of large bowel up to splenic flexure. Small bowel gas patternappears normal. Normal appendix is visualized. Bladder ?and Reproductive Organs: S/P hysterectomy. Bones: ?No aggressive bone lesions or any acute findings. Soft tissues: Scar tissue seen in the suprapubic abdominal wall from priorsurgeries. CONCLUSION:1. 3 mm stone noted in the dependent portion of the bladder lumen, veryclose to the entrance site of the right ureter. I believe the stone is inthe urinary bladder and not in the ureter. There is, however, very mildright-sided obstructive hydronephrosis and hydroureter.2. Nonobstructing punctate 2 mm stone in the lower pole of the left kidney.3. S/P cholecystectomy and hysterectomy.4. Small hiatal hernia.[facility] WITH [id number] 13:20:58 * Test Item Value Reference Range Interpretation Comme nts WBC (test code = 6690-2) 7.47 4.30-11.10 RBC (test code = 789-8) 5.28 3.93-5.25 H HGB (test code = 718-7) 15.1 g/dL 11.6-15.0 H HCT (test code = 4544-3) 44.5 % 35.7-45.2 MCV (test code = 787-2) 84.3 fL 80.6-95.5 MCH (test code = 785-6) 28.6 pg 25.9-32.8 MCHC (test code = 786-4) 33.9 g/dL 31.6-35.1 RDW-SD (test code = 39023-3) 39.6 fL 39.0-49.9 RDW-CV (test code = 788-0) 13.0 % 12.0-15.5 PLT (test code = 777-3) 301 166-358 MPV (test code = 98828-2) 10.3 fL 9.5-12.9 NRBC/100 WBC (test code = 1234456251) 0.0 0.0-10.0 NRBC x10^3 (test code = 1448541513) See_Comment [Automated messa ge] The system which generated this result transmitted reference range: 10*3/?L. The reference range was not used to interpret this result as normal/abnormal. GRAN MAT (NEUT) % (test code = 770-8) 72.2 % IMM GRAN % (test code = 4429122008) 0.40 % LYMPH % (test code = 736-9) 17.0 % MONO % (test code = 5905-5) 6.4 % EOS % (test code = 713-8) 3.5 % BASO % (test code = 706-2) 0.5 % GRAN MAT x10^3(ANC) (test code = 8882601567) 5.39 10*3/uL 1.88-7.09 IMM GRAN x10^3 (test code = 1500536555) 0.03 10*3/uL 0.00-0.06 LYMPH x10^3 (test code = 731-0) 1.27 10*3/uL 1.32-3.29 L MONO x10^3 (test code = 742-7) 0.48 10*3/uL 0.33-0.92 EOS x10^3 (test code = 711-2) 0.26 10*3/uL 0.03-0.39 BASO x10^3 (test code = 704-7) 0.04 10*3/uL 0.01-0.07 Lab Interpretation (test code = 76309-0) Abnormal [facility] US GUIDED CORE BREAST BIOPSY RIGHT 2020-04-25 16:07:43Examination:BI US GUIDED CORE BREAST BIOPSY RIGHT The procedure was explained to the patient including benefits and alternatives. ?The risks, including but not limited to infection and bleeding, werereviewed and the patient agreed to undergo the procedure, signing the consent form. ?Timeout was performed. History:Patient is a 49 year old year old female and is seen for: ? RIGHT BREAST: 5 mm ovalmass at 12 o'clock, 6 cm from nipple [...] was advanced to the target. ?Multiple tissue coreswere obtained through the target. ?A tissue marker clip COIL was then deployed. ?Continuous real-time ultrasound was used for guidance throughout the procedure. ?Post biopsy mammogram confirmed clip at the biopsy site. Recommendation:Pending pathology results - [facility], [id number] 06:00:00 * Test Item Value Reference Range Interpretation Comme nts T3, TOTAL-Q (test code = 3053-6) 273 ng/dL 76-181 H JAYLENE (test code = JAYLENE) PERFORMED BY [employer]; [address] [place] [id number]; HILTON PANIAGUA MD Lab Interpretation (test code = 21756-0) Abnormal [facility], [id number] 06:00:00* Test Item Value Reference Range Interpretation Comme nts T-4, FREE-Q (test code = 3024-7) 1.3 ng/dL 0.8-1.8 JAYLENE (test code = JAYLENE) PERFORMED BY [employer]/[facility]; [address] [place] [phone]; HILTON PANIAGUA MD [facility] HospitalTS, 3RD [id number] 06:00:00* Test Item Value Reference Range Interpretation Comme nts TSH, 3RD GENERATION-Q (test code = 3016-3) mIU/L L ?Reference Range ?> or = 20 Years ?0.40-4.50 ? Ranges ?First trimester ? ?0.26-2.66 ?Second trimester ? 0.55-2.73 ?Third trimester ? ?0.43-2.91REPORT COMMENT:FASTING: YES JAYLENE (test code = JAYLENE) PERFORMED BY [employer]/[facility]; [address] [place] [address]; HILTON PANIAGUA MD Lab Interpretation (test code = 06884-6) Abnormal [facility] HospitalSTREP A+ RAPIDSTREP A+ RAPIDSARS-COV 2 Antigen SARS-COV 2 Antigen Notes Date/Time Note Provider Source 2023-07-09 08:53:35 Pt discharged with diagnosis of flank pain, ureteral colic, and hematuria. Printed and verbal instructions reviewed with and given to patient. No new prescriptions given for this visit. Pt verbalized understanding of teaching and recommended follow-up. Denies questions or concerns at this time. Pt ambulatory at discharge. Appears in no apparent distress. No ataxia noted. Accompanied by family member. Marlen Rosado RN [facility] 2023-07-09 07:25:45 Patient to ED for right side flank pain that started when she woke up at 4 am. She also got nauseated with the pain. Pain is intermittent. Reports she has not had to urinate yet. NT Devin Eckert RN [facility] 2023-07-09 07:05:00 [facility] Emergency Department Note Patient Name: Dee Ruano Date of : 1970 52 year old female Treatment Room: [facility] ED [facility] Primary Care Physician: Filomena Hennessy Patient Escorted by: Family [5] Mode of Arrival: Personal means [1] EMS Treatment Prior to ED Arrival: TIP FINISHER treatment: None Travel and Exposure Screening: Symptoms Does patient have any of these symptoms?: (not recorded) Exposure Screening Has patient had contact with someone with a communicable disease in the last month?: (not recorded) Diseases exposed to:: (not recorded) Is Patient ?: (not recorded) Exposure Date: (not recorded) Chief Complaint: Chief Complaint Patient presents with Flank Pain History of Present Illness: The patient presents from home for evaluation for right-sided flank pain that woke her from sleep around 4:00 this morning. The pain has been constant but fluctuating in intensity since. No dysuria hematuria. No fevers or chills. No medications taken for pain. She denies symptoms like this in the past. She does have a history of kidney stones in her family but none in herself. She is history of thyroid disease as well as high blood pressure. No diabetes. Here for evaluation. Past Medical History/Immunizations: History reviewed. No pertinent past medical history. Tetanus received in last 5 years: Unknown Allergies: No Known Allergies Past Social History: Substance & Sexual Activity No substance use or sexual activity history on file. Past Surgical History: History reviewed. No pertinent surgical history. Review of Systems: Review of Systems Constitutional: Negative for chills and fever. Respiratory: Negative for cough and shortness of breath. Cardiovascular: Negative for chest pain. Gastrointestinal: Negative for abdominal pain, nausea and vomiting. Genitourinary: Positive for flank pain. Negative for dysuria and hematuria. Musculoskeletal: Negative for arthralgias, neck pain and neck stiffness. Skin: Negative for wound. Neurological: Negative for dizziness. Psychiatric/Behavioral: Negative for agitation. Endocrine: Negative for goiter. Physical Exam: ED Triage Vitals [07/09/23 0726] Weight 88.5 kg (195 lb) Actual or estimated Height BP (!) 158/91 Pulse 60 Resp 18 Temp 36.6 ?C (97.9 ?F) Temp src SpO2 100 % Measured on Physical Exam Vitals and nursing note reviewed. Constitutional: Appearance: Normal appearance. She is obese. HENT: Head: Normocephalic and atraumatic. Cardiovascular: Rate and Rhythm: Normal rate and regular rhythm. Pulses: Normal pulses. Pulmonary: Effort: Pulmonary effort is normal. No respiratory distress. Breath sounds: No stridor. No wheezing or rhonchi. Abdominal: General: There is no distension. Palpations: Abdomen is soft. There is no mass. Tenderness: There is no abdominal tenderness. There is no right CVA tenderness, left CVA tenderness or guarding. Hernia: No hernia is present. Musculoskeletal: General: Normal range of motion. Cervical back: Normal range of motion and neck supple. Skin: General: Skin is warm and dry. Neurological: General: No focal deficit present. Mental Status: She is alert and oriented to person, place, and time. Radiology: CT ABDOMEN PELVIS WO CONTRAST Final Result CT Abdomen and Pelvis without contrast. CLINICAL HISTORY: FLANK PAIN. R/O RENAL STONES. TECHNIQUE: Multidetector helical CT acquisition was obtained from the lung bases to the greater trochanters without oral and IV contrast. The images were reviewed in lung, bone, and soft tissue windows. DOSE: Up-to-date CT equipment and radiation dose reduction techniques were employed. CTDIvol: 11.73 mGy. DLP: 584.59 mGy-cm. FINDINGS: Absence of intravenous contrast limits evaluation of the solid organs. Evaluation of the bowel is also limited by lack of oral contrast. No prior study available for comparison. Lower lungs: Small hiatal hernia. Visualized lower lungs are clear. No pleural effusion or pericardial effusion. Liver, Gallbladder and Spleen: S/P cholecystectomy. Prominent left lobe of the liver noted. Liver is 16.2 cm in length. Spleen is 13 x 5.1 cm in size. No gross pathology visualized in the liver or in the spleen. Biliary ducts and the pancreatic duct appear of normal size. Peritoneum: No free air or free fluid. No lymphadenopathy. Pancreas and Adrenals: Unremarkable pancreas and adrenal glands. Kidneys and Ureters: Punctate 2 mm stone noted in the lower pole of the left kidney. No well-formed stones are seen in the right kidney. Right kidney's collecting system and the right ureter are slightly dilated. 3 mm stone is seen in the dependent portion of the bladder lumen, very close to the entrance site of the right ureter but likely within the bladder lumen. Vessels: Unremarkable. Retroperitoneum: No abnormal fluid or lymphadenopathy. Bowel: Diverticulosis noted in the sigmoid and descending colon without any acute changes of diverticulitis. Retained fecal material seen in the right side of large bowel up to splenic flexure. Small bowel gas pattern appears normal. Normal appendix is visualized. Bladder and Reproductive Organs: S/P hysterectomy. Bones: No aggressive bone lesions or any acute findings. Soft tissues: Scar tissue seen in the suprapubic abdominal wall from prior surgeries. CONCLUSION: 1. 3 mm stone noted in the dependent portion of the bladder lumen, very close to the entrance site of the right ureter. I believe the stone is in the urinary bladder and not in the ureter. There is, however, very mild right-sided obstructive hydronephrosis and hydroureter. 2. Nonobstructing punctate 2 mm stone in the lower pole of the left kidney. 3. S/P cholecystectomy and hysterectomy. 4. Small hiatal hernia. Lab Results: Lab Results CBC WITH DIFF - Abnormal Result Value Ref Range WBC 7.47 4.30 - 11.10 10*3/?L RBC 5.28 (*) 3.93 - 5.25 10*6/?L HGB 15.1 (*) 11.6 - 15.0 g/dL HCT 44.5 35.7 - 45.2 % MCV 84.3 80.6 - 95.5 fL MCH 28.6 25.9 - 32.8 pg MCHC 33.9 31.6 - 35.1 g/dL RDW-SD 39.6 39.0 - 49.9 fL RDW-CV 13.0 12.0 - 15.5 % PLT 301 166 - 358 10*3/?L MPV 10.3 9.5 - 12.9 fL NRBC/100 WBC 0.0 0.0 - 10.0 /100 WBCs NRBC x10 3 <0.01 10*3/?L GRAN MAT (NEUT) % 72.2 % IMM GRAN % 0.40 % LYMPH % 17.0 % MONO % 6.4 % EOS % 3.5 % BASO % 0.5 % GRAN MAT x10 3 (ANC) 5.39 1.88 - 7.09 10*3/uL IMM GRAN x10 3 0.03 0.00 - 0.06 10*3/uL LYMPH x10 3 1.27 (*) 1.32 - 3.29 10*3/uL MONO x10 3 0.48 0.33 - 0.92 10*3/uL EOS x10 3 0.26 0.03 - 0.39 10*3/uL BASO x10 3 0.04 0.01 - 0.07 10*3/uL COMP. METABOLIC PANEL (07701) - Abnormal NA 140 135 - 145 mmol/L K 4.6 3.5 - 5.0 mmol/L CL 103 98 - 108 mmol/L CO2 TOTAL 29 23 - 31 mmol/L AGAP 8 2 - 16 BUN 8 7 - 23 mg/dL GLUCOSE 119 (*) 70 - 110 mg/dL CREATININE 0.59 0.50 - 1.04 mg/dL TOTAL BILI 0.9 0.1 - 1.1 mg/dL CALCIUM 10.0 8.6 - 10.6 mg/dL T PROTEIN 8.3 (*) 6.3 - 8.2 g/dL ALBUMIN 4.6 3.5 - 5.0 g/dL ALK PHOS 59 34 - 122 U/L ALTv 73 (*) 5 - 35 U/L AST(SGOT) 47 (*) 13 - 40 U/L eGFR 109.3 mL/min/1.73m2 URINALYSIS - Abnormal APPEARANCE Cloudy (*) Clear COLOR Yellow Yellow PH 5.0 4.8 - 8.0 SP GRAVITY 1.019 1.003 - 1.030 GLU U QUAL Normal Normal BLOOD 3+ (*) Negative KETONES Negative Negative PROTEIN Negative Negative UROBILIN Normal Normal BILIRUBIN Negative Negative NITRITE Negative Negative LEUK DAWSON 25/uL (*) Negative RBC/HPF >182 (*) 0 - 3 HPF WBC/HPF 2 0 - 5 HPF BACTERIA Few (*) Negative MUCOUS Marked (*) Negative LPF SQ EPITH 6 HPF EKG: If EKG completed, see Procedure Note. Orders and Treatments: Orders Placed This Encounter Procedures CT ABDOMEN PELVIS WO CONTRAST CBC WITH DIFF COMP. METABOLIC PANEL (32426) URINALYSIS Orders Placed This Encounter Medications ketorolac (TORADOL) injection 30 mg First Provider Eval: ED Events Date/Time Event User Comments 07/09/23 0732 Medical Screening Begins ASHLEY ROSALES DO -- 07/09/23 0732 First Provider Evaluation ASHLEY ROSALES DO -- ED COURSE Diagnosis/Impression as of 07/09/23 0837 Flank pain Hematuria, unspecified type Ureteral colic Procedures: Procedures MDM: Medical Decision Making The patient presents from home for evaluation for right-sided flank pain that woke her up from sleep around 4:00 this morning. She denies any injury or trauma. The pain has been constant but does fluctuate in intensity since it started. No medications taken for symptoms. No nausea or vomiting. No dysuria or hematuria. She does have a history of kidney stones in her family but none herself. Vital signs are stable in the ER. Patient is obese. Her abdomen is soft and nontender on examination. She has no CVA tenderness bilaterally. Differential diagnosis includes UTI, pyelonephritis, renal colic. Will check laboratory studies including urinalysis. Will give pain medication and obtain a CT of her abdomen pelvis without contrast. Final disposition pending. 0836 - the patient is doing well here in the ED. Laboratory studies are unremarkable. UA shows blood but no infection. CT a/p as above shows a recently passed right sided ureter stone and a 2mm left sided renal stone. She is currently pain free. She remains stable here in the EC and is ok for dc home with pcp f/u. Problems Addressed: Flank pain: acute illness or injury Hematuria, unspecified type: acute illness or injury Ureteral colic: acute illness or injury Amount and/or Complexity of Data Reviewed Labs: ordered. Decision-making details documented in ED Course. Radiology: ordered and independent interpretation performed. Decision-making details documented in ED Course. Risk OTC drugs. Prescription drug management. Flowsheet Documentation: Scoring Tools: No data recorded Disposition/Condition: ED Disposition ED Disposition Disch - Home Condition Stable Comment -- Discharge Medications: Patient's Medications START taking these medications No medications on file CONTINUE taking these medications which have NOT CHANGED ARMOUR THYROID 60 MG TABLET TAKE 1 TABLET BY MOUTH EVERY MORNING IN ADDITION TO 90 MG TAB FOR TOTAL DAILY DOSE OF 150 MG PER DAY ARMOUR THYROID 90 MG TABLET TAKE 1 TABLET BY MOUTH EVERY MORNING IN ADDITION TO 60 MG TAB FOR TOTAL DAILY DOSE OF 150 MG PER DAY ESTRADIOL TRANSDERMAL PATCH TRANSDERMAL Apply 0.075 mg to skin weekly. LISINOPRIL 10 MG TABLET Take 1 tablet by mouth in the morning. START taking Modified Medications as Prescribed No medications on file STOP taking these medications No medications on file Follow-up: Electronically signed by: Ashley Rosales DO 07/09/23 0837 [facility]
[2024-02-04 13:56] VITALS: BMI 30.1
[2024-02-04] MEDS: CEFAZOLIN 1 GM in NA CHLORIDE 0.9% 50 ML IVPB SCH (16:41)
[2024-02-04] MEDS: MORPHINE 2 MG/ML SYR IV PRN (21:26)
--- NOTE | 2024-02-04 23:04 | OP ---
Date of Procedure: 02/04/2024 Surgeon: Christiana Jose MD Hand Assembler For Puller Over: Zehra Benitez Preoperative Diagnoses: Rectocele, potential anterior wall defect, stress urinary incontinence. 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 Procedures Performed: 1.Anterior wall repair with biologic graft augmentation. 2.Bilateral paravaginal defect repair. 3.Midurethral sling with TVT-O. 4.Cystoscopy. 5.Posterior wall repair. 6.Posterior enterocele repair. 7.Perineorrhaphy. Anesthesia: General endotracheal. Specimens: No specimens. Complications: No complications. Estimated Blood Loss: 100 Urine Output: 150. Findings: POP-Q 0, -1, -6, 5, moderate, 8, 0, +1, NA. [place] was well suspended. Bilateral paravagin al defects were found, due to which there was a prolapse on the anterior wall and subluxation of the urethra, so plan was made to correct the paravaginal defects on the anterior wall. She did not need an apical fixation as the apex was well suspended, and posterior repair to be done after the anterior was corrected. Indication: The patient is a 53-year-old with significant overactive bladder symptoms. Evaluation w as done and she has a sacral neuromodulator with which her bladder function has much improved. On pe lvic evaluation in the office for her prolapse, the posterior defect was the most prominent. Apical defect was uncertain; however, due to the posterior proximal defect, a sacrospinous fixation was all planned as needed and possible biologic graft augmented repair. Urodynamics were done. She had a lo w midurethral closure pressure, but the lowest Valsalva leak point pressure was 19; however, the lesli ent had significant overactive bladder symptoms and at S4 she had a terminal void. Therefore, part o f her stress urinary incontinence could be related to her overactive bladder. However, she was couns eled on the need for a midurethral sling if a prolapse repair was done. Both pessary and surgical op tions were discussed with the patient. The vaginal and laparoscopic procedures were discussed. Arslan t augmentation discussed as well. Bleeding; infection; injury to the bowel, bladder, and ureters; co mplications of the fistula; urethral obstruction; needing revision; dyspareunia; pelvic pain were all reviewed and the patient was consented. Procedure In Detail: After informed consent was verified, she was taken back to the OR. 2 g of Ance f was given. SCDs were started. After general anesthesia was given, she was placed in dorsal lithot todd position. Lower abdomen, vulva, vagina, perineum, medial thighs were prepped and draped in a poly rile fashion and Patricia was placed to drain the bladder and retracted superiorly. The ring retractor was used, [place], in order for me to get good exposure. Then, anterior repair was done first. Anterior wall repair with graft augmentation: The midline anterior wall was picked up from below the UVJ to above the level of the apex and injection with dilute vasopressin was done, midline incision with a 15 blade, flaps were opened up on both sides. There was significant apical support that was i n place. I could not go all the way to the apex. I stopped at least 3 cm distal to the apex. The b ladder was dissected off the anterior wall. Then, the paravaginal areas were opened up, planes were opened up on both sides, carefully closed to the proximal wall and once I was in the paravaginal spac e, the pararectal space was identified, ischial spine was identified and then the white line on both sides was dissected and opened up. Capio device was taken and a PDS suture was placed a centimeter a nd a half superior and lateral to the ischial spine on the white line on both sides. These were held on clamps. Then, PDS sutures were placed in the proximal and distal midline of the anterior wall. Biologic graft that was 4 x 6 was taken and this was soaked according to package instructions and fix ed in the center in the proximal portion first to the fascial plane as well as to the epithelium with out bringing the stitch outside to the vaginal epithelium. Then, the paravaginal sutures were attach ed and tied down. Once this area was tied down, then the distal portion was then tethered to the PDS sutures in the distal portion of the anterior wall and the midline and on either sides. The graft w as made sure that it was not folded and laid flat, and there was not too much tension on the graft af ter all these were tied. Then the anterior wall was closed with a continuous running lock suture 2-0 Vicryl without any trimming of the anterior wall to maintain the length as well as prevent any contr action. Midurethral sling: Two Allis clamps were placed on either sides of the urethra and the midurethral r egion injected with dilute vasopressin. 1.5 cm incision was made here all the way to below the level of the fascia and tunnels were created on either sides towards the ipsilateral obturator space huggi ng the inferior pubic ramus at a 45-degree angle to the horizontal and vertical planes. Then, the tu nnel was expanded and on both sides, the similar dissection was performed and the wing guide was plac ed. The spike was passed and rotated, and brought out 2 cm lateral to the groin fold. The plastic d ilator was pulled out. The sheath and the graft were held with clamps, similar pass on the other aixa e, mesh was tensioned in the center with the Metzenbaum scissors and the plastic sleeves pulled out, mesh trimmed, flush with the skin. The skin was closed with Dermabond on the center. Vaginal epithe lium and connective tissue were closed with continuous running 3-0 Vicryl suture. Patricia was removed and cystoscopy was performed. There were excellent jets of urine from both ureteric orifices. No ev idence of any trauma and/or foreign body in the bladder. The bladder was re-catheterized, drained, a nd attached to a drainage bag superiorly. Posterior wall repair was done. Injection of the posterior wall and perineum with dilute vasopressin . A isabel-shaped skin incision was made on the vaginal epithelium and the perineum. Epithelium ta lin down. Flaps were raised, dissecting the posterior wall from the epithelium and posterior enteroc [place] was also dissected. Perineum dissected as well leaving out the scarred areas. There was a clear detachment of the rectovaginal septum from the left lateral wall as well as the perineum itself. Posterior enterocele repair: This was closed with the help of a 3-0 Monocryl suture in a pursestring fashion x2. Posterior wall repair: It was repaired by suturing the rectovaginal septum to the left lateral aspec t in a continuous running 2-0 Vicryl stitch. Then, the rectovaginal septum distally was reattached t o the perineal body after the perineal body was reconstructed. Perineal body reconstruction or perineorrhaphy: This was closed with the help of continuous running 2-0 Vicryl sutures in 2 layers and as dictated above, the posterior wall was reattached to this. The posterior wall was closed after trimming the vaginal field slightly to avoid dog ear at the proxi mal portion with a continuous running locked 2-0 Vicryl stitch and perineum repaired with 3-0 Vicryl in a continuous running subcutaneous and subcuticular fashion. Rectal exam was negative for any trau ma to the rectum and the patient had vaginal packing placed. Patricia was kept in place. She was recov ered from anesthesia and taken to PACU in stable condition. was debriefed about her conditio n. She will have voiding trial in the morning and a followup in the clinic in 1 and 6 weeks. ROGELIO/SHABBIR Voice ID: [id number] Report ID: [id number]
[2024-02-05 12:25] VITALS: BP 136/68; TEMP 97.3
== END 2024-02-05 12:19 | disposition home or self-care (01) ==
LOC: OR 06:50 → 2ND 12:07
PROVIDERS: ADMIT Obstetrics & Gynecology; ATTEND Obstetrics & Gynecology
PROC: 0JQC0ZZ Repair Pelvic Region Subcutaneous Tissue and Fascia, Open Approach (ICD-10-PCS; 2024-02-04)
PROC: 0JQC0ZZ Repair Pelvic Region Subcutaneous Tissue and Fascia, Open Approach (ICD-10-PCS; 2024-02-04)
PROC: 0TSD0ZZ Reposition Urethra, Open Approach (ICD-10-PCS; 2024-02-04)
PROC: 0JUC0JZ Supplement of Pelvic Region Subcutaneous Tissue and Fascia with Synthetic Substitute, Open Approach (ICD-10-PCS; principal; 2024-02-04 08:00)
DX: N81.2 Incomplete uterovaginal prolapse (principal); N39.3 Stress incontinence (female) (male)
CPT/HCPCS: 85025; 81001; 80048; 36415; 86900; 86850; 85610; 86901; 85730; 94010; 57265; 57267; 57288; A4216; J2704; J2003; J2250; J3010; J1100; J2270; J2175; J1171; J2405; J7120; J0690 ×3; G0378; G0379

== ENCOUNTER 2024-08-24 07:29 | Emergency (ER) | payer BC ==
--- OUTSIDE RECORDS SUMMARY | 2024-08-24 07:35 | XMS REPORT | Continuity of Care Document ---
Author Name Unknown Address [address] [place] [address] [facility] Address [address] [place] [address] Care Team Providers Care Blockers Skiver Name Role Phone ADDISONMICHELE Primary Care Physician UnavailJanis Hood Attending Clinician Unavailable Flor Tracy Attending Clinician Unavailable ASHLEY ROSALES Attending Clinician UnavailAshley Brito DO Attending Clinician [phone] GC_GCBZW_Kadiyala_S Attending Clinician Levi Castillo MD K.HErica Attending Clinician + [phone] Doctor Unassigned, [place] Attending Clinician LEVI Wolff Attending Clinician Adelso Oliveira DO Attending Clinician [phone] Radiology Attending Clinician Unavailable RADIOLOGY Attending Clinician Unavailable Rochelle Cook MD Attending Clinician [phone] ROCHELLE COOK Attending Clinician Unavailable ASHLEY ROSALES Admitting Clinician Unavailab magaña GC_GCBZW_Kadiyala_S Admitting Clinician Arturo lipscomb Payers Payer Name Policy Type Policy Number Effective Date Expirati on Date Source [place] [id number] 2018 00:00:00 [place] [id number] 2018 00:00:00 Blue [employer] [place] 6 [id number] [facility] Problems Condition Name Condition Details Condition Category Status Onset Date Resolution Date Last Treatment Date Treating Clinician Comments Source Elevated blood-pres sure reading without diagnosis of hypertensi on Elevated Blood-pres sure Reading without Diagnosis of Hypertensi on Problem Active 2023-04 2-13 00:00: 00 [facility] Calculus of kidney and ureter Calculus of Kidney and Ureter Problem Active 2023-04 00:00: 00 [facility] 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 Problem Active 2023-04 00:00: 00 [facility] Genuine stress incontinen ce Genuine Stress Incontinen ce Problem Active 2023-04 00:00: 00 [facility] Atrophic vaginitis Atrophic Vaginitis Problem Active 2023-04 00:00: 00 [facility] Urge incontinen ce of urine Urge Incontinen ce of Urine Problem Active 2023-04 00:00: 00 [facility] Candidiasi s of vagina Candidiasi s of [...] Problem Active 10-15 00:00: 00 [facility] [id number] Fatty liver Problem [facility] [id number] Seasonal allergic rhinitis due to pollen Problem [facility] [id number] Recurrent major depressive disorder, in partial remission Problem [facility] [id number] Asymptomat ic postproced ural ovarian failure Problem [facility] [id number] Acquired hypothyroi dism Problem [facility] 99354641 Epigastric pain Problem [facility] 88998852 Chronic fatigue Problem [facility] [id number] Elevated Kandis-Ba rr virus antibody titer Problem [facility] [id number] Generalize d edema Problem [facility] Abnormal mammogram Abnormal mammogram Problem [facility] 139647722 Hot flashes due to menopause Problem [facility] 919778 Moderate major depression Problem [facility] [id number] Fever, unspecifie d fever cause Problem [facility] 14581197 Sleep disturbanc e Problem [facility] [id number] 9104 Morbid (severe) obesity due to excess calories Problem [facility] [id number] Bronchitis Problem [facility] [id number] Glaucoma of both eyes, unspecifie d glaucoma type Problem [facility] 638794984 Body mass index [BMI] 40.0-44.9, adult Problem [facility] 793352527 Obesity, unspecifie d Problem [facility] 333164791 Metabolic syndrome Problem [facility] 051226930 Left upper quadrant abdominal pain Problem [facility] Allergies, Adverse Reactions, Alerts Allergy Name Allergy Type Status Severity Reaction(s) Onset Date Inactive Date Treating Clinician Comments Source NO KNOWN ALLERGIE S Drug Class Active [facility] Social History Social Habit Start Date Stop Date Quantity Comments Source Sexual orientation U [facility] Exposure to SARS-CoV-2 (event) Not sure [facility] History of Tobacco Use [facility] Sex Assigned At [facility] Smoking Status Start Date Stop Date Source Never Smoker [facility] Tobacco smoking consumption unknown [facility] Medications Ordered Medication Name Filled Medication Name Start Date Stop Date Current Medication? Ordering Clinician Indication Dosage Frequency Signature (SIG) Comments Components Source ketorolac (TORADOL) injection 30 mg 07-08 13:30: 00 07-08 12:55 :00 No 30mg 30 mg, Slow IV Push, ONCE, 1 dose, On Regina 07/09/23 at 0830, Routine [facility] lisinopriL 10 mg tablet 2022-04 10:46: 29 Yes 10mg Take 1 tablet by mouth in the morning. [facility] [place] Thyroid 30 MG [place] Thy[place] 30 MG 11-29 00:00: 00 No 1{table t_on_an _empty_ stomach } QD [place] Thyroid 30 MG [place] Thyroid 30 MG [place] Thyroid 30 MG 11-29 00:00: 00 No 1{table t_on_an _empty_ stomach } QD [place] Thyroid 30 MG [place] Thyroid 30 MG [place] Thyroid 30 MG 11-29 00:00: 00 No 1{table t_on_an _empty_ stomach } QD [place] Thyroid 30 MG Qsymia 11.25-69 MG Qsymia 11.25-69 MG 6- 00:00: 00 No 1{capsu le} QD Qsymia 11.25-69 MG Qsymia 11.25-69 MG Qsymia 11.25-69 MG 5- 00:00: 00 11-27 00:00 :00 No 1{capsu le} QD Qsymia 11.25-69 MG Qsymia 7.5-46 MG Qsymia 7.5-46 MG - 00:00: 00 No 1{capsu le} QD Qsymia [...] 1{capsu le} TID Amoxicilli n 500 mg [facility] THYROID 90 mg tablet 12-25 00:00: 00 Yes [id number] TAKE 1 TABLET BY MOUTH EVERY MORNING IN ADDITION TO 60 MG TAB FOR TOTAL DAILY DOSE OF 150 MG PER DAY [facility] ARMOUR THYROID 60 mg tablet 12-25 00:00: 00 Yes [id number] TAKE 1 TABLET BY MOUTH EVERY MORNING IN ADDITION TO 90 MG TAB FOR TOTAL DAILY DOSE OF 150 MG PER DAY [facility] Metoprolol Succinate ER Metoprolol Succinate ER 10-19 00:00: 00 Yes Flor Tracy 1 tablet [facility] Thyroid, Pork, 180 mg tablet 06-20 14:59: 50 06-20 00:00 :00 No 180mg Take 180 mg by mouth daily. [facility] ARMOUR THYROID 60 mg tablet 06-20 00:00: 00 12-25 00:00 :00 No [id number] 60mg Take 1 tablet by mouth every morning. In addition to 90 mg to make it 150 mg total [facility] ARMOUR THYROID 90 mg tablet 06-20 00:00: 00 12-25 00:00 :00 No [id number] 90mg Take 1 tablet by mouth daily. In addition to 60 mg to make it 150 mg total [facility] dexAMETHaso ne 1 mg tablet 06-14 00:00: 00 06-15 04:59 :00 No [id number] 104 1mg Take 1 tablet by mouth once now for 1 dose. DX: E66.01 [facility] dexAMETHaso ne 1 mg tablet 06-12 00:00: 06-13 04:59 :00 No [id number] 104 1mg Take 1 tablet by mouth once now for 1 dose. [facility] ESTRADIOL TRANSDERMAL PATCH TRANSDERMAL 06-05 21:03: 40 Yes .075mg Apply 0.075 mg to skin weekly. [facility] Thyroid, Pork, 180 mg tablet 06-05 21:03: 05 Yes 180mg Take 180 mg by mouth daily. [facility] ESTRADIOL TRANSDERMAL PATCH TRANSDERMAL 06-05 15:03: 40 Yes .075mg Apply 0.075 mg to skin weekly. [facility] dexAMETHaso ne 1 mg tablet 06-05 00:00: 00 06-06 05:59 :00 No [id number] 104 1mg Take 1 tablet by mouth once now for 1 dose. [facility] [place] Thyroid [place] Thyroid 04-29 00:00: 00 Yes Flor Tracy 1 tablet on an empty stomach [facility] [place] Thyroid 90 MG [place] Thyroid 90 MG 04-29 00:00: 00 No 1{table t_on_an _empty_ stomach } QD [place] Thyroid 90 MG [place] Thyroid 90 MG [place] Thyroid 90 MG 04-29 00:00: 00 No 1{table t_on_an _empty_ stomach } QD [place] Thyroid 90 MG Hydrochloro thiazide Hydrochloro thiazide 607 00:00: 00 Yes Flor [place] 1 tablet in the morning [facility] Combigan Combigan Yes Flor [place] 1 drop into affected eye [facility] Lumigan Lumigan Yes Flor [place] 1 drop into affected eye in the evening [facility] Estradiol Estradiol Yes Flor [place] 1 patch to skin [facility] buPROPion HCl 100 MG buPROPion HCl 100 MG No 1{table t} BID buPROPion HCl 100 MG Nystatin 453509 UNIT/GM Nystatin 840993 UNIT/GM No 1{appli cation} BID Nystatin 153179 UNIT/GM Estradiol 0.075 MG/24HR Estradiol 0.075 MG/24HR [...] 1{patch _to_ski n} Estradiol 0.075 MG/24HR Nystatin 233322 UNIT/GM Nystatin 666185 UNIT/GM No 1{appli cation} BID Nystatin 476590 UNIT/GM Claritin 10 MG Claritin 10 MG [...] the_esmer mccormick} QD Lumigan 0.01 % Nystatin 722144 UNIT/GM Nystatin 215648 UNIT/GM No 1{appli cation} BID Nystatin 829252 UNIT/GM buPROPion HCl 100 MG buPROPion HCl 100 MG No 1{table t} BID buPROPion HCl 100 MG Claritin 10 MG Claritin 10 MG No 1{table t} QD Claritin 10 MG Levothyroxi ne Sodium 75 MCG Levothyroxi ne Sodium 75 MCG No Levothyrox ine Sodium 75 MCG Combigan 0.2-0.5 % Combigan 0.2-0.5 % No 1{drop_ into_af fected_ eye} BID Combigan 0.2-0.5 % Nystatin 196108 UNIT/GM Nystatin 387417 UNIT/GM No 1{appli cation} BID Nystatin 084819 UNIT/GM Claritin 10 MG Claritin 10 MG No 1{table t} QD Claritin 10 MG Levothyroxi ne Sodium 75 MCG Levothyroxi ne Sodium 75 MCG No Levothyrox ine Sodium 75 MCG Combigan 0.2-0.5 % Combigan 0.2-0.5 % No 1{drop_ into_af fected_ eye} BID Combigan 0.2-0.5 % Nystatin 333049 UNIT/GM Nystatin 732463 UNIT/GM No 1{appli cation} BID Nystatin 016491 UNIT/GM [place] Thy[place] 30 mg tablet TAKE 1 TABLET BY MOUTH EVERY DAY [place] Thyroid 30 mg tablet TAKE 1 TABLET BY MOUTH EVERY DAY No [place] Thy[place] 30 mg tablet TAKE 1 TABLET BY MOUTH EVERY DAY [facility] estradiol 0.01% (0.1 mg/gram) vaginal cream INSERT 0.5 GRAMS 3 TIMES A WEEK BY VAGINAL ROUTE DIRECTED FOR 90 DAYS. estradiol 0.01% (0.1 mg/gram) vaginal cream INSERT 0.5 GRAMS 3 TIMES A WEEK BY VAGINAL ROUTE DIRECTED FOR 90 DAYS. No estradiol 0.01% (0.1 mg/gram) vaginal cream INSERT 0.5 GRAMS 3 TIMES A WEEK BY VAGINAL ROUTE DIRECTED FOR 90 DAYS. [facility] levothyroxi ne 100 mcg tablet TAKE 1 TABLET BY MOUTH EVERY DAY levothyroxi ne 100 mcg tablet TAKE 1 TABLET BY MOUTH EVERY DAY No levothyrox ine 100 mcg tablet TAKE 1 TABLET BY MOUTH EVERY DAY [facility] Immunizations Ordered Immunization Name Filled Immunization Name Date Status Comments Source Flucelvax - multidose vial Flucelvax - multidose vial 2022-02-05 13:57:00 Completed [facility] COVID-19 Vaccine (Meredith) COVID-19 Vaccine (Meredith) 2020-07-13 14:49:00 Completed [facility] COVID-19 Vaccine (Meredith) COVID-19 Vaccine (Meredith) 2020-07-13 14:49:00 Completed [facility] COVID-19 Vaccine (Meredith) COVID-19 Vaccine (Meredith) 2020-07-13 14:49:00 Completed [facility] COVID-19 Vaccine (Meredith) COVID-19 Vaccine (Meredith) 2020-07-13 14:49:00 Completed [facility] COVID-19 Vaccine (Meredith) COVID-19 Vaccine (Meredith) Unknown Completed [facility] Flucelvax (ccIIV4) - MDV - 0.5mL Flucelvax (ccIIV4) - MDV - 0.5mL Unknown Completed [facility] Vital Signs Vital Name Observation Time Observation Value Comments S ource BP Systolic 2024-03-18 00:00:00 164 mm[Hg] [facility] Body Weight 2024-03-18 00:00:00 180 [lb_av] [facility] BMI (Body Mass Index) 2024-03-18 00:00:00 30 kg/m2 [facility] BP Diastolic 2024-03-18 00:00:00 93 mm[Hg] [facility] Height 2024-03-18 00:00:00 65 [in_i] [facility] Height 2024-02-11 00:00:00 65 [in_i] [facility] BMI (Body Mass Index) 2024-02-11 00:00:00 30 kg/m2 [facility] Body Weight 2024-02-11 00:00:00 180.2 [lb_av] [facility] BMI (Body Mass Index) 2024-01-27 00:00:00 30 [...] 2023-12-11 00:00:00 30.1 kg/m2 [facility] Height 2023-11-25 00:00:00 65 [in_i] [facility] Body Weight 2023-11-25 00:00:00 181 [lb_av] [facility] BMI (Body Mass Index) 2023-11-25 00:00:00 30.1 kg/m2 [facility] BP Diastolic 2023-11-25 00:00:00 91 mm[Hg] [facility] BP Systolic 2023-11-25 00:00:00 145 mm[Hg] [facility] Systolic blood pressure 2023-07-09 13:30:00 141 mm[Hg] [facility] Diastolic blood pressure 2023-07-09 13:30:00 88 mm[Hg] [facility] Heart rate 2023-07-09 13:30:00 58 /min [facility] Respiratory rate 2023-07-09 13:30:00 18 /min [facility] Oxygen saturation in Arterial blood by Pulse oximetry 2023-07-09 13:30:00 97 /min [facility] Body temperature 2023-07-09 12:26:00 36.61 Sheri [facility] Body weight 2023-07-09 12:26:00 88.451 kg [facility] BMI 2023-07-09 12:26:00 32.45 kg/m2 [facility] Systolic blood pressure 2023-02-25 16:38:00 130 mm[Hg] [facility] Diastolic blood pressure 2023-02-25 16:38:00 89 mm[Hg] [facility] Heart rate 2023-02-25 16:38:00 81 /min [facility] Body temperature 2023-02-25 16:38:00 36.11 Sheri [facility] Respiratory rate 2023-02-25 16:38:00 18 /min [facility] Body height 2023-02-25 16:38:00 165.1 cm [facility] Body weight 2023-02-25 16:38:00 88.86 kg [facility] BMI 2023-02-25 16:38:00 32.60 kg/m2 [facility] Oxygen saturation in Arterial blood by Pulse oximetry 2023-02-25 16:38:00 100 /min [facility] height 2021-11-29 16:40:00 64.5 [in_i] [facility] weight 2021-11-29 16:40:00 218 [lb_av] [facility] temperature 2021-11-29 16:40:00 97.8 [degF] Com [facility] bmi 2021-11-29 16:40:00 36.84 kg/m2 [facility] oximetry 2021-11-29 16:40:00 98 % [facility] respiratory rate 2021-11-29 16:40:00 16 /min [facility] blood pressure systolic 2021-11-29 16:40:00 124 mm[Hg] [facility] blood pressure diastolic 2021-11-29 16:40:00 70 mm[Hg] [facility] height 2021-09-30 11:40:00 65 [in_i] [facility] weight 2021-09-30 11:40:00 227 [lb_av] [facility] temperature 2021-09-30 11:40:00 97.6 [degF] [facility] bmi 2021-09-30 11:40:00 37.77 kg/m2 [facility] height 2021-08-29 11:40:00 65 [in_i] [facility] weight 2021-08-29 11:40:00 236 [lb_av] [facility] temperature 2021-08-29 11:40:00 97.4 [degF] [facility] bmi 2021-08-29 11:40:00 39.27 kg/m2 [facility] height 2021-07-30 11:40:00 65 [in_i] [facility] weight 2021-07-30 11:40:00 245 [lb_av] [facility] temperature 2021-07-30 11:40:00 97.1 [degF] [facility] bmi 2021-07-30 11:40:00 40.77 kg/m2 [facility] height 2021-07-01 16:20:00 65 [in_i] [facility] weight 2021-07-01 16:20:00 255 [lb_av] [facility] temperature 2021-07-01 16:20:00 97.8 [degF] [facility] bmi 2021-07-01 16:20:00 42.43 kg/m2 [facility] height 2021-04-04 10:40:00 65 [in_i] [facility] weight 2021-04-04 10:40:00 250 [lb_av] [facility] temperature 2021-04-04 10:40:00 97 [degF] [facility] bmi 2021-04-04 10:40:00 41.60 kg/m2 [facility] height 2021-03-15 15:20:00 65 [in_i] [facility] weight 2021-03-15 15:20:00 257.4 [lb_av] Co [facility] temperature 2021-03-15 15:20:00 97.7 [degF] [facility] bmi 2021-03-15 15:20:00 42.83 kg/m2 [facility] oximetry 2021-03-15 15:20:00 98 % [facility] respiratory rate 2021-03-15 15:20:00 16 /min [facility] blood pressure systolic 2021-03-15 15:20:00 152 mm[Hg] [facility] blood pressure diastolic 2021-03-15 15:20:00 78 mm[Hg] [facility] Systolic blood pressure 2019-06-06 20:42:00 138 mm[Hg] [facility] Diastolic blood pressure 2019-06-06 20:42:00 78 mm[Hg] [facility] Heart rate 2019-06-06 20:42:00 76 /min [facility] Respiratory rate 2019-06-06 20:40:00 16 /min [facility] Body height 2019-06-06 20:40:00 165.1 cm [facility] Body weight 2019-06-06 20:40:00 117.028 kg [facility] BMI 2019-06-06 20:40:00 42.93 kg/m2 [facility] Procedures Procedure Date / Time Performed Performing Clinician Source Repair of Vaginal Wall Prolapse 2024-02-04 00:00:00 [facility] MAMMO, screening, digital, bilateral 2024-02-04 00:00:00 [facility] Neurostimulation/modulatio n 2024-01-07 00:00:00 [facility] Percutaneous Sacral Nerve Evaluation 2023-12-11 00:00:[address] [facility] [address] ABDOMEN PELVIS WO CONTRAST 2023-07-09 13:14:03 Ashley Rosales [facility] COMP. METABOLIC PANEL (15611) 2023-07-09 12:53:00 Ashley Rosales [facility] CBC WITH DIFF 2023-07-09 12:53:00 [facility] 2023-07-09 12:53:[address] [facility] [facility]CLEARANCE FORMS 2023-03-02 06:01:00 Doctor Unassigned, [place] [facility] Cystoscopy 2023-01-16 00:00:00 Marykhalida Peguero rebeccalashae BI US GUIDED CORE BREAST BIOPSY RIGHT 2020-04-25 14:43:00 Requisition, Paper [facility] BI ULTRASOUND BREAST COMPLETE RIGHT 2020-04-11 22:24:00 Flor Tracy [facility] BI DIAGNOSTIC TOMOSYNTHESIS BILATERAL 2020-04-11 21:15:00 Flor Tracy [facility] T3, TOTAL-Q 2019-06-16 13:13:00 Travon [facility] T-4, FREE-Q 2019-06-16 13:13:00 Travon [facility] TSH, 3RD GENERATION-Q 2019-06-16 13:13:00 Aarti Cook [facility] Hernia Repair [facility] Cholecystectomy (Gallbladder) [facility] Hysterectomy [facility] Medical Encounters Start Date/Time End Date/Time Encounter Type Admission Type Attending Clinicians Care Facility Care Department Encounter ID Source 2021-12-16 09:33:01 [facility] [id number] [facility] 2021-11-27 09:55:00 [facility] [id number] [facility] 2021-11-13 15:38:00 [facility] [id number] [facility] 2021-09-26 10:57:00 Out[facility] [id number] [facility] 2021-06-21 13:20:00 Out[facility] [id number] [facility] 2021-05-01 14:39:57 Outpatient [facility] [id number] [facility] 2021-05-01 14:22:21 Outpatient Perkins, Janis [facility] [id number] [facility] 2021-05-01 14:16:16 Outpatient Janis Perkins [facility] [id number] [facility] 2021-05-01 11:01:46 Outpatient Flor Tracy [facility] [id number] [facility] 2024-03-18 00:00:00 2024-03-18 00:00:00 Christiana Jose MD: [address], [place] [address] , Ph. [facility] - GC[facility]GCBZW_[facility]* [id number] [facility] 2024-02-11 00:00:00 2024-02-11 00:00:00 LUZ MARINA Puentes: [address], [place] [address] , Ph. [facility] - GC_GCBZW_Ok duyen [place]* [id number] [facility] 2024-02-08 00:00:00 2024-02-08 00:00:00 Christiana Jose MD: [address], [place] [address] , Ph. [facility] - GC_GCBZW_Ok duyen [place]* [id number] [facility] 2024-01-27 00:00:00 2024-01-27 00:00:00 LUZ MARINA Puentes: [address], [place] [address] , Ph. [facility] - GC[facility]GCBZW_[facility]* [id number] [facility] 2023-12-18 00:00:00 2023-12-18 00:00:00 LUZ MARINA Puentes: [address], [place] [id number] , Ph. [facility] - GC_GCBZW_La duyen Kiran* [id number] [facility] 2023-12-14 00:00:00 2023-12-14 00:00:00 LUZ MARINA Puentes: [address], [place] [id number] , Ph. [facility] - GC_GCBZW_Phuong geller Kiran* [id number] [facility] 2023-12-11 00:00:00 2023-12-11 00:00:00 LUZ MARINA Puentes: [address], [place] [address] , Ph. [facility] - GC_GCBZW_Phuong geller Kiran* [id number] [facility] 2023-11-25 00:00:00 2023-11-25 00:00:00 Christiana Jose MD: [address], [place] [id number] , Ph. [facility] - GC_GCBZW_Phuong geller Kiran* [id number] [facility] 2023-07-09 07:27:00 2023-07-09 08:54:00 [facility] [id number] 2023-07-09 07:27:00 2023-07-09 08:54:00 Emergency Ashley Rosales [facility] [id number] [facility] 2023-05-18 00:00:00 2023-05-18 00:00:00 Outpatient GC_GCBZW_Juni patriciaa_S [facility] [id number] [facility] 2023-05-16 00:00:00 2023-05-16 00:00:00 Outpatient GC_GCBZW_Ka diyala_S PRIV PRIV [id number] [facility] 2023-04-18 00:00:00 2023-04-18 00:00:00 Outpatient GC_GCBZW_Ka diyala_S PRIV PRIV [id number] [facility] 2023-03-23 00:00:00 2023-03-23 00:00:00 Outpatient GC_GCBZW_Ka diyala_S PRIV PRIV [id number] [facility] 2023-03-21 00:00:00 2023-03-21 00:00:00 Outpatient GC_GCBZW_Ka diyala_S PRIV PRIV [id number] [facility] 2023-03-02 00:00:00 2023-03-02 00:00:00 Telephone Levi Vasquez [facility] [id number] [facility] 2023-03-02 00:00:00 2023-03-02 00:00:00 Orders Only Doctor Unassigned, [place] [facility] [id number] [facility] 2023-02-25 10:30:00 2023-02-25 11:21:52 Outpatient R LEVI VASQUEZ [facility] [id number] [facility] 2023-02-25 10:30:00 2023-02-25 11:21:52 Office Visit Levi Vasquez [facility] [id number] [facility] 2023-02-24 00:00:00 2023-02-24 00:00:00 Outpatient GC_GCBZW_Ka diyala_S PRIV PRIV [id number] [facility] 2023-02-21 00:00:00 2023-02-21 00:00:00 Outpatient GC_GCBZW_Ka diyala_S PRIV PRIV [id number] [facility] 2023-02-05 00:00:00 2023-02-05 00:00:00 Outpatient GC_GCBZW_Ka diyala_S PRIV PRIV [id number] [facility] 2023-01-28 00:00:00 2023-01-28 00:00:00 Outpatient GC_GCBZW_Ka diyala_S PRIV PRIV [id number] [facility] 2023-01-27 00:00:00 2023-01-27 00:00:00 Outpatient GC_GCBZW_Ka diyala_S PRIV PRIV [id number] [facility] 2023-01-16 00:00:00 2023-01-16 00:00:00 Outpatient GC_GCBZW_Ka diyala_S PRIV PRIV [id number] [facility] 2022-12-16 00:00:00 2022-12-16 00:00:00 ([facility]) [facility] [id number] [facility] 2022-11-20 00:00:00 2022-11-20 00:00:00 Outpatient GC_GCBZW_Ka diyala_S PRIV PRIV [id number] [facility] 2022-11-19 00:00:00 2022-11-19 00:00:00 Outpatient GC_GCBZW_Ka diyala_S PRIV PRIV [id number] [facility] 2022-11-06 00:00:00 2022-11-06 00:00:00 Outpatient GC_GCBZW_Ka diyala_S PRIV PRIV [id number] [facility] 2022-10-15 00:00:00 2022-10-15 00:00:00 Outpatient GC_GCBZW_Ka diyala_S [facility] [id number] [facility] 2022-10-13 00:00:00 2022-10-13 00:00:00 Outpatient GC_GCBZW_Ka didannaa_S [facility] PRIV [id number] [facility] 2022-02-13 00:00:00 2022-02-13 00:00:00 (TEL) STLMLC STLMLC [id number] [facility] 2021-11-29 00:00:00 2021-11-29 00:00:00 OFFICE VISIT ESTAB PT LEVEL 4 STLMLC STLMLC [id number] [facility] 2021-11-11 00:00:00 2021-11-11 00:00:00 (TEL) STLMLC STLMLC [id number] [facility] 2021-11-01 00:00:00 2021-11-01 00:00:00 (TEL) STLMLC STLMLC [id number] [facility] 2021-10-24 00:00:00 2021-10-24 00:00:00 (TEL) STLMLC STLMLC [id number] [facility] 2021-10-14 00:00:00 2021-10-14 00:00:00 (TEL) STLMLC STLMLC [id number] [facility] 2021-09-30 00:00:00 2021-09-30 00:00:00 OFFICE VISIT ESTAB PT LEVEL 4 STLMLC STLMLC [id number] [facility] 2021-08-29 00:00:00 2021-08-29 00:00:00 OFFICE VISIT EST PT LEVEL 3 STLMLC STLMLC [id number] [facility] 2021-07-30 00:00:00 2021-07-30 00:00:00 OFFICE VISIT ESTAB PT LEVEL 4 STLMLC STLMLC [id number] [facility] 2021-07-29 00:00:00 2021-07-29 00:00:00 (TEL) STLMLC STLMLC [id number] [facility] 2021-07-01 00:00:00 2021-07-01 00:00:00 OFFICE VISIT ESTAB PT LEVEL 4 STLMLC STLMLC [id number] [facility] 2021-04-29 00:00:00 2021-04-29 00:00:00 (TEL) STLMLC STLMLC [id number] [facility] 2021-04-08 00:00:00 2021-04-08 00:00:00 (TEL) STLMLC STLMLC [id number] [facility] 2021-04-04 00:00:00 2021-04-04 00:00:00 (TEL) STLMLC STLMLC [id number] [facility] 2021-04-04 00:00:00 2021-04-04 00:00:00 OFFICE VISIT EST PT LEVEL 3 STLMLC STLMLC [id number] [facility] 2021-03-15 00:00:00 2021-03-15 00:00:00 OFFICE VISIT ESTAB PT LEVEL 4 STLMLC STLMLC [id number] [facility] 2020-09-24 00:00:00 2020-09-24 00:00:00 Outpatient STLMLC STLMLC [id number] [facility] 2020-09-14 00:00:00 2020-09-14 00:00:00 Outpatient STLMLC STLMLC [id number] [facility] 2020-09-07 00:00:00 2020-09-07 00:00:00 Outpatient STLMLC STLMLC [id number] [facility] 2020-07-31 00:00:00 2020-07-31 00:00:00 Outpatient STLMLC STLMLC [id number] [facility] 2020-06-21 00:00:00 2020-06-21 00:00:00 Patient Outreach Adelso Orozco [facility] 1.2.840.114 350.1.13.10 4.2.7.2.686 [id number] 2020-06-21 00:00:00 2020-06-21 00:00:00 Patient Outreach Adelso Orozco [facility] 1.2.840.114 350.1.13.10 4.2.7.2.686 [id number] [facility] 2020-04-27 00:00:00 2020-04-27 00:00:00 Outpatient STLMLC STLMLC [id number] [facility] 2020-04-25 07:53:14 2020-04-25 23:59:00 Hospital Encounter Radiology [facility] 1.2.840.114 350.1.13.10 4.2.7.2.686 [id number] [facility] 2020-04-25 07:53:14 2020-04-25 23:59:00 Hospital Encounter Radiology [facility] 1.2.840.114 350.1.13.10 4.2.7.2.686 [id number] 2020-04-25 00:00:00 2020-04-25 00:00:00 Outpatient R RADIOLOGY [facility] [id number] [facility] 2020-04-16 00:00:00 2020-04-16 00:00:00 Outpatient STLMLC STLMLC [id number] [facility] 2020-04-11 13:48:55 2020-04-11 23:59:00 Hospital Encounter Radiology [facility] 1.2.840.114 350.1.13.10 4.2.7.2.686 [id number] [facility] 2020-04-11 13:48:55 2020-04-11 23:59:00 Hospital Encounter Radiology [facility] 1.2.840.114 350.1.13.10 4.2.7.2.686 [id number] 2020-04-11 13:46:57 2020-04-11 13:47:00 Hospital Encounter Radiology [facility] 1.2.840.114 350.1.13.10 4.2.7.2.686 [id number] [facility] 2020-04-11 13:46:57 2020-04-11 13:47:00 Hospital Encounter Radiology [facility] 1.2.840.114 350.1.13.10 4.2.7.2.686 [id number] 2020-04-11 00:00:00 2020-04-11 00:00:00 Outpatient R RADIOLOGY [facility] [id number] [facility] 2020-03-26 00:00:00 2020-03-26 00:00:00 Outpatient STLMLC STLMLC [id number] [facility] 2019-12-26 00:00:00 2019-12-26 00:00:00 [facility]ill [facility] 1.2.840.114 350.1.13.10 4.2.7.2.686 [id number] [facility] 2019-12-26 00:00:00 2019-12-26 00:00:00 [facility]ill [facility] 1.2.840.114 350.1.13.10 4.2.7.2.686 [id number] 2019-10-25 10:23:00 2019-10-25 10:23:00 [facility] [id number] [facility] 2019-10-20 11:00:00 2019-10-20 11:00:[address] [facility] [id number] [facility] 2019-10-10 16:00:00 2019-10-10 16:00:00 Outpatient R ROCHELLE COOK [facility] [id number] [facility] 2019-06-21 00:00:00 2019-06-21 00:00:00 Telephone Rochelle Cook [facility] 1.2.840.114 350.1.13.10 4.2.7.2.686 [id number] [facility] 2019-06-16 00:00:00 2019-06-16 00:00:00 [facility] 1.2.840.114 350.1.13.10 4.2.7.2.686 [id number] 220 [id number] [facility] 2019-06-16 00:00:00 2019-06-16 00:00:00 [facility] 1.2.840.114 350.1.13.10 4.2.7.2.686 [id number] [facility] 2019-06-15 00:00:00 2019-06-15 00:00:00 Refill Rochelle Cook [facility] 1.2.840.114 350.1.13.10 4.2.7.2.686 [id number] [facility] 2019-06-14 00:00:00 2019-06-14 00:00:00 Telephone Rochelle Cook [facility] 1.2.840.114 350.1.13.10 4.2.7.2.686 [id number] [facility] 2019-06-13 00:00:00 2019-06-13 00:00:00 [facility] 1.2.840.114 350.1.13.10 4.2.7.2.686 [id number] [facility] 2019-06-06 14:03:33 2019-06-06 15:19:55 Office Visit Rochelle Cook [facility] 1.2.840.114 350.1.13.10 4.2.7.2.686 [id number] [facility] 2019-06-06 14:30:00 2019-06-06 14:30:00 Outpatient R ROCHELLE COOK [facility] [id number] [facility] 2019-06-06 00:00:00 2019-06-06 00:00:00 Letter (Out) Doctor Unassigned, [place] 1.2.840.114 350.1.13.10 4.2.7.2.686 [id number] [facility] 2019-06-03 11:37:00 2019-06-03 11:37:00 [facility] [id number] [facility] 2019-05-13 14:05:00 2019-05-13 14:05:00 [facility] [id number] [facility] 2019-05-11 16:43:00 2019-05-11 16:43:00 [facility] [id number] [facility] 2019-04-29 15:19:00 2019-04-29 15:19:[address] [facility] [id number] [facility] 2019-04-25 14:20:00 2019-04-25 14:20:00 [facility] [id number] [facility] 2019-04-20 14:02:00 2019-04-20 14:02:00 Out[facility] [id number] [facility] 2019-03-25 13:34:00 2019-03-25 13:34:[address] [facility] [id number] [facility] 2019-03-24 10:03:00 2019-03-24 10:03:[address] [facility] [facility] [id number] [facility] 2019-03-23 12:03:00 2019-03-23 12:03:[address] [facility] [facility] [id number] [facility] 2019-03-08 16:00:00 2019-03-08 16:00:[address] [facility] [facility] [address] [facility] [place] [facility] [id number] [facility] 2018-09-15 09:27:00 2018-09-15 09:27:[address] [facility] [address] [address] [facility] [address] [facility] [address] [facility] [id number] [facility] 2018-08-19 21:25:00 2018-08-19 21:25:[address] [facility] [facility] [address] [facility] [place] [facility] [id number] [facility] 2018-08-04 11:30:00 2018-08-04 11:30:[address] [facility] [facility] [address] [facility] [place] [facility] [id number] [facility] 2018-07-13 08:21:00 2018-07-13 08:21:[address] [facility] [facility] [place] [facility] [id number] [facility] 2018-05-05 11:40:00 2018-05-05 11:40:[address] [facility] [place] [facility] [id number] [facility] 2018-04-30 09:30:00 2018-04-30 09:30:[address] [facility] [address] [facility] [place] [facility] [id number] [facility] 2017-11-03 17:08:00 2017-11-03 17:08:[address] [facility] [address] [facility] [place] [facility] [id number] [facility] 2017-11-02 17:50:00 2017-11-02 17:50:00 [facility] [address] [facility] [id number] [facility] 2017-10-30 09:30:00 2017-10-30 09:30:00 [facility] [address] [facility] [id number] [facility] 2017-09-22 13:41:00 2017-09-22 13:41:00 [facility] [address] [facility] [id number] [facility] 2017-09-21 14:20:00 2017-09-21 14:20:00 [facility] [id number] [facility] 2017-09-15 11:21:00 2017-09-15 11:21:00 [facility] [address] [facility] [id number] [facility] 2017-09-14 14:36:00 2017-09-14 14:36:00 [facility] [address] [facility] [id number] [facility] 2017-09-04 09:30:00 2017-09-04 09:30:00 [facility] [address] [facility] [id number] [facility] 2017-08-15 10:17:00 2017-08-15 10:17:00 [facility] [address] [facility] [id number] [facility] 2017-08-14 09:30:00 2017-08-14 09:30:00 [facility] [address] [facility] [id number] [facility] Results Test Description Test Time Test Comments Results Result Co mments Source [facility] urine and/or bladder capacity (PROC)2024-02-11 15:25:31* Test Item Value Reference Range Interpretation Comme nts (PVR) (test code = (PVR)) 11 [facility] residual urine and/or bladder capacity (PROC)2024-02-08 08:34:00* Test Item Value Reference Range Interpretation Comme nts (PVR) (test code = (PVR)) 17 mL [facility] MedicalCOMP. METABOLIC PANEL (55715)2023-07-09 13:35:03* Test Item Value Reference Range Interpretation Comme nts NA (test code = 5062074408) 140 mmol/L 135-145 K (test code = 1870943730) 4.6 mmol/L 3.5-5.0 CL (test code = 0565214831) 103 mmol/L 98-108 CO2 TOTAL (test code = 9810752243) 29 mmol/L 23-31 AGAP (test code = 6626622836) 8 2-16 BUN (test code = 9866985964) 8 mg/dL 7-23 GLUCOSE (test code = 4394919101) 119 mg/dL 70-110 H CREATININE (test code = 2160-0) 0.59 mg/dL 0.50-1.04 TOTAL BILI (test code = 0668010563) 0.9 mg/dL 0.1-1.1 CALCIUM (test code = 0901275480) 10.0 mg/dL 8.6-10.6 T PROTEIN (test code = 7064488989) 8.3 g/dL 6.3-8.2 H ALBUMIN (test code = 4230470729) 4.6 g/dL 3.5-5.0 ALK PHOS (test code = 8652935670) 59 U/L 34-122 ALTv (test code = 1742-6) 73 U/L 5-35 H AST(SGOT) (test code = 9722007691) 47 U/L 13-40 H eGFR (test code = 38848-6) 109.3 mL/min/1.73m2 CKD-EPI eGFR (2020). Assuming creatinine has been stable day-to-day for at least three months, the eGFR indicates Category G1 (>= 90 mL/min/1.73 m2) Lab Interpretation (test code = 29812-4) [facility] [id number] 13:23:56CT Abdomen and Pelvis without contrast. CLINICAL [...] kidney.3. S/P cholecystectomy and hysterectomy.4. Small hiatal hernia.[facility] WITH [id number] 13:20:58 * Test Item Value Reference Range [...] 33.9 g/dL 31.6-35.1 RDW-SD (test code = 10177-6) 39.6 fL 39.0-49.9 RDW-CV (test code = 788-0) 13.0 % 12.0-15.5 PLT (test code = 777-3) 301 166-358 MPV (test code = 96126-7) 10.3 fL 9.5-12.9 NRBC/100 WBC (test code = 4357180518) 0.0 0.0-10.0 NRBC x10^3 (test code = 8407751160) See_Comment [Automated messa ge] The system which generated this result transmitted reference range: 10*3/?L. The reference range was not used to interpret this result as normal/abnormal. GRAN MAT (NEUT) % (test code = 770-8) 72.2 % IMM GRAN % (test code = 3995858465) 0.40 % LYMPH % (test code = 736-9) 17.0 % MONO % (test code = 5905-5) 6.4 % EOS % (test code = 713-8) 3.5 % BASO % (test code = 706-2) 0.5 % GRAN MAT x10^3(ANC) (test code = 2732487211) 5.39 10*3/uL 1.88-7.09 IMM GRAN x10^3 (test code = 0490689286) 0.03 10*3/uL 0.00-0.06 LYMPH x10^3 (test code = 731-0) 1.27 10*3/uL 1.32-3.29 L MONO x10^3 (test code = 742-7) 0.48 10*3/uL 0.33-0.92 EOS x10^3 (test code = 711-2) 0.26 10*3/uL 0.03-0.39 BASO x10^3 (test code = 704-7) 0.04 10*3/uL 0.01-0.07 Lab Interpretation (test code = 74955-3) Abnormal [facility] US GUIDED CORE BREAST BIOPSY RIGHT 2020-04-25 [...] the biopsy site. Recommendation:Pending pathology results - [facility]May[facility] HospitalT3, [id number] 06:00:00 * Test Item Value Reference Range Interpretation Comme nts T3, TOTAL-Q (test code = 3053-6) 273 ng/dL 76-181 H JAYLENE (test code = JAYLENE) PERFORMED BY [employer] [facility] [place]; [address] [place] [address]; HILTON PANIAGUA MD Lab Interpretation (test code = 61129-7) Abnormal [facility], [id number] 06:00:00* Test Item Value Reference Range Interpretation Comme nts T-4, FREE-Q (test code = 3024-7) 1.3 ng/dL 0.8-1.8 JAYLENE (test code = JAYLENE) PERFORMED BY [employer]; [address] [place] [address]; HILTON PANIAGUA MD [facility] Hospital[facility], 3RD [id number] 06:00:00* Test Item Value Reference Range Interpretation Comme nts TSH, 3RD GENERATION-Q (test code = 3016-3) mIU/L L ?Reference Range ?> or = 20 Years ?0.40-4.50 ? Ranges ?First trimester ? ?0.26-2.66 ?Second trimester ? 0.55-2.73 ?Third trimester ? ?0.43-2.91REPORT COMMENT:FASTING: YES JAYLENE (test code = JAYLENE) PERFORMED BY [employer]/[facility]; [address] [place] [address]; HILTON PANIAGUA MD Lab Interpretation (test code = 34308-8) Abnormal [facility] HospitalSTREP A+ RAPIDSTREP A+ RAPIDSARS-COV 2 Antigen [...] Accompanied by family member. Marlen Rosado RN [facility] 2023-07-09 07:25:45 Patient to ED for right side flank pain that started when she woke up at 4 am. She also got nauseated with the pain. Pain is intermittent. Reports she has not had to urinate yet. Devni Eckert RN [facility] 2023-07-09 07:05:00 [facility] Emergency Department Note Patient Name: Dee Ruano Date of : 1970 52 year old female Treatment [facility] Primary Care Physician: Filomena Hennessy Patient Escorted by: Family [5] Mode of Arrival: Personal means [1] EMS Treatment Prior to ED Arrival: ENTRANCE GUARD treatment: None Travel and Exposure Screening: Symptoms [...] 0.01 - 0.07 10*3/uL COMP. METABOLIC PANEL (07815) - Abnormal NA 140 135 - 145 [...] CONTRAST CBC WITH DIFF COMP. METABOLIC PANEL (69596) URINALYSIS Orders Placed This Encounter Medications ketorolac [...] signed by: Ashley Rosales DO 07/09/23 0837 [facility]
--- NOTE | 2024-08-24 08:25 | RAD REPORT ---
EXAMINATION: CT ABDOMEN AND PELVIS WITHOUT CONTRAST CLINICAL INDICATION: Abdominal pain TECHNIQUE: CT abdomen and pelvis was performed, as per department protocol. IV contrast and oral was not administered.Axial, sagittal and coronal reconstructions were obtained. One or more of the following dose reduction techniques were used: Automated exposure control, adjustment of the mA and/o r kV according to the patient size, and/or iterative reconstruction. Unless otherwise specified, incidental findings do not require dedicated imaging follow-up. [id number]. COMPARISON: 2023 FINDINGS: The lack of intravenous and oral contrast limits evaluation of solid organs, vessels and bowel. Cholecystectomy. The liver, spleen, pancreas, adrenals and kidneys appear grossly normal Normal appendix. Hysterectomy. No adnexal mass. Diverticula stem from colon. Mild to moderate stranding within the adjacent fat. No free air. No absc ess. IMPRESSION: Mild to moderate sigmoid diverticulitis
[2024-08-24 08:43] LABS: Specific Gravity 1.012 (1.005-1.030)
[2024-08-24 08:44] LABS: Absolute Basophils 0.1 K/uL (0-0.5); Absolute Eosinophils 0.2 K/uL (0-0.5); Absolute Lymphocytes (CBC) 1.1 K/uL (0.7-4.9); Absolute Monocytes 0.4 K/uL (0.1-1.3); Absolute Neutrophil 7.6 K/uL (1.8-8.0); Basophils % 0.6 % (0-1.3); Eosinophils % 2.1 % (0-4.4); Hematocrit 40.6 % (36.0-45.0); Hemoglobin 14.3 g/dL (12.0-15.0); Lymphocytes % 12.1 % (15.3-44.8); MCH 28.2 pg (27.0-35.0); MCHC 35.1 g/dL (32.0-36.0); MCV 80.4 fL (80-100); Monocytes % 4.3 % (3.3-12.3); Neutrophils % 80.9 % (41.7-73.7); Platelets 247 thou/uL (152-406); RBC Red Blood Cell Count 5.05 M/uL (3.86-4.86); Red Cell Distribution Width 13.2 % (12.1-15.2)
[2024-08-24 08:49] LABS: Specific Gravity 1.012 (1.005-1.030); Sqamous Epithelial <5 /HPF (None Seen); Urine Bacteria None Seen /HPF (<20); Urine Bilirubin NEGATIVE (Negative); Urine Blood Negative (Negative); Urine Clarity Extremely Turbid (Clear); Urine Color Colorless (Yellow); Urine Culture Reflex Order NOT NEEDED; Urine Glucose NEGATIVE (Negative); Urine Ketones NEGATIVE (Negative); Urine Microscopic Reflex YN ORDER UMIC; Urine Nitrite NEGATIVE (Negative); Urine Protein NEGATIVE (Negative); Urine RBC <5 /HPF (None Seen); Urine Urobilinogen Normal (Normal); Urine WBC <5 /HPF (<5); Urine pH 7.5 (5.0-7.0)
[2024-08-24] MEDS ORDERED: MORPHINE 4 MG/ML SYR ONE (08:59)
[2024-08-24] MEDS ORDERED: ONDANSETRON 4 MG/2 ML VIAL ONE (08:59)
[2024-08-24] MEDS ORDERED: CIPROFLOXACIN 400mg IV 400 MG/200 ML BAG IV ONE (09:00)
[2024-08-24] MEDS ORDERED: METRONIDAZOLE 500mg IVPB 500 MG/100 ML BAG IV ONE (09:00)
[2024-08-24 09:07] LABS: Albumin 3.8 g/dL (3.4-5.0); Anion Gap 9.8 mEq/L (5.0-15.0); Bilirubin Total 0.7 mg/dL (0.2-1.0); Globulin 3.8 g/dL (2.3-3.5); Potassium 3.8 mEq/L (3.5-5.1); Protein, Total 7.6 g/dL (6.4-8.2)
--- NOTE | 2024-08-24 09:33 | ER ---
Nurse's Notes [facility] Name: Dee Ruano Age: 53 yrs Sex: Female : 1970 Arrival Date: 08/24/2024 Time: 07:29 Bed 5 Private MD: Diagnosis: Diverticulitis Presentation: 08/24 07:40 Chief complaint: Patient states: Severe lower abdominal pain and lower back pain ll1 started at 3 AM. Nausea and near syncope feeling. Coronavirus screen: Client denies travel out of the [place] in the last 14 days. At this time, the client does not indicate any symptoms associated with coronavirus-19. Ebola Screen: Patient denies travel to an Ebola-affected area in the 21 days before illness onset. Initial Sepsis Screen: Does the patient meet any 2 criteria? No. Patient's initial sepsis screen is negative. Does the patient have a suspected source of infection? No. Patient's initial sepsis screen is negative. Risk Assessment: Do you want to hurt yourself or someone else? Patient reports no desire to harm self or others. Onset of symptoms was August 24, 2024. 07:40 Method Of Arrival: Ambulatory ll1 07:40 Acuity: AMINTA 3 ll1 Triage Assessment: 07:45 General: Appears distressed, uncomfortable, Behavior is cooperative, appropriate for ll1 age, restless. Pain: Complains of pain in abdomen Quality of pain is described as aching, crampy. Neuro: Reports a syncopal episode. GI: Reports lower abdominal pain, nausea. GI: Reports. Historical: - Allergies: 07:34 NKA; ll1 - PMHx: 07:34 Depression; EBV; Kandis Dobbs Virus; elevated liver enzymes-not supposed to take ll1 NSAIDS; Hypothyroidism; Migraines; - PSHx: 07:34 Cholecystectomy; hernia repair (ab); panniculectomy ; March 2023; Total abdominal ll1 hysterectomy; 07:46 pelvic lift/bladder sling; ll1 - Immunization history:: Adult Immunizations up to date. - Infectious Disease History:: Denies. - Social history:: Smoking status: Patient denies any tobacco usage or history of. Screenin:21 [facility] ED Fall Risk Assessment (Adult) History of falling in the last 3 months, ph including since admission No falls in past 3 months (0 pts) Confusion or Disorientation No (0 pts) Intoxicated or Sedated No (0 pts) Impaired Gait No (0 pts) Mobility Assist Device Used No (0 pt) Altered Elimination No (0 pt) Score/Fall Risk Level 0 - 2 = Low Risk Oriented to surroundings, Maintained a safe environment, Hourly rounding (assess needs \T\ fall precautionary measures) done. Abuse screen: Denies threats or abuse. Denies injuries from another. Nutritional screening: No deficits noted. Tuberculosis screening: No symptoms or risk factors identified. Assessment: 08:29 General: Appears in no apparent distress. comfortable, Behavior is calm, cooperative, ph appropriate for age. Pain: Complains of pain in right lower quadrant and left lower quadrant. Neuro: Level of Consciousness is awake, alert, obeys commands, Oriented to person, place, time, situation. Cardiovascular: Capillary refill < 3 seconds in bilateral fingers Patient's skin is warm and dry. Respiratory: Airway is patent Respiratory effort is even, unlabored. GI: Bowel sounds present X 4 quads. Abd is soft X 4 quads Reports lower abdominal pain, nausea. Derm: Skin is pink, warm \T\ dry. 09:52 Reassessment: D/C pending completion of IV antibiotics. ph Vital Signs: 07:40 BP 164 / 110; Pulse 70; Resp 16; Temp 97.5; Pulse Ox 99% on R/A; Weight 83.91 kg; ll1 Height 5 ft. 5 in. ; Pain 8/10; 09:11 BP 152 / 89; Pulse 68; Resp 18; Temp 97.8; Pulse Ox 99% on R/A; ph 07:40 Body Mass Index 30.79 (83.91 kg, 165.1 cm) ll1 07:40 Pain Scale: Adult ll1 ED Course: 07:33 Patient arrived in ED. gl 07:34 Arm band placed on Patient placed in an exam room, on a stretcher. ll1 07:45 Triage completed. ll1 07:50 Bonita Canales MD is Attending Physician. sp3 07:56 Talisha Soto, HUMBERTO is Primary Nurse. ph 08:16 CT Abd/Pelvis - Without Contrast In Process Unspecified. EDMS 08:21 Urine collected: clean catch specimen, cloudy. ph 08:23 Patient has correct armband on for positive identification. Bed in low position. Call ph light in reach. Side rails up X 1. Pulse ox on. NIBP on. Door closed. Noise minimized. Warm blanket given. 08:29 Initial lab(s) drawn, by ED staff, sent to lab. Inserted saline lock: 20 gauge in right ph antecubital area, using aseptic technique. Blood collected. Flushed with 10 mL NS. 10:25 No provider procedures requiring assistance completed. IV discontinued, intact, ld1 bleeding controlled, No redness/swelling at site. Administered Medications: 09:10 Drug: morphine IVP or IV 4 mg IVP once over 4 mins Route: IVP; Infused Over: 4 mins; ph Site: right antecubital; 09:30 Follow up: Response: No adverse reaction ph 09:11 Drug: Ondansetron IVP 4 mg IVP once; over 2 minutes Route: IVP; Site: right antecubital;ph 10:00 Follow up: Response: No adverse reaction ph 09:11 Drug: Ciprofloxacin IVPB 400 mg 200 ml IVPB once over 60 mins Volume: 200 ml; Route: ph IVPB; Infused Over: 60 mins; Site: right antecubital; 10:15 Follow up: Response: No adverse reaction; IV Status: Completed infusion ph 09:52 Drug: metroNIDAZOLE IVPB 500 mg 100 ml IVPB at 200 ml/hr once over 30 mins Volume: 100 ph ml; Route: IVPB; Rate: 200 ml/hr; Infused Over: 30 mins; Site: right antecubital; 10:30 Follow up: Response: No adverse reaction; IV Status: Completed infusion ph Medication: 08:23 VIS not applicable for this client. ph Outcome: 09:32 Discharge ordered by . mohit 10:25 Discharged to home ambulatory, ld1 10:25 Condition: stable 10:25 Discharge instructions given to patient, Instructed on discharge instructions, follow up and referral plans. medication usage, Demonstrated understanding of instructions, follow-up care, medications, Prescriptions given X 4, 10:25 Patient left the ED. ld1 Signatures: Dispatcher [employer] EDTalisha Kaur RN RN ph Cliff Hidalgo RN RN ll1 Filomena Woods RN RN ld1 Bonita Canales MD MD sp3 Nicol Fink, Reg Reg gl
--- NOTE | 2024-08-24 09:33 | EDPHYS ---
Physician Documentation [facility] Name: Dee Ruano Age: 53 yrs Sex: Female : 1970 Arrival Date: 08/24/2024 Time: 07:29 Bed 5 Private MD: ED Physician Bonita Canales HPI: 08/24 08:06 This 53 yrs old Unknown Female presents to ER via Ambulatory with complaints of sp3 Abdominal Pain. 08:06 53-year-old female with history of Kandis-Dobbs virus, elevated liver enzymes, sp3 hypothyroidism, bladder spasm with implanted device, kidney stones, defect causing facial nerve palsy, now presents to the ED with chief complaint abdominal pain and bilateral flank pain. Pain is worse on the right than the left. She states it does not feel like a kidney stone but she is still concerned about that as well. She denies any headache, fever, chest pain, shortness of breath, vomiting, diarrhea, syncope, near syncope, melena, symptoms, dysuria or gross visualized hematuria, prolonged immobilization, or any other signs or symptoms on ROS at this time.. Historical: - Allergies: 07:34 NKA; ll1 - PMHx: 07:34 Depression; EBV; Kandis Dobbs Virus; elevated liver enzymes-not supposed to take ll1 NSAIDS; Hypothyroidism; Migraines; - PSHx: 07:34 Cholecystectomy; hernia repair (ab); panniculectomy ; March 2023; Total abdominal ll1 hysterectomy; 07:46 pelvic lift/bladder sling; ll1 - Immunization history:: Adult Immunizations up to date. - Infectious Disease History:: Denies. - Social history:: Smoking status: Patient denies any tobacco usage or history of. ROS: 08:10 Constitutional: Negative for fever, chills, and weight loss, Eyes: Negative for injury, sp3 pain, redness, and discharge, ENT: Negative for injury, pain, and discharge, Neck: Negative for injury, pain, and swelling, Cardiovascular: Negative for chest pain, palpitations, and edema, Respiratory: Negative for shortness of breath, cough, wheezing, and pleuritic chest pain, Back: Negative for injury and pain, MS/Extremity: Negative for injury and deformity, Skin: Negative for injury, rash, and discoloration, Neuro: Negative for headache, weakness, numbness, tingling, and seizure, Psych: Negative for depression, anxiety, suicide ideation, homicidal ideation, and hallucinations, Allergy/Immunology: Negative for hives, rash, and allergies, Endocrine: Negative for neck swelling, polydipsia, polyuria, polyphagia, and marked weight changes, Hematologic/Lymphatic: Negative for swollen nodes, abnormal bleeding, and unusual bruising, 08:10 All other systems are negative, Exam: 08:23 Constitutional: This is a well developed, well nourished patient who is awake, alert, sp3 and in no acute distress. Head/Face: Normocephalic, atraumatic. Eyes: Pupils equal round and reactive to light, extra-ocular motions intact. Lids and lashes normal. Conjunctiva and sclera are non-icteric and not injected. Cornea within normal limits. Periorbital areas with no swelling, redness, or edema. ENT: Nares patent. No nasal discharge, no septal abnormalities noted. External auditory canals are clear. Oropharynx with no redness, swelling, or masses, exudates, or evidence of obstruction, uvula midline. Mucous membranes moist. Neck: Trachea midline, no thyromegaly or masses palpated, and no cervical lymphadenopathy. Supple, full range of motion without nuchal rigidity, or vertebral point tenderness. No Meningismus. Chest/axilla: Normal chest wall appearance and motion. Nontender with no deformity. No lesions are appreciated. Cardiovascular: Regular rate and rhythm with a normal S1 and S2. No gallops, murmurs, or rubs. Normal PMI, no JVD. No pulse deficits. Respiratory: Lungs have equal breath sounds bilaterally, clear to auscultation and percussion. No rales, rhonchi or wheezes noted. No increased work of breathing, no retractions or nasal flaring. Back: No spinal tenderness. No costovertebral tenderness. Full range of motion. Skin: Warm, dry with normal turgor. Normal color with no rashes, no lesions, and no evidence of cellulitis. MS/ Extremity: Pulses equal, no cyanosis. Neurovascular intact. Full, normal range of motion. Psych: Awake, alert, with orientation to person, place and time. Behavior, mood, and affect are within normal limits. 08:23 Abdomen/GI: Patient has diffuse pain to palpation periumbilically without peritoneal signs, rebound or guarding. Nonsurgical abdomen., Vital Signs: 07:40 BP 164 / 110; Pulse 70; Resp 16; Temp 97.5; Pulse Ox 99% on R/A; Weight 83.91 kg; ll1 Height 5 ft. 5 in. ; Pain 8/10; 09:11 BP 152 / 89; Pulse 68; Resp 18; Temp 97.8; Pulse Ox 99% on R/A; ph 07:40 Body Mass Index 30.79 (83.91 kg, 165.1 cm) ll1 07:40 Pain Scale: Adult ll1 MDM: 07:50 Medical Screening Exam initiated sp3 08:24 Data reviewed: vital signs, nurses notes, old medical records, lab test result(s), sp3 radiologic studies. ED course: 53-year-old female with abdominal pain with bladder implant device in place. Differential diagnosis includes functional abdominal pain, UTI/pyelonephritis spectrum, kidney stone, colitis, WHOLESALE REPRESENTATIVE pathology, among others. Workup will include CT scan of the abdomen pelvis, general labs, UA and supportive care. Patient declined pain medication at this time. Disposition pending workup and patient course.. 09:32 ED course: Patient with normal labs with CT demonstrates diverticulitis. Will place on sp3 IV antibiotics and pain control both here in the ED as well as p.o. at home. Follow-up PCP as needed. Vital signs remain normal.. 08/24 08:06 Order name: CBC with Diff; Complete Time: 09:11 sp3 08/24 08:06 Order name: CMP; Complete Time: 09:11 sp3 08/24 08:06 Order name: Lipase; Complete Time: 09: sp3 08/24 08:06 Order name: Test, Urine; Complete Time: 09: sp3 08/24 08:06 Order name: UA Rfx Bill Cult if indicated; Complete Time: 09:11 sp3 08/24 08:06 Order name: CT Abd/Pelvis - Without Contrast; Complete Time: 08: sp3 08/24 08:06 Order name: IV Saline Lock; Complete Time: 08: sp3 08/24 08:06 Order name: Labs collected and sent; Complete Time: 08:29 3 Administered Medications: 09:10 Drug: morphine IVP or IV 4 mg IVP once over 4 mins Route: IVP; Infused Over: 4 mins; ph Site: right antecubital; 09:30 Follow up: Response: No adverse reaction ph 09:11 Drug: Ondansetron IVP 4 mg IVP once; over 2 minutes Route: IVP; Site: right antecubital;ph 10:00 Follow up: Response: No adverse reaction ph 09:11 Drug: Ciprofloxacin IVPB 400 mg 200 ml IVPB once over 60 mins Volume: 200 ml; Route: ph IVPB; Infused Over: 60 mins; Site: right antecubital; 10:15 Follow up: Response: No adverse reaction; IV Status: Completed infusion ph 09:52 Drug: metroNIDAZOLE IVPB 500 mg 100 ml IVPB at 200 ml/hr once over 30 mins Volume: 100 ph ml; Route: IVPB; Rate: 200 ml/hr; Infused Over: 30 mins; Site: right antecubital; 10:30 Follow up: Response: No adverse reaction; IV Status: Completed infusion ph Disposition Summary: 08/24/24 09:32 Discharge Ordered Notes: Location: Home sp3 Condition: Stable sp3 Diagnosis - Diverticulitis sp3 Followup: sp3 - With: Private Physician - When: Upon discharge from the Emergency Department - Reason: Continuance of care Discharge Instructions: - Discharge Summary Sheet sp3 - Diverticulitis sp3 Forms: - Medication Reconciliation Form sp3 - Antibiotic Education sp3 - Prescription Opioid Use sp3 - Patient Portal Instructions sp3 - Leadership Thank You Letter sp3 Prescriptions: - Cipro 500 mg Oral Tablet - take 1 tablet ORAL route every 12 hours for 10 days; 20 tablet; Refills: 0, sp3 Product Selection Permitted - Flagyl 500 mg Oral Tablet - take 1 tablet ORAL route every 8 hours for 10 days; 30 tablet; Refills: 0, sp3 Product Selection Permitted - Tramadol 50 mg Oral Tablet - take 1 tablet ORAL route every 8 hours as needed; 12 tablet; Refills: 0, sp3 Product Selection Permitted - ondansetron 8 mg Oral Tablet,disintegrating - take 1 tablet ORAL route every 12 hours; 20 tablet; Refills: 0, Product sp3 Selection Permitted Signatures: Dispatcher [employer] Talisha Sepulveda RN RN ph Lewis, Lynsay, RN RN [facility] Bonita Canales MD MD sp3
[2024-08-24 10:33] VITALS: O2SAT 99
[2024-08-24 10:38] VITALS: BP 152/89; TEMP 97.8
== END 2024-08-24 10:25 | disposition home or self-care (01) ==
LOC: ER 07:29
DX: K57.32 Diverticulitis of large intestine without perforation or abscess without bleeding (principal); Z87.442 Personal history of urinary calculi
CPT/HCPCS: 85025; 81001; 36415; 81025; 83690; 80053; 74176; J2405; J0744

== ENCOUNTER 2024-11-22 09:40 | Day surgery (SDC) | payer BC ==
[2024-11-22] MEDS: Ringers Lactate 1,000 ML IV ONE (10:10)
[2024-11-22] MEDS ORDERED: MIDAZOLAM HCL 2 MG/2 ML INJ ONE (11:06)
[2024-11-22] MEDS ORDERED: LIDOCAINE 1% MPF 5 ML VIAL ONE (11:10)
[2024-11-22] MEDS ORDERED: SIMETHICONE 40 MG/ 0.6 ML ONE (11:14)
[2024-11-22 12:46] VITALS: O2SAT 100
[2024-11-22 12:47] VITALS: BP 136/86; TEMP 97.1
== END 2024-11-22 12:40 | disposition home or self-care (01) ==
LOC: OR 09:40
PROVIDERS: ATTEND Surgery
PROC: 0DBP8ZX Excision of Rectum, Via Natural or Artificial Opening Endoscopic, Diagnostic (ICD-10-PCS; 2024-11-22)
PROC: 0DBH8ZX Excision of Cecum, Via Natural or Artificial Opening Endoscopic, Diagnostic (ICD-10-PCS; principal; 2024-11-22 11:30)
DX: Z12.11 Encounter for screening for malignant neoplasm of colon (principal); K62.89 Other specified diseases of anus and rectum; K64.8 Other hemorrhoids; K57.30 Diverticulosis of large intestine without perforation or abscess without bleeding; K29.50 Unspecified chronic gastritis without bleeding
CPT/HCPCS: 45380; 88305; J2704 ×2; J2003; J2250; J7120

== ENCOUNTER 2025-01-27 00:29 | Emergency (ER) | payer BC ==
[2025-01-27] MEDS ORDERED: FENTANYL CITR 100 MCG/2 ML ONE (00:59)
[2025-01-27] MEDS ORDERED: NA CHLORIDE 0.9% 1,000 ML ONE (01:00)
[2025-01-27] MEDS ORDERED: ONDANSETRON 4 MG/2 ML VIAL ONE (01:00)
[2025-01-27] MEDS ORDERED: FAMOTIDINE 20 MG/2 ML VIAL IV ONE (01:00)
[2025-01-27 01:07] LABS: Absolute Lymphocytes (CBC) 1.8 K/uL (0.7-4.9); Hematocrit 41.7 % (36.0-45.0); Hemoglobin 14.5 g/dL (12.0-15.0); MCH 28.4 pg (27.0-35.0); MCHC 34.7 g/dL (32.0-36.0); MCV 81.9 fL (80-100); MPV 8.1 fL (7.6-11.3); Nucleated RBC Absolute Count 0.1 (0-0); Nucleated Red Blood Cells % 1.0 % (0-0); RBC Red Blood Cell Count 5.09 M/uL (3.86-4.86); White Blood Count 6.50 thou/uL (4.3-10.9)
[2025-01-27 01:21] LABS: Sqamous Epithelial <5 /HPF (None Seen); Urine Culture Reflex Order REFLEXED; Urine Microscopic Reflex YN ORDER UMIC; Urine WBC Clump Rare /HPF (None Seen)
[2025-01-27 01:24] LABS: ALT/SGPT 50.0 U/L (13-56); AST/SGOT 25.0 U/L (15-37); Albumin 3.9 g/dL (3.4-5.0); Albumin/Globulin Ratio 1.1 (1.1-1.8); Alkaline Phosphatase 97.0 U/L (45-117); Anion Gap 10.9 mEq/L (5.0-15.0); BUN Blood Urea Nitrogen 13.0 mg/dL (7-18); Globulin 3.5 g/dL (2.3-3.5); Glucose Level 90.0 mg/dL (74-106); Lipase 57.0 U/L (13-75); Potassium 3.9 mEq/L (3.5-5.1)
[2025-01-27] MEDS ORDERED: CEFTRIAXONE 1000 MG/VIAL ONE (02:10)
--- NOTE | 2025-01-27 03:06 | RAD REPORT ---
EXAM DESCRIPTION: Abdomen Pelvis W Contrast RadLex: CT ABDOMEN PELVIS WITH IV CONTRAST CLINICAL HISTORY: 54 years Female; ABD PAIN; IV ONLY Bed Name: 15 TECHNIQUE: CT of the abdomen and pelvis [with] intravenous contrast. All CT scans at this facility use dose modulation, iterative reconstruction, and/or weight based dosi ng when appropriate to reduce radiation dose to as low as reasonably achievable. COMPARISON: CT abdomen pelvis 09/07/2024 FINDINGS: Lower thorax: Bibasilar atelectasis. Abdomen: Stomach: Within normal limits Liver: No focal lesions. No intrahepatic ductal distention. Gallbladder: Surgically absent. Pancreas: Within normal limits Spleen: Within normal limits Right kidney: No hydronephrosis. No focal lesion. Left kidney: No hydronephrosis. No focal lesion. Adrenal glands: Within normal limits Vascular structures: Within normal limits Nodes: No lymphadenopathy by size criteria Pelvis: Small bowel: No significant distention. Appendix: Within normal limits Colon: No distention or acute pericolonic edema. Colonic diverticulosis. Peritoneum: No free intraperitoneal fluid or air. Bones: Age-indeterminate mild superior endplate compression deformity of the T11 vertebral body. Bladder: Mild circumferential wall thickening. Reproductive organs: No acute findings. Soft tissues: Sacral stimulator device noted. IMPRESSION: 1. Mild circumferential bladder wall thickening, can be seen in setting of cystitis. Correlate with urinalysis. 2. Colonic diverticulosis without diverticulitis. 3. Age-indeterminate mild superior endplate compression deformity of the T11 vertebral body. Electronically signed by: Cisco Rashid MD 01/27/2025 02:55 AM CDT TYG Due to temporary technical issues with the [employer] reporting system, reports are being fabiola d by the in-house radiologist without review as a courtesy to ensure prompt reporting the interpreting radiologist is fully responsible for the content of the report. Transcribed Date/Time: 01/27/2025 3:05 AM
--- NOTE | 2025-01-27 03:16 | EDPHYS ---
Physician Documentation [facility] Name: Dee Ruano Age: 54 yrs Sex: Female : 1970 Arrival Date: 01/27/2025 Time: 00:29 Bed 15 Private MD: ED Physician Justyn Angeles HPI: 01/27 00:55 This 54 yrs old Female presents to ER via Wheelchair with complaints of Abdominal Pain, cp Abdominal Cramping. 00:55 The patient presents with abdominal pain mid abdomen. cp 00:55 Onset: The symptoms/episode began/occurred about an hour ago. cp 00:55 The symptoms radiate to back. Associated signs and symptoms: Pertinent negatives: blood cp in stools, chest pain, constipation, diarrhea, fever, vomiting. The symptoms are described as intermittent, waxing/waning. Severity of pain: in the emergency department the pain is unchanged despite home interventions. Historical: - Allergies: 00:49 NKA; br2 - PMHx: 00:49 Depression; EBV; Kandis Dobbs Virus; elevated liver enzymes-not supposed to take br2 NSAIDS; Hypothyroidism; Migraines; - PSHx: 00:49 Cholecystectomy; hernia repair; panniculectomy ; March 2023; pelvic lift/bladder br2 sling; Total abdominal hysterectomy; - Immunization history:: Adult Immunizations up to date. - Infectious Disease History:: Denies. - Social history:: Smoking status: Patient denies any tobacco usage or history of. Patient/guardian denies using alcohol, street drugs. ROS: 01:00 Constitutional: Negative for body aches, chills, fever, poor PO intake, cp 01:00 Eyes: Negative for injury, pain, redness, and discharge, cp 01:00 ENT: Negative for drainage from ear(s), ear pain, sore throat, difficulty swallowing, difficulty handling secretions, 01:00 Cardiovascular: Negative for chest pain, edema, palpitations, 01:00 Respiratory: Negative for cough, shortness of breath, wheezing, 01:00 Abdomen/GI: Positive for abdominal pain, nausea, Negative for vomiting, diarrhea, constipation, black/tarry stool, rectal bleeding, 01:00 Back: Positive for radiated pain, 01:00 Neuro: Negative for altered mental status, dizziness, headache, syncope, weakness, 01:00 All other systems are negative, Exam: 01:05 Constitutional: The patient appears in no acute distress, alert, awake, cp non-diaphoretic, non-toxic, well developed, well nourished, uncomfortable, 01:05 Head/Face: Normocephalic, atraumatic. cp 01:05 Eyes: Periorbital structures: appear normal, Conjunctiva: normal, no exudate, no injection, Sclera: no appreciated abnormality, Lids and lashes: appear normal, bilaterally, 01:05 ENT: External ear(s): are unremarkable, Nose: is normal, Mouth: Lips: moist, Oral mucosa: moist, Posterior pharynx: Airway: no evidence of obstruction, patent, 01:05 Chest/axilla: Inspection: normal, 01:05 Cardiovascular: Rate: normal, Rhythm: regular, Edema: is not appreciated, JVD: is not appreciated, 01:05 Respiratory: the patient does not display signs of respiratory distress, Respirations: normal, no use of accessory muscles, no retractions, labored breathing, is not present, Breath sounds: are clear throughout, no decreased breath sounds, no stridor, no wheezing, 01:05 Abdomen/GI: Inspection: abdomen appears normal, Bowel sounds: active, all quadrants, Palpation: soft, in all quadrants, moderate abdominal tenderness, in the umbilical area and right upper quadrant, rebound tenderness, is not appreciated, involuntary guarding, is not appreciated, 01:05 Back: CVA tenderness, is absent, 01:05 Neuro: Orientation: to person, place \T\ time. Mentation: is normal, Motor: moves all fours, strength is normal, Sensation: is normal, Vital Signs: 00:46 BP 151 / 99; Pulse 69; Resp 18; Temp 97.2; Pulse Ox 100% ; Weight 78.93 kg; Height 5 br2 ft. 5 in. ; Pain 2/10; 01:50 BP 131 / 81; Pulse 61; Resp 18; Pulse Ox 96% ; Pain 2/10; kt5 02:53 Pulse 70; Resp 18; Pulse Ox 100% ; Pain 3/10; kt5 03:31 BP 122 / 71; Pulse 66; Resp 16; Temp 98.6; Pulse Ox 99% ; Pain 3/10; kt5 00:46 Body Mass Index 28.95 (78.93 kg, 165.1 cm) br2 00:46 Pain Scale: Adult br2 01:50 Pain Scale: Adult kt5 02:53 Pain Scale: Adult kt5 03:31 Pain Scale: Adult kt5 MDM: 00:41 Medical Screening Exam initiated cp 01:15 Differential diagnosis: gastritis, non-specific abd pain, pancreatitis, Peptic Ulcer cp Disease, Perf. Duodenal Ulcer, Perf. Gastric Ulcer, Pyelonephritis, Ureterolithiasis, urinary tract infection, choledocholithiasis. 02:05 Transition of care: After a detail discussion of the patient's case, care is cp transferred to [facility]. 02:05 Data reviewed: vital signs, nurses notes, lab test result(s). Awaiting: CT scan results. 02:15 Data reviewed: vital signs, nurses notes, lab test result(s), radiologic studies. ED tt7 course: I took over care of this patient from LUZ MARINA lee, this is a 54-year-old female who came in with abdominal pain, she is pending results of CT abdomen/pelvis, overall her laboratory studies are reassuring, no significant abnormalities other than urinalysis shows findings consistent with infection, she has been treated with pain medication, antiemetic, and 1 g of IV ceftriaxone. 03:27 ED course: CT abdomen/pelvis shows evidence of cystitis, no other acute findings, after tt7 completion of the patient's emergency department evaluation, I do not suspect a life-threatening or disabling process. Patient is medically stable and not in need of emergent medical intervention. I had a detailed discussion with the patient regarding the historical points, exam findings, emergency department evaluation, diagnostic results, and the discharge diagnosis. I instructed the patient on outpatient management of their condition. I discussed the need for outpatient follow-up with a primary care physician. I informed the patient on return precautions, including the need to return to the ED if symptoms do not improve, worsen, or if there are any questions or concerns that arise at home. The patient was discharged in stable condition. 01/27 00:50 Order name: CBC with Diff; Complete Time: 01:52 cp 01/27 01:52 Interpretation: Normal except: RBC 5.09. cp 01/27 00:50 Order name: CMP; Complete Time: :52 cp 01/27 01:52 Interpretation: Normal except: CL 110; GFR 88. cp 01/27 00:50 Order name: Lipase; Complete Time: 01:52 cp 01/27 00:50 Order name: UA Rfx Bill Cult if indicated; Complete Time: 01:52 cp 01/27 01:53 Interpretation: Normal except: [facility] Extremely Turbid; UUROB 1+; UESTR 500; UWBC >50; cp JAVIER Cx 2+. 01/27 00:50 Order name: Test, Urine; Complete Time: 01:52 cp 01/27 01:26 Order name: Urine Culture EDMS 01/27 00:50 Order name: CT Abd/Pelvis - IV Contrast Only cp 01/27 00:50 Order name: IV Saline Lock; Complete Time: 00:53 cp 01/27 00:50 Order name: Labs collected and sent; Complete Time: 00:53 cp Administered Medications: 00:59 CANCELLED (not available): morphineor iv 4 mg IVP once over 4 mins cp 01:11 Drug: Famotidine IVP 20 mg IVP once; dilute with 10 mL 0.9% NaCl; give over 2 minutes kt5 Route: IVP; Site: right forearm; 02:08 Follow up: Response: No adverse reaction kt5 01:11 Drug: fentaNYL (PF) IVP 50 mcg IVP once Route: IVP; Site: right forearm; kt5 02:08 Follow up: Response: No adverse reaction kt5 01:12 Drug: Ondansetron IVP 4 mg IVP once; over 2 minutes Route: IVP; Site: right forearm; kt5 02:08 Follow up: Response: No adverse reaction; Nausea is decreased kt5 01:12 Drug: NS 0.9% IV 1000 ml IV at 1 bolus Per protocol; to be given as a bolus over 60 kt5 minutes Route: IV; Rate: 1 bolus; Site: right forearm; 02:08 Follow up: IV Status: Completed infusion; IV Intake: 1000ml kt5 02:32 Drug: Rocephin IV 1 grams IV at calculated rate once; Given slow IV push per pharmacy kt5 instructions Route: IV; Rate: calculated rate; Site: right antecubital; 02:46 Follow up: Response: No adverse reaction kt5 Disposition: 03:27 Co-signature as Attending Physician, Justyn Angeles DO. tt7 Disposition Summary: 01/27/25 03:15 Discharge Ordered Notes: Location: Home tt7 Problem: new tt7 Symptoms: have improved tt7 Condition: Stable tt7 Diagnosis - Acute cystitis without hematuria tt7 - Abdominal pain, Generalized tt7 Followup: tt7 - With: Emergency Department - When: As needed - Reason: Followup: tt7 - With: Private Physician - When: 1 - 2 days - Reason: Recheck today's complaints, Re-evaluation by your physician Discharge Instructions: - Discharge Summary Sheet tt7 - Urinary Tract Infection, Adult, [id number] tt7 Forms: - Work release form eb - Medication Reconciliation Form tt7 - Antibiotic Education tt7 - Prescription Opioid Use tt7 - Patient Portal Instructions tt7 - Leadership Thank You Letter tt7 Prescriptions: - Cipro 500 mg Oral tablet - take 1 tablet ORAL route every 12 hours for 5 days; 10 tablet; Refills: 0, tt7 Product Selection Permitted Signatures: Dispatcher [employer] EDMS Apolinar Lee PA-C PA-C cp Riddle, Belinda RN RN br2 Hannah Kee RN RN kt5 Justyn Angeles, DO tt7 Corrections: (The following items were deleted from the chart) 00:50 00:50 Abdomen Pelvis W Con+CT.RAD.BRZ ordered. EDMS EDMS 00:59 00:50 morphine IVP or IV 4 mg IVP once over 4 mins ordered. cp cp
--- NOTE | 2025-01-27 03:16 | ER ---
Nurse's Notes [facility] Name: Dee Ruano Age: 54 yrs Sex: Female : 1970 Arrival Date: 01/27/2025 Time: 00:29 Bed 15 Private MD: Diagnosis: Acute cystitis without hematuria;Abdominal pain, Generalized Presentation: 01/27 00:46 Chief complaint: Patient states: WOKE UP AT [facility] WITH SEVERE AB PAIN br2 (PRESSURE) THAT RADIATES TO LOWER BACK. DENIES N/V/D. Coronavirus screen: Client denies travel out of the [place] in the last 14 days. Ebola Screen: Patient denies exposure to infectious person. Initial Sepsis Screen: Does the patient meet any 2 criteria? No. Patient's initial sepsis screen is negative. Does the patient have a suspected source of infection? No. Patient's initial sepsis screen is negative. Risk Assessment: Do you want to hurt yourself or someone else? Patient reports no desire to harm self or others. Onset of symptoms was January 27, 2025 at 00:00. 00:46 Method Of Arrival: Wheelchair br2 00:46 Acuity: AMINTA 3 br2 Triage Assessment: 00:49 General: Appears uncomfortable, Behavior is calm, cooperative. Pain: Complains of pain br2 in right upper quadrant, left upper quadrant, right lower quadrant and left lower quadrant Pain radiates to lumbar area, left low back and right low back Pain currently is 2 out of 10 on a pain scale. Historical: - Allergies: 00:49 NKA; br2 - PMHx: 00:49 Depression; EBV; Kandis Dobbs Virus; elevated liver enzymes-not supposed to take br2 NSAIDS; Hypothyroidism; Migraines; - PSHx: 00:49 Cholecystectomy; hernia repair; panniculectomy ; March 2023; pelvic lift/bladder br2 sling; Total abdominal hysterectomy; - Immunization history:: Adult Immunizations up to date. - Infectious Disease History:: Denies. - Social history:: Smoking status: Patient denies any tobacco usage or history of. Patient/guardian denies using alcohol, street drugs. Screenin:48 [facility] ED Fall Risk Assessment (Adult) History of falling in the last 3 months, kt5 including since admission No falls in past 3 months (0 pts) Confusion or Disorientation No (0 pts) Intoxicated or Sedated No (0 pts) Impaired Gait No (0 pts) Mobility Assist Device Used No (0 pt) Altered Elimination No (0 pt) Score/Fall Risk Level 0 - 2 = Low Risk Oriented to surroundings, Maintained a safe environment. Abuse screen: Denies threats or abuse. Nutritional screening: No deficits noted. Tuberculosis screening: No symptoms or risk factors identified. Assessment: 00:48 General: Appears in no apparent distress. uncomfortable, Behavior is calm, cooperative, kt5 appropriate for age. Pain: Complains of pain in abdomen Pain radiates to back Pain currently is 8 out of 10 on a pain scale. Quality of pain is described as pressure, sharp, Pain began suddenly, Is intermittent. Neuro: Vieira Agitation-Sedation Scale (RASS): 0 - Alert and Calm Level of Consciousness is awake, alert, obeys commands, Oriented to person, place, time, situation. Cardiovascular: No deficits noted. Denies chest pain, Heart tones S1 S2 present Capillary refill < 3 seconds Clubbing of nail beds is absent JVD is absent Pulses are all present. Edema is absent. Respiratory: No deficits noted. Airway is patent Trachea midline Respiratory effort is even, unlabored, Respiratory pattern is regular, symmetrical, Breath sounds are clear bilaterally. GI: Bowel sounds present X 4 quads. Abd is soft X 4 quads Abdomen is tender to palpation X 4 quads. Reports lower abdominal pain, upper abdominal pain, Pain is 8 out of 10 on a pain scale. : No deficits noted. Reports foul smell. EENT: No deficits noted. No signs and/or symptoms were reported regarding the EENT system. Derm: No deficits noted. Skin is intact, is healthy with good turgor, Skin is dry, Skin is pink, warm \T\ dry. 01:34 General: pt to ct with tech. kt5 01:50 General: pt back from ct and tolerated well. kt5 01:50 Reassessment: Patient appears in no apparent distress at this time. Patient and/or kt5 family updated on plan of care and expected duration. Pain level reassessed. Patient is alert, oriented x 3, equal unlabored respirations, skin warm/dry/pink. Patient denies pain at this time. Patient states feeling better. Patient states symptoms have improved. 02:53 Reassessment: Patient appears in no apparent distress at this time. Patient and/or kt5 family updated on plan of care and expected duration. Pain level reassessed. Patient is alert, oriented x 3, equal unlabored respirations, skin warm/dry/pink. Patient denies pain at this time. Patient states feeling better. Patient states symptoms have improved. 03:56 Reassessment: Patient appears in no apparent distress at this time. Patient and/or kt5 family updated on plan of care and expected duration. Pain level reassessed. Patient is alert, oriented x 3, equal unlabored respirations, skin warm/dry/pink. Patient denies pain at this time. Patient states feeling better. Patient states symptoms have improved. Vital Signs: 00:46 BP 151 / 99; Pulse 69; Resp 18; Temp 97.2; Pulse Ox 100% ; Weight 78.93 kg; Height 5 br2 ft. 5 in. ; Pain 2/10; 01:50 BP 131 / 81; Pulse 61; Resp 18; Pulse Ox 96% ; Pain 2/10; kt5 02:53 Pulse 70; Resp 18; Pulse Ox 100% ; Pain 3/10; kt5 03:31 BP 122 / 71; Pulse 66; Resp 16; Temp 98.6; Pulse Ox 99% ; Pain 3/10; kt5 00:46 Body Mass Index 28.95 (78.93 kg, 165.1 cm) br2 00:46 Pain Scale: Adult br2 01:50 Pain Scale: Adult kt5 02:53 Pain Scale: Adult kt5 03:31 Pain Scale: Adult kt5 ED Course: 00:32 Patient arrived in ED. gm2 00:41 Apolinar Lee PA-C is PHCP. cp 00:41 Justyn Angeles DO is Attending Physician. cp 00:48 Patient has correct armband on for positive identification. Bed in low position. Call kt5 light in reach. Side rails up X 1. Client placed on continuous cardiac and pulse oximetry monitoring. NIBP monitoring applied. Door closed. Noise minimized. Warm blanket given. Pillow given. 00:48 Inserted saline lock: 20 gauge in right forearm, using aseptic technique. Blood kt5 collected. Flushed with 10 mL NS. 00:49 Triage completed. br2 00:49 Arm band placed on. br2 00:53 CBC with Diff Sent. kt5 00:53 CMP Sent. kt5 00:53 Test, Urine Sent. kt5 00:53 UA Rfx Bill Cult if indicated Sent. kt5 01:11 Hannah Kee, RN is Primary Nurse. kt5 01:24 No provider procedures requiring assistance completed. kt5 01:42 CT Abd/Pelvis - IV Contrast Only In Process Unspecified. EDMS 03:31 Provided Education on: follow up and meds. kt5 03:31 IV discontinued, intact, bleeding controlled, No redness/swelling at site. Pressure kt5 dressing applied. Administered Medications: 00:59 CANCELLED (not available): morphineor iv 4 mg IVP once over 4 mins cp 01:11 Drug: Famotidine IVP 20 mg IVP once; dilute with 10 mL 0.9% NaCl; give over 2 minutes kt5 Route: IVP; Site: right forearm; 02:08 Follow up: Response: No adverse reaction kt5 01:11 Drug: fentaNYL (PF) IVP 50 mcg IVP once Route: IVP; Site: right forearm; kt5 02:08 Follow up: Response: No adverse reaction kt5 01:12 Drug: Ondansetron IVP 4 mg IVP once; over 2 minutes Route: IVP; Site: right forearm; kt5 02:08 Follow up: Response: No adverse reaction; Nausea is decreased kt5 01:12 Drug: NS 0.9% IV 1000 ml IV at 1 bolus Per protocol; to be given as a bolus over 60 kt5 minutes Route: IV; Rate: 1 bolus; Site: right forearm; 02:08 Follow up: IV Status: Completed infusion; IV Intake: 1000ml kt5 02:32 Drug: Rocephin IV 1 grams IV at calculated rate once; Given slow IV push per pharmacy kt5 instructions Route: IV; Rate: calculated rate; Site: right antecubital; 02:46 Follow up: Response: No adverse reaction kt5 Medication: 00:48 VIS not applicable for this client. kt5 Intake: 02:08 IV: 1000ml; Total: 1000ml. kt5 Outcome: 03:15 Discharge ordered by . tt7 03:56 Discharged to home ambulatory, with family, kt5 03:56 Condition: improved 03:56 Discharge instructions given to patient, Instructed on discharge instructions, follow up and referral plans. Demonstrated understanding of instructions, follow-up care, medications, Prescriptions given X 1, 04:00 Patient left the ED. kt5 Addendum: 01/31/2025 13:26 Addendum: Culture Results: Phone call Attempt #1 patient returned call from previous a p3 staff members notification. patient reports she will be going to visit her PCP today and will notify him of her results. Signatures: Dispatcher [facility] Apolinar Lee PA-C PA-C cp Prokisch, Amanda RN RN ap3 María Justin 2 Katelynn Jules RN RN br2 Hannah Kee RN RN kt5 Justyn Angeles, DO [place] tt7
[2025-01-27 04:10] VITALS: BP 122/71; TEMP 98.6; O2SAT 99
== END 2025-01-27 04:00 | disposition home or self-care (01) ==
LOC: ER 00:29
DX: N30.00 Acute cystitis without hematuria (principal)
CPT/HCPCS: 87088; 85025; 81001; 87086; 36415; 81025; 87077; 87186; 83690; 80053; 74177; 99284; Q9967; J3010; J2405; J7030; J0696